=== PATIENT | male | born 1940 | race Caucasian/White ===

== ENCOUNTER 2016-11-10 16:33 | Observation (INO) | payer MEDICARE, OTHER ==
[~2016-11-10] VITALS: Ht 172.7 cm; Wt 70.0 kg
[~2016-11-10 16:33] MED LIST: AGGR20025 PO; ARIC10TA PO; AZIL1TAB2 PO; COMT200T PO; FEXO15TA PO; HYDR-3533 PO; HYDR-3580 PO; IRON18TA2 PO; MELA1CAP PO; MIDO5TAB PO; MULTTAB22 PO; NAME10TA PO; PENI500T PO; PRAV20TA2 PO; SINE25TA PO; STOO100C PO; VITA10002 PO
[2016-11-10 16:40] VITALS: BP 83/56; PULSE 78; RESP 16; TEMP 97.6; O2SAT 96
[2016-11-10] MEDS ORDERED: SODIUM CHLORIDE 0.9% FLUSH 5 ML FLUSH IVF PRN (17:00)
[2016-11-10] MEDS ORDERED: LIDOCAINE HCL 1% 50 ML VIAL INFIL ONE (17:00)
[2016-11-10] MEDS ORDERED: AGGR20025 PO (17:03)
[2016-11-10] MEDS ORDERED: VITA250T5 PO (17:03)
[2016-11-10] MEDS ORDERED: CYAN1000P IM (17:03)
[2016-11-10] MEDS ORDERED: [UNRECOGNIZED DRUG - CODE] (17:03)
--- NOTE | 2016-11-10 17:09 | PD ---
HPI Chief Complaint: Dizziness Time Seen by Provider: 16:47 Travel History International Travel<30 days: No Contact w/Intl Traveler<30days: No Traveled to known affect area: No History of Present Illness HPI 76-year-old male with history of Parkinson's disease, orthostatic hypotension, here for evaluation of frequent falls over the last 3 days as well as left hand and wrist laceration. At around 2:00 PM today the patient fell to the ground. He states he became very lightheaded. He believes it was a brief loss of consciousness. He landed onto his buttocks. During this fall he sustained a laceration to his left hand at the base of his fifth finger as well as the volar aspect of his wrist. He believes these lacerations were sustained from his walker. He is complaining of lower back and neck pain which is chronic for him, however worse after the fall. He denies head injury. He is on Aggrenox. No fevers, chills, cough, or recent illness. No chest pain or dyspnea. Fall was unwitnessed. According to the patient's the patient has been falling more frequently over the last 3 days. The patient's blood pressure was noted to be 83/56 in triage. Date of last tetanus was in 2014. The patient's neurologist is Dr. Eisenberg. [facility] Past Medical History Hx Anticoagulant Therapy: Yes Arthritis: Yes Cardiac Catheterization: Yes Cardiovascular Problems: No High Cholesterol: Yes Cerebrovascular Accident: Yes Diminished Hearing: No (BILATERAL HEARING AIDES-NOT IN AT THE MOMENT) Herniated Disk: Yes Musculoskeletal: Yes Neurologic: No Parkinson's Disease: Yes Respiratory: No Immunizations Current: Yes Past Surgical History Joint Replacement: Yes (RT KNEE) Neurologic Surgery: Yes (PARKINSONS) Social History Alcohol Use: Yes (OCCASIONAL) Tobacco Use: No Substance Use: No Allergies-Medications (Allergen,Severity, Reaction): Coded Allergies: No Known Allergies (Verified , 08/12/16) Reported Meds & Prescriptions Reported Meds & Active Scripts Active Penicillin V Potassium 500 Mg Tab 500 Mg PO Q6H Reported Northera (Droxidopa) 100 Mg Cap Aggrenox (Dipyridamole/Aspirin) 200-25 Mg Cap 1 Cap PO BID Vitamin B-12 (Cyanocobalamin) 250 Mcg Tab 250 Mcg PO BID Stool Softener (Docusate Sodium) 100 Mg Cap 1 Tab PO DAILY PRN Multi For Him (Multiple Vitamins W/ Minerals) 1 Tab Tab 1 Tab PO DAILY Iron (Ferrous Fumarate) 18 Mg Tab 18 Mg PO DAILY PRN Melatonin 1 Mg Cap Mg PO HS Midodrine 5 Mg Tab 5 Mg PO TID PRN Namenda (Memantine) 10 Mg Tab 10 Mg PO BID ween off to d/c Aricept (Donepezil) 10 Mg Tab 10 Mg PO HS Hydrocodone-Acetaminophen 7.5-325 mg Tab 1 Tab PO Q4H PRN Rosa Allergy (Fexofenadine HCl) 180 Mg Tab 180 Mg PO DAILY Pravastatin 20 Mg Tab 20 Mg PO DAILY Azilect (Rasagiline) 1 Mg Tab 1 Mg PO DAILY Sinemet (Carbidopa-Levodopa) 25-100 Mg Tab 1 Tab PO QID Comtan (Entacapone) 200 Mg Tab 200 Mg PO QID administered concomitantly with each levodopa/carbidopa dose Review of Systems Except as stated in HPI: all other systems reviewed are Neg Physical Exam Narrative GENERAL: Well-developed, well-nourished, awake, alert, no acute distress. SKIN: Warm and dry. To the dorsal aspect of left hand at base of fifth finger, moderate depth, no apparent tendon or ligamentous injury, no visible contamination, no active bleeding. There is a horizontal laceration over the anterior/distal left wrist with moderate depth, no exposed tendons or ligaments , no visible contamination, no active bleeding. HEAD: Atraumatic. Normocephalic. EYES: Pupils equal and round. No scleral icterus. No injection or drainage. ENT: No nasal bleeding or discharge. Mucous membranes pink and moist. NECK: Trachea midline. No JVD. CARDIOVASCULAR: Regular rate and rhythm. No murmur appreciated. RESPIRATORY: No accessory muscle use. Clear to auscultation. Breath sounds equal bilaterally. GASTROINTESTINAL: Abdomen soft, non-tender, nondistended. MUSCULOSKELETAL: No obvious deformities. No clubbing. No cyanosis. No edema. Normal range of motion in all joints and extremities. Specifically there is normal range of motion of flexion and extension in all fingers in the left hand as well as left wrist. Pelvis is stable. Normal range of motion in bilateral lower extremities without shortening or rotational deformities. Mild midline cervical spine and lumbar spine tenderness without obvious step-off. NEUROLOGICAL: Awake and alert. No obvious cranial nerve deficits. Motor grossly within normal limits. Normal speech. PSYCHIATRIC: Appropriate mood and affect; insight and judgment normal. Data Data Last Documented VS Vital Signs Date Time Temp Pulse Resp B/P Pulse Ox O2 Delivery O2 Flow Rate FiO2 11/10/16 19:18 72 112/54 78 99/45 11/10/16 18:06 98 Room Air 11/10/16 16:40 97.6 16 Orders Electrocardiogram (11/10/16 16:56) Basic Metabolic Panel (Bmp) (11/10/16 16:56) Ckmb (Isoenzyme) Profile (11/10/16 16:56) Complete Blood Count With Diff (11/10/16 16:56) Prothrombin Time / Inr (Pt) (11/10/16 16:56) Act Partial Throm Time (Ptt) (11/10/16 16:56) Troponin I (11/10/16 16:56) Chest, Single Ap (11/10/16 16:56) Ecg Monitoring (11/10/16 16:56) Bilateral Bp Monitoring (11/10/16 16:56) Iv Access Insert/Monitor (11/10/16 16:56) Oximetry (11/10/16 16:56) Oxygen Administration (11/10/16 16:56) Sodium Chloride 0.9% Flush (Ns Flush) (11/10/16 17:00) Lidocaine 1% Inj (50 Ml) (Xylocaine 1% I (11/10/16 17:00) Ct Brain W/O Iv Contrast(Rout) (11/10/16 ) Ct Cerv Spine W/O Contrast (11/10/16 ) Ct Thor Spine W/O Contrast (11/10/16 ) Ct Lumb Spine W/O Contrast (11/10/16 ) Urinalysis - C+S If Indicated (11/10/16 16:56) Hand, Complete (Mmo0edl) (11/10/16 ) Orthostatic Vital Signs (11/10/16 18:00) CKMB (11/10/16 17:57) CKMB% (11/10/16 17:57) Labs Laboratory Tests Test 11/10/16 17:57 White Blood Count 7.5 TH/MM3 Red Blood Count 3.56 MIL/MM3 Hemoglobin 11.2 GM/DL Hematocrit 33.9 % Mean Corpuscular Volume 95.3 FL Mean Corpuscular Hemoglobin 31.4 PG Mean Corpuscular Hemoglobin 32.9 % Concent Red Cell Distribution Width 11.9 % Platelet Count 191 TH/MM3 Mean Platelet Volume 6.9 FL Neutrophils (%) (Auto) 84.6 % Lymphocytes (%) (Auto) 9.1 % Monocytes (%) (Auto) 5.5 % Eosinophils (%) (Auto) 0.2 % Basophils (%) (Auto) 0.6 % Neutrophils # (Auto) 6.4 TH/MM3 Lymphocytes # (Auto) 0.7 TH/MM3 Monocytes # (Auto) 0.4 TH/MM3 Eosinophils # (Auto) 0.0 TH/MM3 Basophils # (Auto) 0.0 TH/MM3 CBC Comment DIFF FINAL Differential Comment Prothrombin Time 10.6 SEC Prothromb Time International 1.0 RATIO Ratio Activated Partial 24.7 SEC Thromboplast Time Sodium Level 142 MEQ/L Potassium Level 4.9 MEQ/L Chloride Level 110 MEQ/L Carbon Dioxide Level 24.4 MEQ/L Anion Gap 8 MEQ/L Blood Urea Nitrogen 23 MG/DL Creatinine 1.30 MG/DL Estimat Glomerular Filtration 53 ML/MIN Rate Random Glucose 104 MG/DL Calcium Level 8.1 MG/DL Total Creatine Kinase 120 U/L Creatine Kinase MB 1.2 NG/ML Troponin I LESS THAN 0.02 NG/ML MDM Medical Decision Making Medical Screen Exam Complete: Yes Emergency Medical Condition: Yes Medical Record Reviewed: Yes Interpretation(s) EKG: Sinus, rate 63, normal axis, normal intervals, no acute ischemic abnormality. Differential Diagnosis Orthostatic hypotension, intracranial trauma, cervical spine injury, lumbar spine injury, left hand/wrist laceration, left hand fracture, anemia, dehydration/electrolyte abnormality Narrative Course Initial vital signs show heart rate 70, blood pressure 83/56, pulse ox 96% on room air, oral temp 97.6F. CBC shows WBC 7.5, hemoglobin 11.2, hematocrit 33.9, platelets 191. Neutrophils 84.6%. BMP is remarkable for BUN 23, creatinine 1.3, GFR 53, otherwise unremarkable. Cardiac enzymes are negative. Chest x-ray shows no acute disease. CT head read as negative for an acute process. CT cervical spine shows multilevel degenerative disc disease, no acute fracture. CT thoracic spine shows moderate degenerative disc disease, no acute fracture. CT lumbar spine shows no acute fracture, mild degenerative retrolisthesis between L1 and L4, no significant central canal stenosis, severe degenerative disc disease between L1 and L4. Left hand and wrist lacerations repaired. See procedure note. Orthostatic vital signs were attempted, however the patient could not stand as he became very dizzy. Patient is clearly a major fall risk and is unsafe to be discharged home. The patient's agrees that she will be unable to take care of him at home. He will be admitted for overnight observation for frequent falls, orthostatic hypotension. Case discussed with [facility] hospitalist Dr. Portillo. The patient will be admitted to their service under Dr. Story. Procedures Procedure Narrative LACERATION #1 LOCATION: Left anterior/distal forearm LENGTH: 3.5 cm NUMBER OF STITCHES/JOSE M: Five 4-0 nylon simple interrupted sutures REPAIR: The area of the laceration was prepped with Betadine and sterilely draped. The laceration was infiltrated with 3 cc of 1% lidocaine. The wound was copiously irrigated and explored without evidence of foreign body, tendon injury or neurovascular injury. The wound was closed using Five 4-0 nylon simple interrupted sutures. This was a single layer repair. A sterile dressing was applied. The patient was advised to keep the dressing clean and dry. Patient tolerated the procedure well. LACERATION #2 LOCATION: Left fifth finger LENGTH: 6 cm NUMBER OF STITCHES/JOSE M: Ten 5-0 simple interrupted nylon sutures REPAIR: The area of the laceration was prepped with Betadine and sterilely draped. The laceration was infiltrated with 2 cc of 1% lidocaine. The wound was copiously irrigated and explored without evidence of foreign body, tendon injury or neurovascular injury. The wound was closed using Ten 5-0 simple interrupted nylon sutures. This was a single layer repair. A sterile dressing was applied. The patient was advised to keep the dressing clean and dry. Patient tolerated the procedure well. Diagnosis Primary Impression: Frequent falls Additional Impressions: Orthostatic hypotension Laceration of left hand Qualified Code: S61.412A - Laceration of left hand, initial encounter Admitting Information Admitting Physician Requests: Observation Joaquín Bobo MD Nov 10, 2016 17:09
--- NOTE | 2016-11-10 17:44 | RADHPO ---
EXAM DATE/TIME: 11/10/2016 17:08 [facility] COMPARISON: No previous studies available for comparison. INDICATIONS : Syncopal episodes with recent falls. MEDICAL HISTORY : Cardiovascular disease. Parkinson's SURGICAL HISTORY : Cardiac catheterization ENCOUNTER: Initial ACUITY: 2 days PAIN SCORE: 0/10 LOCATION: chest FINDINGS: A single view of the chest demonstrates the lungs to be symmetrically aerated without evidence of mas s, infiltrate or effusion. The cardiomediastinal contours are unremarkable. Osseous structures are intact. CONCLUSION: No acute disease. Girish Metz MD FACR on November 10, 2016 at 17:42 Board Certified Radiologist. This report was verified electronically.
--- NOTE | 2016-11-10 17:47 | RADHPO ---
EXAM DATE/TIME: 11/10/2016 17:19 [facility] COMPARISON: CT BRAIN W/O CONTRAST, January 11, 2015, 21:38. INDICATIONS : Syncopal episode with multiple falls. RADIATION DOSE: 61.20 CTDIvol (mGy) MEDICAL HISTORY : Cerebrovascular disease. Cardiovascular disease SURGICAL HISTORY : None. ENCOUNTER: Initial ACUITY: 2 days PAIN SCALE: 0/10 LOCATION: cranial TECHNIQUE: Multiple contiguous axial images were obtained of the head. Using automated exposure control and adjustment of the mA and/or kV according to patient size, radiation dose was kept as low as reasonably achievable to obtain optimal diagnostic quality images. FINDINGS: CEREBRUM: The ventricles are normal for age. No evidence of midline shift, mass lesion, hemorrha ge or acute infarction. No extra-axial fluid collections are seen. POSTERIOR FOSSA: The cerebellum and brainstem are intact. The 4th ventricle is midline. The cer ebellopontine angle is unremarkable. EXTRACRANIAL: The visualized portion of the orbits is intact. SKULL: The calvaria is intact. No evidence of skull fracture. CONCLUSION: Negative for an acute process. Girish Metz MD FACR on November 10, 2016 at 17:45 Board Certified Radiologist. This report was verified electronically.
--- NOTE | 2016-11-10 17:52 | RADHPO ---
EXAM DATE/TIME: 11/10/2016 17:12 [facility] COMPARISON: No previous studies available for comparison. INDICATIONS : Left hand pain after fall. MEDICAL HISTORY : None. SURGICAL HISTORY : None. ENCOUNTER: Initial ACUITY: 1 day PAIN SCORE: 7/10 LOCATION: Left hand FINDINGS: There are degenerative changes present in the carpus. Alignment is anatomic. Fracture is not appreciated. CONCLUSION: Degenerative changes without fracture. Girish Metz MD FACR on November 10, 2016 at 17:42 Board Certified Radiologist. This report was verified electronically.
[2016-11-10 18:06] VITALS: O2SAT 98
[2016-11-10 18:06] LABS: AUTOMATED NEUTROPHIL # 6.4 TH/MM3 (1.8-7.7); BASOPHIL % 0.6 % (0.0-2.0); EOSINOPHIL % 0.2 % (0.0-4.0); HEMATOCRIT 33.9 % (39.0-51.0); LYMPH % 9.1 % (9.0-44.0); LYMPHOCYTE # 0.7 TH/MM3 (1.0-4.8); MEAN CELL VOLUME 95.3 FL (80.0-100.0); MEAN CORPUSCULAR HEMOGLOBIN 31.4 PG (27.0-34.0); MEAN CORPUSCULAR HGB CONC 32.9 % (32.0-36.0); MONO % 5.5 % (0.0-8.0); NEUT % 84.6 % (16.0-70.0); PLATELET COUNT 191 TH/MM3 (150-450); RED BLOOD COUNT 3.56 MIL/MM3 (4.50-5.90); RED CELL DISTRIBUTION WIDTH 11.9 % (11.6-17.2); WHITE BLOOD COUNT 7.5 TH/MM3 (4.0-11.0)
--- NOTE | 2016-11-10 18:06 | RADHPO ---
EXAM DATE/TIME: 11/10/2016 17:19 [facility] COMPARISON: CT CERVICAL SPINE W/O CONTRAST, January 11, 2015, 23:13. INDICATIONS : Trauma, fall. RADIATION DOSE: 26.69 CTDIvol (mGy) MEDICAL HISTORY : Cerebrovascular disease. Cardiovascular disease SURGICAL HISTORY : None. ENCOUNTER: Initial ACUITY: 2 days PAIN SCALE: 0/10 LOCATION: Neck TECHNIQUE: Volumetric scanning of the cervical spine was performed. Multiplanar reconstructions i n the sagittal, coronal and oblique axial planes were performed. Using automated exposure control a nd adjustment of the mA and/or kV according to patient size, radiation dose was kept as low as reason ably achievable to obtain optimal diagnostic quality images. FINDINGS: Sagittal and coronal reconstructions show multilevel degenerative disc disease with los s of disc height at just about every cervical level. There is a minimal Grade I retrolisthesis of C3 on 4. Minimal uncovertebral ridging is seen at predominantly C3-4 through C5-6. Vertebral body height s are maintained without fracture. There is some facet hypertrophy at multiple cervical levels but m ost prominent at C3-4. Minimal uncovertebral ridging is seen at C3-4 and C4-5 as well. Detailed axia l images as follows: C2-C3: The bony spinal canal is normal in size. No evidence of disc bulge or herniation. The neura l foramina are bilaterally patent. C3-C4: Right-sided facet hypertrophy. There is also some uncovertebral ridging. The combination garber s result in some narrowing of both neural foramina. Spinal canal is adequate. C4-C5: Uncovertebral ridging. Mild facet hypertrophy. There is some encroachment on the right neur al foramina but I believe the spinal canal and neural foramina remain adequate. C5-C6: The bony spinal canal is normal in size. No evidence of disc bulge or herniation. The neura l foramina are bilaterally patent. C6-C7: The bony spinal canal is normal in size. No evidence of disc bulge or herniation. The neura l foramina are bilaterally patent. C7-T1: The bony spinal canal is normal in size. No evidence of disc bulge or herniation. The neura l foramina are bilaterally patent. CONCLUSION: 1. Multilevel degenerative disc disease with loss of disc height at just about cervical level. 2. Minimal Grade I retrolisthesis of C3 on 4. Otherwise, no acute fracture. Frank Reynolds MD on November 10, 2016 at 17:50 Board Certified Radiologist. This report was verified electronically.
--- NOTE | 2016-11-10 18:12 | RADHPO ---
EXAM DATE/TIME: 11/10/2016 17:27 [facility] COMPARISON: No previous studies available for comparison. INDICATIONS : Trauma, fall. RADIATION DOSE: 17.30 CTDIvol (mGy) ; Combined studies - Thoracic Spine/Lumbar Spine MEDICAL HISTORY : Cerebrovascular disease. Cardiovascular disease SURGICAL HISTORY : None. ENCOUNTER: Initial ACUITY: 1 day PAIN SCALE: 0/10 LOCATION: Paraspinal TECHNIQUE: Volumetric scanning of the thoracic spine was performed. Multiplanar reconstructions in the sagittal , coronal and oblique axial planes were performed. Using automated exposure control and adjustment o f the mA and/or kV according to patient size, radiation dose was kept as low as reasonably achievable to obtain optimal diagnostic quality images. FINDINGS: The vertebral bodies of the thoracic spine are in normal alignment without evidence of subluxation. Vertebral body height is maintained. No fractures are seen. T1-T2: Normal. T2-T3: The thecal sac has a normal diameter. No evidence of disc bulge or protrusion. T3-T4: The thecal sac has a normal diameter. No evidence of disc bulge or protrusion. T4-T5: The thecal sac has a normal diameter. No evidence of disc bulge or protrusion. T5-T6: The thecal sac has a normal diameter. No evidence of disc bulge or protrusion. T6-T7: The thecal sac has a normal diameter. No evidence of disc bulge or protrusion. T7-T8: The thecal sac has a normal diameter. No evidence of disc bulge or protrusion. T8-T9: The thecal sac has a normal diameter. No evidence of disc bulge or protrusion. T9-T10: The thecal sac has a normal diameter. No evidence of disc bulge or protrusion. T10-T11: The thecal sac has a normal diameter. No evidence of disc bulge or protrusion. T11-T12: The thecal sac has a normal diameter. No evidence of disc bulge or protrusion. T12-L1: The thecal sac has a normal diameter. No evidence of disc bulge or protrusion. CONCLUSION: 1. There is moderate degenerative disc disease. No acute fracture or spondylolisthesis. No significan t bony canal stenosis. Small Schmorl's nodes inferiorly at T10-11 and T11-12. Clifford Fields MD on November 10, 2016 at 18:05 Board Certified Radiologist. This report was verified electronically.
[2016-11-10 18:13] LABS: CHLORIDE 110 MEQ/L (98-107); POTASSIUM 4.9 MEQ/L (3.5-5.1); SODIUM (NA) 142 MEQ/L (136-145)
[2016-11-10 18:14] LABS: HEMO FLAGS DIFF FINAL
--- NOTE | 2016-11-10 18:15 | RADHPO ---
EXAM DATE/TIME: 11/10/2016 17:27 [facility] COMPARISON: No previous studies available for comparison. INDICATIONS : Trauma, fall. RADIATION DOSE: 17.30 CTDIvol (mGy) ; Combined studies - Thoracic Spine/Lumbar Spine MEDICAL HISTORY : None SURGICAL HISTORY : None. ENCOUNTER: Initial ACUITY: 2 days PAIN SCALE: 7/10 LOCATION: lower back TECHNIQUE: Volumetric scanning of the lumbar spine was performed. Multiplanar reconstructions in the sagittal, coronal and oblique axial planes were performed. Using automated exposure control and adjustment of the mA and/or kV according to patient size, radiation dose was kept as low as reasonably achievable t o obtain optimal diagnostic quality images. FINDINGS: There is a mild rotatory lumbar levoscoliosis. There is a minimal retrolisthesis of L1 on L2 on L3 on L4. No significant central canal stenosis. No acute fracture. There is bony neural foraminal stenosi s on the right side at L4-5 and L3-4 and L2-3. CONCLUSION: 1. No acute fracture. Mild degenerative retrolisthesis between L1 and L4 as above. No significant tony tral canal stenosis. Severe degenerative disc disease between L1 and L4. Clifford Fields MD on November 10, 2016 at 18:10 Board Certified Radiologist. This report was verified electronically.
[2016-11-10 18:16] LABS: ANION GAP 8 MEQ/L (5-15); BICARBONATE 24.4 MEQ/L (21.0-32.0); BLOOD UREA NITROGEN 23 MG/DL (7-18)
[2016-11-10 18:18] LABS: APTT (PATIENT) 24.7 SEC (24.3-30.1); PROTHROMBIN TIME - PATIENT 10.6 SEC (9.8-11.6)
[2016-11-10 18:19] LABS: GLOMERULAR FILTRATION RATE 53 ML/MIN (>89)
[2016-11-10 18:22] LABS: CREATINE KINASE 120 U/L (39-308)
[2016-11-10 18:35] LABS: CKMB 1.2 NG/ML (0.5-3.6)
[2016-11-10 19:18] VITALS: BP_SYST 112; BP_SYST 99; BP_DIAS 45; BP_DIAS 54
[2016-11-10] MEDS ORDERED: SODIUM CHLOR 0.9% 1000 ML INJ 1,000 ML IV SCH (19:33)
[2016-11-10 19:36] LABS: BLOOD, URINE NEG (NEG); GLUCOSE,URINE NEG (NEG); KETONE, URINE TRACE mg/dL (NEG); NITRITE,URINE NEG (NEG)
[2016-11-10 19:42] LABS: URINE COLOR DARK-YELLOW (YELLW/STRAW)
[2016-11-10 19:43] LABS: COMMENT (UR) CULT NOT INDICATED; CULTURE IF INDICATED CULT NOT INDICATED; RBC, URINE 0-2 /hpf (0-3); SQUAMOUS EPITHELIAL CELL URINE 0-5 /hpf (0-5); WBC, URINE 0-2 /hpf (0-5)
[2016-11-10 20:30] VITALS: BP 108/62; PULSE 77; RESP 16; O2SAT 95
[2016-11-10] MEDS ORDERED: DOCUSATE SODIUM 100 MG CAP PO PRN (21:00)
[2016-11-10] MEDS ORDERED: MIDODRINE 5 MG TAB PO PRN (21:00)
[2016-11-10] MEDS ORDERED: COMTAN 200 MG PO SCH (21:30)
[2016-11-10] MEDS: DONEPEZIL HCL 5 MG TAB PO SCH (21:37)
[2016-11-10] MEDS: CARBIDOPA/LEVODOPA 25 MG/100 MG TAB PO SCH (21:37)
[2016-11-10] MEDS: DIPYRIDAMOLE/ASPIRIN 200 MG/25 MG CAP PO SCH (21:37)
[2016-11-10] MEDS: MEMANTINE HCL 10 MG TAB PO SCH (21:37)
[2016-11-10] MEDS: SODIUM CHLOR 0.9% 1000 ML INJ 1,000 ML IV SCH (21:38)
[2016-11-10] MEDS: ACETAMINOPHEN/HYDROcodone 325 MG/7.5 MG TAB PO PRN (23:15)
[2016-11-10 23:19] VITALS: BP 114/70; PULSE 68; RESP 18; O2SAT 99
[2016-11-11] VITALS (8 sets, daily range): BP systolic 113–156; BP diastolic 63–85; PULSE 16–81; RESP 16–20; TEMP 96.2–98.5; O2SAT 93–100
--- NOTE | 2016-11-11 05:01 | EKG ---
Date Performed: 11/10/2016 Time Performed: 18:07:16 PTAGE: 76 years EKG: Sinus rhythm Normal ECG NO SIGNIFICANT CHANGE FROM PRIOR ELECTROCARDIOGRAM. PREVIOUS TRACING : 08/12/2016 20.02 DOCTOR: Sacha Fink Interpretating Date/Time 11/11/2016 04:59:48
[2016-11-11] MEDS ORDERED: AZILECT 1 MG PO SCH (09:00)
[2016-11-11] MEDS: MULTIVITAMIN HEMATINIC THERAPEUTIC TAB PO SCH (09:00)
[2016-11-11] MEDS ORDERED: FERROUS FUMARATE 325 MG TAB (106 MG ELEMENTAL IRON) PO PRN (09:00)
[2016-11-11] MEDS: CARBIDOPA/LEVODOPA 25 MG/100 MG TAB PO SCH ×4 (09:12→21:23)
[2016-11-11] MEDS: DIPYRIDAMOLE/ASPIRIN 200 MG/25 MG CAP PO SCH ×2 (09:12→21:22)
[2016-11-11] MEDS: CYANOCOBALAMIN 100 MCG TAB PO SCH ×2 (09:12→21:22)
[2016-11-11] MEDS: SODIUM CHLOR 0.9% 1000 ML INJ 1,000 ML IV SCH ×2 (09:12→16:48)
[2016-11-11] MEDS: MEMANTINE HCL 10 MG TAB PO SCH ×2 (09:12→21:22)
[2016-11-11] MEDS: PRAVASTATIN SOD 20 MG TAB PO SCH (09:12)
[2016-11-11] MEDS: LORATADINE 10 MG TAB PO SCH (09:13)
--- NOTE | 2016-11-11 09:39 | MH ---
cc: XAVIER MARTINEZ MD DATE OF ADMISSION: 11/10/2016 CHIEF COMPLAINT Dizziness. HISTORY OF PRESENT ILLNESS This is a 76-year male with past medical-surgical history significant for Parkinson's disease, orthostatic hypertension, history of stroke in the past, arthritis, hyperlipidemia, bilateral hearing problem using hearing aids, herniated disk, history of right knee surgery, came to the ER at [facility] for evaluation of frequent fall over the last 3 days and had left hand wrist laceration, around 02:00 p.m. yesterday, the patient fell on the ground and he became very lightheaded. He believed that there was a brief loss of consciousness. He landed on his buttock during this fall and sustained a laceration of his left hand and the base of the fifth finger as well as volar aspect of his wrist. He believed this laceration was sustained from his walker. He is complaining of lower back pain and neck pain which is chronic for him, however, worse after fall. He denies any head injury. He is on Aggrenox for stroke. Denies any fever or chills or cough. Denies any nausea, vomiting, diarrhea, constipation. Denies any shortness of breath. Denies any palpitation and chest pain before and after the fall. Denies any seizure-like activity. When I examined the patient the patient feels better but his blood pressure is noted to be 83/56 in triage. Other than that nothing significant. PAST MEDICAL AND SURGICAL HISTORY As dictated above. SOCIAL HISTORY Denies smoking, drinking, taking any drugs. Lives at home with . He is a retired residential plumber. FAMILY HISTORY Nothing significant. ALLERGIES NO KNOWN DRUG ALLERGIES. MEDICATIONS 1. Penicillin VK 500 mg p.o. q. 6-hours. 2. Droxidopa 100 mg, unknown frequency. 3. Aggrenox 200/25 p.o. b.i.d. 4. Vitamin B12; 250 mg twice a day. 5. Stool softener. 6. Colace 100 mg p.o. daily p.r.n. constipation. 7. Multivitamin p.o. daily. 8. Iron 18 mg p.o. daily. 9. Melatonin 1 mg p.o. at bedtime. 10. Midodrine 5 mg p.o. t.i.d. for orthostatic hypotension. 11. Namenda 10 mg p.o. b.i.d. 12. Aricept 10 mg p.o. at bedtime. 13. Hydrocodone acetaminophen one p.o. q.4 hours p.r.n. pain. 14. Rosa fexofenadine 180 mg p.o. daily. 15. Pravastatin 20 mg p.o. daily. 16. Rasagiline 1 mg p.o. daily. 17. Sinemet 1 mg p.o. q.i.d. 18. Comtan 10; 200 mg p.o. q.i.d. REVIEW OF SYSTEMS All review of systems are negative except for feeling weak and tired. PHYSICAL EXAMINATION GENERAL: This is a 76-year-old male laying on the bed, not in acute distress. VITAL SIGNS: Temperature 97.0, heart rate 81, respiration 20, blood pressure 156/85, O2 saturation 98% on room air. HEENT: Normocephalic, atraumatic. EOMI. PERRA. Oral mucosa moist. NECK: Supple. No visible thyromegaly. No neck mass. Trachea central. CVS: Regular rate and rhythm. Respiration is clear to auscultation bilaterally. ABDOMEN: Soft, nontender. Bowel sounds audible. EXTREMITIES: Shows there is a laceration/wound on the left hand and the base of the fifth finger as well as lower aspect of the wrist. SKIN: Warm and dry. There is a wound at the left hand and the base of the fifth finger as well as volar aspect of his wrist. NEURO: Awake, alert, oriented x4. No focal deficit. No gross deficit, motor or sensory deficit. PSYCHE: The patient is cooperative. Mood and affect is normal. LABORATORY DATA Include CBC is totally unremarkable except for hemoglobin 11.2 low, hematocrit 33.9 low, MPV 6.9 low, neutrophil is 84.6 high. BMP totally unremarkable except for chloride 110 high, GFR 53 low, BUN 23 high, calcium 8.1 low, troponin-I less than 0.02. PT 10.6, INR 1.0, APTT 24.7. Urine examination showed trace of ketones, otherwise urinalysis is normal. IMAGING STUDIES Thoracic CT spine done shows there is some moderate degenerative disk disease. No acute fracture, spondylolisthesis. No significant bony canal stenosis. Small Schmorl's node inferiorly at T10-11 and T11-12. CT lumbar spine was done and shows no acute fracture, mild degenerative retrolisthesis between L1 and L2 as above. No significant central canal stenosis, severe degenerative disk disease between L1 and L4. CT brain was done and shows negative for acute process. X-ray of the hand was done, report still pending. X-ray of the hand done shows degenerative changes without fracture. CT scan of the cervical spine was done and shows multilevel degenerative disk disease with loss of disk height at just about cervical level. Minimal grade 1 retrolisthesis of C3-C4, otherwise no acute fracture. Chest x-ray was done and shows nothing acute. ASSESSMENT/PLAN 1. This is a 76-year-old male who came to the ER diagnosed with status post fall. CT scan of the thoracic/lumbar spine, CT brain and x-ray of the cervical spine, CT and chest x-ray does not show any fracture, has degenerative disk disease. The patient is on pain medicine. Further recommendation per ___. 2. Questionable syncopal episode. The patient had orthostatic hypotension. I will consult neurology and cardiology for further evaluation. CT brain does not show anything acute. The patient is on Midodrine for orthostatic hypotension. 3. History of dementia. Continue home medication. 4. History of arthritis. Continue home medication. 5. History of stroke. The patient has a history of stroke/TIA. The patient is on Aggrenox. 6. History of anemia. The patient is on iron supplement and B12 supplement. 7. History of orthostatic hypotension. The patient is on Midodrine 5 mg p.o. t.i.d. 8. History of hyperlipidemia. Continue with pravastatin 20 mg p.o. daily. 9. History of Parkinsonism. Continue with Sinemet p.o. q.i.d. 10. DVT prophylaxis. SCDs. 11. GI prophylaxis. Protonix 40 mg p.o. daily. 12. We are going to manage the patient on a daily basis and make recommendation on a daily basis. Xavier Martinez MD EA/OSKAR /8:25 AM /8:42 AM
[2016-11-11] MEDS: PENICILLIN V POTASSIUM 500 MG TAB PO SCH ×2 (12:00→16:23)
--- NOTE | 2016-11-11 15:01 | MB ---
cc: MARIVEL LOYA MD DATE OF CONSULTATION: 11/11/2016 HISTORY OF PRESENT ILLNESS This is a 76-year-old gentleman who has a history of Parkinson's disease and orthostatic hypotension. He was admitted after having fallen. He has had a history of frequent falls, recently obtained a walker but became somewhat weak and lightheaded and fell. He believes he may have lost consciousness but if so only for seconds at a time. He lacerated his hand however, which required 15 sutures. He is currently resting comfortably. He has had a long history as noted above of Parkinson's and orthostatic hypotension. He is on Sinemet for his Parkinson's and he has also apparently been started on Midodrine for his orthostatic hypotension. No prior history of heart disease has been present. In reviewing his record he does have a history of TIA in 2011 for which he is on Aggrenox. No history of hypertension has been present. Apparently, his blood pressure was quite low at 83 systolic on admission to the hospital. PAST MEDICAL HISTORY Past medical history is otherwise unremarkable. PHYSICAL EXAMINATION GENERAL: On physical exam he is awake and alert. He is in no acute distress. VITAL SIGNS: Blood pressure is 115/70. NECK: There is no neck vein distension. Carotids are normal. CARDIOVASCULAR: Regular rate and rhythm with no murmur or gallop. EKG Electrocardiogram reveals normal sinus rhythm with no evidence for heart block or conduction delay. ASSESSMENT The patient likely has orthostatic hypotension. At this point in time little to offer except a trial of Florinef 0.1 mg daily and also he may benefit from JOSSELINE hose. Initially ordered knee-high JOSSELINE hose but may actually benefit from thigh-highs to help with his orthostatic hypotension. Certainly should watch him overnight to rule out any occult bradycardic rhythms which may also have aggravated his condition. Thank you for having us see him in consultation. MD ANGELA Moore/ALEJANDRINAL /2:08 PM /2:42 PM
[2016-11-11] MEDS: ACETAMINOPHEN/HYDROcodone 325 MG/7.5 MG TAB PO PRN (18:46)
[2016-11-11] MEDS: DONEPEZIL HCL 5 MG TAB PO SCH (21:23)
--- NOTE | 2016-11-11 22:27 | MB ---
cc: BRANDI HERNANDEZ M.D. DATE OF CONSULTATION 11/11/16 REASON FOR CONSULTATION Syncope HISTORY OF PRESENT ILLNESS Mr. Pacheco is a very nice 76-year-old man who two days ago had an episode of loss of consciousness. He states he got up, felt lightheaded then passed out for a brief period of time. He landed on his buttock area. He had no postictal state. No tonic-clonic activity. He has had some episodes of lightheadedness if he gets up too quickly. PAST MEDICAL HISTORY 1. History of Parkinson's disease 2. Orthostatic hypotension 3. Stroke in the past, 4. Hyperlipidemia, 5. Hearing loss. MEDICATIONS 1. Penicillin 2. Droxidopa 3. Aggrenox 4. Vitamin B12 5. Colace, 6. Iron 7. Melatonin 8. Midodrine 5 mg t.i.d. for orthostasis 9. Namenda 10 mg b.i.d. 10. Aricept 10 mg at bedtime, 11. Hydrocodone, 12. Rosa 13. Pravastatin 14. Rasagiline 1 mg daily, 15. Sinemet q.i.d., 16. Comtan 200 mg q.i.d. ALLERGIES None known. NEUROLOGICAL EXAMINATION Vital signs - blood pressure 141/70, pulse 72, respirations 20, temperature 98 degrees. Higher cortical function is normal. Cranial nerves: He has diminished facial expressiveness. The extraocular movements are intact. Motor exam - he is moderately bradykinetic with mild cogwheeling. No focal deficits seen. Reflexes are symmetric. IMAGING STUDIES CT scan of the brain is normal. CT lumbar spine shows degenerative arthritis with no fracture. no significant stenosis identified. CT thoracic spine moderate degenerative disk disease, no fractures identified. CT cervical spine - mild degenerative disk disease, mild grade 1 retrolisthesis C3-C4, no fracture. No stenosis. LABORATORY DATA White count 7500, hemoglobin 9.2, hematocrit 33%, platelets 191,000. Sodium is 142, potassium 4.9, chloride 110, BUN is 23, creatinine 1.3, glucose 104, PT 10.6, INR one, APTT 24.7. ASSESSMENT Syncope was related to orthostatic hypotension which may be due to his Parkinson's disease or possibly Parkinson's medications. RECOMMENDATIONS I agree with the addition of Florinef 0.1 mg in the morning, also continue his Midodrine. MD ASHLEY Bach/ /9:19 PM /10:08 PM
[2016-11-12] VITALS: BP 121/76; PULSE 65; RESP 16; TEMP 97; O2SAT 95
[2016-11-12] MEDS: SODIUM CHLOR 0.9% 1000 ML INJ 1,000 ML IV SCH ×2 (03:15→08:34)
[2016-11-12 04:00] VITALS: BP 139/82; PULSE 59; RESP 16; TEMP 95.7; O2SAT 96
[2016-11-12 05:52] LABS: AUTOMATED NEUTROPHIL # 2.4 TH/MM3 (1.8-7.7); BASOPHIL % 0.8 % (0.0-2.0); EOSINOPHIL % 1.2 % (0.0-4.0); HEMATOCRIT 30.8 % (39.0-51.0); HEMO FLAGS DIFF FINAL; LYMPH % 27.6 % (9.0-44.0); LYMPHOCYTE # 1.1 TH/MM3 (1.0-4.8); MEAN CORPUSCULAR HEMOGLOBIN 31.2 PG (27.0-34.0); MEAN CORPUSCULAR HGB CONC 32.9 % (32.0-36.0); MONO % 7.9 % (0.0-8.0); NEUT % 62.5 % (16.0-70.0); PLATELET COUNT 164 TH/MM3 (150-450); RED BLOOD COUNT 3.24 MIL/MM3 (4.50-5.90); RED CELL DISTRIBUTION WIDTH 11.8 % (11.6-17.2); WHITE BLOOD COUNT 3.8 TH/MM3 (4.0-11.0)
--- NOTE | 2016-11-12 06:52 | HHI.PR ---
Subjective History of Present Illness Patient feel better cardiology/ neurology input noted ok to DC per consultants D/W RIGOBERTO Aranda Review of Systems Constitutional Constitutional Remarks All ROS Negative. Vitals/Results Intake & Output 11/11/16 11/11/16 11/12/16 15:00 23:00 07:00 Intake Total 570 ml 630 ml 1000 ml Output Total 1350 ml 5700 ml Balance -780 ml 630 ml -4700 ml Intake Oral 570 ml 630 ml IV Total 1000 ml Output Urine Total 1350 ml 5700 ml # Voids 3 Vital Signs Vital Signs Date Time Temp Pulse Resp B/P Pulse Ox O2 Delivery O2 Flow Rate FiO2 11/12/16 04:00 95.7 59 16 139/82 96 11/12/16 00:00 97.0 65 16 121/76 95 11/11/16 21:00 56 11/11/16 21:00 57 11/11/16 20:00 97.4 16 16 113/70 96 11/11/16 16:00 98.5 72 20 141/72 99 11/11/16 12:00 97.5 70 20 118/69 98 11/11/16 07:56 97.0 81 20 156/85 93 CBC/BMP: 11/12/16 0502 11/10/16 1757 Lab Results Laboratory Tests Test 11/12/16 05:02 White Blood Count 3.8 TH/MM3 Red Blood Count 3.24 MIL/MM3 Hemoglobin 10.1 GM/DL Hematocrit 30.8 % Mean Corpuscular Volume 95.0 FL Mean Corpuscular Hemoglobin 31.2 PG Mean Corpuscular Hemoglobin 32.9 % Concent Red Cell Distribution Width 11.8 % Platelet Count 164 TH/MM3 Mean Platelet Volume 6.8 FL Neutrophils (%) (Auto) 62.5 % Lymphocytes (%) (Auto) 27.6 % Monocytes (%) (Auto) 7.9 % Eosinophils (%) (Auto) 1.2 % Basophils (%) (Auto) 0.8 % Neutrophils # (Auto) 2.4 TH/MM3 Lymphocytes # (Auto) 1.1 TH/MM3 Monocytes # (Auto) 0.3 TH/MM3 Eosinophils # (Auto) 0.0 TH/MM3 Basophils # (Auto) 0.0 TH/MM3 CBC Comment DIFF FINAL Differential Comment Physical Exam General General Appearance: Well Developed, Well Nourished, No Acute Distress, Comfortable Eyes Eye Exam: Pupils Equal, Pupils Reactive, Sclera White, Extraocular Movement Intact Throat Throat Exam: Oral Mucosa [place] & Moist, Oral Pharynx Normal Neck Neck Exam: Neck Supple, Trachea Midline Pulmonary Resp Exam: Clear Bilaterally, Breath Sounds Equal, No Distress Cardiology CV Exam: Regular, Normal Sinus Rhythm, Good Perfusion Gastrointestinal/Abdomen GI Exam: Soft, Non-Tender, Bowel Sounds Present Musculoskeletal MS Exam: Joints Intact, Normal Tone Integumentary Skin Exam: Clear, Warm, Dry, Intact Extremeties Extremities Exam: No Edema Neurologic Neuro Exam: Alert, Awake, Oriented, Speech Clear, Moving All Extremities, No Focal Deficits Psychiatric Psych Exam: Appropriate Responses PUD Prophylasis PUD Prophylaxis: Protonix Assessment/Plan Assessment/Plan ASSESSMENT/PLAN 1. This is a 76-year-old male who came to the ER diagnosed with status post fall. CT scan of the thoracic/lumbar spine, CT brain and x-ray of the cervical spine, CT and chest x-ray does not show any fracture, has degenerative disk disease. The patient is on pain medicine. Further recommendation per patient progress. 2. Questionable syncopal episode. The patient had orthostatic hypotension. neurology and cardiology input noted ok to Discharge. CT brain does not show anything acute. The patient is on Midodrine + flourinicef for orthostatic hypotension. 3. History of dementia. Continue home medication. 4. History of arthritis. Continue home medication. 5. History of stroke. The patient has a history of stroke/TIA. The patient is on Aggrenox. 6. History of anemia. The patient is on iron supplement and B12 supplement. 7. History of orthostatic hypotension. The patient is on Midodrine 5 mg p.o. t.i.d. 8. History of hyperlipidemia. Continue with pravastatin 20 mg p.o. daily. 9. History of Parkinsonism. Continue with Sinemet p.o. q.i.d. 10. DVT prophylaxis. SCDs. 11. GI prophylaxis. Protonix 40 mg p.o. daily. ok to DC Home today. f/u wioth PCP/Cardiology/ Neurology 1 week. condition at discharge good Activity as tolerated. Diet cardiac medicine see discharge medicine list. Discussed Condition with: Patient Xavier Stoyr MD Nov 12, 2016 06:52
[2016-11-12 07:06] LABS: ALKALINE PHOSPHATASE 56 U/L (45-117); ALT (GPT) LESS THAN 6 U/L (12-78); ANION GAP 8 MEQ/L (5-15); AST (GOT) 9 U/L (15-37); BICARBONATE 25.5 MEQ/L (21.0-32.0); BLOOD UREA NITROGEN 15 MG/DL (7-18); CHLORIDE 113 MEQ/L (98-107); GLOMERULAR FILTRATION RATE 85 ML/MIN (>89); POTASSIUM 4.1 MEQ/L (3.5-5.1); SODIUM (NA) 146 MEQ/L (136-145); TOTAL BILIRUBIN ADULT 0.5 MG/DL (0.2-1.0)
--- NOTE | 2016-11-12 07:48 | PD.CARD.PN ---
Subjective Subjective Remarks denies lightheadedness Objective Vital Signs / I&O Vital Signs Date Time Temp Pulse Resp B/P Pulse Ox O2 Delivery O2 Flow Rate FiO2 11/12/16 04:00 95.7 59 16 139/82 96 11/12/16 00:00 97.0 65 16 121/76 95 11/11/16 21:00 56 11/11/16 21:00 57 11/11/16 20:00 97.4 16 16 113/70 96 11/11/16 16:00 98.5 72 20 141/72 99 11/11/16 12:00 97.5 70 20 118/69 98 11/11/16 07:56 97.0 81 20 156/85 93 I/O 11/11/16 11/11/16 11/11/16 11/12/16 11/12/16 11/12/16 07:00 15:00 23:00 07:00 15:00 23:00 Intake Total 684 ml 570 ml 630 ml 1000 ml Output Total 900 ml 1350 ml 5700 ml Balance -216 ml -780 ml 630 ml -4700 ml Intake Oral 120 ml 570 ml 630 ml IV Total 564 ml 1000 ml Output Urine Total 900 ml 1350 ml 5700 ml # Voids 2 3 # Bowel Movements 0 Physical Exam GENERAL: Well-nourished, well-developed patient in no apparent distress. NECK: No JVD. No carotid bruit. CARDIOVASCULAR: Regular rate and rhythm. S1/S2 no murmur, rub, or gallop. RESPIRATORY: No accessory muscle use. Clear to auscultation. Breath sounds equal bilaterally. GASTROINTESTINAL: Abdomen soft, non-tender, nondistended. MUSCULOSKELETAL: Extremities without clubbing, cyanosis, or edema. Laboratory Laboratory Tests Test 11/12/16 05:02 White Blood Count 3.8 TH/MM3 Red Blood Count 3.24 MIL/MM3 Hemoglobin 10.1 GM/DL Hematocrit 30.8 % Mean Corpuscular Volume 95.0 FL Mean Corpuscular Hemoglobin 31.2 PG Mean Corpuscular Hemoglobin 32.9 % Concent Red Cell Distribution Width 11.8 % Platelet Count 164 TH/MM3 Mean Platelet Volume 6.8 FL Neutrophils (%) (Auto) 62.5 % Lymphocytes (%) (Auto) 27.6 % Monocytes (%) (Auto) 7.9 % Eosinophils (%) (Auto) 1.2 % Basophils (%) (Auto) 0.8 % Neutrophils # (Auto) 2.4 TH/MM3 Lymphocytes # (Auto) 1.1 TH/MM3 Monocytes # (Auto) 0.3 TH/MM3 Eosinophils # (Auto) 0.0 TH/MM3 Basophils # (Auto) 0.0 TH/MM3 CBC Comment DIFF FINAL Differential Comment Sodium Level 146 MEQ/L Potassium Level 4.1 MEQ/L Chloride Level 113 MEQ/L Carbon Dioxide Level 25.5 MEQ/L Anion Gap 8 MEQ/L Blood Urea Nitrogen 15 MG/DL Creatinine 0.87 MG/DL Estimat Glomerular Filtration 85 ML/MIN Rate Random Glucose 85 MG/DL Calcium Level 7.9 MG/DL Total Bilirubin 0.5 MG/DL Aspartate Amino Transf 9 U/L (AST/SGOT) Alanine Aminotransferase LESS THAN 6 U/L (ALT/SGPT) Alkaline Phosphatase 56 U/L Total Protein 5.7 GM/DL Albumin 3.1 GM/DL Assessment and Plan Problem List: (1) Orthostatic hypotension Assessment and Plan: no significant bradycardia on telemetry overnight. Proceed with thigh high compression stockings, good hydration, +/- continuation of fludrocortisone. Okay to d/c from CV standpoint, sign off Matthew Becerra Nov 12, 2016 07:48
[2016-11-12 08:00] VITALS: BP_SYST 125; BP_SYST 140; BP_DIAS 79; BP_DIAS 82; PULSE 60; RESP 16; TEMP 98; O2SAT 96
[2016-11-12] MEDS: MULTIVITAMIN HEMATINIC THERAPEUTIC TAB PO SCH (08:33)
[2016-11-12] MEDS: MEMANTINE HCL 10 MG TAB PO SCH (08:33)
[2016-11-12] MEDS: LORATADINE 10 MG TAB PO SCH (08:33)
[2016-11-12] MEDS: PRAVASTATIN SOD 20 MG TAB PO SCH (08:33)
[2016-11-12] MEDS: CARBIDOPA/LEVODOPA 25 MG/100 MG TAB PO SCH (08:33)
[2016-11-12] MEDS: DIPYRIDAMOLE/ASPIRIN 200 MG/25 MG CAP PO SCH (08:33)
[2016-11-12] MEDS: CYANOCOBALAMIN 100 MCG TAB PO SCH (08:33)
[2016-11-12] MEDS ORDERED: FLUDROCORTISONE ACETATE 0.1 MG TAB PO SCH (09:00)
[2016-11-12] MEDS ORDERED: FLUD.1 PO (10:03)
== END 2016-11-12 11:19 | disposition home or self-care (01) ==
LOC: PHED 16:33 → PHEDA 19:35 → PH3A 23:55
PROVIDERS: ADMIT Family Medicine; ATTEND Family Medicine
DX: R42 Dizziness and giddiness (principal); I95.1 Orthostatic hypotension; G20 Parkinson's disease; S61.412A Laceration without foreign body of left hand, initial encounter; S61.512A Laceration without foreign body of left wrist, initial encounter; R29.6 Repeated falls; Z79.01 Long term (current) use of anticoagulants; Z86.73 Personal history of transient ischemic attack (TIA), and cerebral infarction without residual deficits; M51.34 Other intervertebral disc degeneration, thoracic region; M51.36 Other intervertebral disc degeneration, lumbar region; M54.5 Low back pain; M50.31 Other cervical disc degeneration, high cervical region; F03.90 Unspecified dementia, unspecified severity, without behavioral disturbance, psychotic disturbance, mood disturbance, and anxiety; D50.9 Iron deficiency anemia, unspecified; E78.5 Hyperlipidemia, unspecified
CPT/HCPCS: 12004; 70450; 71010; 72125; 72128; 72131; 73130; 80048; 80053; 81001; 82550; 82552; 84484; 85025; 85610; 85730; 93005; 97162; 99285; G0378; G8987; G8988; J7030

== ENCOUNTER 2017-03-28 14:40 | Emergency (ER) | payer MEDICARE, OTHER ==
[~2017-03-28] VITALS: Ht 172.7 cm; Wt 69.0 kg
[~2017-03-28 14:40] MED LIST changes: +FLUD.1 PO; -HYDR-3533 PO; -VITA10002 PO; +VITA250T5 PO; +[UNRECOGNIZED DRUG - CODE]
[2017-03-28 14:43] VITALS: BP 108/73; PULSE 72; RESP 18; TEMP 97.9; O2SAT 100
[2017-03-28] MEDS ORDERED: ACETAMINOPHEN/HYDROcodone 325 MG/5 MG TAB PO ONE (15:30)
--- NOTE | 2017-03-28 15:31 | PD ---
HPI Chief Complaint: Fall Time Seen by Provider: 14:53 Travel History International Travel<30 days: No Contact w/Intl Traveler<30days: No Traveled to known affect area: No History of Present Illness HPI Patient is a 76 year old male presents with left hip pain and swelling after a fall today. Patient states has a history of orthostatic hypotension followed by Dr. Eisenberg. States he was walking today when he had one of his usual episodes wherein he felt very dizzy and by the time he thought to lower himself down he fell backwards onto his bottom. He is accompanied by his who states he usually loses conciousness and thinks today was the same but the patient adamantly denies LOC. He denies any head/neck/back/abd/or upper extremity pain. He is on aggrenox. No cp sob prior to the episode. He states this happens to him all the time. PFSH Past Medical History Hx Anticoagulant Therapy: Yes Arthritis: Yes Cancer: No Cardiac Catheterization: Yes Cardiovascular Problems: Yes High Cholesterol: Yes Congestive Heart Failure: No Cerebrovascular Accident: Yes Diabetes: No Diminished Hearing: No (BILATERAL HEARING AIDES-NOT IN AT THE MOMENT) Endocrine: No Gastrointestinal Disorders: No Genitourinary: No Herniated Disk: Yes Hypertension: No (RUNS LOW) Implanted Vascular Access Dvce: Yes Musculoskeletal: Yes Neurologic: Yes (PARKINSON'S) Parkinson's Disease: Yes Psychiatric: No Respiratory: No Immunizations Current: Yes Influenza Vaccination: Yes Past Surgical History Eye Surgery: Yes (REMOVED DROOPY SKIN) Joint Replacement: Yes (RT KNEE) Neurologic Surgery: No (PARKINSONS) Other Surgery: Yes (STITCHES IN BEFORE) Social History Alcohol Use: Yes (OCCASIONAL) Tobacco Use: No Substance Use: No Allergies-Medications (Allergen,Severity, Reaction): Coded Allergies: No Known Allergies (Verified , 03/28/17) Reported Meds & Prescriptions Reported Meds & Active Scripts Active Hydrocodone-Acetaminophen 5-325 mg Tab 1 Tab PO Q6H PRN Reported Northera (Droxidopa) 100 Mg Cap 600 Aggrenox (Dipyridamole/Aspirin) 200-25 Mg Cap 1 Cap PO BID Stool Softener (Docusate Sodium) 100 Mg Cap 1 Tab PO DAILY PRN Midodrine 5 Mg Tab 5 Mg PO TID PRN Aricept (Donepezil) 10 Mg Tab 10 Mg PO HS Hydrocodone-Acetaminophen 7.5-325 mg Tab 1 Tab PO Q4H PRN Rosa Allergy (Fexofenadine HCl) 180 Mg Tab 180 Mg PO DAILY Pravastatin 20 Mg Tab 20 Mg PO DAILY Azilect (Rasagiline) 1 Mg Tab 1 Mg PO DAILY Sinemet (Carbidopa-Levodopa) 25-100 Mg Tab 1 Tab PO TID Comtan (Entacapone) 200 Mg Tab 200 Mg PO TID administered concomitantly with each levodopa/carbidopa dose Review of Systems Except as stated in HPI: all other systems reviewed are Neg Physical Exam Narrative GENERAL: WD/WN in nad. SKIN: Warm and dry. HEAD: Atraumatic. Normocephalic. EYES: Pupils equal and round. No scleral icterus. No injection or drainage. ENT: No nasal bleeding or discharge. Mucous membranes pink and moist. NECK: Trachea midline. No JVD. CARDIOVASCULAR: Regular rate and rhythm. RESPIRATORY: No accessory muscle use. Clear to auscultation. Breath sounds equal bilaterally. GASTROINTESTINAL: Abdomen soft, non-tender, nondistended. Hepatic and splenic margins not palpable. MUSCULOSKELETAL: Extremities without clubbing, cyanosis, or edema. No obvious deformities. No midline c/t/l/s spine tenderness. There is a subcutaneous hematoma over the left hip extending posteriorly into the gluteus. Approximately softball sized. No overlying skin change.s NEUROLOGICAL: Awake and alert. No obvious cranial nerve deficits. Motor grossly within normal limits. Five out of 5 muscle strength in the arms and legs. Normal speech. PSYCHIATRIC: Appropriate mood and affect; insight and judgment normal. Data Data Last Documented VS Vital Signs Date Time Temp Pulse Resp B/P Pulse Ox O2 Delivery O2 Flow Rate FiO2 03/28/17 16:57 18 03/28/17 16:10 54 183/85 98 Room Air 03/28/17 14:[address] Brain W/O Iv Contrast(Rout) (03/28/17 ) Ct Cerv Spine W/O Contrast (03/28/17 ) Hip, Uni(Ap&Lat) W Ap Pelvis (03/28/17 ) Electrocardiogram (03/28/17 ) Acetamin-Hydrocod 325-5 Mg ([facility] 5-325 (03/28/17 15:30) MDM Medical Decision Making Medical Screen Exam Complete: Yes Emergency Medical Condition: Yes Interpretation(s) EKG shows normal sinus rhythm normal axis normal R-wave progression. No concerning ST segment changes.. Both the upper limits of normal otherwise intervals within normal limits. This borderline EKG. Differential Diagnosis Syncope, fall, head injury, hematoma, fracture. Narrative Course Last 24 hours Impressions Hip and Pelvis X-Ray 03/28/17 0000 Signed Impressions: Service Date/Time: Tuesday, March 28, 2017 15:31 - CONCLUSION: Negative for fracture or dislocation. Follow up in 7-10 days is suggested if symptoms persist. Girish Metz MD FACR Head CT 03/28/17 0000 Signed Impressions: Service Date/Time: Tuesday, March 28, 2017 15:25 - CONCLUSION: Negative for acute traumatic injury. Girish Metz MD FACR Cervical Spine CT 03/28/17 0000 Signed Impressions: Service Date/Time: Tuesday, March 28, 2017 15:25 - CONCLUSION: 1. Stable examination of the cervical spine. No acute finding is identified. 2. Multilevel degenerative disc disease and facet arthrosis of the cervical spine, as above. Foreign Miller MD Patient has a fair sized hematoma on the left hip/gluteus. However no indication for futher management of the hematoma now. DIscussed with the patient his repeated syncope/near syncope is cause for concern, he would like to follow up with his neurologist for further workup and i think this is fair given the chronic repetitive nature of these events. Diagnosis Primary Impression: Traumatic hematoma of buttock Qualified Code: S30.0XXA - Traumatic hematoma of buttock, initial encounter Med/Other Pt SpecificInfo: Prescription(s) given Scripts Hydrocodone-Acetaminophen 5-325 mg Tab1 Tab PO Q6H PRN (PAIN) #15 TAB Ref 0 Prov:Abelino Marks MD 03/28/17 Disposition: 01 DISCHARGE HOME Condition: Stable Abelino Marks MD Mar 28, 2017 15:31
--- NOTE | 2017-03-28 15:47 | RADRPT ---
EXAM DATE/TIME: 03/28/2017 15:25 [facility] COMPARISON: CT BRAIN W/O CONTRAST, November 10, 2016, 17:19. INDICATIONS : Fall. RADIATION DOSE: 62.63 CTDIvol (mGy) MEDICAL HISTORY : Parkinson's. Cardiovascular disease Cerebrovascular disease.Anticoagulant therapy. SURGICAL HISTORY : None. ENCOUNTER: Initial ACUITY: 1 day PAIN SCALE: 7/10 LOCATION: cranial TECHNIQUE: Multiple contiguous axial images were obtained of the head. Using automated exposure control and adj ustment of the mA and/or kV according to patient size, radiation dose was kept as low as reasonably a chievable to obtain optimal diagnostic quality images. DICOM format image data is available electro nically for review and comparison. FINDINGS: CEREBRUM: The ventricles are normal for age. No evidence of midline shift, mass lesion, hemorrhage or acute in farction. No extra-axial fluid collections are seen. POSTERIOR FOSSA: The cerebellum and brainstem are intact. The 4th ventricle is midline. The cerebellopontine angle i s unremarkable. EXTRACRANIAL: The visualized portion of the orbits is intact. SKULL: The calvaria is intact. No evidence of skull fracture. CONCLUSION: Negative for acute traumatic injury. Girish Metz MD FACR on March 28, 2017 at 15:44 Board Certified Radiologist. This report was verified electronically.
[2017-03-28 16:10] VITALS: BP 183/85; PULSE 54; RESP 16; O2SAT 98
--- NOTE | 2017-03-28 16:10 | RADRPT ---
EXAM DATE/TIME: 03/28/2017 15:25 [facility] COMPARISON: CT CERVICAL SPINE W/O CONTRAST, November 10, 2016, 17:19. INDICATIONS : Fall. RADIATION DOSE: 26.70 CTDIvol (mGy) MEDICAL HISTORY : Parkinson's. Cardiovascular disease Cerebrovascular disease. SURGICAL HISTORY : None. ENCOUNTER: Initial ACUITY: 1 day PAIN SCALE: 7/10 LOCATION: neck TECHNIQUE: Volumetric scanning of the cervical spine was performed. Multiplanar reconstructions in the sagittal, coronal and oblique axial planes were performed. Using automated exposure control and adjustment o f the mA and/or kV according to patient size, radiation dose was kept as low as reasonably achievable to obtain optimal diagnostic quality images. DICOM format image data is available electronically f or review and comparison. FINDINGS: There is normal sagittal spine alignment of the cervical spine. Stable minimal anterolisthesis of C7 on T1 is present. The atlantoaxial relationship is within normal limits. There is no prevertebral sof t tissue swelling present. No fracture or dislocation is identified. There is degenerative disc disea se at C3-C4 through C6-C7. There is left facet arthrosis at C7-T1 and there is fusion of the left fac et joints at C2-C3. The visualized portions of the posterior fossa, paraspinous soft tissues, and upper lung zones demons trate no acute abnormality. CONCLUSION: 1. Stable examination of the cervical spine. No acute finding is identified. 2. Multilevel degenerative disc disease and facet arthrosis of the cervical spine, as above. Foregin Miller MD on March 28, 2017 at 16:04 Board Certified Radiologist. This report was verified electronically.
--- NOTE | 2017-03-28 16:11 | RADRPT ---
EXAM DATE/TIME: 03/28/2017 15:31 [facility] COMPARISON: No previous studies available for comparison. INDICATIONS : Trauma, fall. MEDICAL HISTORY : None. SURGICAL HISTORY : None. ENCOUNTER: Initial ACUITY: 1 day PAIN SCORE: 4/10 LOCATION: Left pelvis hip. FINDINGS: Examination of the left hip was performed with AP Pelvis. The primary and secondary trabecular patte rn of the femoral neck is intact. Mild degenerative changes are evident.. The acetabulum is grossly intact. CONCLUSION: Negative for fracture or dislocation. Follow up in 7-10 days is suggested if symptoms persist. Girish Metz MD FACR on March 28, 2017 at 16:08 Board Certified Radiologist. This report was verified electronically.
[2017-03-28] MEDS ORDERED: HYDR-3516 PO (16:30)
[2017-03-28 16:57] VITALS: RESP 18
--- NOTE | 2017-03-29 17:16 | EKG ---
Date Performed: 03/28/2017 Time Performed: 15:28:15 PTAGE: 76 years EKG: Sinus rhythm NORMAL ECG PREVIOUS TRACING : 11/10/2016 18.07 Compared to prior tracing no significant change DOCTOR: Les Trimble Interpretating Date/Time 03/29/2017 17:13:33
== END 2017-03-28 16:58 | disposition home or self-care (01) ==
LOC: PHED 14:40
DX: S30.0XXA Contusion of lower back and pelvis, initial encounter (principal); W19.XXXA Unspecified fall, initial encounter; E78.00 Pure hypercholesterolemia, unspecified; G20 Parkinson's disease; Z86.73 Personal history of transient ischemic attack (TIA), and cerebral infarction without residual deficits; Z79.01 Long term (current) use of anticoagulants; R55 Syncope and collapse
CPT/HCPCS: 70450; 72125; 73502; 93005; 99285

== ENCOUNTER 2017-04-14 19:49 | Inpatient (IN) | payer MEDICARE, OTHER ==
[~2017-04-14] VITALS: Ht 172.7 cm; Wt 66.7 kg
[~2017-04-14 19:49] MED LIST changes: -FLUD.1 PO; +HYDR-3516 PO; -IRON18TA2 PO; -MELA1CAP PO; -MULTTAB22 PO; -NAME10TA PO; -PENI500T PO; -VITA250T5 PO
[2017-04-14 20:05] VITALS: BP 100/59; PULSE 78; RESP 18; TEMP 98.3; O2SAT 97
[2017-04-14 20:15] VITALS: BP 108/61; PULSE 70; RESP 16; O2SAT 98
[2017-04-14] MEDS ORDERED: SODIUM CHLOR 0.9% 1000 ML INJ 1,000 ML IV SCH (20:32)
--- NOTE | 2017-04-14 20:36 | PD ---
HPI Chief Complaint: GI Complaint Time Seen by Provider: 20:19 Travel History International Travel<30 days: No Contact w/Intl Traveler<30days: No Traveled to known affect area: No History of Present Illness HPI This 76-year-old male is complaining of black stool. He says he has had black stools for about a week. He has not had this before. He has not had any vomiting. He has no history of ulcer. He takes Aggrenox and she had a stroke 2 or 3 years ago. He does not take anti-inflammatory medications. He does not drink. He has a history of orthostatic hypotension and he has frequent falls. He was evaluated here recently for a contusion on his buttock related to a fall. He has been feeling lightheaded. He has a history of Parkinson's disease PFSH Past Medical History Hx Anticoagulant Therapy: Yes Arthritis: Yes Cancer: No Cardiac Catheterization: Yes Cardiovascular Problems: Yes (ORTHOSTATIC HYPOTENSION) High Cholesterol: Yes Congestive Heart Failure: No Cerebrovascular Accident: Yes Diabetes: No Diminished Hearing: No (BILATERAL HEARING AIDES-NOT IN AT THE MOMENT) Endocrine: No Gastrointestinal Disorders: No Genitourinary: No Herniated Disk: Yes Hypertension: No (RUNS LOW) Implanted Vascular Access Dvce: Yes Musculoskeletal: Yes Neurologic: Yes (PARKINSON'S) Parkinson's Disease: Yes Psychiatric: No Respiratory: No Immunizations Current: Yes Past Surgical History Eye Surgery: Yes (REMOVED DROOPY SKIN) Joint Replacement: Yes (RT KNEE) Neurologic Surgery: No (PARKINSONS) Other Surgery: Yes (STITCHES IN BEFORE) Social History Alcohol Use: Yes (OCCASIONAL) Tobacco Use: No Substance Use: No Allergies-Medications (Allergen,Severity, Reaction): Coded Allergies: No Known Allergies (Verified , 03/28/17) Reported Meds & Prescriptions Reported Meds & Active Scripts Active Reported Escitalopram (Escitalopram Oxalate) 10 Mg Tab 10 Mg PO DAILY Bob-Iron (Ferrous Sulfate) 15 Mg/Ml Mihai 18 Mg PO TID Northera (Droxidopa) 100 Mg Cap 500 Mg PO TID Donepezil 10 Mg Tab 10 Mg PO HS Aggrenox (Dipyridamole/Aspirin) 200-25 Mg Cap 1 Cap PO BID Stool Softener (Docusate Sodium) 100 Mg Cap 1 Tab PO DAILY PRN Midodrine 5 Mg Tab 5 Mg PO TID PRN Hydrocodone-Acetaminophen 7.5-325 mg Tab 1 Tab PO Q4H PRN Rosa Allergy (Fexofenadine HCl) 180 Mg Tab 180 Mg PO DAILY Pravastatin 20 Mg Tab 20 Mg PO DAILY Azilect (Rasagiline) 1 Mg Tab 1 Mg PO DAILY Sinemet (Carbidopa-Levodopa) 25-100 Mg Tab 1 Tab PO TID Comtan (Entacapone) 200 Mg Tab 200 Mg PO TID administered concomitantly with each levodopa/carbidopa dose Review of Systems General / Constitutional: No: Fever, Chills Eyes: No: Diploplia, Blurred Vision HENT: No: Headaches Cardiovascular: No: Chest Pain or Discomfort, Palpitations Respiratory: No: Cough, Shortness of Breath Gastrointestinal: Positive: Hematochezia, No: Diarrhea, Hematemesis, Constipation, Dysphagia, Loss of Appetite Genitourinary: No: Urgency, Frequency Musculoskeletal: No: Myalgias, Arthralgias Skin: No Rash Neurologic: Positive: Weakness, Dizziness Endocrine: No: Heat Intolerance, Cold Intolerance Hematologic/Lymphatic: No: Easy Bruising Physical Exam Narrative GENERAL: Elderly male blood pressure is 100/59. Pulse rate is 78 SKIN: Focused skin assessment warm/dry. There are scattered bruises from his numerous falls HEAD: Atraumatic. Normocephalic. EYES: Pupils equal and round. No scleral icterus. No injection or drainage. ENT: No nasal bleeding or discharge. Mucous membranes pink and moist. NECK: Trachea midline. No JVD. CARDIOVASCULAR: Regular rate and rhythm. No murmur appreciated. RESPIRATORY: No accessory muscle use. Clear to auscultation. Breath sounds equal bilaterally. GASTROINTESTINAL: Abdomen soft, non-tender, nondistended. Hepatic and splenic margins not palpable. Rectal exam stool is black. There are no masses. Stool is guaiac positive MUSCULOSKELETAL: No obvious deformities. No clubbing. No cyanosis. No edema. NEUROLOGICAL: Awake and alert. No obvious cranial nerve deficits. Motor grossly within normal limits. Normal speech. PSYCHIATRIC: Appropriate mood and affect; insight and judgment normal. Data Data Last Documented VS Vital Signs Date Time Temp Pulse Resp B/P Pulse Ox O2 Delivery O2 Flow Rate FiO2 04/14/17 20:30 98 04/14/17 20:05 98.3 78 100/59 97 Orders Complete Blood Count With Diff (04/14/17 20:32) Comprehensive Metabolic Panel (04/14/17 20:32) Prothrombin Time / Inr (Pt) (04/14/17 20:32) Act Partial Throm Time (Ptt) (04/14/17 20:32) Urinalysis - C+S If Indicated (04/14/17 20:32) Type And Screen (04/14/17 20:32) Ecg Monitoring (04/14/17 20:32) Iv Access Insert/Monitor (04/14/17 20:32) Oximetry (04/14/17 20:32) Sodium Chlor 0.9% 1000 Ml Inj (Ns 1000 M (04/14/17 20:32) Sodium Chloride 0.9% Flush (Ns Flush) (04/14/17 20:45) Pantoprazole Inj (Protonix Inj) (04/14/17 20:45) Pantoprazole Inj (Protonix Inj) (04/14/17 20:45) Red Blood Cells (Rbc) (04/14/17 21:14) Tizanidine Hcl (Zanaflex) (04/14/17 21:30) Labs Laboratory Tests Test 04/14/17 20:50 White Blood Count 7.2 TH/MM3 Red Blood Count 2.28 MIL/MM3 Hemoglobin 7.3 GM/DL Hematocrit 21.4 % Mean Corpuscular Volume 93.8 FL Mean Corpuscular Hemoglobin 31.8 PG Mean Corpuscular Hemoglobin 33.9 % Concent Red Cell Distribution Width 13.2 % Platelet Count 233 TH/MM3 Mean Platelet Volume 6.6 FL Neutrophils (%) (Auto) 82.0 % Lymphocytes (%) (Auto) 11.8 % Monocytes (%) (Auto) 5.6 % Eosinophils (%) (Auto) 0.3 % Basophils (%) (Auto) 0.3 % Neutrophils # (Auto) 5.9 TH/MM3 Lymphocytes # (Auto) 0.8 TH/MM3 Monocytes # (Auto) 0.4 TH/MM3 Eosinophils # (Auto) 0.0 TH/MM3 Basophils # (Auto) 0.0 TH/MM3 CBC Comment DIFF FINAL Differential Comment Prothrombin Time 10.7 SEC Prothromb Time International 1.0 RATIO Ratio Activated Partial 25.2 SEC Thromboplast Time Sodium Level 138 MEQ/L Potassium Level 4.7 MEQ/L Chloride Level 106 MEQ/L Carbon Dioxide Level 25.2 MEQ/L Anion Gap 7 MEQ/L Blood Urea Nitrogen 61 MG/DL Creatinine 1.40 MG/DL Estimat Glomerular Filtration 49 ML/MIN Rate Random Glucose 102 MG/DL Calcium Level 8.2 MG/DL Aspartate Amino Transf 13 U/L (AST/SGOT) Alanine Aminotransferase 8 U/L (ALT/SGPT) Albumin 3.4 GM/DL MDM Medical Decision Making Medical Screen Exam Complete: Yes Emergency Medical Condition: Yes Medical Record Reviewed: Yes Differential Diagnosis Differential includes GI bleed, anemia, dehydration Narrative Course Stool is guaiac positive. His hemoglobin today is 7.3. He had blood work in November at which time his hemoglobin was 10 patient does have orthostatic hypotension and is on multiple meds for this. He'll be started on blood. This appears to be an upper GI bleed Diagnosis Primary Impression: GI bleed Qualified Code: K92.2 - Gastrointestinal hemorrhage, unspecified gastrointestinal hemorrhage type Admitting Information Admitting Physician Requests: Admit Rudy Dunn MD Apr 14, 2017 20:36
[2017-04-14] MEDS ORDERED: PANTOPRAZOLE INJ 80 MG in SODIUM CHLORIDE 0.9% INJ 35 ML IV ONE (20:45)
[2017-04-14] MEDS ORDERED: SODIUM CHLORIDE 0.9% FLUSH 10 ML FLUSH IVF PRN (20:45)
[2017-04-14 21:00] VITALS: RESP 18; O2SAT 97
[2017-04-14 21:07] LABS: AUTOMATED NEUTROPHIL # 5.9 TH/MM3 (1.8-7.7); BASOPHIL % 0.3 % (0.0-2.0); EOSINOPHIL % 0.3 % (0.0-4.0); HEMATOCRIT 21.4 % (39.0-51.0); HEMO FLAGS DIFF FINAL; LYMPH % 11.8 % (9.0-44.0); LYMPHOCYTE # 0.8 TH/MM3 (1.0-4.8); MEAN CELL VOLUME 93.8 FL (80.0-100.0); MEAN CORPUSCULAR HEMOGLOBIN 31.8 PG (27.0-34.0); MEAN CORPUSCULAR HGB CONC 33.9 % (32.0-36.0); MONO % 5.6 % (0.0-8.0); PLATELET COUNT 233 TH/MM3 (150-450); RED BLOOD COUNT 2.28 MIL/MM3 (4.50-5.90); RED CELL DISTRIBUTION WIDTH 13.2 % (11.6-17.2); WHITE BLOOD COUNT 7.2 TH/MM3 (4.0-11.0)
[2017-04-14 21:19] LABS: CHLORIDE 106 MEQ/L (98-107); POTASSIUM 4.7 MEQ/L (3.5-5.1); SODIUM (NA) 138 MEQ/L (136-145)
[2017-04-14] MEDS ORDERED: DONE10TA7 PO (21:21)
[2017-04-14] MEDS ORDERED: [UNRECOGNIZED DRUG - CODE] PO (21:21)
[2017-04-14] MEDS ORDERED: ESCI10TA PO (21:21)
[2017-04-14] MEDS ORDERED: FER-15DR3 PO (21:21)
[2017-04-14 21:22] LABS: ANION GAP 7 MEQ/L (5-15); BICARBONATE 25.2 MEQ/L (21.0-32.0)
[2017-04-14 21:23] LABS: BLOOD UREA NITROGEN 61 MG/DL (7-18)
[2017-04-14 21:24] LABS: APTT (PATIENT) 25.2 SEC (24.3-30.1); PROTHROMBIN TIME - PATIENT 10.7 SEC (9.8-11.6)
[2017-04-14 21:25] LABS: ALT (GPT) 8 U/L (12-78)
[2017-04-14 21:26] LABS: AST (GOT) 13 U/L (15-37); GLOMERULAR FILTRATION RATE 49 ML/MIN (>89)
[2017-04-14 21:27] LABS: TOTAL BILIRUBIN ADULT 0.6 MG/DL (0.2-1.0)
[2017-04-14 21:28] LABS: BLOOD, URINE NEG (NEG); GLUCOSE,URINE NEG (NEG); KETONE, URINE NEG (NEG); NITRITE,URINE NEG (NEG); PH, URINE 5.5 (5.0-8.5)
[2017-04-14 21:28] LABS: ALKALINE PHOSPHATASE 55 U/L (45-117)
[2017-04-14 21:30] VITALS: BP 117/64; PULSE 62; RESP 16; O2SAT 97
[2017-04-14] MEDS ORDERED: ZANA2CAP PO (21:55)
[2017-04-14 21:56] LABS: URINE COLOR YELLOW (YELLW/STRAW)
[2017-04-14 21:57] LABS: COMMENT (UR) CULT NOT INDICATED; CULTURE IF INDICATED CULT NOT INDICATED; MUCUS URINE FEW /lpf (OCC); SQUAMOUS EPITHELIAL CELL URINE 0-5 /hpf (0-5); WBC, URINE 0-2 /hpf (0-5)
[2017-04-14] MEDS ORDERED: ONDANSETRON HCL 4 MG/2 ML VIAL IVP PRN (22:15)
[2017-04-14] MEDS ORDERED: BISACODYL 10 MG SUPP RECTAL PRN (22:15)
[2017-04-14] MEDS ORDERED: SODIUM CHLORIDE 0.9% FLUSH 10 ML FLUSH IV FLUSH PRN (22:15)
[2017-04-14] MEDS ORDERED: MAGNESIUM HYDROXIDE SUSP 30 ML CUP PO PRN (22:15)
[2017-04-14] MEDS ORDERED: SODIUM CHLOR 0.9% 250 ML INJ 250 ML IV ONE (22:15)
[2017-04-14] MEDS ORDERED: SENNOSIDES 8.6 MG TAB PO PRN (22:15)
[2017-04-14] MEDS ORDERED: NALOXONE HCL 0.4 MG/ML AMP IV PRN (22:15)
[2017-04-14] MEDS ORDERED: LACTULOSE SYRUP 20 GM/30 ML CUP PO PRN (22:15)
[2017-04-14] MEDS: PANTOPRAZOLE INJ 80 MG in SODIUM CHLORIDE 0.9% INJ 100 ML IV SCH (22:17)
[2017-04-14 22:30] VITALS: BP 112/52; PULSE 66; RESP 16; O2SAT 96
[2017-04-14] MEDS: SODIUM CHLOR 0.9% 1000 ML INJ 1,000 ML IV SCH (22:36)
[2017-04-14 23:30] VITALS: BP 100/53; PULSE 68; RESP 16; O2SAT 97
[2017-04-15] MEDS: PANTOPRAZOLE INJ 80 MG in SODIUM CHLORIDE 0.9% INJ 100 ML IV SCH (06:45)
[2017-04-15 08:00] VITALS: BP 121/74; PULSE 74; RESP 18; TEMP 96.6; O2SAT 99
[2017-04-15] MEDS: SODIUM CHLOR 0.9% 1000 ML INJ 1,000 ML IV SCH ×3 (08:12→21:17)
[2017-04-15] MEDS: SODIUM CHLORIDE 0.9% FLUSH 10 ML FLUSH IV FLUSH SCH ×2 (09:00→21:00)
[2017-04-15] MEDS: DOCUSATE SODIUM 50 MG/SENNA 8.6 MG TAB PO SCH ×2 (09:00→21:16)
[2017-04-15 10:21] LABS: AUTOMATED NEUTROPHIL # 3.7 TH/MM3 (1.8-7.7); BASOPHIL % 0.4 % (0.0-2.0); EOSINOPHIL % 0.6 % (0.0-4.0); HEMATOCRIT 32.2 % (39.0-51.0); HEMO FLAGS DIFF FINAL; LYMPH % 15.7 % (9.0-44.0); LYMPHOCYTE # 0.8 TH/MM3 (1.0-4.8); MEAN CELL VOLUME 91.2 FL (80.0-100.0); MONO % 7.3 % (0.0-8.0); PLATELET COUNT 177 TH/MM3 (150-450); RED BLOOD COUNT 3.54 MIL/MM3 (4.50-5.90); RED CELL DISTRIBUTION WIDTH 15.8 % (11.6-17.2); WHITE BLOOD COUNT 4.9 TH/MM3 (4.0-11.0)
[2017-04-15 10:30] LABS: POTASSIUM 4.3 MEQ/L (3.5-5.1)
[2017-04-15 10:34] LABS: BICARBONATE 27.9 MEQ/L (21.0-32.0)
[2017-04-15] MEDS ORDERED: PROPOFOL 200 MG/20 ML AMP IV ONE (11:41)
--- NOTE | 2017-04-15 12:42 | MB ---
cc: ADRIANO SEQUEIRA M.D. DATE OF CONSULTATION 04/15/2017 DATE OF [address] Morse REASON FOR REFERRAL Possible GI bleed. Thank you for the consultation for this 76-year-old gentleman who stated that he has been doing well until about a week ago when he started having black tarry stool. The patient denied any abdominal pain. He stated that it slowed bowel movements and not food related. He denied any nausea or vomiting. No abdominal pain. He is on blood thinner for stroke in the past. He never had endoscopy before. He had some nausea this morning. The patient had a fall recently and he has a contusion on his buttock because of that. He stated that he felt lightheaded with general weakness. No shortness of breath. PAST MEDICAL HISTORY Significant for: 1. Parkinson disease 2. Arthritis 3. CVA 4. Coronary artery disease 5. History of a herniated disk 6. Parkinsonism SOCIAL HISTORY Occasional alcohol. No tobacco or drugs. PAST SURGICAL HISTORY Significant for: 1. Eye surgery 2. Right knee replacement REVIEW OF SYSTEMS All 12-points negative except for HPI. ALLERGIES NO KNOWN DRUG ALLERGIES. FAMILY HISTORY Noncontributory PHYSICAL EXAMINATION Alert, oriented in no acute distress. VITAL SIGNS: Stable. HEENT: Pupils are round and reactive to light. NECK: Supple. CHEST: Clear to auscultation and precaution. CARDIAC: Regular rate and rhythm. ABDOMEN: Soft, nondistended, nontender, positive bowel sounds. EXTREMITIES: No edema, clubbing or cyanosis. NEUROLOGIC: Alert, oriented, normal speech at this time. PSYCHOLOGICAL: Appropriate response. LABORATORY DATA White count on admission was 7.3, hemoglobin 7.3, today 11.0, platelets 177, INR 1.0. Liver function tests were normal AST 13, ALT 88, alk phos 55, total bilirubin 0.6. ASSESSMENT/PLAN This is a pleasant 76-year-old gentleman who has GI bleed, positive hemoccult with significant anemia, black tarry stool, most likely upper GI bleed. We will plan on doing upper endoscopy. I discussed with the patient the procedure and complications. He is agreeable to have it done. This will be done as an inpatient. The patient may need colonoscopy as an outpatient or inpatient if we do not find the source for the bleed. The patient only received blood. MD CHON Rosado /12:02 PM /12:39 PM
[2017-04-15 13:00] VITALS: BP 143/78; PULSE 71; RESP 18; TEMP 97.2; O2SAT 100
[2017-04-15] MEDS: PANTOPRAZOLE SOD 40 MG DELAYED RELEASE TAB PO SCH (13:46)
[2017-04-15 16:00] VITALS: BP 128/73; PULSE 81; RESP 18; TEMP 97; O2SAT 98
[2017-04-15] MEDS ORDERED: RASAGILINE 1 MG PO SCH (17:45)
[2017-04-15] MEDS ORDERED: [UNRECOGNIZED DRUG - REMARK] PO SCH (17:45)
[2017-04-15] MEDS: CARBIDOPA/LEVODOPA 25 MG/100 MG TAB PO SCH (18:00)
[2017-04-15] MEDS ORDERED: DROXIDOPA 600 MG PO SCH (18:00)
[2017-04-15] MEDS ORDERED: DOCUSATE SODIUM 100 MG CAP PO PRN (18:00)
[2017-04-15] MEDS ORDERED: ENTACAPONE 200 MG PO SCH (18:00)
[2017-04-15] MEDS ORDERED: ACETAMINOPHEN/HYDROcodone 325 MG/7.5 MG TAB PO PRN (18:00)
[2017-04-15] MEDS ORDERED: MIDODRINE 5 MG TAB PO PRN (18:00)
[2017-04-15] MEDS: ESCITALOPRAM OXALATE 10 MG TAB PO SCH (18:09)
[2017-04-15] MEDS: PRAVASTATIN SOD 20 MG TAB PO SCH (18:10)
--- NOTE | 2017-04-15 18:10 | MH ---
cc: XAVIER MARTINEZ MD DATE OF ADMISSION 04/14/2017 CHIEF COMPLAINT Black stool. HISTORY OF PRESENT ILLNESS This is a 76-year-old male with past medical and surgical history significant for orthostatic hypotension, history of cardiac catheterization in the past, history of arthritis, history of CVA in the past, bilateral hearing aids, history of parkinsonism, history of right knee surgery who came to the ER at [facility] complaining of a black stool. He admitted that he is taking generic Aleve [id number], two tablets on a daily basis and he has had a black stool for about a week and feels weak and tired. He has no vomiting. He has some mild diffuse abdominal pain. He also takes Aggrenox for stroke. [id number] years ago he had a stroke. He denies drinking alcohol. He has a history of orthostatic hypotension and frequent falls. He was recently evaluated for contusion on his buttock due to a fall, left buttock area. He has a problem walking because of Parkinsonism. Other than that, nothing significant. PAST MEDICAL HISTORY/PAST SURGICAL HISTORY As dictated above. SOCIAL HISTORY Drinks socially. Denies any alcohol or drug abuse. Lives at home with . He is retired. FAMILY HISTORY Nothing significant. ALLERGIES NO KNOWN DRUG ALLERGIES. MEDICATIONS 1. Lexapro 10 mg p.o. daily 2. ZAIN Iron 80 mg p.o. t.i.d. 3. Northera 500 mg t.i.d. 4. Benazepril 10 mg p.o. at bedtime. 5. Aggrenox 200/25 p.o. b.i.d. 6. Stool softener 100 mg p.o. daily 7. Midodrine 5 mg p.o. t.i.d. 8. Hydrocodone/Acetaminophen 7.5/325 p.o. q. 4-hour p.r.n. pain. 9. Rosa 180 mg p.o. daily. 10. Pravastatin 20 mg p.o. daily 11. Rasagiline 1 mg p.o. daily 12. 25/100 p.o. t.i.d., 13. Comtan 200 mg p.o. t.i.d. REVIEW OF SYSTEMS Negative except black stool, feeling weak and tired. PHYSICAL EXAMINATION GENERAL: This is a 76-year old male laying on the bed not in acute distress. VITAL SIGNS: Temperature 97.2, heart rate 71, respirations 18, blood pressure 143/78, O2 saturation 100% room air. HEENT: Normocephalic, atraumatic. EOMI. PERRL. Oral mucosa moist. NECK: Supple. No visible thyromegaly or neck mass. Trachea central. CVS: Regular rate and rhythm. LUNGS: Respirations clear to auscultation bilaterally. ABDOMEN: Soft, nontender. Bowel sounds audible. EXTREMITIES: No cyanosis or clubbing. Full range of motion of all extremities. NEUROLOGIC: Awake, alert, oriented x4. No focal deficits. SKIN: Warm and dry. There is a bruise on the left buttock area. PSYCHIATRIC: The patient is cooperative. Mood and affect are normal. LABORATORY DATA CBC showed WBC count 4.9 high, hemoglobin was 7.3 now it is 11.0 after blood transfusion, hematocrit was 21.4 now it is 32.2 and neutrophils 76.0 high. BMP totally unremarkable except for sodium 146 high, chloride 112 high, BUN 40 high, creatinine 59 low, calcium 8.2 low, AST, ALT normal. Total protein 5.9 low. PT 10.7, INR 1.0, APTT 25.2. Urine examination shows few mucus. ASSESSMENT/PLAN This is a 76-year old male who came to the ER diagnosed with a black stool and with positive hemoccult and he has GI bleed. GI has seen the patient, plan for upper endoscopy. The patient may need colonoscopy as an outpatient or inpatient if GI does not find any source of bleeding. 2. Blood loss anemia secondary to GI bleed 3. NSAID use. The patient advised not to use NSAID in the future. 4. History of depression. Continue home medications. 5. History of dementia. Continue home medications. 6. History of arthritis. Continue home medications. 7. History of hyperlipidemia. Continue pravastatin 20 mg. 8. History of Parkinsonism. Continue the home medication. 9. DVT prophylaxis SCDs. 10. GI prophylaxis. Protonix 40 mg p.o. daily. We are going to manage the patient on a daily basis and make recommendation on a daily basis. Xavier Martinez MD EA/ /5:31 PM /6:00 PM
[2017-04-15 20:02] VITALS: BP 107/60; PULSE 100; RESP 20; TEMP 97.7; O2SAT 100
[2017-04-15 20:17] VITALS: BP 107/60; PULSE 96; RESP 20; TEMP 97.7; O2SAT 100
[2017-04-15] MEDS: DONEPEZIL HCL 5 MG TAB PO SCH (21:16)
--- NOTE | 2017-04-15 21:22 | MR ---
cc: ADRIANO SEQUEIRA M.D. DATE: 04/15/2017. DATE OF : 1940. REFERRING PHYSICIAN: Dr. Morse. PROCEDURE PERFORMED: Upper gastrointestinal endoscopy with biopsy and ablation of gastric ulcer. INDICATIONS FOR THE PROCEDURE: 76-year-old gentleman who came with black stool and anemia. DESCRIPTION OF THE PROCEDURE IN DETAIL: After informing the patient about the procedure and complications, the consent was signed. The patient was placed on his left lateral decubitus and adequate sedation was achieved by propofol. The scope was placed in the mouth and advanced under video guidance to the second portion of the duodenum. The scope was drawn back to the stomach. Retroflexion was performed. There were two large ulcers in the antrum. One of them with a red vessel in the center of it and no active bleeding. This was cauterized to prevent recurrent bleeding and biopsy was done from the ulcers. Retroflexion was performed and the was scope drawn back without immediate complication. FINDINGS: 1. Esophagus - normal. 2. Stomach - two large ulcers with gastritis. Biopsy was done and cautery of one of the ulcers obvious vessel was done to prevent bleeding. 3. Duodenum - normal. RECOMMENDATIONS: 1. No NSAIDs. 2. Avoid anticoagulation as much as possible. If it is absolutely necessary, use the lowest therapeutic dose. 3. EGD in two months. 4. Follow-up biopsy. 5. Protonix 40 milligrams daily. MD NORA Rosado/CRISTIANA /11:57 AM /9:15 PM
[2017-04-16 00:14] VITALS: BP 120/77; PULSE 67; RESP 16; TEMP 97.1; O2SAT 94
[2017-04-16 05:17] VITALS: BP 123/74; PULSE 70; RESP 12; TEMP 98.7; O2SAT 91
[2017-04-16 07:26] LABS: AUTOMATED NEUTROPHIL # 2.3 TH/MM3 (1.8-7.7); BASOPHIL % 0.7 % (0.0-2.0); EOSINOPHIL # 0.1 TH/MM3 (0-0.4); EOSINOPHIL % 2.1 % (0.0-4.0); HEMATOCRIT 29.8 % (39.0-51.0); HEMO FLAGS DIFF FINAL; LYMPH % 25.1 % (9.0-44.0); LYMPHOCYTE # 0.9 TH/MM3 (1.0-4.8); MEAN CELL VOLUME 91.4 FL (80.0-100.0); MEAN CORPUSCULAR HEMOGLOBIN 30.7 PG (27.0-34.0); MEAN CORPUSCULAR HGB CONC 33.6 % (32.0-36.0); MONO % 8.8 % (0.0-8.0); NEUT % 63.3 % (16.0-70.0); PLATELET COUNT 170 TH/MM3 (150-450); RED BLOOD COUNT 3.25 MIL/MM3 (4.50-5.90); RED CELL DISTRIBUTION WIDTH 15.3 % (11.6-17.2); WHITE BLOOD COUNT 3.6 TH/MM3 (4.0-11.0)
[2017-04-16 07:30] LABS: CHLORIDE 113 MEQ/L (98-107); SODIUM (NA) 146 MEQ/L (136-145)
[2017-04-16 07:34] LABS: ANION GAP 6 MEQ/L (5-15); BICARBONATE 26.7 MEQ/L (21.0-32.0)
[2017-04-16 07:47] LABS: ALKALINE PHOSPHATASE 60 U/L (45-117); ALT (GPT) 16 U/L (12-78); AST (GOT) 17 U/L (15-37); BLOOD UREA NITROGEN 23 MG/DL (7-18); GLOMERULAR FILTRATION RATE 76 ML/MIN (>89); TOTAL BILIRUBIN ADULT 0.9 MG/DL (0.2-1.0)
[2017-04-16 08:00] VITALS: BP_SYST 112; BP_SYST 117; BP_DIAS 68; BP_DIAS 77; PULSE 68; PULSE 69; RESP 20; TEMP 96.5; TEMP 96.8; O2SAT 94; O2SAT 98
--- NOTE | 2017-04-16 08:50 | HHI.PR ---
Subjective History of Present Illness Patient s/p upper endoscopy have two large ulcer need to avoid NSAID continue with PROTONIX. Review of Systems Constitutional Constitutional: Fatigue, Weakness Vitals/Results Intake & Output 04/15/17 04/15/17 04/16/17 15:00 23:00 07:00 Intake Total 550 ml 1355 ml Output Total 300 ml Balance 550 ml 1355 ml -300 ml Intake Oral 550 ml 650 ml IV Total 705 ml Output Urine Total 300 ml # Voids 3 2 2 # Bowel Movements 1 4 Vital Signs Vital Signs Date Time Temp Pulse Resp B/P Pulse Ox O2 Delivery O2 Flow Rate FiO2 04/16/17 05:17 98.7 70 12 123/74 91 04/16/17 00:14 97.1 67 16 120/77 94 04/15/17 20:17 97.7 96 20 107/60 100 04/15/17 20:02 97.7 100 20 107/60 100 04/15/17 16:00 97.0 81 18 128/73 98 04/15/17 13:00 97.2 71 18 143/78 100 04/15/17 11:59 97.6 69 14 105/57 100 CBC/BMP: 04/16/17 0625 04/16/17 0625 Lab Results Laboratory Tests Test 04/15/17 04/16/17 10:05 06:25 White Blood Count 4.9 TH/MM3 3.6 TH/MM3 Red Blood Count 3.54 MIL/MM3 3.25 MIL/MM3 Hemoglobin 11.0 GM/DL 10.0 GM/DL Hematocrit 32.2 % 29.8 % Mean Corpuscular Volume 91.2 FL 91.4 FL Mean Corpuscular Hemoglobin 31.0 PG 30.7 PG Mean Corpuscular Hemoglobin 34.0 % 33.6 % Concent Red Cell Distribution Width 15.8 % 15.3 % Platelet Count 177 TH/MM3 170 TH/MM3 Mean Platelet Volume 7.0 FL 7.2 FL Neutrophils (%) (Auto) 76.0 % 63.3 % Lymphocytes (%) (Auto) 15.7 % 25.1 % Monocytes (%) (Auto) 7.3 % 8.8 % Eosinophils (%) (Auto) 0.6 % 2.1 % Basophils (%) (Auto) 0.4 % 0.7 % Neutrophils # (Auto) 3.7 TH/MM3 2.3 TH/MM3 Lymphocytes # (Auto) 0.8 TH/MM3 0.9 TH/MM3 Monocytes # (Auto) 0.4 TH/MM3 0.3 TH/MM3 Eosinophils # (Auto) 0.0 TH/MM3 0.1 TH/MM3 Basophils # (Auto) 0.0 TH/MM3 0.0 TH/MM3 CBC Comment DIFF FINAL DIFF FINAL Differential Comment Sodium Level 146 MEQ/L 146 MEQ/L Potassium Level 4.3 MEQ/L 4.0 MEQ/L Chloride Level 112 MEQ/L 113 MEQ/L Carbon Dioxide Level 27.9 MEQ/L 26.7 MEQ/L Anion Gap 6 MEQ/L 6 MEQ/L Blood Urea Nitrogen 40 MG/DL 23 MG/DL Creatinine 1.20 MG/DL 0.96 MG/DL Estimat Glomerular Filtration 59 ML/MIN 76 ML/MIN Rate Random Glucose 101 MG/DL 86 MG/DL Calcium Level 8.6 MG/DL 8.4 MG/DL Total Bilirubin 0.9 MG/DL Aspartate Amino Transf 17 U/L (AST/SGOT) Alanine Aminotransferase 16 U/L (ALT/SGPT) Alkaline Phosphatase 60 U/L Total Protein 5.8 GM/DL Albumin 3.1 GM/DL Physical Exam General General Appearance: Well Developed, Well Nourished, No Acute Distress, Comfortable Eyes Eye Exam: Pupils Equal, Pupils Reactive, Sclera White, Extraocular Movement Intact Throat Throat Exam: Oral Mucosa Manti & Moist, Oral Pharynx Normal Neck Neck Exam: Neck Supple, Trachea Midline Pulmonary Resp Exam: Clear Bilaterally, Breath Sounds Equal, No Distress Cardiology CV Exam: Regular, Normal Sinus Rhythm Gastrointestinal/Abdomen GI Exam: Soft, Non-Tender, Bowel Sounds Present Musculoskeletal MS Exam: Normal Tone Integumentary Skin Exam: Clear, Warm, Dry, Intact Extremeties Extremities Exam: No Edema Neurologic Neuro Exam: Alert, Awake, Oriented, Speech Clear, Moving All Extremities, No Focal Deficits VTE Prophylaxis VTE Prophylaxis Device: SCDs PUD Prophylasis PUD Prophylaxis: Protonix Assessment/Plan Assessment/Plan ASSESSMENT/PLAN This is a 76-year old male who came to the ER diagnosed with a black stool and with positive hemoccult and he has GI bleed. GI has seen the patient, s/p upper endoscopy shows two large ulcer. The patient may need colonoscopy as an outpatient or inpatient if GI does not find any source of bleeding. 2. Blood loss anemia secondary to GI bleed 3. NSAID use. The patient advised not to use NSAID in the future. 4. History of depression. Continue home medications. 5. History of dementia. Continue home medications. 6. History of arthritis. Continue home medications. 7. History of hyperlipidemia. Continue pravastatin 20 mg. 8. History of Parkinsonism. Continue the home medication. 9. DVT prophylaxis SCDs. 10. GI prophylaxis. Protonix 40 mg p.o. daily. We are going to manage the patient on a daily basis and make recommendation on a daily basis. Xavier Story MD Apr 16, 2017 08:50
[2017-04-16] MEDS: PANTOPRAZOLE SOD 40 MG DELAYED RELEASE TAB PO SCH (08:54)
[2017-04-16] MEDS: ESCITALOPRAM OXALATE 10 MG TAB PO SCH (08:55)
[2017-04-16] MEDS: PRAVASTATIN SOD 20 MG TAB PO SCH (08:55)
[2017-04-16] MEDS: SODIUM CHLORIDE 0.9% FLUSH 10 ML FLUSH IV FLUSH SCH ×2 (08:56→21:29)
[2017-04-16] MEDS: DOCUSATE SODIUM 50 MG/SENNA 8.6 MG TAB PO SCH ×2 (08:56→21:29)
[2017-04-16] MEDS: CARBIDOPA/LEVODOPA 25 MG/100 MG TAB PO SCH ×3 (09:01→17:04)
[2017-04-16] MEDS ORDERED: TIZA2TAB PO (10:19)
[2017-04-16 12:00] VITALS: BP 112/68; PULSE 68; RESP 20; TEMP 96; O2SAT 98
[2017-04-16] MEDS: SODIUM CHLOR 0.9% 1000 ML INJ 1,000 ML IV SCH (13:20)
[2017-04-16 16:00] VITALS: BP 113/72; PULSE 70; RESP 20; TEMP 96.2; O2SAT 97
[2017-04-16] MEDS: SUCRALFATE 1 GM TAB PO SCH ×2 (17:04→21:30)
[2017-04-16 21:11] VITALS: BP 100/58; PULSE 71; RESP 18; TEMP 96.6; O2SAT 96
[2017-04-16] MEDS: DONEPEZIL HCL 5 MG TAB PO SCH (21:29)
[2017-04-17] VITALS: BP 113/68; PULSE 63; RESP 18; TEMP 96.7; O2SAT 96
[2017-04-17] MEDS: SUCRALFATE 1 GM TAB PO SCH ×4 (06:03→20:41)
[2017-04-17 07:15] LABS: AUTOMATED NEUTROPHIL # 2.6 TH/MM3 (1.8-7.7); BASOPHIL % 0.5 % (0.0-2.0); EOSINOPHIL # 0.1 TH/MM3 (0-0.4); EOSINOPHIL % 2.6 % (0.0-4.0); HEMATOCRIT 31.4 % (39.0-51.0); HEMO FLAGS DIFF FINAL; LYMPH % 24.1 % (9.0-44.0); LYMPHOCYTE # 0.9 TH/MM3 (1.0-4.8); MEAN CELL VOLUME 90.8 FL (80.0-100.0); MEAN CORPUSCULAR HEMOGLOBIN 30.2 PG (27.0-34.0); MEAN CORPUSCULAR HGB CONC 33.3 % (32.0-36.0); MONO % 8.4 % (0.0-8.0); NEUT % 64.4 % (16.0-70.0); PLATELET COUNT 172 TH/MM3 (150-450); RED BLOOD COUNT 3.46 MIL/MM3 (4.50-5.90); RED CELL DISTRIBUTION WIDTH 14.6 % (11.6-17.2); WHITE BLOOD COUNT 3.9 TH/MM3 (4.0-11.0)
[2017-04-17 07:27] LABS: CHLORIDE 111 MEQ/L (98-107); POTASSIUM 3.9 MEQ/L (3.5-5.1); SODIUM (NA) 145 MEQ/L (136-145)
[2017-04-17 07:34] LABS: ANION GAP 5 MEQ/L (5-15); BLOOD UREA NITROGEN 14 MG/DL (7-18)
[2017-04-17 07:37] LABS: ALT (GPT) 14 U/L (12-78); AST (GOT) 16 U/L (15-37); GLOMERULAR FILTRATION RATE 80 ML/MIN (>89)
[2017-04-17 07:39] LABS: TOTAL BILIRUBIN ADULT 0.7 MG/DL (0.2-1.0)
[2017-04-17 07:40] LABS: ALKALINE PHOSPHATASE 61 U/L (45-117)
[2017-04-17 08:00] VITALS: BP 138/80; PULSE 70; RESP 20; TEMP 96.8; O2SAT 97
[2017-04-17] MEDS: CARBIDOPA/LEVODOPA 25 MG/100 MG TAB PO SCH ×3 (08:59→17:44)
[2017-04-17] MEDS: PRAVASTATIN SOD 20 MG TAB PO SCH (08:59)
[2017-04-17] MEDS: PANTOPRAZOLE SOD 40 MG DELAYED RELEASE TAB PO SCH (08:59)
[2017-04-17] MEDS: ESCITALOPRAM OXALATE 10 MG TAB PO SCH (09:00)
[2017-04-17] MEDS: DOCUSATE SODIUM 50 MG/SENNA 8.6 MG TAB PO SCH ×2 (09:00→20:41)
[2017-04-17] MEDS: SODIUM CHLORIDE 0.9% FLUSH 10 ML FLUSH IV FLUSH SCH ×2 (09:01→20:41)
--- NOTE | 2017-04-17 09:39 | HHI.PR ---
Subjective History of Present Illness Patient s/p upper endoscopy have two large ulcer need to avoid NSAID continue with PROTONIX. d/w explain the patient condition. Review of Systems Constitutional Constitutional: Fatigue, Weakness Vitals/Results Intake & Output 04/16/17 04/16/17 04/17/17 15:00 23:00 07:00 Intake Total 870 ml Output Total 550 ml 900 ml 500 ml Balance 320 ml -900 ml -500 ml Intake Oral 870 ml Output Urine Total 550 ml 900 ml 500 ml # Bowel Movements 0 Vital Signs Vital Signs Date Time Temp Pulse Resp B/P Pulse Ox O2 Delivery O2 Flow Rate FiO2 04/17/17 08:00 96.8 70 20 138/80 97 04/17/17 04:00 04/17/17 00:00 96.7 63 18 113/68 96 04/16/17 21:11 96.6 71 18 100/58 96 04/16/17 16:00 96.2 70 20 113/72 97 04/16/17 12:00 96.0 68 20 112/68 98 CBC/BMP: 04/17/17 0629 04/17/17 0629 Lab Results Laboratory Tests Test 04/17/17 06:29 White Blood Count 3.9 TH/MM3 Red Blood Count 3.46 MIL/MM3 Hemoglobin 10.4 GM/DL Hematocrit 31.4 % Mean Corpuscular Volume 90.8 FL Mean Corpuscular Hemoglobin 30.2 PG Mean Corpuscular Hemoglobin 33.3 % Concent Red Cell Distribution Width 14.6 % Platelet Count 172 TH/MM3 Mean Platelet Volume 7.1 FL Neutrophils (%) (Auto) 64.4 % Lymphocytes (%) (Auto) 24.1 % Monocytes (%) (Auto) 8.4 % Eosinophils (%) (Auto) 2.6 % Basophils (%) (Auto) 0.5 % Neutrophils # (Auto) 2.6 TH/MM3 Lymphocytes # (Auto) 0.9 TH/MM3 Monocytes # (Auto) 0.3 TH/MM3 Eosinophils # (Auto) 0.1 TH/MM3 Basophils # (Auto) 0.0 TH/MM3 CBC Comment DIFF FINAL Differential Comment Sodium Level 145 MEQ/L Potassium Level 3.9 MEQ/L Chloride Level 111 MEQ/L Carbon Dioxide Level 29.0 MEQ/L Anion Gap 5 MEQ/L Blood Urea Nitrogen 14 MG/DL Creatinine 0.92 MG/DL Estimat Glomerular Filtration 80 ML/MIN Rate Random Glucose 94 MG/DL Calcium Level 8.4 MG/DL Total Bilirubin 0.7 MG/DL Aspartate Amino Transf 16 U/L (AST/SGOT) Alanine Aminotransferase 14 U/L (ALT/SGPT) Alkaline Phosphatase 61 U/L Total Protein 5.9 GM/DL Albumin 3.1 GM/DL Physical Exam General General Appearance: Well Developed, Well Nourished, No Acute Distress, Comfortable Eyes Eye Exam: Pupils Equal, Pupils Reactive, Sclera White, Extraocular Movement Intact Throat Throat Exam: Oral Mucosa [place] & Moist, Oral Pharynx Normal Neck Neck Exam: Neck Supple, Trachea Midline Pulmonary Resp Exam: Clear Bilaterally, Breath Sounds Equal, No Distress Cardiology CV Exam: Regular, Normal Sinus Rhythm Gastrointestinal/Abdomen GI Exam: Soft, Non-Tender, Bowel Sounds Present Musculoskeletal MS Exam: Normal Tone Integumentary Skin Exam: Clear, Warm, Dry, Intact Extremeties Extremities Exam: No Edema Neurologic Neuro Exam: Alert, Awake, Oriented, Speech Clear, Moving All Extremities, No Focal Deficits VTE Prophylaxis VTE Prophylaxis Device: SCDs PUD Prophylasis PUD Prophylaxis: Protonix Assessment/Plan Assessment/Plan ASSESSMENT/PLAN This is a 76-year old male who came to the ER diagnosed with a black stool and with positive hemoccult and he has GI bleed. GI has seen the patient, s/p upper endoscopy shows two large ulcer. The patient may need colonoscopy as an outpatient or inpatient if GI does not find any source of bleeding. 2. Blood loss anemia secondary to GI bleed 3. NSAID use. The patient advised not to use NSAID in the future. 4. History of depression. Continue home medications. 5. History of dementia. Continue home medications. 6. History of arthritis. Continue home medications. 7. History of hyperlipidemia. Continue pravastatin 20 mg. 8. History of Parkinsonism. Continue the home medication. 9. DVT prophylaxis SCDs. 10. GI prophylaxis. Protonix 40 mg p.o. daily. We are going to manage the patient on a daily basis and make recommendation on a daily basis. Discussed Condition with: Patient Xavier Story MD Apr 17, 2017 09:39
--- NOTE | 2017-04-17 10:52 | HHI.GIFU ---
Subjective Remarks feels ok no new problem, sitting in chair and tolerated diet Objective Vitals I&O Vital Signs Date Time Temp Pulse Resp B/P Pulse Ox O2 Delivery O2 Flow Rate FiO2 04/17/17 08:00 96.8 70 20 138/80 97 04/17/17 04:00 04/17/17 00:00 96.7 63 18 113/68 96 04/16/17 21:11 96.6 71 18 100/58 96 04/16/17 16:00 96.2 70 20 113/72 97 04/16/17 12:00 96.0 68 20 112/68 98 I/O 04/16/17 04/16/17 04/16/17 04/17/17 04/17/17 04/17/17 07:00 15:00 23:00 07:00 15:00 23:00 Intake Total 870 ml Output Total 300 ml 550 ml 900 ml 500 ml Balance -300 ml 320 ml -900 ml -500 ml Intake Oral 870 ml Output Urine Total 300 ml 550 ml 900 ml 500 ml # Voids 2 # Bowel Movements 4 0 Laboratory Laboratory Tests Test 04/17/17 06:29 White Blood Count 3.9 Red Blood Count 3.46 Hemoglobin 10.4 Hematocrit 31.4 Mean Corpuscular Volume 90.8 Mean Corpuscular Hemoglobin 30.2 Mean Corpuscular Hemoglobin 33.3 Concent Red Cell Distribution Width 14.6 Platelet Count 172 Mean Platelet Volume 7.1 Neutrophils (%) (Auto) 64.4 Lymphocytes (%) (Auto) 24.1 Monocytes (%) (Auto) 8.4 Eosinophils (%) (Auto) 2.6 Basophils (%) (Auto) 0.5 Neutrophils # (Auto) 2.6 Lymphocytes # (Auto) 0.9 Monocytes # (Auto) 0.3 Eosinophils # (Auto) 0.1 Basophils # (Auto) 0.0 CBC Comment DIFF FINAL Differential Comment Sodium Level 145 Potassium Level 3.9 Chloride Level 111 Carbon Dioxide Level 29.0 Anion Gap 5 Blood Urea Nitrogen 14 Creatinine 0.92 Estimat Glomerular Filtration 80 Rate Random Glucose 94 Calcium Level 8.4 Total Bilirubin 0.7 Aspartate Amino Transf 16 (AST/SGOT) Alanine Aminotransferase 14 (ALT/SGPT) Alkaline Phosphatase 61 Total Protein 5.9 Albumin 3.1 Physical Exam HEENT: Pupils round and reactive to light; normocephalic; atraumatic; no jaundice. Throat is clear. NECK: Neck is supple, no JVD, no lymphadenopathy. CHEST: Chest is clear to auscultation and percussion. CARDIAC: Regular rate and rhythm with no murmur gallop or rubs. ABDOMEN: Soft, nondistended, nontender; no hepatosplenomegaly; bowel sounds are present in all four quadrants. EXTREMITIES: No clubbing, cyanosis, or edema. SKIN: Normal; no rash; no jaundice. TEACHING MUSIC LESSONS: No focal deficits; alert and oriented times three. Assessment and Plan Plan anemia, most likely from with anticoagulation, I had a discussion with , she stated patient is past due for colonoscopy with H/O polyps and he was not able to get colonoscopy in past because issues with BP, she said he can not be preped as outpatient and she want him to have the colonoscopy as inpatient, with this history and with the anemia i will schedule him for colonoscopy in am Donta Squires MD Apr 17, 2017 10:51
[2017-04-17 12:00] VITALS: BP 92/55; PULSE 66; RESP 20; TEMP 96.7; O2SAT 95
[2017-04-17] MEDS ORDERED: PEG (High)/E-LYTE SOLN 4000 ML BTL PO ONE (15:00)
[2017-04-17 16:00] VITALS: BP 135/79; PULSE 71; RESP 20; TEMP 96.8; O2SAT 98
[2017-04-17] MEDS: DONEPEZIL HCL 5 MG TAB PO SCH (20:42)
[2017-04-17 21:51] VITALS: BP 137/80; PULSE 66; RESP 18; TEMP 96.4; O2SAT 97
[2017-04-18 01:10] VITALS: BP 142/78; PULSE 60; RESP 16; TEMP 97.2; O2SAT 97
[2017-04-18] MEDS: SUCRALFATE 1 GM TAB PO SCH ×4 (06:04→20:26)
[2017-04-18 06:42] LABS: AUTOMATED NEUTROPHIL # 2.3 TH/MM3 (1.8-7.7); BASOPHIL % 0.5 % (0.0-2.0); EOSINOPHIL # 0.1 TH/MM3 (0-0.4); EOSINOPHIL % 3.9 % (0.0-4.0); HEMATOCRIT 31.4 % (39.0-51.0); HEMO FLAGS DIFF FINAL; LYMPH % 25.2 % (9.0-44.0); LYMPHOCYTE # 0.9 TH/MM3 (1.0-4.8); MEAN CELL VOLUME 91.4 FL (80.0-100.0); MEAN CORPUSCULAR HGB CONC 32.8 % (32.0-36.0); MONO % 9.6 % (0.0-8.0); NEUT % 60.8 % (16.0-70.0); PLATELET COUNT 195 TH/MM3 (150-450); RED BLOOD COUNT 3.43 MIL/MM3 (4.50-5.90); RED CELL DISTRIBUTION WIDTH 14.4 % (11.6-17.2); WHITE BLOOD COUNT 3.7 TH/MM3 (4.0-11.0)
[2017-04-18 06:55] LABS: CHLORIDE 109 MEQ/L (98-107); POTASSIUM 3.6 MEQ/L (3.5-5.1); SODIUM (NA) 144 MEQ/L (136-145)
[2017-04-18 07:00] LABS: ANION GAP 7 MEQ/L (5-15)
[2017-04-18 07:01] LABS: BLOOD UREA NITROGEN 11 MG/DL (7-18)
[2017-04-18 07:03] LABS: ALT (GPT) 14 U/L (12-78); AST (GOT) 14 U/L (15-37)
[2017-04-18 07:04] LABS: GLOMERULAR FILTRATION RATE 81 ML/MIN (>89)
[2017-04-18 07:05] LABS: TOTAL BILIRUBIN ADULT 0.7 MG/DL (0.2-1.0)
[2017-04-18 07:07] LABS: ALKALINE PHOSPHATASE 66 U/L (45-117)
[2017-04-18 08:00] VITALS: BP 121/78; PULSE 69; RESP 18; TEMP 97.2; O2SAT 98
--- NOTE | 2017-04-18 08:04 | HHI.PR ---
Subjective History of Present Illness Patient s/p upper endoscopy have two large ulcer need to avoid NSAID continue with PROTONIX.going for colonoscopy today d/w RIGOBERTO Queen Review of Systems Constitutional Constitutional: Fatigue, Weakness Vitals/Results Intake & Output 04/17/17 04/17/17 04/18/17 15:00 23:00 07:00 Intake Total 1510 ml Output Total 500 ml Balance 1010 ml Intake Oral 1510 ml Output Urine Total 500 ml # Voids 2 # Bowel Movements 1 4 3 Vital Signs Vital Signs Date Time Temp Pulse Resp B/P Pulse Ox O2 Delivery O2 Flow Rate FiO2 04/18/17 04:00 04/18/17 01:10 97.2 60 16 142/78 97 04/17/17 21:51 96.4 66 18 137/80 97 04/17/17 16:00 96.8 71 20 135/79 98 04/17/17 12:00 96.7 66 20 92/55 95 CBC/BMP: 04/18/17 0530 04/18/17 0530 Lab Results Laboratory Tests Test 04/18/17 05:30 White Blood Count 3.7 TH/MM3 Red Blood Count 3.43 MIL/MM3 Hemoglobin 10.3 GM/DL Hematocrit 31.4 % Mean Corpuscular Volume 91.4 FL Mean Corpuscular Hemoglobin 30.0 PG Mean Corpuscular Hemoglobin 32.8 % Concent Red Cell Distribution Width 14.4 % Platelet Count 195 TH/MM3 Mean Platelet Volume 6.9 FL Neutrophils (%) (Auto) 60.8 % Lymphocytes (%) (Auto) 25.2 % Monocytes (%) (Auto) 9.6 % Eosinophils (%) (Auto) 3.9 % Basophils (%) (Auto) 0.5 % Neutrophils # (Auto) 2.3 TH/MM3 Lymphocytes # (Auto) 0.9 TH/MM3 Monocytes # (Auto) 0.4 TH/MM3 Eosinophils # (Auto) 0.1 TH/MM3 Basophils # (Auto) 0.0 TH/MM3 CBC Comment DIFF FINAL Differential Comment Sodium Level 144 MEQ/L Potassium Level 3.6 MEQ/L Chloride Level 109 MEQ/L Carbon Dioxide Level 28.0 MEQ/L Anion Gap 7 MEQ/L Blood Urea Nitrogen 11 MG/DL Creatinine 0.91 MG/DL Estimat Glomerular Filtration 81 ML/MIN Rate Random Glucose 91 MG/DL Calcium Level 8.6 MG/DL Total Bilirubin 0.7 MG/DL Aspartate Amino Transf 14 U/L (AST/SGOT) Alanine Aminotransferase 14 U/L (ALT/SGPT) Alkaline Phosphatase 66 U/L Total Protein 5.9 GM/DL Albumin 3.2 GM/DL Physical Exam General General Appearance: Well Developed, Well Nourished, No Acute Distress, Comfortable Eyes Eye Exam: Pupils Equal, Pupils Reactive, Sclera White, Extraocular Movement Intact Throat Throat Exam: Oral Mucosa [place] & Moist, Oral Pharynx Normal Neck Neck Exam: Neck Supple, Trachea Midline Pulmonary Resp Exam: Clear Bilaterally, Breath Sounds Equal, No Distress Cardiology CV Exam: Regular, Normal Sinus Rhythm Gastrointestinal/Abdomen GI Exam: Soft, Non-Tender, Bowel Sounds Present Musculoskeletal MS Exam: Normal Tone Integumentary Skin Exam: Clear, Warm, Dry, Intact Extremeties Extremities Exam: No Edema Neurologic Neuro Exam: Alert, Awake, Oriented, Speech Clear, Moving All Extremities, No Focal Deficits VTE Prophylaxis VTE Prophylaxis Device: SCDs PUD Prophylasis PUD Prophylaxis: Protonix Assessment/Plan Assessment/Plan ASSESSMENT/PLAN This is a 76-year old male who came to the ER diagnosed with a black stool and with positive hemoccult and he has GI bleed. GI has seen the patient, s/p upper endoscopy shows two large ulcer. The patient going for colonoscopy as inpatient. 2. Blood loss anemia secondary to GI bleed 3. NSAID use. The patient advised not to use NSAID in the future. 4. History of depression. Continue home medications. 5. History of dementia. Continue home medications. 6. History of arthritis. Continue home medications. 7. History of hyperlipidemia. Continue pravastatin 20 mg. 8. History of Parkinsonism. Continue the home medication. 9. DVT prophylaxis SCDs. 10. GI prophylaxis. Protonix 40 mg p.o. daily. We are going to manage the patient on a daily basis and make recommendation on a daily basis. Discussed Condition with: Patient Xavier Story MD Apr 18, 2017 08:04
[2017-04-18] MEDS: PRAVASTATIN SOD 20 MG TAB PO SCH (08:35)
[2017-04-18] MEDS: PANTOPRAZOLE SOD 40 MG DELAYED RELEASE TAB PO SCH (08:35)
[2017-04-18] MEDS: CARBIDOPA/LEVODOPA 25 MG/100 MG TAB PO SCH ×3 (08:35→18:20)
[2017-04-18] MEDS: DOCUSATE SODIUM 50 MG/SENNA 8.6 MG TAB PO SCH ×2 (08:36→20:30)
[2017-04-18] MEDS: ESCITALOPRAM OXALATE 10 MG TAB PO SCH (08:36)
[2017-04-18] MEDS: SODIUM CHLORIDE 0.9% FLUSH 10 ML FLUSH IV FLUSH SCH ×2 (09:00→20:25)
[2017-04-18 12:00] VITALS: BP 142/83; PULSE 59; RESP 17; TEMP 97.4; O2SAT 95
[2017-04-18 14:45] VITALS: BP 121/75; PULSE 69; RESP 16; TEMP 97.2; O2SAT 99
[2017-04-18] MEDS ORDERED: PROPOFOL 200 MG/20 ML AMP IV ONE (15:14)
--- NOTE | 2017-04-18 15:31 | GIPROC ---
[facility] [address] [place] [address], [id number] COLONOSCOPY PROCEDURE REPORT EXAM DATE: 04/18/2017 PATIENT NAME: Levi Pacheco MR #: [id number] BIRTHDATE: 1940 ENDOSCOPIST: Cheikh Barnes MD ORDER #: [id number] LEADERSHIP DEVELOPMENT CONSULTANT: Bridger Rodas and Walter Castle STATUS: inpatient INDICATIONS: The patient is a 76 yr old male here for a colonoscopy due to iron deficiency anemia PROCEDURE PERFORMED: Colonoscopy with biopsy MEDICATIONS: None and Per Anesthesia. PREP QUALITY: The [place] Bowel Prep Score was Right colon 3, Mid colon 2, and Left colon 1. Total = 6. PREP TYPE:GoLytely ESTIMATED BLOOD LOSS: None CONSENT: The patient understands the risks and benefits of the procedure and understands that these risks include, but are not limited to: sedation, allergic reaction, infection, perforation and/or bleeding. Alternative means of evaluation and treatment include, among others: physical exam, x-rays, and/or surgical intervention. The patient elects to proceed with this endoscopic procedure. medical equipment was checked for proper function. Hand hygiene and appropriate measures for infection prevention was taken. After the risks, benefits and alternatives of the procedure were thoroughly explained, Informed consent was verified, confirmed and timeout was successfully executed by the treatment team. A digital exam revealed external hemorrhoids The Pentax [id number] endoscope was introduced through the anus and advanced to the cecum, which was identified by both the appendix and ileocecal valve. The instrument was then slowly withdrawn as the colon was fully examined. COLON FINDINGS: There was severe diverticulosis noted in the sigmoid colon with associated inflammatory changes. No bleeding was noted from the diverticulosis. Biopsied. Retroflexed views revealed internal hemorrhoids and Retroflexed views revealed medium internal hemorrhoids The scope was then completely withdrawn from the patient and the procedure terminated. PROCEDURE WITHDRAWAL TIME:7minutes ADVERSE EVENTS: There were no complications. IMPRESSIONS: 1. There was severe diverticulosis noted in the sigmoid colon 2. Biopsied 3. Retroflexed views revealed internal hemorrhoids 4. Retroflexed views revealed medium internal hemorrhoids 5. Revealed external hemorrhoids RECOMMENDATIONS: 1. Await biopsy results. Biopsy results will not be ready for 7-10 days. If you don't hear from us in two weeks, call our office for results. 2. Benefiber 2 tsp daily 3. Yearly hemoccult 4. No seeds, nuts and popcorn in diet RECALL: Return 1 year Colonoscopy Cheikh Barnes MD eSigned: Cheikh Barnes MD 04/18/2017 3:30 PM cc:
[2017-04-18 16:00] VITALS: BP 130/79; PULSE 91; RESP 17; TEMP 97.6; O2SAT 99
[2017-04-18 20:00] VITALS: BP 116/72; PULSE 68; RESP 20; TEMP 96; O2SAT 97
[2017-04-18] MEDS: DONEPEZIL HCL 5 MG TAB PO SCH (20:30)
[2017-04-19] VITALS: BP 125/82; PULSE 75; RESP 20; TEMP 96; O2SAT 93
[2017-04-19 04:00] VITALS: BP 144/83; PULSE 69; RESP 20; TEMP 96; O2SAT 96
[2017-04-19] MEDS: SUCRALFATE 1 GM TAB PO SCH (06:32)
--- NOTE | 2017-04-19 07:51 | HHI.PR ---
Subjective History of Present Illness Patient s/p upper endoscopy have two large ulcer need to avoid NSAID continue with PROTONIX. s/p colonoscopy ok to dc home today d/w patient about colonoscopy report. d/w RN Rosi at bed side. Review of Systems Constitutional Constitutional: Fatigue, Weakness Vitals/Results Intake & Output 04/18/17 04/18/17 04/19/17 14:59 22:59 06:59 Intake Total 400 ml 120 ml 60 ml Output Total 175 ml 200 ml Balance 400 ml -55 ml -140 ml Intake Oral 120 ml 60 ml IV Total 400 ml Output Urine Total 175 ml 200 ml # Voids 5 1 1 # Bowel Movements 4 0 0 Vital Signs Vital Signs Date Time Temp Pulse Resp B/P Pulse Ox O2 Delivery O2 Flow Rate FiO2 04/19/17 04:00 96.0 69 20 144/83 96 04/19/17 00:00 96.0 75 20 125/82 93 04/18/17 20:00 96.0 68 20 116/72 97 04/18/17 16:00 97.6 91 17 130/79 99 04/18/17 15:45 67 14 122/74 98 04/18/17 15:31 97.7 64 14 119/73 99 04/18/17 14:45 97.2 69 16 121/75 99 04/18/17 12:00 97.4 59 17 142/83 95 04/18/17 08:00 97.2 69 18 121/78 98 CBC/BMP: 04/18/17 0530 04/18/17 0530 Physical Exam General General Appearance: Well Developed, Well Nourished, No Acute Distress, Comfortable Eyes Eye Exam: Pupils Equal, Pupils Reactive, Sclera White, Extraocular Movement Intact Throat Throat Exam: Oral Mucosa [place] & Moist, Oral Pharynx Normal Neck Neck Exam: Neck Supple, Trachea Midline Pulmonary Resp Exam: Clear Bilaterally, Breath Sounds Equal, No Distress Cardiology CV Exam: Regular, Normal Sinus Rhythm Gastrointestinal/Abdomen GI Exam: Soft, Non-Tender, Bowel Sounds Present Musculoskeletal MS Exam: Normal Tone Integumentary Skin Exam: Clear, Warm, Dry, Intact Extremeties Extremities Exam: No Edema Neurologic Neuro Exam: Alert, Awake, Oriented, Speech Clear, Moving All Extremities, No Focal Deficits VTE Prophylaxis VTE Prophylaxis Device: SCDs PUD Prophylasis PUD Prophylaxis: Protonix Assessment/Plan Assessment/Plan ASSESSMENT/PLAN This is a 76-year old male who came to the ER diagnosed with a black stool and with positive hemoccult and he has GI bleed. GI has seen the patient, s/p upper endoscopy shows two large ulcer. The patient s/p colonoscopy shows diverticulosis of sigmoid colon s/p biopsy and internal and external hemorrhoids need to use Benefiber 2 tsp daily and Yearly hemoccult and No seeds, nuts and popcorn in diet Return 1 year Colonoscopy 2. Blood loss anemia secondary to GI bleed 3. NSAID use. The patient advised not to use NSAID in the future. 4. History of depression. Continue home medications. 5. History of dementia. Continue home medications. 6. History of arthritis. Continue home medications. 7. History of hyperlipidemia. Continue pravastatin 20 mg. 8. History of Parkinsonism. Continue the home medication. 9. DVT prophylaxis SCDs. 10. GI prophylaxis. Protonix 40 mg p.o. daily. ok to dc home today. f/u with pcp/GI 1 week. Discussed Condition with: Patient Xavier Story MD Apr 19, 2017 07:51
[2017-04-19 08:00] VITALS: BP 130/82; PULSE 72; RESP 18; TEMP 96.6; O2SAT 96
--- NOTE | 2017-04-19 08:04 | HHI.FF ---
Face to Face Verification Diagnosis: (1) Orthostatic hypotension (2) Traumatic hematoma of buttock (3) GI bleed Physical Therapy Order: Evaluate and Treat, Improve ambulation, Strength and gait training Occupational Therapy Order: Evaluate and Treat, Gross motor coordination Home Health Nursing Order: Medical education Medication education-adverse effect Home Health Aide Order: To Assist In: Bathing and personal care Laundry Pricing Clerk Order: To Evaluate: Living conditions/environment I have seen patient Levi Pacheco on 04/19/17. My clinical findings support the need for the requested home health care services because: Ltd mobility - disease progression Limited ability to care for self High risk of falls I certify that my clinical findings support that this patient is homebound because: Unsteady gait/balance Xavier Story MD Apr 19, 2017 08:04
[2017-04-19] MEDS ORDERED: WALKER WHEELS/F1 MIS (08:05)
== END 2017-04-19 09:34 | disposition home or self-care (01) | DRG 379 ==
LOC: PHED 19:49 → PHEDA 22:09 → PH3B 04-15 → PH3A 04-15
PROVIDERS: ADMIT Family Medicine; ATTEND Family Medicine
PROC: 0DB68ZX Excision of Stomach, Via Natural or Artificial Opening Endoscopic, Diagnostic (ICD-10-PCS; 2017-04-15)
PROC: 30233N1 Transfusion of Nonautologous Red Blood Cells into Peripheral Vein, Percutaneous Approach (ICD-10-PCS; 2017-04-15)
PROC: 0W3P8ZZ Control Bleeding in Gastrointestinal Tract, Via Natural or Artificial Opening Endoscopic (ICD-10-PCS; principal; 2017-04-15 11:33)
PROC: 0DBN8ZX Excision of Sigmoid Colon, Via Natural or Artificial Opening Endoscopic, Diagnostic (ICD-10-PCS; 2017-04-18)
DX: K25.4 Chronic or unspecified gastric ulcer with hemorrhage (principal); G20 Parkinson's disease; F03.90 Unspecified dementia, unspecified severity, without behavioral disturbance, psychotic disturbance, mood disturbance, and anxiety; D50.0 Iron deficiency anemia secondary to blood loss (chronic); I95.1 Orthostatic hypotension; I25.10 Atherosclerotic heart disease of native coronary artery without angina pectoris; F32.9 Major depressive disorder, single episode, unspecified; E78.5 Hyperlipidemia, unspecified; K57.30 Diverticulosis of large intestine without perforation or abscess without bleeding; K64.8 Other hemorrhoids; K29.70 Gastritis, unspecified, without bleeding; Z86.73 Personal history of transient ischemic attack (TIA), and cerebral infarction without residual deficits
CPT/HCPCS: 36430; 80048; 80053; 81001; 85025; 85610; 85730; 86850; 86900; 86901; 86920; 88305; 88312; 96374; C9113; J7030; J7050; P9016

== ENCOUNTER 2017-09-19 16:32 | Emergency (ER) | payer MEDICARE, OTHER ==
[2017-09-19 16:32] VITALS: BP 137/77; PULSE 79; RESP 16; TEMP 98.7; O2SAT 97
[~2017-09-19 16:32] MED LIST changes: -ARIC10TA PO; +DOCU1CAP66 PO; +DONE10TA7 PO; +ESCI10TA PO; +FER-15DR3 PO; -HYDR-3516 PO; -STOO100C PO; +TIZA2TAB PO; +WALKER WHEELS/F1 MIS; -[UNRECOGNIZED DRUG - CODE]; +[UNRECOGNIZED DRUG - CODE] PO
[2017-09-19] MEDS ORDERED: LIDOCAINE HCL 1% 50 ML VIAL INFIL ONE (17:00)
--- NOTE | 2017-09-19 17:20 | PD ---
HPI Chief Complaint: fall Time Seen by Provider: 16:42 Travel History International Travel<30 days: No Contact w/Intl Traveler<30days: No History of Present Illness HPI This is a 77-year-old male who has a history of orthostatic hypotension and Parkinson's disease who presents to the emergency department having had a fall. He said someone rang the doorbell when he was sleeping and he got up quickly and subsequently felt lightheaded and fell to the ground. He did not hit his head or lose consciousness. He injured his right arm on a table. He doesn't remember his last tetanus shot. He has mild discomfort in the right arm, constant with no associated numbness or weakness. He says this is happened to him in the past and he doesn't usually get up that quickly from sitting to standing. PFSH Past Medical History Hx Anticoagulant Therapy: Yes Arthritis: Yes Cancer: No Cardiac Catheterization: Yes Cardiovascular Problems: Yes (ORTHOSTATIC HYPOTENSION) High Cholesterol: Yes Congestive Heart Failure: No Cerebrovascular Accident: Yes Diabetes: No Diminished Hearing: No (BILATERAL HEARING AIDES-NOT IN AT THE MOMENT) Endocrine: No Gastrointestinal Disorders: No Genitourinary: No Herniated Disk: Yes Hypertension: No (RUNS LOW) Implanted Vascular Access Dvce: Yes Musculoskeletal: Yes Neurologic: Yes Parkinson's Disease: Yes Psychiatric: No Respiratory: No Immunizations Current: Yes Past Surgical History Cardiac Surgery: Yes (cardiac cath) Eye Surgery: Yes (REMOVED DROOPY SKIN) Joint Replacement: Yes (RT KNEE) Neurologic Surgery: No (PARKINSONS) Pacemaker: No Other Surgery: Yes (STITCHES IN BEFORE) Social History Alcohol Use: Yes (OCCASIONAL) Tobacco Use: No Substance Use: No Allergies-Medications (Allergen,Severity, Reaction): Coded Allergies: No Known Allergies (Verified Adverse Reaction, Unknown, 09/19/17) Reported Meds & Prescriptions Reported Meds & Active Scripts Active Walker with Front Wheels (Device) 1 Mis Mis 1 Ea .ROUTE DIRECTED Reported Escitalopram (Escitalopram Oxalate) 10 Mg Tab 10 Mg PO DAILY Bob-Iron (Ferrous Sulfate) 15 Mg/Ml Mihai 18 Mg PO TID Northera (Droxidopa) 100 Mg Cap 600 Mg PO TID Donepezil 10 Mg Tab 10 Mg PO HS Aggrenox (Dipyridamole/Aspirin) 200-25 Mg Cap 1 Cap PO BID Stool Softener (Docusate Sodium) 100 Mg Cap 1 Tab PO DAILY PRN Midodrine 5 Mg Tab 5 Mg PO TID PRN Hydrocodone-Acetaminophen 7.5-325 mg Tab 1 Tab PO Q4H PRN Rosa Allergy (Fexofenadine HCl) 180 Mg Tab 180 Mg PO DAILY Pravastatin 20 Mg Tab 20 Mg PO DAILY Azilect (Rasagiline) 1 Mg Tab 1 Mg PO DAILY Sinemet (Carbidopa-Levodopa) 25-100 Mg Tab 1 Tab PO TID Comtan (Entacapone) 200 Mg Tab 200 Mg PO TID administered concomitantly with each levodopa/carbidopa dose Review of Systems Except as stated in HPI: all other systems reviewed are Neg Physical Exam Narrative GENERAL:Well appearing, no acute distress SKIN: 4 cm laceration immediately distal to the right elbow on the dorsal aspect of the arm HEAD: Atraumatic. Normocephalic. EYES: Pupils equal and round. No injection or drainage. ENT: Moist mucous membranes NECK: Trachea midline. No cervical spine tenderness. CARDIOVASCULAR: Regular rate and rhythm. No murmur appreciated. RESPIRATORY: Clear to auscultation. Breath sounds equal bilaterally. GASTROINTESTINAL: Abdomen soft, non-tender, nondistended. MUSCULOSKELETAL: No obvious deformities. NEUROLOGICAL: Awake and alert. No obvious cranial nerve deficits. Moving all extremities. PSYCHIATRIC: Appropriate mood and affect; insight and judgment normal. Data Data Last Documented VS Vital Signs Date Time Temp Pulse Resp B/P (MAP) Pulse Ox O2 Delivery O2 Flow Rate FiO2 09/19/17 16:32 98.7 79 16 137/77 (97) 97 Orders Orders Complete Blood Count With Diff (09/19/17 16:48) Comprehensive Metabolic Panel (09/19/17 16:48) Lidocaine 1% Inj (50 Ml) (Xylocaine 1% I (09/19/17 17:00) Labs Laboratory Tests Test 09/19/17 17:20 White Blood Count 4.0 TH/MM3 Red Blood Count 3.55 MIL/MM3 Hemoglobin 10.7 GM/DL Hematocrit 33.1 % Mean Corpuscular Volume 93.3 FL Mean Corpuscular Hemoglobin 30.2 PG Mean Corpuscular Hemoglobin Concent 32.4 % Red Cell Distribution Width 12.8 % Platelet Count 237 TH/MM3 Mean Platelet Volume 6.7 FL Neutrophils (%) (Auto) 66.2 % Lymphocytes (%) (Auto) 26.4 % Monocytes (%) (Auto) 5.8 % Eosinophils (%) (Auto) 1.0 % Basophils (%) (Auto) 0.6 % Neutrophils # (Auto) 2.7 TH/MM3 Lymphocytes # (Auto) 1.1 TH/MM3 Monocytes # (Auto) 0.2 TH/MM3 Eosinophils # (Auto) 0.0 TH/MM3 Basophils # (Auto) 0.0 TH/MM3 CBC Comment DIFF FINAL Differential Comment Blood Urea Nitrogen 20 MG/DL Creatinine 0.97 MG/DL Random Glucose 128 MG/DL Total Protein 6.4 GM/DL Albumin 3.3 GM/DL Calcium Level 8.0 MG/DL Alkaline Phosphatase 79 U/L Aspartate Amino Transf (AST/SGOT) 14 U/L Alanine Aminotransferase (ALT/SGPT) 14 U/L Total Bilirubin 0.3 MG/DL Sodium Level 140 MEQ/L Potassium Level 3.7 MEQ/L Chloride Level 107 MEQ/L Carbon Dioxide Level 27.0 MEQ/L Anion Gap 6 MEQ/L Estimat Glomerular Filtration Rate 75 ML/MIN [facility] Medical Decision Making Medical Screen Exam Complete: Yes Emergency Medical Condition: Yes Interpretation(s) Afebrile, normotensive Hemoglobin is 10.7 similar to prior Electrolytes are reassuring EKG: Normal sinus rhythm, first-degree heart block, no ST changes Differential Diagnosis Orthostatic hypotension, arrhythmia, electrolyte abnormality, anemia Narrative Course This is a 77-year-old male who presents to the emergency department with an episode of near syncope and fall. He injured his right arm. He has a laceration on his right elbow which was repaired by me. He did not injure his head. He has a history of orthostatic hypotension and it sounds like this is the cause of his fall. Labs and EKG are reassuring. I think the patient can safely be discharged home. Procedures Procedure Narrative LACERATION LOCATION: Right elbow LENGTH: 4 cm NUMBER OF STITCHES/JOSE M: 3 REPAIR: The area of the laceration was cleansed with normal saline sterilely draped. The laceration was infiltrated with 5 cc of 1% lidocaine. The wound was copiously irrigated and explored without evidence of foreign body, tendon injury or neurovascular injury. The wound was closed using 5-0 Ethilon mattress sutures. This was a single layer repair. A sterile dressing was applied. The patient was advised to keep the dressing clean and dry. Patient tolerated the procedure well. Diagnosis Primary Impression: Orthostatic hypotension Additional Impression: Laceration of right elbow Qualified Codes: S51.011A - Laceration without foreign body of right elbow, initial encounter Patient Instructions: General Instructions Additional Instructions: If you develop fevers, redness, swelling, or discharge from your wound return to the emergency room. Keep your wound dry for 24 hours. After that time, wash gently with warm soap and water. Do not use peroxide. Do not soak in baths or go swimming. Have your sutures removed in 7-10 days. Med/Other Pt SpecificInfo: No Change to Meds Disposition: 01 DISCHARGE HOME Condition: Stable Crystal Rodriguez MD Sep 19, 2017 17:20
[2017-09-19 17:21] VITALS: BP 137/77; PULSE 79; RESP 16; TEMP 98.7; O2SAT 97
[2017-09-19 17:44] LABS: AUTOMATED NEUTROPHIL # 2.7 TH/MM3 (1.8-7.7); BASOPHIL % 0.6 % (0.0-2.0); HEMATOCRIT 33.1 % (39.0-51.0); HEMOGLOBIN 10.7 GM/DL (13.0-17.0); LYMPH % 26.4 % (9.0-44.0); LYMPHOCYTE # 1.1 TH/MM3 (1.0-4.8); MEAN CELL VOLUME 93.3 FL (80.0-100.0); MEAN CORPUSCULAR HEMOGLOBIN 30.2 PG (27.0-34.0); MEAN CORPUSCULAR HGB CONC 32.4 % (32.0-36.0); MEAN PLATELET VOLUME 6.7 FL (7.0-11.0); MONO % 5.8 % (0.0-8.0); MONOCYTE # 0.2 TH/MM3 (0-0.9); NEUT % 66.2 % (16.0-70.0); PLATELET COUNT 237 TH/MM3 (150-450); RED BLOOD COUNT 3.55 MIL/MM3 (4.50-5.90); RED CELL DISTRIBUTION WIDTH 12.8 % (11.6-17.2)
[2017-09-19 17:52] LABS: CHLORIDE 107 MEQ/L (98-107); SODIUM (NA) 140 MEQ/L (136-145)
[2017-09-19 17:55] LABS: ALBUMIN 3.3 GM/DL (3.4-5.0); GLUCOSE,RANDOM 128 MG/DL (74-106)
[2017-09-19 17:56] LABS: BLOOD UREA NITROGEN 20 MG/DL (7-18)
[2017-09-19 17:58] LABS: ALT (GPT) 14 U/L (12-78); AST (GOT) 14 U/L (15-37)
[2017-09-19 17:59] LABS: CREATININE 0.97 MG/DL (0.60-1.30); GLOMERULAR FILTRATION RATE 75 ML/MIN (>89)
[2017-09-19 18:00] LABS: TOTAL BILIRUBIN ADULT 0.3 MG/DL (0.2-1.0); TOTAL PROTEIN 6.4 GM/DL (6.4-8.2)
[2017-09-19 18:01] LABS: ALKALINE PHOSPHATASE 79 U/L (45-117)
[2017-09-19] MEDS ORDERED: TETANUS/DIPHTHERIA TOXOID ADULT 0.5 ML VIAL IM ONE (18:30)
[2017-09-19 18:40] VITALS: BP 133/73
--- NOTE | 2017-09-20 12:49 | EKG ---
Date Performed: 09/19/2017 Time Performed: 16:39:37 PTAGE: 77 years EKG: Sinus rhythm WITH FIRST DEGREE AV BLOCK ABNORMAL ECG Since PREVIOUS TRACING , no significant change noted DOCTOR: Isaac Dooley Interpretating Date/Time 09/20/2017 12:48:03
== END 2017-09-19 18:58 | disposition home or self-care (01) ==
LOC: PHED 16:32
DX: I95.1 Orthostatic hypotension (principal); S51.011A Laceration without foreign body of right elbow, initial encounter; R94.31 Abnormal electrocardiogram [ECG] [EKG]; G20 Parkinson's disease; W18.39XA Other fall on same level, initial encounter; Y93.01 Activity, walking, marching and hiking; Y92.003 Bedroom of unspecified non-institutional (private) residence as the place of occurrence of the external cause; Z23 Encounter for immunization; Z79.01 Long term (current) use of anticoagulants
CPT/HCPCS: 12002; 80053; 85025; 90471; 90714; 93005

== ENCOUNTER 2017-09-27 10:08 | Emergency (ER) | payer MEDICARE, OTHER ==
[~2017-09-27] VITALS: Ht 172.7 cm; Wt 70.0 kg
[2017-09-27 10:18] VITALS: BP 117/58; PULSE 62; RESP 16; TEMP 97.7; O2SAT 99
--- NOTE | 2017-09-27 10:21 | PD ---
HPI Chief Complaint: Wound/Suture/Staple Re-Check Time Seen by Provider: 10:21 Travel History International Travel<30 days: No Contact w/Intl Traveler<30days: No Traveled to known affect area: No History of Present Illness HPI 77-year-old male presents to emergency department with sutures to his right elbow placed several days ago. Patient states that she is here for right elbow suture removal. States he has only mild tenderness to the area and is ready for them to be removed. Denies fever or chills. Denies any issues, increased swelling, pus or other drainage from the elbow. PFSH Past Medical History Hx Anticoagulant Therapy: Yes Arthritis: Yes Cancer: No Cardiac Catheterization: Yes Cardiovascular Problems: Yes (ORTHOSTATIC HYPOTENSION) High Cholesterol: Yes Congestive Heart Failure: No Cerebrovascular Accident: Yes Diabetes: No Diminished Hearing: Yes (BILATERAL HEARING AIDES) Endocrine: No Gastrointestinal Disorders: No Genitourinary: No Herniated Disk: Yes Hypertension: No (RUNS LOW) Implanted Vascular Access Dvce: Yes Musculoskeletal: Yes Neurologic: Yes Parkinson's Disease: Yes Psychiatric: No Respiratory: No Immunizations Current: Yes Past Surgical History Cardiac Surgery: Yes (cardiac cath) Eye Surgery: Yes (REMOVED DROOPY SKIN) Joint Replacement: Yes (RT KNEE) Neurologic Surgery: Yes (PARKINSONS) Pacemaker: No Other Surgery: Yes (STITCHES IN BEFORE) Social History Alcohol Use: Yes (OCCASIONAL) Tobacco Use: No Substance Use: No Allergies-Medications (Allergen,Severity, Reaction): Coded Allergies: No Known Allergies (Verified Adverse Reaction, Unknown, 09/27/17) Reported Meds & Prescriptions Reported Meds & Active Scripts Active Walker with Front Wheels (Device) 1 Mis Mis 1 Ea .ROUTE DIRECTED Reported Escitalopram (Escitalopram Oxalate) 10 Mg Tab 10 Mg PO DAILY Bob-Iron (Ferrous Sulfate) 15 Mg/Ml Mihai 18 Mg PO TID Northera (Droxidopa) 100 Mg Cap 600 Mg PO TID Donepezil 10 Mg Tab 10 Mg PO HS Aggrenox (Dipyridamole/Aspirin) 200-25 Mg Cap 1 Cap PO BID Stool Softener (Docusate Sodium) 100 Mg Cap 1 Tab PO DAILY PRN Midodrine 5 Mg Tab 5 Mg PO TID PRN Hydrocodone-Acetaminophen 7.5-325 mg Tab 1 Tab PO Q4H PRN Rosa Allergy (Fexofenadine HCl) 180 Mg Tab 180 Mg PO DAILY Pravastatin 20 Mg Tab 20 Mg PO DAILY Azilect (Rasagiline) 1 Mg Tab 1 Mg PO DAILY Sinemet (Carbidopa-Levodopa) 25-100 Mg Tab 1 Tab PO TID Comtan (Entacapone) 200 Mg Tab 200 Mg PO TID administered concomitantly with each levodopa/carbidopa dose Review of Systems Except as stated in HPI: all other systems reviewed are Neg Physical Exam Narrative GENERAL: Well-nourished, well-developed patient. SKIN: Focused skin assessment warm/dry. HEAD: Normocephalic. EYES: No scleral icterus. No injection or drainage. NECK: Supple, trachea midline. No JVD or lymphadenopathy. CARDIOVASCULAR: Regular rate and rhythm without murmurs, gallops, or rubs. RESPIRATORY: Breath sounds equal bilaterally. No accessory muscle use. MUSCULOSKELETAL: No cyanosis, or edema. Right elbow- mattress sutures in place without exudate or obvious dehiscence. No significant swelling or erythema. Full range of motion of elbow. BACK: Nontender without obvious deformity. No CVA tenderness. Data Data Last Documented VS Vital Signs Date Time Temp Pulse Resp B/P (MAP) Pulse Ox O2 Delivery O2 Flow Rate FiO2 09/27/17 10:18 97.7 62 16 117/58 (77) 99 Orders Orders Ed Discharge Order (09/27/17 10:33) [facility] Medical Decision Making Medical Screen Exam Complete: Yes Emergency Medical Condition: Yes Differential Diagnosis Right elbow Suture removal, cellulitis, erysipelas Narrative Course 77-year-old male presents to emergency department with sutures to his right elbow placed several days ago. Patient states that she is here for right elbow suture removal. States he has only mild tenderness to the area and is ready for them to be removed. Denies fever or chills. Denies any issues, increased swelling, pus or other drainage from the elbow. Vital signs stable Physical exam findings consistent with a well-healing wound of the right elbow. Sutures are ready for removal. Sutures were removed without issues. Advised patient of wound care. Advised to follow-up in the emergency department for signs or symptoms of infectious process. Diagnosis Primary Impression: Encounter for removal of sutures Referrals: Primary Care Physician Additional Instructions: Follow up with your primary care physician within 2-3 days. If your symptoms persist or worsen, return to the emergency department. Keep area clean and dry. You may bathe as normal. You may use [id number] triple antibiotic ointments for your injury daily. Change dressings daily. If bleeding starts again, applied pressure and elevate the area. If he developed increased redness, swelling, or pain return to the emergency department. Disposition: 01 DISCHARGE HOME Condition: Stable Marta Jeff Sep 27, 2017 10:21
== END 2017-09-27 10:37 | disposition home or self-care (01) ==
LOC: PHEFT 10:08
DX: Z48.02 Encounter for removal of sutures (principal); M19.90 Unspecified osteoarthritis, unspecified site; E78.00 Pure hypercholesterolemia, unspecified; G20 Parkinson's disease; Z86.73 Personal history of transient ischemic attack (TIA), and cerebral infarction without residual deficits
CPT/HCPCS: 99281

== ENCOUNTER 2017-11-24 09:07 | Inpatient (IN) | payer MEDICARE, OTHER ==
[2017-11-24] VITALS (9 sets, daily range): BP systolic 86–159; BP diastolic 46–76; PULSE 59–71; RESP 14–20; TEMP 95.5–98.1; O2SAT 95–98
[~2017-11-24] VITALS: Ht 172.7 cm; Wt 66.9 kg
[2017-11-24] MEDS ORDERED: IOHEXOL 350 MG/ML 10 ML VIAL (for RAD DIAG) IVCONTRAST ONE (09:08)
[2017-11-24] MEDS ORDERED: SODIUM CHLOR 0.9% 1000 ML INJ 1,000 ML IV ONE (09:30)
[2017-11-24] MEDS ORDERED: OMEP20TA93 PO (09:37)
[2017-11-24] MEDS ORDERED: MIDO10TA PO (09:37)
[2017-11-24] MEDS ORDERED: [UNRECOGNIZED DRUG - CODE] PO (09:37)
[2017-11-24] MEDS ORDERED: MELA5 PO (09:37)
--- NOTE | 2017-11-24 09:49 | RADRPT ---
EXAM DATE/TIME: 11/24/2017 09:34 [facility] COMPARISON: CHEST SINGLE AP, November 10, 2016, 17:08. HIP LEFT (AP&LAT 2/3VWS) W AP PELVIS, March 28, 2017, 15:3 1. INDICATIONS : Cough for a couple of weeks & left sided rib pain post fall a few days ago. MEDICAL HISTORY : Hypercholesterolemia. CVA. Parkinson's. hypotension. arthritis. herniated disc. SURGICAL HISTORY : Total knee replacement, right. Cardiac cath. ENCOUNTER: Initial ACUITY: 2 weeks PAIN SCORE: 5/10 LOCATION: Left chest FINDINGS: Single view chest demonstrates parenchymal opacification and consolidation of the left with elevation of the left hemidiaphragm. All these findings are new compared to a previous study 11/10/16. This is concerning for a pneumonia. CT imaging of the thorax are excluded underlying mass would be warranted. The right lung is clear. The heart is normal in size. The visualized bony structures are grossly intact. CONCLUSION: 1. There is left basilar effusion and consolidation new when compared to previous study of 11/20/16. Josué Metz MD on November 24, 2017 at 9:46 Board Certified Radiologist. This report was verified electronically.
[2017-11-24 09:50] LABS: AUTOMATED NEUTROPHIL # 6.1 TH/MM3 (1.8-7.7); BASOPHIL % 0.3 % (0.0-2.0); EOSINOPHIL % 0.4 % (0.0-4.0); HEMATOCRIT 25.9 % (39.0-51.0); HEMOGLOBIN 8.5 GM/DL (13.0-17.0); LYMPHOCYTE # 0.7 TH/MM3 (1.0-4.8); MEAN CELL VOLUME 88.7 FL (80.0-100.0); MEAN CORPUSCULAR HEMOGLOBIN 29.2 PG (27.0-34.0); MONO % 6.2 % (0.0-8.0); MONOCYTE # 0.5 TH/MM3 (0-0.9); NEUT % 83.1 % (16.0-70.0); PLATELET COUNT 439 TH/MM3 (150-450); RED BLOOD COUNT 2.92 MIL/MM3 (4.50-5.90); RED CELL DISTRIBUTION WIDTH 12.3 % (11.6-17.2); WHITE BLOOD COUNT 7.3 TH/MM3 (4.0-11.0)
[2017-11-24 10:02] LABS: CALCIUM 8.4 MG/DL (8.5-10.1); CHLORIDE 100 MEQ/L (98-107); SODIUM (NA) 135 MEQ/L (136-145)
[2017-11-24 10:03] LABS: ALBUMIN 2.3 GM/DL (3.4-5.0); BICARBONATE 27.1 MEQ/L (21.0-32.0); GLUCOSE,RANDOM 105 MG/DL (74-106); MAGNESIUM 2.4 MG/DL (1.5-2.5)
[2017-11-24 10:04] LABS: BLOOD UREA NITROGEN 16 MG/DL (7-18)
[2017-11-24 10:06] LABS: ALT (GPT) 11 U/L (12-78); AST (GOT) 15 U/L (15-37); CREATININE 0.92 MG/DL (0.60-1.30); GLOMERULAR FILTRATION RATE 79 ML/MIN (>89)
[2017-11-24 10:07] LABS: TOTAL BILIRUBIN ADULT 0.3 MG/DL (0.2-1.0); TOTAL PROTEIN 7.5 GM/DL (6.4-8.2)
[2017-11-24 10:09] LABS: ALKALINE PHOSPHATASE 81 U/L (45-117)
[2017-11-24 10:11] LABS: TROPONIN I LESS THAN 0.02 NG/ML (0.02-0.05)
--- NOTE | 2017-11-24 10:13 | PD ---
HPI Chief Complaint: Syncope/Near-Syncope Time Seen by Provider: 09:24 Travel History International Travel<30 days: No Contact w/Intl Traveler<30days: No Traveled to known affect area: No History of Present Illness HPI This 77-year-old male is brought in as of syncope. His says that he has passed out 3 times in the last couple of days. He apparently has a loss of consciousness. He has a long history of Parkinson's disease and he has orthostatic hypotension. He is on no therapy. He was admitted to the hospital in April of last year with a GI bleed. At that time he was having black stools. He was found to have a bleeding ulcer. He says that his syncopal episodes occur quite abruptly. He is not aware of any dark stools now. He did hit his head last night. He cut his right arm. He has been coughing and has had some congestion. He was put on an antibiotic a month ago and has been on cefuroxime for the last few days. PFSH Past Medical History Hx Anticoagulant Therapy: Yes Arthritis: Yes Cancer: No Cardiac Catheterization: Yes Cardiovascular Problems: Yes (ORTHOSTATIC HYPOTENSION) High Cholesterol: Yes Congestive Heart Failure: No Cerebrovascular Accident: Yes Diabetes: No Diminished Hearing: Yes (BILATERAL HEARING AIDES) Endocrine: No Gastrointestinal Disorders: No Genitourinary: No Herniated Disk: Yes Implanted Vascular Access Dvce: Yes Musculoskeletal: Yes Neurologic: Yes Parkinson's Disease: Yes Psychiatric: No Respiratory: No Immunizations Current: Yes Past Surgical History Cardiac Surgery: Yes (cardiac cath) Eye Surgery: Yes (REMOVED DROOPY SKIN) Joint Replacement: Yes (RT KNEE) Neurologic Surgery: Yes (PARKINSONS) Pacemaker: No Other Surgery: Yes (STITCHES IN BEFORE) Social History Alcohol Use: Yes (OCCASIONAL) Tobacco Use: No Substance Use: No Allergies-Medications (Allergen,Severity, Reaction): Coded Allergies: No Known Allergies (Verified Adverse Reaction, Unknown, 11/24/17) Reported Meds & Prescriptions Reported Meds & Active Scripts Active Reported Cefuroxime (Cefuroxime Axetil) 500 Mg Tab 500 Mg PO BID Midodrine 10 Mg Tab 10 Mg PO TID PRN Melatonin 5 Mg Tab 5 Mg PO HS Northera (Droxidopa) 300 Mg Cap 600 Mg PO TID Omeprazole 20 Mg Tab 20 Mg PO DAILY Escitalopram (Escitalopram Oxalate) 10 Mg Tab 10 Mg PO DAILY Donepezil 10 Mg Tab 10 Mg PO HS Aggrenox (Dipyridamole/Aspirin) 200-25 Mg Cap 1 Cap PO BID Stool Softener (Docusate Sodium) 100 Mg Cap 1 Tab PO DAILY PRN Hydrocodone-Acetaminophen 7.5-325 mg Tab 1 Tab PO Q4H PRN Rosa Allergy (Fexofenadine HCl) 180 Mg Tab 180 Mg PO DAILY Pravastatin 20 Mg Tab 20 Mg PO DAILY Azilect (Rasagiline) 1 Mg Tab 1 Mg PO DAILY Sinemet (Carbidopa-Levodopa) 25-100 Mg Tab 1 Tab PO TID Comtan (Entacapone) 200 Mg Tab 200 Mg PO TID administered concomitantly with each levodopa/carbidopa dose Review of Systems Except as stated in HPI: all other systems reviewed are Neg General / Constitutional: No: Fever, Chills Eyes: No: Diploplia, Blurred Vision HENT: No: Headaches, Vertigo Cardiovascular: Positive: Syncope, No: Chest Pain or Discomfort, Palpitations Respiratory: No: Cough, Shortness of Breath Gastrointestinal: No: Vomiting, Diarrhea Genitourinary: No: Urgency, Frequency Musculoskeletal: No: Myalgias, Arthralgias Skin: No Rash Neurologic: Positive: Weakness, Syncope Endocrine: No: Heat Intolerance Hematologic/Lymphatic: Positive: Easy Bruising Physical Exam Narrative GENERAL: Chronically ill-appearing male. He is somewhat pale SKIN: Focused skin assessment warm/dry. There is a healing cut on his right forearm. There is some cuts on the dorsum of his right hand. He has full clinical social work aide strength. HEAD: Atraumatic. Normocephalic. EYES: Pupils equal and round. No scleral icterus. No injection or drainage. ENT: No nasal bleeding or discharge. Mucous membranes pink and moist. NECK: Trachea midline. No JVD. CARDIOVASCULAR: Regular rate and rhythm. No murmur appreciated. RESPIRATORY: No accessory muscle use. Occasional rhonchi. GASTROINTESTINAL: Abdomen soft, non-tender, nondistended. Hepatic and splenic margins not palpable. Rectal exam was done. There are no masses. Stool is brown and guaiac positive MUSCULOSKELETAL: No obvious deformities. No clubbing. No cyanosis. No edema. NEUROLOGICAL: Awake and alert. No obvious cranial nerve deficits. Motor strength within normal limits. He has bradykinesia Slow speech. PSYCHIATRIC: Appropriate mood and affect; insight and judgment normal. Data Data Last Documented VS Vital Signs Date Time Temp Pulse Resp B/P (MAP) Pulse Ox O2 Delivery O2 Flow Rate FiO2 11/24/17 10:23 70 16 124/60 (81) 69 16 111/59 (76) 73 16 88/46 (60) 11/24/17 09:12 98.1 97 Orders Orders Electrocardiogram (11/24/17 09:24) Complete Blood Count With Diff (11/24/17 09:24) Comprehensive Metabolic Panel (11/24/17 09:24) Troponin I (11/24/17 09:24) Magnesium (Mg) (11/24/17 09:24) Chest, Single Ap (11/24/17 09:24) Ct Brain W/O Iv Contrast(Rout) (11/24/17 09:24) Sodium Chlor 0.9% 1000 Ml Inj (Ns 1000 M (11/24/17 09:30) Ct Thorax/ Chest W Iv Contrast (11/24/17 10:24) Blood Culture (11/24/17 10:25) Piperacil-Tazo 4.5 Gm Premix (Zosyn 4.5 (11/24/17 10:25) Lactic Acid Sepsis Protocol (11/24/17 10:25) Labs Laboratory Tests Test 11/24/17 09:44 White Blood Count 7.3 TH/MM3 Red Blood Count 2.92 MIL/MM3 Hemoglobin 8.5 GM/DL Hematocrit 25.9 % Mean Corpuscular Volume 88.7 FL Mean Corpuscular Hemoglobin 29.2 PG Mean Corpuscular Hemoglobin Concent 33.0 % Red Cell Distribution Width 12.3 % Platelet Count 439 TH/MM3 Mean Platelet Volume 6.0 FL Neutrophils (%) (Auto) 83.1 % Lymphocytes (%) (Auto) 10.0 % Monocytes (%) (Auto) 6.2 % Eosinophils (%) (Auto) 0.4 % Basophils (%) (Auto) 0.3 % Neutrophils # (Auto) 6.1 TH/MM3 Lymphocytes # (Auto) 0.7 TH/MM3 Monocytes # (Auto) 0.5 TH/MM3 Eosinophils # (Auto) 0.0 TH/MM3 Basophils # (Auto) 0.0 TH/MM3 CBC Comment DIFF FINAL Differential Comment Blood Urea Nitrogen 16 MG/DL Creatinine 0.92 MG/DL Random Glucose 105 MG/DL Total Protein 7.5 GM/DL Albumin 2.3 GM/DL Calcium Level 8.4 MG/DL Magnesium Level 2.4 MG/DL Alkaline Phosphatase 81 U/L Aspartate Amino Transf (AST/SGOT) 15 U/L Alanine Aminotransferase (ALT/SGPT) 11 U/L Total Bilirubin 0.3 MG/DL Sodium Level 135 MEQ/L Potassium Level 3.8 MEQ/L Chloride Level 100 MEQ/L Carbon Dioxide Level 27.1 MEQ/L Anion Gap 8 MEQ/L Estimat Glomerular Filtration Rate 79 ML/MIN Troponin I LESS THAN 0.02 NG/ML MDM Medical Decision Making Medical Screen Exam Complete: Yes Emergency Medical Condition: Yes Medical Record Reviewed: Yes Differential Diagnosis Differential includes dehydration, exacerbation of orthostatic hypotension hemorrhage Narrative Course Blood work was done and his hemoglobin is 8.5. He was here 2 months ago and at that time his hemoglobin was 10.7. Because of this drop in hemoglobin a rectal exam was done and there was a trace of blood in the stool. Orthostatic blood pressure was tested and his pressure dropped with standing. Chest x-ray shows left basilar effusion and consolidation new compared to November. CT is recommended to exclude mass. Patient has never smoked. A CT has been ordered. Diagnosis Primary Impression: Pneumonia Rudy Dunn MD Nov 24, 2017 10:13
[2017-11-24] MEDS ORDERED: CEFU1TAB20 PO (10:23)
[2017-11-24] MEDS ORDERED: PIPERACIL-TAZO 4.5 GM PREMIX 100 ML IV STA (10:25)
--- NOTE | 2017-11-24 10:59 | RADRPT ---
EXAM DATE/TIME: 11/24/2017 10:12 [facility] COMPARISON: CT BRAIN W/O CONTRAST, March 28, 2017, 15:25. INDICATIONS : Syncopal episode with fall three days ago, dizziness. RADIATION DOSE: 60.92 CTDIvol (mGy) MEDICAL HISTORY : Parkinson's. Stroke Cardiovascular disease SURGICAL HISTORY : None. ENCOUNTER: Initial ACUITY: 3 days PAIN SCALE: 3/10 LOCATION: Right parietal TECHNIQUE: Multiple contiguous axial images were obtained of the head. Using automated exposure control and adj ustment of the mA and/or kV according to patient size, radiation dose was kept as low as reasonably a chievable to obtain optimal diagnostic quality images. DICOM format image data is available electro nically for review and comparison. FINDINGS: CEREBRUM: The ventricles are normal for age. No evidence of midline shift, mass lesion, hemorrhage or acute in farction. No extra-axial fluid collections are seen. POSTERIOR FOSSA: The cerebellum and brainstem are intact. The 4th ventricle is midline. The cerebellopontine angle i s unremarkable. EXTRACRANIAL: The visualized portion of the orbits is intact. SKULL: The calvaria is intact. No evidence of skull fracture. CONCLUSION: Normal examination. Foreign Mclaughlin MD on November 24, 2017 at 10:57 Board Certified Radiologist. This report was verified electronically.
--- NOTE | 2017-11-24 11:54 | RADRPT ---
EXAM DATE/TIME: 11/24/2017 10:33 [facility] COMPARISON: CHEST SINGLE AP, November 10, 2016, 17:08. CHEST SINGLE AP, November 24, 2017, 9:34. INDICATIONS : Abnormal chest x-ray; evaluate for pneumonia or mass. IV CONTRAST: 65 cc Omnipaque 350 (iohexol) IV RADIATION DOSE: 7.56 CTDIvol (mGy) MEDICAL HISTORY : Cardiovascular disease. Stroke Parkinsons. SURGICAL HISTORY : None. ENCOUNTER: Initial ACUITY: 1 day PAIN SCALE: 0/10 LOCATION: Bilateral chest TECHNIQUE: Volumetric scanning of the chest was performed. Using automated exposure control and adjustment of t he mA and/or kV according to patient size, radiation dose was kept as low as reasonably achievable to obtain optimal diagnostic quality images. DICOM format image data is available electronically for review and comparison. Follow-up recommendations for detected pulmonary nodules are based at a minimum on nodule size and pa tient risk factors according to Fleischner Society Guidelines. FINDINGS: The examination was performed to evaluate a new opacity in the lower lateral left lung. The CT demon strates a large left pleural effusion in the posterior and lateral left chest extending up to the upp er one third of the chest. Superior/inferior dimension is 13 cm. There is associated compressive at electasis of the lower lateral left lung. There is an air-fluid level within the pleural fluid and s ome scattered flecks of gas in the inferior aspect of the pleural fluid. Scattered bilateral pleural calcification without focal pleural thickening. The right lung is clear. No evidence of mediastinal adenopathy. The osseous structures are grossly intact. No evidence of left rib fracture. CONCLUSION: 1. There is a large left pleural effusion with configuration suggesting loculation. There is also in air-fluid level in the fluid collection. 2. Bilateral diffuse pleural calcifications without focal thickening. Tanner Brown MD on November 24, 2017 at 11:43 Board Certified Radiologist. This report was verified electronically.
[2017-11-24] MEDS ORDERED: NALOXONE HCL 0.4 MG/ML AMP IV PUSH PRN (12:45)
[2017-11-24] MEDS ORDERED: SODIUM CHLORIDE 0.9% FLUSH 10 ML FLUSH IV FLUSH PRN (12:45)
[2017-11-24] MEDS ORDERED: SENNOSIDES 8.6 MG TAB PO PRN (12:45)
[2017-11-24] MEDS ORDERED: ACETAMINOPHEN 325 MG TAB PO PRN (12:45)
[2017-11-24] MEDS ORDERED: MAGNESIUM HYDROXIDE SUSP 30 ML CUP PO PRN (12:45)
[2017-11-24] MEDS ORDERED: ONDANSETRON HCL 4 MG/2 ML VIAL IVP PRN (12:45)
[2017-11-24] MEDS ORDERED: BISACODYL 10 MG SUPP RECTAL PRN (12:45)
--- NOTE | 2017-11-24 15:15 | HHI.HP ---
[facility] Service [facility] Primary Care Physician Jasvir Day MD Admission Diagnosis ORTHOSTATIC HYPOTENSION, ANEMIA, EMPYEMA Diagnoses: (1) Orthostatic hypotension (2) Frequent falls (3) Syncope Chief Complaint: Syncope Travel History International Travel<30 Days: No Contact w/Intl Traveler <30 Da: No Traveled to Known Affected Are: No History of Present Illness This is a pleasant 77-year-old male patient with a known medical history of hyperlipidemia, orthostatic hypotension, CAD who presented to the ED after multiple syncopal episodes. Patient is seen at bedside with history of dementia and Parkinson's disease, is at bedside who assist with obtaining medical history. Per , patient states that he passed out 3 times in the last couple days. He did hit his head, and lost consciousness today. Patient states that usually before he has the syncopal episodes he feels lightheaded. Patient admits to poor appetite, states he has not been eating as much lately. He has also been feeling overall fatigued. Denies any bloody or black stools or diarrhea. Patient denies any recent nausea or vomiting or diarrhea. After review of medical records, patient was last seen in April for admission for GI bleed. At that time was found to have a bleeding ulcer. Patient follows with his PCP Dr. Day. He does complain of recent productive cough with yellow phlegm, patient states he was given an antibiotic a month ago which did not seem to help and was just recently prescribed cefuroxime in the last few days. Patient does follow with Dr. Multani, cardiology. Review of Systems Constitutional: COMPLAINS OF: Fatigue, Fever, Chills, Change in appetite, DENIES: Diaphoretic episodes Eyes: DENIES: Blurred vision, Diplopia Respiratory: COMPLAINS OF: Cough, Sputum production, Shortness of breath Cardiovascular: DENIES: Chest pain, Palpitations Gastrointestinal: DENIES: Abdominal pain, Black stools, Bloody stools, Constipation, Diarrhea, Nausea, Vomiting Musculoskeletal: DENIES: Joint pain Neurologic: COMPLAINS OF: Abnormal gait (History of Parkinson's) Psychiatric: DENIES: Anxiety Except as stated in HPI: all other systems reviewed are Neg Past Family Social History Past Medical History History of Parkinson's disease Orthostatic hypotension Hyperlipidemia History of CVA Arthritis Past Surgical History History of cardiac catheterization Right knee replacement Reported Medications Active Reported Cefuroxime (Cefuroxime Axetil) 500 Mg Tab 500 Mg PO BID Midodrine 10 Mg Tab 10 Mg PO TID PRN Melatonin 5 Mg Tab 5 Mg PO HS Northera (Droxidopa) 300 Mg Cap 600 Mg PO TID Omeprazole 20 Mg Tab 20 Mg PO DAILY Escitalopram (Escitalopram Oxalate) 10 Mg Tab 10 Mg PO DAILY Donepezil 10 Mg Tab 10 Mg PO HS Aggrenox (Dipyridamole/Aspirin) 200-25 Mg Cap 1 Cap PO BID Stool Softener (Docusate Sodium) 100 Mg Cap 1 Tab PO DAILY PRN Hydrocodone-Acetaminophen 7.5-325 mg Tab 1 Tab PO Q4H PRN Rosa Allergy (Fexofenadine HCl) 180 Mg Tab 180 Mg PO DAILY Pravastatin 20 Mg Tab 20 Mg PO DAILY Azilect (Rasagiline) 1 Mg Tab 1 Mg PO DAILY Sinemet (Carbidopa-Levodopa) 25-100 Mg Tab 1 Tab PO TID Comtan (Entacapone) 200 Mg Tab 200 Mg PO TID administered concomitantly with each levodopa/carbidopa dose Allergies: Coded Allergies: No Known Allergies (Verified Adverse Reaction, Unknown, 11/24/17) Active Ordered Medications Current Medications Medications (Trade) Dose Ordered Sig/Renea Route Start Time Stop Time Status Last Admin (NS Flush) 2 ml UNSCH PRN IV FLUSH 11/24/17 12:45 (NS Flush) 2 ml BID IV FLUSH 11/24/17 21:00 (Tylenol) 650 mg Q4H PRN PO 11/24/17 12:45 (Zofran Inj) 4 mg Q6H PRN IVP 11/24/17 12:45 (Narcan Inj) 0.4 mg UNSCH PRN IV PUSH 11/24/17 12:45 (Madhuri-Colace) 1 tab BID PO 11/24/17 21:00 (Milk Of Magnesia Liq) 30 ml Q12H PRN PO 11/24/17 12:45 (Senokot) 17.2 mg Q12H PRN PO 11/24/17 12:45 (Dulcolax Supp) 10 mg DAILY PRN RECTAL 11/24/17 12:45 Family History Both maternal and paternal family medical history significant for cardiovascular disease. Father had a stroke. Social History Patient denies any previous or current tobacco use. Denies any alcohol or illicit drug use. Physical Exam Vital Signs Vital Signs Date Time Temp Pulse Resp B/P (MAP) Pulse Ox O2 Delivery O2 Flow Rate FiO2 11/24/17 14:25 11/24/17 13:33 61 136/76 (96) 95 11/24/17 12:28 66 127/67 (87) 96 11/24/17 11:07 63 14 123/61 (81) 96 11/24/17 10:23 70 16 124/60 (81) 69 16 111/59 (76) 73 16 88/46 (60) 11/24/17 09:12 98.1 71 16 137/66 (89) 97 Physical Exam GENERAL: Well-developed, thin appearing elderly male patient in [facility]. Lying comfortably in bed on room air SKIN: Warm and dry. No rash. HEAD: Normocephalic. Atraumatic. EYES: Pupils equal and round. No scleral icterus. No injection or drainage. ENT: No nasal bleeding or discharge. Mucous membranes pink and moist. NECK: Supple. Trachea midline. CARDIOVASCULAR: Regular rate and rhythm. S1, S2 noted. RESPIRATORY: No accessory muscle use. Clear to auscultation. Breath sounds equal bilaterally. GASTROINTESTINAL: Abdomen soft, non-tender, nondistended. Normoactive bowel sounds x4. MUSCULOSKELETAL: No obvious deformities. Extremities without clubbing, cyanosis , or edema. NEUROLOGICAL: Awake and alert. No obvious cranial nerve deficits. Motor grossly within normal limits. 5/5 muscle strength in bilateral upper and lower extremities. Normal speech. PSYCHIATRIC: Appropriate mood and affect; insight and judgment normal. Laboratory Laboratory Tests Test 11/24/17 09:44 11/24/17 11:00 White Blood Count 7.3 Red Blood Count 2.92 Hemoglobin 8.5 Hematocrit 25.9 Mean Corpuscular Volume 88.7 Mean Corpuscular Hemoglobin 29.2 Mean Corpuscular Hemoglobin Concent 33.0 Red Cell Distribution Width 12.3 Platelet Count 439 Mean Platelet Volume 6.0 Neutrophils (%) (Auto) 83.1 Lymphocytes (%) (Auto) 10.0 Monocytes (%) (Auto) 6.2 Eosinophils (%) (Auto) 0.4 Basophils (%) (Auto) 0.3 Neutrophils # (Auto) 6.1 Lymphocytes # (Auto) 0.7 Monocytes # (Auto) 0.5 Eosinophils # (Auto) 0.0 Basophils # (Auto) 0.0 CBC Comment DIFF FINAL Differential Comment Blood Urea Nitrogen 16 Creatinine 0.92 Random Glucose 105 Total Protein 7.5 Albumin 2.3 Calcium Level 8.4 Magnesium Level 2.4 Alkaline Phosphatase 81 Aspartate Amino Transf (AST/SGOT) 15 Alanine Aminotransferase (ALT/SGPT) 11 Total Bilirubin 0.3 Sodium Level 135 Potassium Level 3.8 Chloride Level 100 Carbon Dioxide Level 27.1 Anion Gap 8 Estimat Glomerular Filtration Rate 79 Troponin I LESS THAN 0.02 Lactic Acid Level 1.0 Date/Time Source Procedure Growth Status 11/24/17 11:00 Blood Peripheral Aerobic Blood Culture Pending Received 11/24/17 11:00 Blood Peripheral Anaerobic Blood Culture Pending Received Result Diagram: 11/24/1794311/24/17943 Imaging Last Impressions Chest CT 11/24/17 1024 Signed Impressions: Service Date/Time: November 10:33 - CONCLUSION: 1. There is a large left pleural effusion with configuration suggesting loculation. There is also in air-fluid level in the fluid collection. 2. Bilateral diffuse pleural calcifications without focal thickening. Tanner Brown MD Head CT 11/24/17923 Signed Impressions: Service Date/Time: November 10:12 - CONCLUSION: Normal examination. Foreign Mclaughlin MD Chest X-Ray 11/24/17923 Signed Impressions: Service Date/Time: November 09:34 - CONCLUSION: 1. There is left basilar effusion and consolidation new when compared to previous study of 11/20/16. Josué Metz MD Septic Shock Reassessment Septic shock perfusion: reassessment completed Caprini VTE Risk Assessment Caprini VTE Risk Assessment: Mod/High Risk (score >= 2) Caprini Risk Assessment Model Point Value = 1 Point Value = 2 Point Value = 3 Point Value = 5 Age 41-60 Minor surgery BMI > 25 kg/m2 Swollen legs Varicose veins or History of unexplained or recurrent spontaneous Oral contraceptives or hormone replacement Sepsis (< 1 month) Serious lung disease, including pneumonia (< 1 month) Abnormal pulmonary function Acute myocardial infarction Congestive heart failure (< 1 month) History of inflammatory bowel disease Medical patient at bed rest Age 61-74 Arthroscopic surgery Major open surgery (> 45 min) Laparoscopic surgery (> 45 min) Malignancy Confined to bed (> 72 hours) Immobilizing plaster cast Central venous access Age >= 75 History of VTE Family history of VTE Factor V Leiden Prothrombin [id number] Lupus anticoagulant Anticardiolipin antibodies Elevated serum homocysteine Heparin-induced thrombocytopenia Other congenital or acquired thrombophilia Stroke (< 1 month) Elective arthroplasty Hip, pelvis, or leg fracture Acute spinal cord injury (< 1 month) Prophylaxis Regimen Total Risk Factor Score Risk Level Prophylaxis Regimen 0-1 Low Early ambulation 2 Moderate Order ONE of the following: *Sequential Compression Device (SCD) *Heparin 5000 units SQ BID 3-4 Higher Order ONE of the following medications: *Heparin 5000 units SQ TID *Enoxaparin/Lovenox 40 mg SQ daily (WT < 150 kg, CrCl > 30 mL/min) *Enoxaparin/Lovenox 30 mg SQ daily (WT < 150 kg, CrCl > 10-29 mL/min) *Enoxaparin/Lovenox 30 mg SQ BID (WT < 150 kg, CrCl > 30 mL/min) AND/OR *Sequential Compression Device (SCD) 5 or more Highest Order ONE of the following medications: *Heparin 5000 units SQ TID (Preferred with Epidurals) *Enoxaparin/Lovenox 40 mg SQ daily (WT < 150 kg, CrCl > 30 mL/min) *Enoxaparin/Lovenox 30 mg SQ daily (WT < 150 kg, CrCl > 10-29 mL/min) *Enoxaparin/Lovenox 30 mg SQ BID (WT < 150 kg, CrCl > 30 mL/min) AND *Sequential Compression Device (SCD) Assessment and Plan Problem List: (1) Syncope ICD Code: R55 - Syncope and collapse (2) Frequent falls ICD Code: R29.6 - Repeated falls Status: Acute (3) Orthostatic hypotension ICD Code: I95.1 - Orthostatic hypotension Status: Acute Assessment and Plan This is a pleasant 77-year-old male patient with a known medical history of hyperlipidemia, orthostatic hypotension, CAD who presented to the ED after multiple syncopal episodes. Multiple syncopal episodes suspect secondary to orthostatic hypotension versus dehydration Patient presented with multiple syncopal episodes. Orthostatic hypotensive readings positive, dropped from 124-88. Continue to monitor closely. Continue home Midodrine and Droxidopa. Head CT reviewed, negative examination. Fall precautions. PT eval ordered, appreciate further recommendations. Echocardiogram ordered, pending. Follow. Carotid ultrasound ordered, continue to follow. Lipid panel ordered. Status post 1 L NS bolus in ED. Continue gentle hydration. Continue cardiac telemetry, monitor for any arrhythmias. Pneumonia, community-acquired - failed outpatient antibiotics, with associated productive cough and subjective fevers Large left pleural effusion suspect secondary to above Chest x-ray reviewed showing left basilar effusion and consolidation. CT chest reviewed showing large left pleural effusion with configuration suggesting loculation. Consult placed to pulmonology and radiology, appreciate further recommendations and input. Blood cultures ordered and pending. Continue to follow growth. Started on antibiotics. CBC reviewed, white blood cell within normal limits continue to follow. No fevers. Lactic acid 1.0. Supplemental O2 as needed, patient comfortable on room air. Normocytic normochromic anemia History of GI bleed Denies any recent hematozemia. Hemoglobin 8.5/hematocrit 25.9. Hemoccult stool performed in ED, positive. Will consult gastroenterology, appreciate input and recommendations. Continue to monitor H&H. History of Parkinson's disease History of Alzheimer's dementia continue home medications. Stable at this time. Supportive care. Hyperlipidemia, chronic: Continue home pravastatin. DVT prophylaxis: SCDs. Heparin. Physician Certification 2 Midnight Certification Type: Admission for Inpatient Services Order for Inpatient Services The services are ordered in accordance with Medicare regulations or non- Medicare payer requirements, as applicable. In the case of services not specified as inpatient-only, they are appropriately provided as inpatient services in accordance with the 2-midnight benchmark. Estimated LOS (days): 3 3 days is the estimated time the patient will need to remain in the hospital, assuming treatment plan goals are met and no additional complications. Post-Hospital Plan: Not yet determined Jessica Price Nov 24, 2017 15:15
[2017-11-24 17:55] LABS: CHOLESTEROL/ HDL RATIO 2.97 RATIO; HDL CHOLESTEROL 30.9 MG/DL (40.0-60.0)
[2017-11-24] MEDS ORDERED: DROXIDOPA 600 MG PO SCH (18:00)
[2017-11-24] MEDS ORDERED: MIDODRINE 5 MG TAB PO PRN (18:00)
[2017-11-24] MEDS ORDERED: ENTACAPONE 200 MG PO SCH (18:00)
[2017-11-24] MEDS: MIDODRINE 5 MG TAB PO SCH (18:35)
[2017-11-24] MEDS: SODIUM CHLOR 0.9% 1000 ML INJ 1,000 ML IV SCH (18:35)
[2017-11-24] MEDS: CARBIDOPA/LEVODOPA 25 MG/100 MG TAB PO SCH (18:35)
--- NOTE | 2017-11-24 18:42 | RADRPT ---
EXAM DATE/TIME: 11/24/2017 15:50 [facility] COMPARISON: No previous studies available for comparison. INDICATIONS : Syncope. MEDICAL HISTORY : Hypercholesterolemia. Dementia. CVA. Parkinson. Orthostatis hypotension. Anticoagulant therapy. H ypertension. Arthritis. Herniated disk. SURGICAL HISTORY : Cardiac cath. Right knee replaced. ENCOUNTER: Initial ACUITY: 1 day PAIN SCORE: 0/10 LOCATION: Bilateral neck PEAK SYSTOLIC VELOCITIES (cm/sec): ICA/CCA RATIO: Right: 1.0 Left: 0.9 ICA: Right: 77 Left: 80 CCA: Right: 76 Left: 91 ECA: Right: 55 Left: 76 VERTEBRAL: Right: 66 antegrade Left: 71 antegrade Elevated flow velocities and ICA/CCA ratios have been found to correlate with increased degrees of vessel stenosis, calculated as percentage of diameter relative to a normal segment of distal ICA/CCA FINDINGS: RIGHT CAROTID: No significant stenosis is visualized. The waveforms are within normal limits. LEFT CAROTID: No significant stenosis is visualized. The waveforms are within normal limits. VERTEBRAL ARTERIES: Antegrade flow is seen in both vertebral arteries. MISCELLANEOUS: None. CONCLUSION: 1. No hemodynamically significant flow limiting stenosis. 2. Antegrade flow in the vertebral arteries bilaterally. Truman Roque MD on November 24, 2017 at 18:40 Board Certified Radiologist. This report was verified electronically.
--- NOTE | 2017-11-24 19:53 | EKG ---
Date Performed: 11/24/2017 Time Performed: 09:30:52 PTAGE: 77 years EKG: Sinus rhythm BORDERLINE LEFT AXIS DEVIATION BORDERLINE ECG PREVIOUS TRACING : 09/19/2017 16.39 Since the prior tracing, there has been no significant sloan DOCTOR: Maryellen Danielle Interpretating Date/Time 11/24/2017 19:50:33
[2017-11-24] MEDS: SODIUM CHLORIDE 0.9% FLUSH 10 ML FLUSH IV FLUSH SCH (21:00)
[2017-11-24] MEDS: HEPARIN SODIUM - SQ 10,000 UNITS/ML VIAL SQ SCH (21:00)
[2017-11-24] MEDS ORDERED: RESP: ALBUTEROL 2.5 MG/IPRATROPIUM 0.5 MG NEB (PRN) NEB (21:00)
[2017-11-24 21:27] LABS: INTERNATIONAL NORMALIZED RATIO 1.1 RATIO; PROTHROMBIN TIME - PATIENT 11.5 SEC (9.8-11.6)
[2017-11-24] MEDS: DONEPEZIL HCL 5 MG TAB PO SCH (21:49)
[2017-11-24] MEDS: DOCUSATE SODIUM 50 MG/SENNA 8.6 MG TAB PO SCH (21:49)
[2017-11-24] MEDS: DIPYRIDAMOLE/ASPIRIN 200 MG/25 MG CAP PO SCH (22:18)
[2017-11-24 22:20] LABS: BILIRUBIN, URINE NEG (NEG); BLOOD, URINE NEG (NEG); GLUCOSE,URINE NEG (NEG); KETONE, URINE NEG (NEG); NITRITE,URINE NEG (NEG); PH, URINE 6.5 (5.0-8.5); URINE LEUKOCYTE ESTERASE NEG (NEG)
[2017-11-24 22:22] LABS: URINE COLOR YELLOW (YELLW/STRAW)
[2017-11-24 22:23] LABS: SQUAMOUS EPITHELIAL CELL URINE 0-5 /hpf (0-5); WBC, URINE 0-2 /hpf (0-5)
[2017-11-25] VITALS: BP 132/70; PULSE 58; RESP 20; TEMP 96.6; O2SAT 94
[2017-11-25 04:00] VITALS: BP 126/62; PULSE 66; RESP 20; TEMP 96.9; O2SAT 94
[2017-11-25 07:19] LABS: AUTOMATED NEUTROPHIL # 5.1 TH/MM3 (1.8-7.7); BASOPHIL % 0.2 % (0.0-2.0); EOSINOPHIL % 0.5 % (0.0-4.0); HEMATOCRIT 23.9 % (39.0-51.0); HEMOGLOBIN 8.4 GM/DL (13.0-17.0); LYMPH % 14.5 % (9.0-44.0); LYMPHOCYTE # 0.9 TH/MM3 (1.0-4.8); MEAN CELL VOLUME 87.8 FL (80.0-100.0); MEAN CORPUSCULAR HEMOGLOBIN 30.9 PG (27.0-34.0); MEAN CORPUSCULAR HGB CONC 35.2 % (32.0-36.0); MEAN PLATELET VOLUME 6.1 FL (7.0-11.0); MONO % 5.5 % (0.0-8.0); MONOCYTE # 0.4 TH/MM3 (0-0.9); NEUT % 79.3 % (16.0-70.0); PLATELET COUNT 388 TH/MM3 (150-450); RED BLOOD COUNT 2.72 MIL/MM3 (4.50-5.90); RED CELL DISTRIBUTION WIDTH 12.5 % (11.6-17.2); WHITE BLOOD COUNT 6.4 TH/MM3 (4.0-11.0)
[2017-11-25 07:29] LABS: BICARBONATE 27.5 MEQ/L (21.0-32.0); CALCIUM 8.3 MG/DL (8.5-10.1)
[2017-11-25 07:33] LABS: CREATININE 0.76 MG/DL (0.60-1.30)
[2017-11-25 08:00] VITALS: BP_SYST 107; BP_SYST 75; BP_SYST 88; BP_DIAS 41; BP_DIAS 56; BP_DIAS 58; PULSE 72; PULSE 80; RESP 20; TEMP 96.8; O2SAT 95
[2017-11-25] MEDS: PANTOPRAZOLE SOD 20 MG DELAYED RELEASE TAB PO SCH (08:24)
[2017-11-25] MEDS: PRAVASTATIN SOD 20 MG TAB PO SCH (08:25)
[2017-11-25] MEDS: ESCITALOPRAM OXALATE 10 MG TAB PO SCH (08:25)
[2017-11-25] MEDS: CARBIDOPA/LEVODOPA 25 MG/100 MG TAB PO SCH ×3 (08:25→17:11)
[2017-11-25] MEDS: DOCUSATE SODIUM 50 MG/SENNA 8.6 MG TAB PO SCH ×2 (08:25→21:12)
[2017-11-25] MEDS: MIDODRINE 5 MG TAB PO SCH ×3 (08:26→17:11)
[2017-11-25] MEDS: LEVOFLOXACIN 750 MG TAB PO SCH (08:26)
[2017-11-25] MEDS: SODIUM CHLORIDE 0.9% FLUSH 10 ML FLUSH IV FLUSH SCH ×2 (08:27→21:13)
[2017-11-25] MEDS: HEPARIN SODIUM - SQ 10,000 UNITS/ML VIAL SQ SCH ×2 (08:28→21:13)
[2017-11-25] MEDS: DIPYRIDAMOLE/ASPIRIN 200 MG/25 MG CAP PO SCH ×2 (08:53→21:12)
[2017-11-25] MEDS ORDERED: RASAGILINE 1 MG PO SCH (09:00)
--- NOTE | 2017-11-25 09:17 | RADRPT ---
EXAM DATE/TIME: 11/25/2017 07:49 [facility] COMPARISON: No previous studies available for comparison. INDICATIONS : Left pleural effusion. MEDICAL HISTORY : Parkinson's. Hypercholesterolemia. Hypertension. CVA. SURGICAL HISTORY : Cardiac catheterization. Right knee replacement. ENCOUNTER: Subsequent ACUITY: 1 day PAIN SCORE: 1/10 LOCATION: Left chest MEASUREMENTS: SKIN TO PARIETAL PLEURA: 1.4 cm SKIN TO MAX SAFE DEPTH: 2.9 cm ESTIMATED FLUID VOLUME: 152.94 cc FLUID COMPOSITION: complex FINDINGS: There are some thin internal septa within the fluid collection.. A lis was placed on the skin surfac e superficial to the pleural fluid collection. CONCLUSION: Pleural effusion with septation. Skin marking was made. Tanner Brown MD on November 25, 2017 at 9:15 Board Certified Radiologist. This report was verified electronically.
--- NOTE | 2017-11-25 11:38 | HHI.PR ---
Subjective Remarks Follow-up orthostatic hypotension. Patient seen and examined, lying in bed comfortably. States he slept well overnight, denies any acute events. Denies any pain. Patient worked with PT this morning, significant drop in blood pressure when standing was noted. Spoke to patient's functional mental disability teacher, Dr. Multani , who suggested adding Maribel and JOSSELINE parsons. Patient denies any shortness of breath. Has been eating well, denies any abdominal pain, nausea or vomiting. Still continue productive cough. Objective Vitals Vital Signs Date Time Temp Pulse Resp B/P (MAP) Pulse Ox O2 Delivery O2 Flow Rate FiO2 11/25/17 08:00 72 107/56 (73) 88/58 (68) 75/41 (52) 11/25/17 08:00 96.8 72 20 107/56 (73) 95 11/25/17 04:00 96.9 66 20 126/62 (83) 94 11/25/17 00:00 96.6 58 20 132/70 (90) 94 11/24/17 20:51 59 11/24/17 20:00 95.5 64 20 159/72 (101) 98 11/24/17 16:41 96.5 65 18 141/63 (89) 97 121/58 (79) 86/50 (62) 11/24/17 14:30 97.2 63 20 144/68 (93) 96 11/24/17 14:25 11/24/17 13:33 61 136/76 (96) 95 11/24/17 12:28 66 127/67 (87) 96 I/O 11/24/17 11/24/17 11/24/17 11/25/17 11/25/17 11/25/17 07:00 15:00 23:00 07:00 15:00 23:00 Intake Total 100 ml 600 ml 490 ml Output Total 500 ml Balance 100 ml 100 ml 490 ml Intake Oral 600 ml IV Total 100 ml 490 ml Output Urine Total 500 ml # Voids 1 # Bowel Movements 1 Result Diagram: 11/25/17 0650 11/25/17 0650 Imaging Last Impressions Chest Ultrasound 11/25/17 0000 Signed Impressions: Service Date/Time: Saturday, November 25, 2017 07:49 - CONCLUSION: Pleural effusion with septation. Skin marking was made. Tanner Brown MD Chest CT 11/24/17 1024 Signed Impressions: Service Date/Time: November 10:33 - CONCLUSION: 1. There is a large left pleural effusion with configuration suggesting loculation. There is also in air-fluid level in the fluid collection. 2. Bilateral diffuse pleural calcifications without focal thickening. Tanner Brown MD Head CT 11/24/17 0924 Signed Impressions: Service Date/Time: November 10:12 - CONCLUSION: Normal examination. Foreign Mclaughlin MD Chest X-Ray 11/24/17923 Signed Impressions: Service Date/Time: November 09:34 - CONCLUSION: 1. There is left basilar effusion and consolidation new when compared to previous study of 11/20/16. Josué Metz MD Carotid Artery Ultrasound 11/24/17 0000 Signed Impressions: Service Date/Time: November 15:50 - CONCLUSION: 1. No hemodynamically significant flow limiting stenosis. 2. Antegrade flow in the vertebral arteries bilaterally. Truman Roque MD Objective Remarks GENERAL: Well-developed, elderly male patient in [facility]. Lying comfortably in bed on room air. SKIN: Warm and dry. No rash. HEAD: Normocephalic. Atraumatic. EYES: Pupils equal and round. No scleral icterus. No injection or drainage. ENT: No nasal bleeding or discharge. Mucous membranes pink and moist. NECK: Supple. Trachea midline. CARDIOVASCULAR: Regular rate and rhythm. S1, S2 noted. No murmur appreciated. RESPIRATORY: No accessory muscle use. Clear to auscultation. Breath sounds equal bilaterally. GASTROINTESTINAL: Abdomen soft, non-tender, nondistended. Normoactive bowel sounds x4. MUSCULOSKELETAL: No obvious deformities. Extremities without clubbing, cyanosis , or edema. NEUROLOGICAL: Awake and alert. No obvious cranial nerve deficits. Motor grossly within normal limits. 5/5 muscle strength in bilateral upper and lower extremities. Normal speech. PSYCHIATRIC: Appropriate mood and affect; insight and judgment normal. A/P Problem List: (1) Syncope ICD Code: R55 - Syncope and collapse (2) Frequent falls ICD Code: R29.6 - Repeated falls Status: Acute (3) Orthostatic hypotension ICD Code: I95.1 - Orthostatic hypotension Status: Acute Assessment and Plan This is a pleasant 77-year-old male patient with a known medical history of hyperlipidemia, orthostatic hypotension, CAD who presented to the ED after multiple syncopal episodes. Multiple syncopal episodes suspect secondary to orthostatic hypotension versus dehydration Patient presented with multiple syncopal episodes. Orthostatic hypotensive readings positive, systolic BP dropped from 107-->77. Continue to monitor closely. Continue home Midodrine and Droxidopa. Add Florinef. Spoke to patient's functional mental disability teacher who suggests JOSSELINE parsons and Maribel. Will continue to monitor. Head CT reviewed, negative examination. Fall precautions. PT eval ordered, appreciate further recommendations. Echocardiogram ordered, pending. Follow. Carotid ultrasound ordered, reviewed showing no stenosis. Status post 1 L NS bolus in ED. Continue gentle hydration. Will add 1 L slow NS bolus today. Continue cardiac telemetry, monitor for any arrhythmias. Pneumonia, community-acquired - failed outpatient antibiotics, with associated productive cough and subjective fevers Large left pleural effusion suspect secondary to above Chest x-ray reviewed showing left basilar effusion and consolidation. CT chest reviewed showing large left pleural effusion with configuration suggesting loculation. Consult placed to pulmonology and radiology, appreciate further recommendations and input. PFTs ordered. ABG done and reviewed, no significance. Blood cultures no growth to date. Continue to follow growth. UA negative. Continue antibiotics. CBC reviewed, white blood cell within normal limits continue to follow. No fevers. Lactic acid 1.0. Supplemental O2 as needed, patient comfortable on room air. US chest done, pleural effusion with lack of adequate fluid to drain. Will monitor. Normocytic normochromic anemia History of GI bleed Denies any recent hematozemia. Hemoglobin 8.5/hematocrit 25.9. Hemoccult stool performed in ED, positive. Will consult gastroenterology, appreciate input and recommendations. Continue to monitor H&H. Stable today. History of Parkinson's disease History of Alzheimer's dementia Continue home medications. Stable at this time. Supportive care. Hyperlipidemia, chronic: Continue home pravastatin. DVT prophylaxis: SCDs. Heparin. Jessica Price Nov 25, 2017 11:38
[2017-11-25] MEDS ORDERED: SODIUM CHLOR 0.9% 1000 ML INJ 1,000 ML IV ONE (11:45)
[2017-11-25 12:00] VITALS: BP 105/60; PULSE 74; RESP 18; TEMP 96.7; O2SAT 95
[2017-11-25] MEDS ORDERED: FLUDROCORTISONE ACETATE 0.1 MG TAB PO ONE (12:00)
--- NOTE | 2017-11-25 12:31 | MB ---
cc: TONYA DOMÍNGUEZ MD, JOHN DATE OF CONSULTATION 11/24/2017 REASON FOR CONSULTATION Respiratory failure and a large pleural effusion. HISTORY OF PRESENT ILLNESS This is a 77-year-old white male with a past history of coronary artery disease, hyperlipidemia, orthostatic hypotension and multiple blackout spells, who was brought to the hospital for evaluation. The patient also has a history of dementia and Parkinson's disease and is unable to provide any meaningful details. He apparently had blacked out three times over the past two days and was brought to the hospital today. He was quite light-headed and had been eating poorly. Following admission, however, the patient complained of pain along the left chest and back and he had a CT of the chest which showed a loculated large pleural effusion on the left side. He has been fatigued and has trouble sleeping but no hemoptysis, cough, nausea, vomiting or aspiration. The CT of the head was unremarkable. Chest x-ray showed a left basilar effusion and consolidation. PAST MEDICAL HISTORY 1. Parkinson's disease. 2. Hyperlipidemia. 3. History of stroke. 4. Arthritis. PAST SURGICAL HISTORY 1. Right knee replacement. 2. Cardiac catheterization. MEDICATIONS 1. Ceftin. 2. Midodrine. 3. Escitalopram. 4. Omeprazole. 5. Aggrenox one capsule b.i.d. 6. Benazepril 10 mg h.s. 7. Hydrocodone 7.5 mg p.r.n. 8. Rosa 180 mg a day. 9. Pravastatin 20 mg daily. 10.Rasagiline/Azilect 1 mg daily. 11.Sinemet 25/100, one t.i.d. 12.Comtan 200 mg t.i.d. ALLERGIES No drug allergies. FAMILY HISTORY Noncontributory. HABITS The patient does not smoke. No significant alcohol use. REVIEW OF SYSTEMS The patient is unable to provide meaningful details. He has no chest pains. No abdominal pains. No nausea, vomiting or hemoptysis. He has some soreness across the left lower rib cage. PHYSICAL EXAMINATION GENERAL: This is an elderly man, pale, in no acute distress, not on oxygen, lying flat. VITAL SIGNS: Blood pressure 130/70, pulse 64, respirations 18, temperature 97.2. HEENT: Head is normocephalic. Pupils reactive. Tongue is moist. Nasal mucosa edematous. Throat is mildly injected. NECK: Supple. No bruits. No thyroid enlargement. CHEST: Decreased excursions in the left chest with diminished breath sounds at the bases, mostly the left lower chest. HEART: The heart sounds are irregular, S1 and S2. No murmur. ABDOMEN: Soft, protuberant, nontender. No organomegaly. Bowel sounds are active. EXTREMITIES: Mild varicosities and no joint deformities. There is minimal edema. No calf tenderness. NEUROLOGIC: Reflexes are 1+ with no gross motor deficits. Cranial nerves are intact. IMPRESSION 1. Large left pleural effusion, etiology undetermined, possible hemothorax. 2. Pleural calcification with possible asbestosis. 3. Left basilar atelectasis and possible pneumonia. 4. Syncopal episodes. PLAN The patient will be placed on O2 at 2 liters p.r.n. Coagulation profile is ordered. Ultrasound examination of the chest. A thoracentesis will be planned. Will start him on IV fluids for hydration. Continue with antibiotic coverage as ordered including Zosyn and Levaquin. Sputum will be sent for Gram stain and culture. Pulmonary function study will be done at the bedside. Further neurologic work-up is in progress. Electrolytes and a CBC will be repeated in the a.m. A 2-D echocardiogram is to be done as well. Thank you Dr. Domínguez for this consultation. MD RAFI Majano/WILL /12:38 AM /11:52 AM
[2017-11-25 16:00] VITALS: BP 102/59; PULSE 78; RESP 20; TEMP 97; O2SAT 94
--- NOTE | 2017-11-25 16:03 | ECHRPT ---
Indication: SYNCOPE CONCLUSIONS Normal left ventricular size. Wall thickness is normal. The left ventricular systolic function is normal with an estimated ejection fraction in the range of 55-60%. [id number] mitral valve regurgitation. Mitral annular calcification is present. There is trace tricuspid valve regurgitation. There is estimated mild pulmonary hypertension present ( 47 mmHg). BP: / HR: Rhythm: MEASUREMENTS (Male / Female) Normal Values Technical Quality:Good 2D ECHO LV Diastolic Diameter PLAX 4.5 cm 4.2 - 5.9 / 3.9 - 5.3 cm LV Systolic Diameter PLAX 3.2 cm IVS Diastolic Thickness 0.7 cm 0.6 - 1.0 / 0.6 - 0.9 cm LVPW Diastolic Thickness 0.7 cm 0.6 - 1.0 / 0.6 - 0.9 cm LV Relative Wall Thickness 0.3 RV Internal Dim ED PLAX 2.5 cm DOPPLER MR Peak Velocity 617.0 cm/s MR Peak Gradient 152.3 mmHg Mitral E Point Velocity 78.0 cm/s Mitral A Point Velocity 107.0 cm/s Mitral E to A Ratio 0.7 LV E' Lateral Velocity 11.4 cm/s Mitral E to LV E' Lateral Ratio 6.8 LV E' Septal Velocity 10.7 cm/s Mitral E to LV E' Septal Ratio 7.3 TR Peak Velocity 304.0 cm/s TR Peak Gradient 37.0 mmHg Right Atrial Pressure 10.0 mmHg Pulmonary Artery Systolic Pressu 47.0 mmHg Right Ventricular Systolic Press 47.0 mmHg FINDINGS LEFT VENTRICLE Normal left ventricular size. Wall thickness is normal. The left ventricular systolic function is normal with an estimated ejection fraction in the range of 55-60%. RIGHT VENTRICLE Normal right ventricular size and systolic function. LEFT ATRIUM The left atrial size is normal. RIGHT ATRIUM The right atrial size is normal. ATRIAL SEPTUM Normal atrial septal thickness without atrial level shunting by limited color doppler interrogation. AORTA The aortic root and proximal ascending aorta are normal in size on limited imaging. MITRAL VALVE [id number] mitral valve regurgitation. Mitral annular calcification is present. AORTIC VALVE Trileaflet aortic valve. No aortic valve stenosis or regurgitation. TRICUSPID VALVE There is trace tricuspid valve regurgitation. There is estimated mild pulmonary hypertension present ( 47 mmHg). PULMONARY VALVE No pulmonary valve regurgitation or stenosis. VESSELS The inferior vena cava is normal in size. PERICARDIUM No pericardial effusion. Shai Goff MD, FACC (Electronically Signed) Final Date:25 November 2017 16:03
[2017-11-25] MEDS: PIPERACIL-TAZO 4.5 GM PREMIX 100 ML IV SCH (17:12)
[2017-11-25] MEDS: SODIUM CHLOR 0.9% 1000 ML INJ 1,000 ML IV SCH (17:13)
--- NOTE | 2017-11-25 19:16 | HHI.PR ---
Subjective Remarks He feels better. MOre alert today. Off O2. No Thoracentesis done . Not enough fluid in chest Objective Vital Signs Date Time Temp Pulse Resp B/P (MAP) Pulse Ox O2 Delivery O2 Flow Rate FiO2 11/25/17 16:00 97.0 78 20 102/59 (73) 94 11/25/17 12:00 96.7 74 18 105/60 (75) 95 11/25/17 08:00 72 107/56 (73) 88/58 (68) 75/41 (52) 11/25/17 08:00 96.8 72 20 107/56 (73) 95 11/25/17 08:00 80 11/25/17 04:00 96.9 66 20 126/62 (83) 94 11/25/17 00:00 96.6 58 20 132/70 (90) 94 11/24/17 20:51 59 11/24/17 20:00 95.5 64 20 159/72 (101) 98 I/O 11/24/17 11/24/17 11/24/17 11/25/17 11/25/17 11/25/17 07:00 15:00 23:00 07:00 15:00 23:00 Intake Total 100 ml 600 ml 490 ml 1825 ml 100 ml Output Total 500 ml 950 ml Balance 100 ml 100 ml 490 ml 875 ml 100 ml Intake Oral 600 ml 825 ml IV Total 100 ml 490 ml 1000 ml 100 ml Output Urine Total 500 ml 950 ml # Voids 1 # Bowel Movements 1 1 Result Diagram: 11/25/17 0650 11/25/17 0650 Objective Remarks GENERAL: This is an elderly man, pale, in no acute distress, lying flat. HEENT: Head is normocephalic. Pupils reactive. Tongue is moist. Nasal mucosa edematous. Throat is mildly injected. NECK: Supple. No bruits. No thyroid enlargement. CHEST: Decreased excursions in the left chest with diminished breath sounds at the bases, mostly the left lower chest. HEART: The heart sounds are irregular, S1 and S2. No murmur. ABDOMEN: Soft, protuberant, nontender. No organomegaly. Bowel sounds are active. EXTREMITIES: No varicosities and no joint deformities. There is minimal edema. No calf tenderness. NEUROLOGIC: Reflexes are 1+ with no gross motor deficits. Cranial nerves are intact. Assessment and Plan Assessment and Plan IMPRESSION 1. Large left pleural effusion, etiology undetermined, possible hemothorax. 2. Pleural calcification with possible asbestosis. 3. Left basilar atelectasis and possible pneumonia. 4. Syncopal episodes PLan: 1. Continue antibiotics Levaquin PO. 2. Duonebs tid PRN. 3. Rpt Chest Xray on Tuesday 4. Neuro and cardiac Eval. 5. PFT with Bronchodilators Jean-Paul Islas MD Nov 25, 2017 19:16
[2017-11-25 20:00] VITALS: BP 151/77; PULSE 56; RESP 20; TEMP 96.5; O2SAT 97
[2017-11-25] MEDS: DONEPEZIL HCL 5 MG TAB PO SCH (21:12)
[2017-11-26] VITALS (8 sets, daily range): BP systolic 66–153; BP diastolic 33–79; PULSE 59–97; RESP 16–18; TEMP 95.6–97.8; O2SAT 93–98
[2017-11-26] MEDS: PIPERACIL-TAZO 4.5 GM PREMIX 100 ML IV SCH ×2 (01:12→09:55)
[2017-11-26 08:39] LABS: BASOPHIL % 0.2 % (0.0-2.0); EOSINOPHIL % 0.3 % (0.0-4.0); HEMATOCRIT 25.8 % (39.0-51.0); LYMPH % 14.3 % (9.0-44.0); LYMPHOCYTE # 0.9 TH/MM3 (1.0-4.8); MEAN CELL VOLUME 87.9 FL (80.0-100.0); MEAN CORPUSCULAR HEMOGLOBIN 30.7 PG (27.0-34.0); MEAN PLATELET VOLUME 5.7 FL (7.0-11.0); MONO % 4.7 % (0.0-8.0); MONOCYTE # 0.3 TH/MM3 (0-0.9); NEUT % 80.5 % (16.0-70.0); PLATELET COUNT 452 TH/MM3 (150-450); RED BLOOD COUNT 2.94 MIL/MM3 (4.50-5.90); RED CELL DISTRIBUTION WIDTH 12.7 % (11.6-17.2); WHITE BLOOD COUNT 6.2 TH/MM3 (4.0-11.0)
[2017-11-26] MEDS: SODIUM CHLORIDE 0.9% FLUSH 10 ML FLUSH IV FLUSH SCH ×2 (09:00→23:18)
[2017-11-26] MEDS: MIDODRINE 5 MG TAB PO SCH ×3 (09:55→17:12)
[2017-11-26] MEDS: PANTOPRAZOLE SOD 20 MG DELAYED RELEASE TAB PO SCH (09:56)
[2017-11-26] MEDS: ESCITALOPRAM OXALATE 10 MG TAB PO SCH (09:57)
[2017-11-26] MEDS: PRAVASTATIN SOD 20 MG TAB PO SCH (09:57)
[2017-11-26] MEDS: CARBIDOPA/LEVODOPA 25 MG/100 MG TAB PO SCH ×3 (09:57→17:12)
[2017-11-26] MEDS: DIPYRIDAMOLE/ASPIRIN 200 MG/25 MG CAP PO SCH ×2 (09:58→23:17)
[2017-11-26] MEDS: DOCUSATE SODIUM 50 MG/SENNA 8.6 MG TAB PO SCH ×2 (09:59→23:17)
[2017-11-26] MEDS: HEPARIN SODIUM - SQ 10,000 UNITS/ML VIAL SQ SCH ×2 (09:59→23:17)
[2017-11-26] MEDS: FLUDROCORTISONE ACETATE 0.1 MG TAB PO SCH (09:59)
[2017-11-26] MEDS: LEVOFLOXACIN 750 MG TAB PO SCH (10:01)
--- NOTE | 2017-11-26 15:00 | PD.CONS ---
HPI History of Present Illness This is a 77 year old male who is somewhat of a poor historian apparently presents to the hospital with complaints of a syncopal episode he was found to be anemic with guaiac positive stools and this prompted this GI consult the patient denies any abdominal pain denies any obvious bleeding denies any diarrhea constipation nausea vomiting hematemesis coffee-ground emesis melena or hematochezia the patient reports having had endoscopy in the past but doesn' t recall when and doesn't recall what the findings were also on admission it was noted that he has pleural effusion On chart review Per , patient states that he passed out 3 times in the last couple days. He did hit his head, and lost consciousness. Patient admits to poor appetite, states he has not been eating as much lately. He has also been feeling overall fatigued. Denies any bloody or black stools or diarrhea. Patient denies any recent nausea or vomiting or diarrhea. Review of medical records reveals patient was last seen in April for admission for GI bleed. At that time he was found to have a bleeding ulcer. PFSH Past Medical History History of Parkinson's disease Orthostatic hypotension Hyperlipidemia History of CVA Arthritis Past Surgical History History of cardiac catheterization Right knee replacement Coded Allergies: No Known Allergies (Verified Adverse Reaction, Unknown, 11/24/17) Medications Current Medications Medications (Trade) Dose Ordered Sig/Renea Route PRN Reason Start Time Stop Time Status Last Admin Dose Admin Sodium Chloride (NS Flush) 2 ml UNSCH PRN IV FLUSH FLUSH AFTER USING IV ACCESS 11/24/17 12:45 Sodium Chloride (NS Flush) 2 ml BID IV FLUSH 11/24/17 21:00 11/25/17 21:13 Acetaminophen (Tylenol) 650 mg Q4H PRN PO TEMP > 100.4 11/24/17 12:45 Ondansetron HCl (Zofran Inj) 4 mg Q6H PRN IVP NAUSEA OR VOMITING 11/24/17 12:45 Naloxone HCl (Narcan Inj) 0.4 mg UNSCH PRN IV PUSH SEE LABEL COMMENTS 11/24/17 12:45 Senna/Docusate Sodium (Madhuri-Colace) 1 tab BID PO 11/24/17 21:00 11/26/17 09:59 Magnesium Hydroxide (Milk Of Magnesia Liq) 30 ml Q12H PRN PO Mild constipation 11/24/17 12:45 Sennosides (Senokot) 17.2 mg Q12H PRN PO Moderate constipation 11/24/17 12:45 Bisacodyl (Dulcolax Supp) 10 mg DAILY PRN RECTAL SEVERE CONSITIPATION 11/24/17 12:45 Carbidopa/Levodopa (Sinemet 25-100 Mg) 1 tab TID PO 11/24/17 18:00 11/26/17 12:58 Dipyridamole/ Aspirin (Aggrenox 200-25 Mg) 1 cap BID PO 11/24/17 21:00 11/26/17 09:58 Donepezil HCl (Aricept) 10 mg HS PO 11/24/17 21:00 11/25/17 21:12 Escitalopram Oxalate (Lexapro) 10 mg DAILY PO 11/25/17 09:00 11/26/17 09:57 Pravastatin Sodium (Pravachol) 20 mg DAILY PO 11/25/17 09:00 11/26/17 09:57 Non-Formulary Medication 600 mg TID PO 11/24/17 18:00 Future Hold Non-Formulary Medication 200 mg TID PO 11/24/17 18:00 Future Hold Pantoprazole Sodium (Protonix) 20 mg DAILY PO 11/25/17 09:00 11/26/17 09:56 Non-Formulary Medication 1 mg DAILY PO 11/25/17 09:00 Future Hold Levofloxacin (Levaquin) 750 mg DAILY PO 11/25/17 09:00 11/26/17 10:01 Heparin Sodium (Porcine) (Heparin Inj) 5,000 units Q12HR SQ 11/24/17 21:00 11/26/17 09:59 Sodium Chloride 1,000 ml @ 42 mls/hr [id number] IV 11/24/17 16:30 11/25/17 17:13 Midodrine (Proamatine) 10 mg TID PO 11/24/17 18:00 11/26/17 12:58 Albuterol/ Ipratropium (Duoneb Neb) 1 ampule QID NEB PRN NEB WHEEZING 11/24/17 21:00 Fludrocortisone Acetate (Florinef) 0.1 mg DAILY PO 11/26/17 09:00 11/26/17 09:59 Piperacillin Sod/ Tazobactam Sod 100 ml @ 200 mls/hr Q8H IV 11/25/17 17:00 11/26/17 09:55 Family History Both maternal and paternal family medical history significant for cardiovascular disease. Father had a stroke. Social History Patient denies any previous or current tobacco use. Denies any alcohol or illicit drug use. Review of Systems Review of systems Patient denies any headache dizziness blurry vision, denies any chest pain shortness of breath cough fever chills, Denies any palpitations or fatigue denies any polyuria dysuria hematuria, denies any numbness tingling or weakness, denies any skin rash pruritus or jaundice, denies any easy bruising or bleeding tendency, denies any recent change in mood GI Exam Vitals I&O Vital Signs Date Time Temp Pulse Resp B/P (MAP) Pulse Ox O2 Delivery O2 Flow Rate FiO2 11/26/17 08:00 97.5 97 18 133/63 (86) 94 119/63 (81) 77/38 (51) 11/26/17 04:00 96.4 64 18 153/68 (96) 96 11/26/17 00:00 95.6 59 18 145/79 (101) 95 11/25/17 20:00 96.5 56 20 151/77 (101) 97 11/25/17 16:00 97.0 78 20 102/59 (73) 94 I/O 11/25/17 11/25/17 11/25/17 11/26/17 11/26/17 11/26/17 07:00 15:00 23:00 07:00 15:00 23:00 Intake Total 490 ml 1825 ml 100 ml 0 ml Output Total 950 ml 600 ml Balance 490 ml 875 ml 100 ml -600 ml Intake Oral 825 ml 0 ml IV Total 490 ml 1000 ml 100 ml Output Urine Total 950 ml 600 ml # Bowel Movements 1 1 Laboratory Test 11/26/17 08:22 White Blood Count 6.2 TH/MM3 Red Blood Count 2.94 MIL/MM3 Hemoglobin 9.0 GM/DL Hematocrit 25.8 % Mean Corpuscular Volume 87.9 FL Mean Corpuscular Hemoglobin 30.7 PG Mean Corpuscular Hemoglobin Concent 35.0 % Red Cell Distribution Width 12.7 % Platelet Count 452 TH/MM3 Mean Platelet Volume 5.7 FL Neutrophils (%) (Auto) 80.5 % Lymphocytes (%) (Auto) 14.3 % Monocytes (%) (Auto) 4.7 % Eosinophils (%) (Auto) 0.3 % Basophils (%) (Auto) 0.2 % Neutrophils # (Auto) 5.0 TH/MM3 Lymphocytes # (Auto) 0.9 TH/MM3 Monocytes # (Auto) 0.3 TH/MM3 Eosinophils # (Auto) 0.0 TH/MM3 Basophils # (Auto) 0.0 TH/MM3 CBC Comment DIFF FINAL Differential Comment Date/Time Source Procedure Growth Status 11/24/17 11:00 Blood Peripheral Aerobic Blood Culture - Preliminary NO GROWTH IN 2 DAYS Resulted 11/24/17 11:00 Blood Peripheral Anaerobic Blood Culture - Preliminary NO GROWTH IN 2 DAYS Resulted 11/26/17 01:15 Sputum Expectorated Sputum Gram Stain Pending Received 11/26/17 01:15 Sputum Expectorated Sputum Sputum Culture Pending Received Physical Examination HEENT: Pupils round and reactive to light; normocephalic; atraumatic; no jaundice. Throat is clear. NECK: Neck is supple, no JVD, no lymphadenopathy. CHEST: Chest is clear to auscultation and percussion. CARDIAC: Regular rate and rhythm with no murmur gallop or rubs. ABDOMEN: Soft, nondistended, nontender; no hepatosplenomegaly; bowel sounds are present in all four quadrants. EXTREMITIES: No clubbing, cyanosis, or edema. SKIN: Normal; no rash; no jaundice. [employer]ATION: No focal deficits; alert and oriented times two. Assessment and Plan Plan Anemia, guaiac-positive stools, syncope, pleural effusion Review of records reveal recent EGD and colonoscopy this was done in April 06, 2017 most significant finding was that of the gastric ulcers I think at this point it would be best to pursue a repeat endoscopy to follow up on the gastric ulcers In the meanwhile agree with current supportive care Avoid NSAIDs and aspirin avoid anticoagulation Recommend Protonix Blood transfusion as needed Further recommendations shall depend on the findings and hospital course Sterling Thurman MD Nov 26, 2017 15:00
--- NOTE | 2017-11-26 15:46 | HHI.PR ---
Subjective Remarks Follow-up orthostatic hypotension. Patient seen and examined, lying in bed comfortably. No apparent distress. Gastroenterology in to see patient, plan for EGD to follow-up gastric ulcers. Positive orthostatics today upon standing. Asymptomatic. Continue to monitor. PT working with patient. Adjusting medications. Monitor response. Objective Vitals Vital Signs Date Time Temp Pulse Resp B/P (MAP) Pulse Ox O2 Delivery O2 Flow Rate FiO2 11/26/17 08:00 97.5 97 18 133/63 (86) 94 119/63 (81) 77/38 (51) 11/26/17 04:00 96.4 64 18 153/68 (96) 96 11/26/17 00:00 95.6 59 18 145/79 (101) 95 11/25/17 20:00 96.5 56 20 151/77 (101) 97 11/25/17 16:00 97.0 78 20 102/59 (73) 94 I/O 11/25/17 11/25/17 11/25/17 11/26/17 11/26/17 11/26/17 06:59 14:59 22:59 06:59 14:59 22:59 Intake Total 490 ml 1825 ml 100 ml 0 ml Output Total 950 ml 600 ml Balance 490 ml 875 ml 100 ml -600 ml Intake Oral 825 ml 0 ml IV Total 490 ml 1000 ml 100 ml Output Urine Total 950 ml 600 ml # Bowel Movements 1 1 Result Diagram: 11/26/17 0822 11/25/17 0650 Imaging Last Impressions Chest Ultrasound 11/25/17 0000 Signed Impressions: Service Date/Time: Saturday, November 25, 2017 07:49 - CONCLUSION: Pleural effusion with septation. Skin marking was made. Tanner Brown MD Chest CT 11/24/17 1024 Signed Impressions: Service Date/Time: November 10:33 - CONCLUSION: 1. There is a large left pleural effusion with configuration suggesting loculation. There is also in air-fluid level in the fluid collection. 2. Bilateral diffuse pleural calcifications without focal thickening. Tanner Brown MD Head CT 11/24/17 0924 Signed Impressions: Service Date/Time: November 10:12 - CONCLUSION: Normal examination. Foreign Mclaughlin MD Chest X-Ray 11/24/17 0924 Signed Impressions: Service Date/Time: November 09:34 - CONCLUSION: 1. There is left basilar effusion and consolidation new when compared to previous study of 11/20/16. Josué Metz MD Carotid Artery Ultrasound 11/24/17 0000 Signed Impressions: Service Date/Time: November 15:50 - CONCLUSION: 1. No hemodynamically significant flow limiting stenosis. 2. Antegrade flow in the vertebral arteries bilaterally. Truman Roque MD Objective Remarks GENERAL: Well-developed, elderly male patient in NAD. Lying comfortably in bed on room air. SKIN: Warm and dry. No rash. HEAD: Normocephalic. Atraumatic. EYES: Pupils equal and round. No scleral icterus. No injection or drainage. ENT: No nasal bleeding or discharge. Mucous membranes pink and moist. NECK: Supple. Trachea midline. CARDIOVASCULAR: Regular rate and rhythm. S1, S2 noted. No murmur appreciated. RESPIRATORY: No accessory muscle use. Clear to auscultation. Breath sounds equal bilaterally. GASTROINTESTINAL: Abdomen soft, non-tender, nondistended. Normoactive bowel sounds x4. MUSCULOSKELETAL: No obvious deformities. Extremities without clubbing, cyanosis , or edema. NEUROLOGICAL: Awake and alert. No obvious cranial nerve deficits. Motor grossly within normal limits. 5/5 muscle strength in bilateral upper and lower extremities. Normal speech. PSYCHIATRIC: Appropriate mood and affect; insight and judgment normal. A/P Problem List: (1) Syncope ICD Code: R55 - Syncope and collapse (2) Frequent falls ICD Code: R29.6 - Repeated falls Status: Acute (3) Orthostatic hypotension ICD Code: I95.1 - Orthostatic hypotension Status: Acute Assessment and Plan This is a pleasant 77-year-old male patient with a known medical history of hyperlipidemia, orthostatic hypotension, CAD who presented to the ED after multiple syncopal episodes. Multiple syncopal episodes suspect secondary to orthostatic hypotension versus dehydration Patient presented with multiple syncopal episodes. Orthostatic hypotensive readings positive, systolic BP dropped from 133->77. Continue to monitor closely. Continue home Midodrine and Droxidopa (have bring from home). Spoke to patient's restaurant hourly manager who suggests JOSSELINE hoes and Florinef. Added Florinef with no response yesterday. Will continue to monitor. Head CT reviewed, negative examination. Fall precautions. PT eval ordered, appreciate further recommendations. Echocardiogram 50-55%. Carotid ultrasound ordered, reviewed showing no stenosis. Status post 2 L NS bolus. Continue gentle hydration. Continue cardiac telemetry, monitor for any arrhythmias. Pneumonia, community-acquired - failed outpatient antibiotics, with associated productive cough and subjective fevers Large left pleural effusion suspect secondary to above. Resolved. Chest x-ray reviewed showing left basilar effusion and consolidation. CT chest reviewed showing large left pleural effusion with configuration suggesting loculation. Pulmonology following patient. PFTs ordered awaiting results. ABG done and reviewed, no significance. Blood cultures no growth to date. Continue to follow growth. UA negative. Continue antibiotics. CBC unremarkable. No fevers. Lactic acid 1.0. Supplemental O2 as needed, patient comfortable on room air. US chest done, pleural effusion with lack of adequate fluid to drain. Normocytic normochromic anemia History of GI bleed Denies any recent hematozemia. Hemoglobin 9. Hemoccult stool performed in ED , positive. Gastroenterology in to see patient, appreciate input and recommendations. Plan for EGD for follow-up gastric ulcers on Tuesday 11/28. History of Parkinson's disease History of Alzheimer's dementia Continue home medications. Stable at this time. Supportive care. Hyperlipidemia, chronic: Continue home pravastatin. DVT prophylaxis: SCDs. Heparin. Jessica Price Nov 26, 2017 15:46
[2017-11-26] MEDS: SODIUM CHLOR 0.9% 1000 ML INJ 1,000 ML IV SCH (17:12)
[2017-11-26] MEDS: DONEPEZIL HCL 5 MG TAB PO SCH (23:17)
[2017-11-27] VITALS (8 sets, daily range): BP systolic 90–186; BP diastolic 49–84; PULSE 62–84; RESP 16–18; TEMP 97.5–98.2; O2SAT 93–97
[2017-11-27] MEDS: SODIUM CHLORIDE 0.9% FLUSH 10 ML FLUSH IV FLUSH SCH ×2 (09:00→20:35)
[2017-11-27] MEDS: DROXIDOPA 600 MG PO SCH ×3 (09:19→18:28)
[2017-11-27] MEDS: MIDODRINE 5 MG TAB PO SCH ×3 (09:20→18:28)
[2017-11-27] MEDS: DIPYRIDAMOLE/ASPIRIN 200 MG/25 MG CAP PO SCH ×2 (09:20→20:35)
[2017-11-27] MEDS: FLUDROCORTISONE ACETATE 0.1 MG TAB PO SCH (09:20)
[2017-11-27] MEDS: ESCITALOPRAM OXALATE 10 MG TAB PO SCH (09:21)
[2017-11-27] MEDS: PANTOPRAZOLE SOD 20 MG DELAYED RELEASE TAB PO SCH (09:21)
[2017-11-27] MEDS: PRAVASTATIN SOD 20 MG TAB PO SCH (09:21)
[2017-11-27] MEDS: DOCUSATE SODIUM 50 MG/SENNA 8.6 MG TAB PO SCH ×2 (09:21→20:35)
[2017-11-27] MEDS: HEPARIN SODIUM - SQ 10,000 UNITS/ML VIAL SQ SCH ×2 (09:22→20:35)
[2017-11-27] MEDS: LEVOFLOXACIN 750 MG TAB PO SCH (09:30)
[2017-11-27 11:57] LABS: AUTOMATED NEUTROPHIL # 4.8 TH/MM3 (1.8-7.7); BASOPHIL % 0.2 % (0.0-2.0); EOSINOPHIL % 0.2 % (0.0-4.0); HEMATOCRIT 23.8 % (39.0-51.0); HEMOGLOBIN 8.2 GM/DL (13.0-17.0); LYMPHOCYTE # 1.1 TH/MM3 (1.0-4.8); MEAN CELL VOLUME 87.9 FL (80.0-100.0); MEAN CORPUSCULAR HEMOGLOBIN 30.4 PG (27.0-34.0); MEAN CORPUSCULAR HGB CONC 34.6 % (32.0-36.0); MEAN PLATELET VOLUME 6.1 FL (7.0-11.0); MONO % 5.8 % (0.0-8.0); MONOCYTE # 0.4 TH/MM3 (0-0.9); NEUT % 76.8 % (16.0-70.0); PLATELET COUNT 429 TH/MM3 (150-450); RED BLOOD COUNT 2.71 MIL/MM3 (4.50-5.90); RED CELL DISTRIBUTION WIDTH 12.6 % (11.6-17.2); WHITE BLOOD COUNT 6.3 TH/MM3 (4.0-11.0)
--- NOTE | 2017-11-27 12:06 | HHI.PR ---
Subjective Remarks Follow-up orthostatic hypotension and Hemoccult positive stool. Patient seen and examined, lying in bed comfortably. In no apparent distress. Denies any acute events overnight. Has been eating well. Plan for EGD tomorrow morning. PT working with patient. Continued positive orthostatics. Objective Vitals Vital Signs Date Time Temp Pulse Resp B/P (MAP) Pulse Ox O2 Delivery O2 Flow Rate FiO2 11/27/17 08:00 97.9 72 16 121/59 (79) 94 11/27/17 04:00 97.5 72 18 151/74 (99) 93 11/27/17 00:00 98.2 64 18 168/72 (104) 96 11/26/17 20:00 96.8 61 18 146/66 (92) 96 11/26/17 20:00 59 11/26/17 20:00 81 18 66/33 (44) 93 11/26/17 20:00 71 18 102/50 (67) 94 11/26/17 18:00 97.8 66 18 116/56 (76) 98 11/26/17 15:01 61 I/O 11/26/17 11/26/17 11/26/17 11/27/17 11/27/17 11/27/17 07:00 15:00 23:00 07:00 15:00 23:00 Intake Total 0 ml 100 ml 1000 ml 120 ml Output Total 600 ml 800 ml 1600 ml 350 ml Balance -600 ml -700 ml -600 ml -230 ml Intake Oral 0 ml 120 ml IV Total 100 ml 1000 ml Output Urine Total 600 ml 800 ml 1600 ml 350 ml # Voids 1 2 # Bowel Movements 1 1 Result Diagram: 11/27/17 1124 11/25/17 0650 Imaging Last Impressions Chest Ultrasound 11/25/17 0000 Signed Impressions: Service Date/Time: Saturday, November 25, 2017 07:49 - CONCLUSION: Pleural effusion with septation. Skin marking was made. Tanner Brown MD Chest CT 11/24/17 1024 Signed Impressions: Service Date/Time: November 10:33 - CONCLUSION: 1. There is a large left pleural effusion with configuration suggesting loculation. There is also in air-fluid level in the fluid collection. 2. Bilateral diffuse pleural calcifications without focal thickening. Tanner Brown MD Head CT 11/24/17923 Signed Impressions: Service Date/Time: November 10:12 - CONCLUSION: Normal examination. Foreign Mclaughlin MD Chest X-Ray 11/24/17923 Signed Impressions: Service Date/Time: November 09:34 - CONCLUSION: 1. There is left basilar effusion and consolidation new when compared to previous study of 11/20/16. Josué Metz MD Carotid Artery Ultrasound 11/24/17 0000 Signed Impressions: Service Date/Time: November 15:50 - CONCLUSION: 1. No hemodynamically significant flow limiting stenosis. 2. Antegrade flow in the vertebral arteries bilaterally. Truman Roque MD Objective Remarks GENERAL: Well-developed, elderly male patient in NAD. Lying comfortably in bed on room air. SKIN: Warm and dry. No rash. HEAD: Normocephalic. Atraumatic. EYES: Pupils equal and round. No scleral icterus. No injection or drainage. ENT: No nasal bleeding or discharge. Mucous membranes pink and moist. NECK: Supple. Trachea midline. CARDIOVASCULAR: Regular rate and rhythm. S1, S2 noted. No murmur appreciated. RESPIRATORY: No accessory muscle use. Clear to auscultation. Breath sounds equal bilaterally. GASTROINTESTINAL: Abdomen soft, non-tender, nondistended. Normoactive bowel sounds x4. MUSCULOSKELETAL: No obvious deformities. Extremities without clubbing, cyanosis , or edema. NEUROLOGICAL: Awake and alert. No obvious cranial nerve deficits. Motor grossly within normal limits. 5/5 muscle strength in bilateral upper and lower extremities. Normal speech. PSYCHIATRIC: Appropriate mood and affect; insight and judgment normal. A/P Problem List: (1) Syncope ICD Code: R55 - Syncope and collapse (2) Frequent falls ICD Code: R29.6 - Repeated falls Status: Acute (3) Orthostatic hypotension ICD Code: I95.1 - Orthostatic hypotension Status: Acute Assessment and Plan This is a pleasant 77-year-old male patient with a known medical history of hyperlipidemia, orthostatic hypotension, CAD who presented to the ED after multiple syncopal episodes. Multiple syncopal episodes suspect secondary to orthostatic hypotension versus dehydration Patient presented with multiple syncopal episodes. Orthostatic hypotensive readings positive, systolic BP dropped from 146->66. Continue home Midodrine and Droxidopa. Spoke to patient's cement paver who suggests JOSSELINE parsons and Maribel. Added Maribel. Will continue to monitor. Decrease dose of Sinemet, continue to monitor response hope to improve orthostatic hypotension. Monitor Parkinson symptoms. Head CT reviewed, negative examination. Fall precautions. PT eval ordered, appreciate further recommendations. Echocardiogram 50-55%. Carotid ultrasound ordered, reviewed showing no stenosis. Status post 2 L NS bolus. Continue gentle hydration. Continue cardiac telemetry, monitor for any arrhythmias. Pneumonia, community-acquired - failed outpatient antibiotics, with associated productive cough and subjective fevers upon presentation Large left pleural effusion suspect secondary to above. Resolved. Chest x-ray reviewed showing left basilar effusion and consolidation. CT chest reviewed showing large left pleural effusion with configuration suggesting loculation. Pulmonology following patient. PFTs done. ABG done and reviewed, no significance. Blood cultures no growth to date. Continue to follow growth. UA negative. Continue antibiotics. CBC unremarkable. No fevers. Lactic acid 1.0. Supplemental O2 as needed, patient comfortable on room air. US chest done, pleural effusion with lack of adequate fluid to drain. Supportive care. Normocytic normochromic anemia History of GI bleed Denies any recent hematozemia. Hemoglobin 8.2. Hemoccult stool performed in ED, positive. Gastroenterology following, appreciate input and recommendations. Plan for EGD for follow-up gastric ulcers on Tuesday 11/28. History of Parkinson's disease History of Alzheimer's dementia Continue home medications. Stable at this time. Supportive care. Hyperlipidemia, chronic: Continue home pravastatin. DVT prophylaxis: SCDs. Heparin. Jessica Price Nov 27, 2017 12:06
--- NOTE | 2017-11-27 12:07 | HHI.GIFU ---
Subjective Remarks Patient is laying in bed comfortably, he denies any abdominal pain, no sign of active bleeding, hemoglobin slightly lower Objective Vitals I&O Vital Signs Date Time Temp Pulse Resp B/P (MAP) Pulse Ox O2 Delivery O2 Flow Rate FiO2 11/27/17 08:00 97.9 72 16 121/59 (79) 94 11/27/17 04:00 97.5 72 18 151/74 (99) 93 11/27/17 00:00 98.2 64 18 168/72 (104) 96 11/26/17 20:00 96.8 61 18 146/66 (92) 96 11/26/17 20:00 59 11/26/17 20:00 81 18 66/33 (44) 93 11/26/17 20:00 71 18 102/50 (67) 94 11/26/17 18:00 97.8 66 18 116/56 (76) 98 11/26/17 15:01 61 I/O 11/26/17 11/26/17 11/26/17 11/27/17 11/27/17 11/27/17 07:00 15:00 23:00 07:00 15:00 23:00 Intake Total 0 ml 100 ml 1000 ml 120 ml Output Total 600 ml 800 ml 1600 ml 350 ml Balance -600 ml -700 ml -600 ml -230 ml Intake Oral 0 ml 120 ml IV Total 100 ml 1000 ml Output Urine Total 600 ml 800 ml 1600 ml 350 ml # Voids 1 2 # Bowel Movements 1 1 Laboratory Laboratory Tests Test 11/27/17 11:24 White Blood Count 6.3 Red Blood Count 2.71 Hemoglobin 8.2 Hematocrit 23.8 Mean Corpuscular Volume 87.9 Mean Corpuscular Hemoglobin 30.4 Mean Corpuscular Hemoglobin Concent 34.6 Red Cell Distribution Width 12.6 Platelet Count 429 Mean Platelet Volume 6.1 Neutrophils (%) (Auto) 76.8 Lymphocytes (%) (Auto) 17.0 Monocytes (%) (Auto) 5.8 Eosinophils (%) (Auto) 0.2 Basophils (%) (Auto) 0.2 Neutrophils # (Auto) 4.8 Lymphocytes # (Auto) 1.1 Monocytes # (Auto) 0.4 Eosinophils # (Auto) 0.0 Basophils # (Auto) 0.0 CBC Comment DIFF FINAL Differential Comment Date/Time Source Procedure Growth Status 11/24/17 11:00 Blood Peripheral Aerobic Blood Culture - Preliminary NO GROWTH IN 3 DAYS Resulted 11/24/17 11:00 Blood Peripheral Anaerobic Blood Culture - Preliminary NO GROWTH IN 3 DAYS Resulted 11/26/17 01:15 Sputum Expectorated Sputum Gram Stain - Final Resulted 11/26/17 01:15 Sputum Expectorated Sputum Sputum Culture Pending Resulted Physical Exam HEENT: Pupils round and reactive to light; normocephalic; atraumatic; no jaundice. Throat is clear. NECK: Neck is supple, no JVD, no lymphadenopathy. CHEST: Chest is clear to auscultation and percussion. CARDIAC: Regular rate and rhythm with no murmur gallop or rubs. ABDOMEN: Soft, nondistended, nontender; no hepatosplenomegaly; bowel sounds are present in all four quadrants. EXTREMITIES: No clubbing, cyanosis, or edema. SKIN: Normal; no rash; no jaundice. SLATE ROOFER: No focal deficits; alert and oriented times three. Assessment and Plan Plan 11/27/2017 pleasant gentleman who presented with Anemia, guaiac-positive stools, syncope, pleural effusion had EGD and colonoscopy this was done in April 06, 2017 most significant finding was that of the gastric ulcers Hemoglobin slightly lower Continue to monitor H&H Upper endoscopy tomorrow Donta Squires MD Nov 27, 2017 12:07
[2017-11-27] MEDS: CARBIDOPA/LEVODOPA 10 MG/100 MG TAB PO SCH ×2 (12:29→20:35)
[2017-11-27] MEDS: SODIUM CHLOR 0.9% 1000 ML INJ 1,000 ML IV SCH (15:57)
[2017-11-27] MEDS: DONEPEZIL HCL 5 MG TAB PO SCH (20:35)
[2017-11-27 23:34] LABS: HEMATOCRIT 24.7 % (39.0-51.0); HEMOGLOBIN 8.5 GM/DL (13.0-17.0)
[2017-11-28] VITALS (9 sets, daily range): BP systolic 83–167; BP diastolic 37–85; PULSE 67–80; RESP 17–20; TEMP 96.2–98; O2SAT 95–96
--- NOTE | 2017-11-28 00:14 | PD ---
Physical Exam Date Seen by Provider: Nov 28, 2017 Time Seen by Provider: 12:00 Narrative I have been called to patient's room due to epistaxis. Patient is currently being treated with Aggrenox and heparin. Epistaxis started this evening. He denies any other issues. His H&H has been stable. On evaluation, I see active bleeding from the left nare. No signs of septal hematoma identified. A Rhino Rocket was placed by me in the left nare without issues. Patient tolerated procedure well. The bleeding stopped with placement. Procedure note: The left near was visualized, Rhino Rocket was placed and sterile water, then placed into the left nare, and 9 cc of air was placed within the Rhino Rocket using a 10 cc syringe. It was taped into place. Patient tolerated procedure well. Data Data Last Documented VS Vital Signs Date Time Temp Pulse Resp B/P (MAP) Pulse Ox O2 Delivery O2 Flow Rate FiO2 11/24/17 11:07 63 14 123/61 (81) 96 11/24/17 09:12 98.1 Orders Orders Electrocardiogram (11/24/17 09:24) Complete Blood Count With Diff (11/24/17 09:24) Comprehensive Metabolic Panel (11/24/17 09:24) Troponin I (11/24/17:24) Magnesium (Mg) (11/24/17 09:24) Chest, Single Ap (11/24/17 09:24) Ct Brain W/O Iv Contrast(Rout) (11/24/17 09:24) Sodium Chlor 0.9% 1000 Ml Inj (Ns 1000 M (11/24/17 09:30) Ct Thorax/ Chest W Iv Contrast (11/24/17 10:24) Blood Culture (11/24/17 10:25) Piperacil-Tazo 4.5 Gm Premix (Zosyn 4.5 (11/24/17 10:25) Lactic Acid Sepsis Protocol (11/24/17 10:25) Iohexol 350 Inj (Omnipaque 350 Inj) (11/24/17 09:08) Admit Order (Ed Use Only) (11/24/17 12:05) Labs Laboratory Tests Test 11/24/17 09:41 11/24/17 09:44 11/24/17 11:00 Triglycerides Level 65 MG/DL Cholesterol Level 92 MG/DL LDL Cholesterol 48 MG/DL HDL Cholesterol 30.9 MG/DL Cholesterol/HDL Ratio 2.97 RATIO Thyroid Stimulating Hormone 3rd Gen 1.660 uIU/ML White Blood Count 7.3 TH/MM3 Red Blood Count 2.92 MIL/MM3 Hemoglobin 8.5 GM/DL Hematocrit 25.9 % Mean Corpuscular Volume 88.7 FL Mean Corpuscular Hemoglobin 29.2 PG Mean Corpuscular Hemoglobin Concent 33.0 % Red Cell Distribution Width 12.3 % Platelet Count 439 TH/MM3 Mean Platelet Volume 6.0 FL Neutrophils (%) (Auto) 83.1 % Lymphocytes (%) (Auto) 10.0 % Monocytes (%) (Auto) 6.2 % Eosinophils (%) (Auto) 0.4 % Basophils (%) (Auto) 0.3 % Neutrophils # (Auto) 6.1 TH/MM3 Lymphocytes # (Auto) 0.7 TH/MM3 Monocytes # (Auto) 0.5 TH/MM3 Eosinophils # (Auto) 0.0 TH/MM3 Basophils # (Auto) 0.0 TH/MM3 CBC Comment DIFF FINAL Differential Comment Blood Urea Nitrogen 16 MG/DL Creatinine 0.92 MG/DL Random Glucose 105 MG/DL Total Protein 7.5 GM/DL Albumin 2.3 GM/DL Calcium Level 8.4 MG/DL Magnesium Level 2.4 MG/DL Alkaline Phosphatase 81 U/L Aspartate Amino Transf (AST/SGOT) 15 U/L Alanine Aminotransferase (ALT/SGPT) 11 U/L Total Bilirubin 0.3 MG/DL Sodium Level 135 MEQ/L Potassium Level 3.8 MEQ/L Chloride Level 100 MEQ/L Carbon Dioxide Level 27.1 MEQ/L Anion Gap 8 MEQ/L Estimat Glomerular Filtration Rate 79 ML/MIN Troponin I LESS THAN 0.02 NG/ML Lactic Acid Level 1.0 mmol/L [facility] Medical Record Reviewed: Yes Supervised Visit with AIME: No Diagnosis Primary Impression: Pneumonia Additional Impression: Epistaxis Admitting Information Admitting Physician Requests: Tyson Casas MD Nov 28, 2017 00:14
[2017-11-28] MEDS: CARBIDOPA/LEVODOPA 10 MG/100 MG TAB PO SCH ×2 (06:23→14:55)
[2017-11-28] MEDS ORDERED: POVIDONE IODINE 5% (ANTISEPSIS KIT) 4 APPLICATIONS EACH NARE PRN (07:30)
[2017-11-28] MEDS ORDERED: METOPROLOL TARTRATE 25 MG TAB PO PRN (07:30)
[2017-11-28] MEDS ORDERED: LACTATED RINGER'S 1000 ML IV PRN (07:30)
[2017-11-28] MEDS ORDERED: CHLORHEXIDINE GLUCONATE 2 % 1 PACK (2 CLOTHS) TOPICAL PRN (07:30)
[2017-11-28] MEDS ORDERED: SODIUM CHLORID 0.9% 500 ML IV PRN (07:30)
--- NOTE | 2017-11-28 08:08 | GIPROC ---
[facility] [address] [place] [address], [id number] EGD PROCEDURE REPORT EXAM DATE: 11/28/2017 PATIENT NAME: Levi Pacheco MR #: [id number] BIRTHDATE: 1940 ATTENDING: Sally Goldsmith MD ORDER #: [id number] PAINTER PLATE: Bridger Rodas and Tish Leslie STATUS: inpatient INDICATIONS: The patient is a 77 yr old male here for an EGD due to gi bleeding PROCEDURE PERFORMED: EGD w/ biopsy MEDICATIONS: None and Per Anesthesia. TOPICAL ANESTHETIC: none CONSENT: The patient understands the risks and benefits of the procedure and understands that these risks include, but are not limited to: sedation, allergic reaction, infection, perforation and/or bleeding. Alternative means of evaluation and treatment include, among others: physical exam, x-rays, and/or surgical intervention. The patient elects to proceed with this endoscopic procedure. medical equipment was checked for proper function. Hand hygiene and appropriate measures for infection prevention was taken. After the risks, benefits and alternatives of the procedure were thoroughly explained, Informed consent was verified, confirmed and timeout was successfully executed by the treatment team. The patient was anesthetized with topical anesthesia and the Digitiliti [id number] endoscope was introduced through the mouth and advanced to the second portion of the duodenum. Retroflexed views revealed a hiatal hernia The gastroscope was then slowly withdrawn and removed. White deposits in duodenum second portion-biopsy gastrtis antrum/superficial ulcerations-biopsy. ADVERSE EVENTS: There were no complications. IMPRESSIONS: 1. White deposits in duodenum second portion-biopsy gastrtis antrum/superficial ulcerations-biopsy 2. Retroflexed views revealed a hiatal hernia RECOMMENDATIONS: 1. Await biopsy results. Biopsy results will not be ready for 7-10 days. If you don't hear from us in two weeks, call our office for biopsy results. 2. Anti-reflux regimen 3. Avoid NSAIDS 4. Resume diet ok to dc home from gi point if tolerated diet and hb stable ok to stsrt anticoagulation from gi point fu office 2 weeks PATIENT CONDITION: stable DISPOSITION: Inpatient REPEAT EXAM: Return 3 months EGD Sally Goldsmith MD eSigned: Sally Goldsmith MD 11/28/2017 8:08 AM cc: PATIENT NAME: Levi Pacheco MR#: [id number]
[2017-11-28] MEDS: SODIUM CHLORIDE 0.9% FLUSH 10 ML FLUSH IV FLUSH SCH ×2 (09:00→21:00)
[2017-11-28] MEDS: HEPARIN SODIUM - SQ 10,000 UNITS/ML VIAL SQ SCH ×2 (09:00→21:08)
[2017-11-28] MEDS: MIDODRINE 5 MG TAB PO SCH ×3 (09:00→18:47)
[2017-11-28] MEDS ORDERED: DIATRIZOATE MEGLUM/DIATRIZOATE SOD 9 ML CUP PO ONE (09:45)
[2017-11-28] MEDS: DROXIDOPA 600 MG PO SCH ×3 (11:21→18:48)
[2017-11-28] MEDS: FLUDROCORTISONE ACETATE 0.1 MG TAB PO SCH (11:22)
[2017-11-28] MEDS: PRAVASTATIN SOD 20 MG TAB PO SCH (11:22)
[2017-11-28] MEDS: DOCUSATE SODIUM 50 MG/SENNA 8.6 MG TAB PO SCH ×2 (11:22→21:08)
[2017-11-28] MEDS: PANTOPRAZOLE SOD 20 MG DELAYED RELEASE TAB PO SCH (11:23)
[2017-11-28] MEDS: LEVOFLOXACIN 750 MG TAB PO SCH (11:23)
[2017-11-28] MEDS: ESCITALOPRAM OXALATE 10 MG TAB PO SCH (11:23)
[2017-11-28] MEDS: DIPYRIDAMOLE/ASPIRIN 200 MG/25 MG CAP PO SCH ×2 (11:24→21:08)
--- NOTE | 2017-11-28 12:13 | HHI.PR ---
Subjective Remarks Follow-up orthostatic hypotension and Hemoccult-positive stool. Patient seen and examined, lying in bed status post EGD. Tolerated well. Overnight patient had an episode of Epistaxis with placement of Rhino Rocket. No further bleeding. Vital signs are stable. GI following, awaiting CT abdomen. Objective Vitals Vital Signs Date Time Temp Pulse Resp B/P (MAP) Pulse Ox O2 Delivery O2 Flow Rate FiO2 11/28/17 09:02 96.3 70 20 139/66 (90) 95 11/28/17 08:42 97.7 70 15 132/78 (96) 98 11/28/17 08:25 65 15 117/64 (81) 99 11/28/17 08:10 97.7 77 15 109/66 (80) 97 11/28/17 07:02 97.3 67 16 156/83 (107) 96 11/28/17 04:00 98.0 80 17 148/76 (100) 96 11/28/17 00:00 97.9 77 18 166/72 (103) 95 11/27/17 20:00 98.1 84 17 186/84 (118) 97 142/70 (94) 90/49 (63) 11/27/17 20:00 62 11/27/17 16:00 98.0 77 18 126/70 (88) 94 11/27/17 15:01 77 I/O 11/27/17 11/27/17 11/27/17 11/28/17 11/28/17 11/28/17 07:00 15:00 23:00 07:00 15:00 23:00 Intake Total 120 ml 100 ml Output Total 350 ml 600 ml Balance -230 ml -600 ml 100 ml Intake Oral 120 ml Other 100 ml Output Urine Total 350 ml 600 ml # Voids 13 # Bowel Movements 1 1 Result Diagram: 11/27/17 2330 11/25/17 0650 Imaging Last Impressions Chest Ultrasound 11/25/17 0000 Signed Impressions: Service Date/Time: Saturday, November 25, 2017 07:49 - CONCLUSION: Pleural effusion with septation. Skin marking was made. Tannre Brown MD Chest CT 11/24/17 1024 Signed Impressions: Service Date/Time: November 10:33 - CONCLUSION: 1. There is a large left pleural effusion with configuration suggesting loculation. There is also in air-fluid level in the fluid collection. 2. Bilateral diffuse pleural calcifications without focal thickening. Tanner Brown MD Head CT 11/24/17923 Signed Impressions: Service Date/Time: November 10:12 - CONCLUSION: Normal examination. Foreign Mclaughlin MD Chest X-Ray 11/24/17923 Signed Impressions: Service Date/Time: November 09:34 - CONCLUSION: 1. There is left basilar effusion and consolidation new when compared to previous study of 11/20/16. Josué Metz MD Carotid Artery Ultrasound 11/24/17 0000 Signed Impressions: Service Date/Time: November 15:50 - CONCLUSION: 1. No hemodynamically significant flow limiting stenosis. 2. Antegrade flow in the vertebral arteries bilaterally. Truman Roque MD Objective Remarks GENERAL: Well-developed, elderly male patient in NAD. Lying comfortably in bed on room air. SKIN: Warm and dry. No rash. HEAD: Normocephalic. Atraumatic. EYES: Pupils equal and round. No scleral icterus. No injection or drainage. ENT: Mucous membranes pink and moist. Rhino Rocket to left nare. NECK: Supple. Trachea midline. CARDIOVASCULAR: Regular rate and rhythm. S1, S2 noted. No murmur appreciated. RESPIRATORY: No accessory muscle use. Clear to auscultation. Breath sounds equal bilaterally. GASTROINTESTINAL: Abdomen soft, non-tender, nondistended. Normoactive bowel sounds x4. MUSCULOSKELETAL: No obvious deformities. Extremities without clubbing, cyanosis , or edema. NEUROLOGICAL: Awake and alert. No obvious cranial nerve deficits. Motor grossly within normal limits. 5/5 muscle strength in bilateral upper and lower extremities. Normal speech. PSYCHIATRIC: Appropriate mood and affect; insight and judgment normal. A/P Problem List: (1) Syncope ICD Code: R55 - Syncope and collapse (2) Frequent falls ICD Code: R29.6 - Repeated falls Status: Acute (3) Orthostatic hypotension ICD Code: I95.1 - Orthostatic hypotension Status: Acute (4) Epistaxis ICD Code: R04.0 - Epistaxis Status: Acute Assessment and Plan This is a pleasant 77-year-old male patient with a known medical history of hyperlipidemia, orthostatic hypotension, CAD who presented to the ED after multiple syncopal episodes. Multiple syncopal episodes suspect secondary to orthostatic hypotension versus dehydration Patient presented with multiple syncopal episodes. Orthostatic hypotensive readings positive, systolic BP dropped from 133-->77 initially. Continue home Midodrine and Droxidopa. Spoke to patient's bench examiner, Dr. Multani, who suggests JOSSELINE hoes and Florinef. Added Florinef. Decrease dose of Sinemet, continue to monitor response with hope to improve orthostatic hypotension. Improvement seen yesterday afternoon and overnight with orthostatic hypotension. No change in Parkinson symptoms. is requesting neuro consult, Dr. Prasad is known to patient for further recommendations and input, there are reports that he has been managing and adjusting his Sinemet outpatient. Head CT reviewed, negative examination. Fall precautions. PT eval ordered, appreciate further recommendations. Recommendations for rehab. Echocardiogram 50-55%. Carotid ultrasound ordered, reviewed showing no stenosis. Status post 2 L NS bolus. Continue gentle hydration. Continue cardiac telemetry, monitor for any arrhythmias. Pneumonia, community-acquired - failed outpatient antibiotics, with associated productive cough and subjective fevers upon presentation Large left pleural effusion suspect secondary to above. Resolved. Chest x-ray reviewed showing left basilar effusion and consolidation. CT chest reviewed showing large left pleural effusion with configuration suggesting loculation. Pulmonology following patient. PFTs done. ABG done and reviewed, no significance. Blood cultures no growth to date. Continue to follow growth. UA negative. Continue antibiotics. CBC unremarkable. No fevers. Lactic acid 1.0. Supplemental O2 as needed, patient comfortable on room air. US chest done, pleural effusion with lack of adequate fluid to drain. Supportive care. Normocytic normochromic anemia History of GI bleed Episode of Epistaxis overnight Denies any recent hematozemia. Hemoglobin 8.5/Hematocrit 24.7. Hemoccult stool performed in ED, positive. Gastroenterology following, appreciate input and recommendations. Underwent EGD today. Showing white deposits in duodenum, biopsied. Hiatal hernia. Continue Protonix. On Aggrenox for history of CVA. Will continue, continue to monitor. Continue Rhino Rocket, placed last evening for episode of epistaxis. History of Parkinson's disease History of Alzheimer's dementia Continue home medications. Stable at this time. Supportive care. Hyperlipidemia, chronic: Continue home pravastatin. DVT prophylaxis: SCDs. Heparin. 1620 spoke to neurology who is adjusting Sinemet dose. Will continue to monitor. Discharge Planning Case management assisting with SNF placement. Jessica Price Nov 28, 2017 12:13
[2017-11-28] MEDS: SODIUM CHLOR 0.9% 1000 ML INJ 1,000 ML IV SCH (15:08)
[2017-11-28] MEDS ORDERED: IOHEXOL 350 MG/ML 10 ML VIAL (for RAD DIAG) IVCONTRAST ONE (16:24)
--- NOTE | 2017-11-28 16:35 | PD.CONS ---
History of Present Illness Service Neurology Consult Requested By Medical Team Reason for Consult Pd and orthostasis Primary Care Physician Jasvir Day MD History of Present Illness 77 y/o male presented to hospital with 3 falls in 3 days. Was found to have pneumonia. Also found to have low hgb/hct and being worked up by GI. Pt has hx of orthostasis and was on Northera, Midodrine outpt. Florinef was added during this hospitalization. There was concern outpt that Sinemet was contributing to orthostasis and not significantly improving symptoms. Pt had decreased Sinemet to twice daily with only slight increase tremor. No change in balance. No other changes with the lower dose. Pt no longer having lightheadedness. Has had some elevated BP supine but also drops with position changes. He is being worked up by GI for bleeding ulcers per the pt report. He will be discharged to rehab in the next few days Review of Systems Constitutional: Negative except HPI Eye: Negative Except HPI ENMT: Negative except HPI Respiratory: Negative except HPI Cardiovascular: Negative except HPI Gastrointestinal: Negative except HPI William/Lymph: Negative except HPI Musculoskeletal: Negative except HPI Neurologic: Negative except HPI Psychiatric: Negative except HPI All other ROS: ROS reviewed as documented in chart Past Family Social History Allergies: Coded Allergies: No Known Allergies (Verified Adverse Reaction, Unknown, 11/24/17) Past Medical History parkinson's disease orthostasis hyperlipidemia stroke B12 def memory loss Active Ordered Medications Current Medications Medications (Trade) Dose Ordered Sig/Renea Route Start Time Stop Time Status Last Admin (NS Flush) 2 ml UNSCH PRN IV FLUSH 11/24/17 12:45 (NS Flush) 2 ml BID IV FLUSH 11/24/17 21:00 11/26/17 23:18 (Tylenol) 650 mg Q4H PRN PO 11/24/17 12:45 11/27/17 20:45 (Zofran Inj) 4 mg Q6H PRN IVP 11/24/17 12:45 (Narcan Inj) 0.4 mg UNSCH PRN IV PUSH 11/24/17 12:45 (Madhuri-Colace) 1 tab BID PO 11/24/17 21:00 11/28/17 11:22 (Milk Of Magnesia Liq) 30 ml Q12H PRN PO 11/24/17 12:45 (Senokot) 17.2 mg Q12H PRN PO 11/24/17 12:45 (Dulcolax Supp) 10 mg DAILY PRN RECTAL 11/24/17 12:45 (Aggrenox 200-25 Mg) 1 cap BID PO 11/24/17 21:00 11/28/17 11:24 (Aricept) 10 mg HS PO 11/24/17 21:00 11/27/17 20:35 (Lexapro) 10 mg DAILY PO 11/25/17 09:00 11/28/17 11:23 (Pravachol) 20 mg DAILY PO 11/25/17 09:00 11/28/17 11:22 Non-Formulary Medication 200 mg TID PO 11/24/17 18:00 Future Hold (Protonix) 20 mg DAILY PO 11/25/17 09:00 11/28/17 11:23 Non-Formulary Medication 1 mg DAILY PO 11/25/17 09:00 Future Hold (Levaquin) 750 mg DAILY PO 11/25/17 09:00 11/28/17 11:23 (Heparin Inj) 5,000 units Q12HR SQ 11/24/17 21:00 11/27/17 09:22 Sodium Chloride 1,000 ml @ 42 mls/hr [id number] IV 11/24/17 16:30 11/28/17 15:08 (Proamatine) 10 mg TID PO 11/24/17 18:00 11/28/17 13:57 (Duoneb Neb) 1 ampule QID NEB PRN NEB 11/24/17 21:00 (Florinef) 0.1 mg DAILY PO 11/26/17 09:00 11/28/17 11:22 Patient Own Medication PT OWN MED: (DROXID... TID PO 11/27/17 09:00 11/28/17 13:57 (Sinemet 10-100 Mg) 1 tab Q8HR PO 11/27/17 14:00 11/28/17 14:55 Lactated Ringer's 1,000 ml @ 30 mls/hr Q24H PRN IV 11/28/17 07:30 12/01/17 07:29 11/28/17 07:10 Sodium Chloride 500 ml @ 30 mls/hr [id number] PRN IV 11/28/17 07:30 12/01/17 07:29 (Lopressor) 25 mg [employer] PRN PO 11/28/17 07:30 12/01/17 07:29 (Betadine 5% Antisepsis Kit) 1 applic [employer] PRN EACH NARE 11/28/17 07:30 12/01/17 07:29 (Chlorhexidine 2% Cloth) 3 pack [employer] PRN TOPICAL 11/28/17 07:30 12/01/17 07:29 Family History + for stroke Social History nonsmoker, ETOH Exam I&O / VS 11/28/17 11/28/17 11/29/17 15:00 23:00 07:00 Intake Total 100 ml Balance 100 ml Other 100 ml Vital Signs Date Time Temp Pulse Resp B/P (MAP) Pulse Ox O2 Delivery O2 Flow Rate FiO2 11/28/17 15:15 96.2 73 20 167/85 (112) 96 11/28/17 11:50 68 20 134/63 (86) 95 111/55 (73) 83/37 (52) 11/28/17 09:02 96.3 70 20 139/66 (90) 95 11/28/17 08:42 97.7 70 15 132/78 (96) 98 11/28/17 08:25 65 15 117/64 (81) 99 11/28/17 08:10 97.7 77 15 109/66 (80) 97 11/28/17 07:02 97.3 67 16 156/83 (107) 96 11/28/17 04:00 98.0 80 17 148/76 (100) 96 11/28/17 00:00 97.9 77 18 166/72 (103) 95 11/27/17 20:00 98.1 84 17 186/84 (118) 97 142/70 (94) 90/49 (63) 11/27/17 20:00 62 General: Alert and Oriented, No acute distress Eye: PERRL, EOMI Cardiology: Normal rate Musculoskeletal: ROM Neurologic: Alert, Oriented, No focal defects, CN II-XII intact, Normal DTR's Psychiatric: Cooperative, Appropriate mood & affect Exam Comments mild facial masking and decreased blink rate, trace intermittent left hand rest tremor, minimal cogwheeling, f-n-f normal mild slowing with RICHARD/RSM L UE, minimal slowing on the right, pushes out of bed to stand, able to transfer to stretcher without assistance Review/Management Diagnosis Parkinson's disease, 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 orthostatic hypotension hx of stroke Plan would recommend changing Sinemet 10/100 tid to Sinemet 25/100 1 tab at 8am and 5pm continue to monitor orthostatic BP continue Midodrine, Florinef and Northera would try in the next week to decrease Sinemet to 1/2 tab at 8am and 5pm to see if any change in PD motor symptoms, with close monitoring of BP if BP elevates would start weaning off Midodrine or Florinef discussed with pt do not lie flat for 3-4 hrs after taking Midodrine and Florinef sleep with head of bed elevated 30 degrees change positions slowly continue compression stockings discussed above with Jessica CHANEY from medical team Diagnosis/Plan: (1) Orthostatic hypotension ICD Codes: I95.1 - Orthostatic hypotension Status: Acute Yas Rose Nov 28, 2017 16:35
[2017-11-28 17:27] LABS: AUTOMATED NEUTROPHIL # 5.1 TH/MM3 (1.8-7.7); BASOPHIL % 0.1 % (0.0-2.0); EOSINOPHIL % 0.4 % (0.0-4.0); HEMATOCRIT 24.4 % (39.0-51.0); HEMOGLOBIN 8.5 GM/DL (13.0-17.0); LYMPH % 14.4 % (9.0-44.0); LYMPHOCYTE # 0.9 TH/MM3 (1.0-4.8); MEAN CELL VOLUME 87.6 FL (80.0-100.0); MEAN CORPUSCULAR HEMOGLOBIN 30.6 PG (27.0-34.0); MONO % 6.2 % (0.0-8.0); MONOCYTE # 0.4 TH/MM3 (0-0.9); NEUT % 78.9 % (16.0-70.0); PLATELET COUNT 432 TH/MM3 (150-450); RED BLOOD COUNT 2.79 MIL/MM3 (4.50-5.90); RED CELL DISTRIBUTION WIDTH 12.7 % (11.6-17.2); WHITE BLOOD COUNT 6.4 TH/MM3 (4.0-11.0)
--- NOTE | 2017-11-28 17:45 | RADRPT ---
EXAM DATE/TIME: 11/28/2017 16:20 [facility] COMPARISON: CT THORACIC SPINE W/O CONTRAST, November 10, 2016, 17:27. CT THORAX W CONTRAST, November 24, 2017, 1 0:33. INDICATIONS : Anemia. IV CONTRAST: 95 cc Omnipaque 350 (iohexol) IV ORAL CONTRAST: Prescribed oral contrast ingested. RADIATION DOSE: 7.19 CTDIvol (mGy) MEDICAL HISTORY : Cerebrovascular disease. Parkinsons. Gastrointestinal bleed. SURGICAL HISTORY : Cardiac catheterization. Orthopedic surgery. ENCOUNTER: Initial ACUITY: 1 day PAIN SCALE: 0/10 LOCATION: pelvis abdomen TECHNIQUE: Volumetric scanning of the abdomen and pelvis was performed. Using automated exposure control and ad justment of the mA and/or kV according to patient size, radiation dose was kept as low as reasonably achievable to obtain optimal diagnostic quality images. DICOM format image data is available electro nically for review and comparison. FINDINGS: LOWER LUNGS: There is a left pleural effusion that is associated with pleural air, pleural thickening and enhancem ent in adjacent left lower lobe compressive atelectasis versus consolidation. Areas of calcified pleu ral thickening/pleural plaques are present bilaterally. The left pleural collection has a stable appe arance. There is coronary artery calcification. LIVER: Homogeneous density without lesion. There is no dilation of the biliary tree. No calcified gallston es. SPLEEN: Normal size without lesion. PANCREAS: Within normal limits. KIDNEYS: Normal in size and shape. There is no mass, stone or hydronephrosis. There is an incidental 7 mm low -density lesion in the mid right kidney that is too small to characterize. ADRENAL GLANDS: Within normal limits. VASCULAR: There is no aortic aneurysm. There is mild atherosclerotic disease. BOWEL/MESENTERY: The stomach, small bowel, and colon demonstrate no acute abnormality. There is no free intraperitone al air or fluid. There is sigmoid diverticulosis. ABDOMINAL WALL: Within normal limits. RETROPERITONEUM: There is no lymphadenopathy. BLADDER: No wall thickening or mass. REPRODUCTIVE: Within normal limits. INGUINAL: There is no lymphadenopathy or hernia. MUSCULOSKELETAL: There is levoscoliosis with degenerative change of the lumbar spine. CONCLUSION: 1. No finding is identified to explain the anemia. Overall, no acute finding is identified within the abdomen or pelvis. 2. There is a left pleural effusion associated with pleural air, pleural thickening and enhancement, and left lower lobe atelectasis. The appearance is stable but the features suggest an infected left p leural fluid collection/empyema. Suggest correlating with the clinical history and consider chest tub e drainage. This finding is new since the 11/10/[address] but stable compared to the chest CT pe rformed 4 days ago. Foreign Miller MD on November 28, 2017 at 17:38 Board Certified Radiologist. This report was verified electronically.
--- NOTE | 2017-11-28 18:10 | HHI.PR ---
Subjective Remarks He feels better and had a Nasal bleed with Packing Off O2. No Thoracentesis done . Not enough fluid in chest Objective Vital Signs Date Time Temp Pulse Resp B/P (MAP) Pulse Ox O2 Delivery O2 Flow Rate FiO2 11/28/17 15:15 96.2 73 20 167/85 (112) 96 11/28/17 11:50 68 20 134/63 (86) 95 111/55 (73) 83/37 (52) 11/28/17 09:02 96.3 70 20 139/66 (90) 95 11/28/17 08:42 97.7 70 15 132/78 (96) 98 11/28/17 08:25 65 15 117/64 (81) 99 11/28/17 08:10 97.7 77 15 109/66 (80) 97 11/28/17 07:02 97.3 67 16 156/83 (107) 96 11/28/17 04:00 98.0 80 17 148/76 (100) 96 11/28/17 00:00 97.9 77 18 166/72 (103) 95 11/27/17 20:00 98.1 84 17 186/84 (118) 97 142/70 (94) 90/49 (63) 11/27/17 20:00 62 I/O 11/27/17 11/27/17 11/27/17 11/28/17 11/28/17 11/28/17 07:00 15:00 23:00 07:00 15:00 23:00 Intake Total 120 ml 100 ml Output Total 350 ml 600 ml Balance -230 ml -600 ml 100 ml Intake Oral 120 ml Other 100 ml Output Urine Total 350 ml 600 ml # Voids 13 # Bowel Movements 1 1 Result Diagram: 11/28/17 1645 11/25/17 0650 Objective Remarks GENERAL: This is an elderly man, pale, in no acute distress, HEENT: Head is normocephalic. Pupils reactive. Tongue is moist. Nasal mucosa edematous. Throat is clear. Packing in left nostril NECK: Supple. No bruits. No thyroid enlargement. CHEST: Decreased excursions in the left chest with diminished breath sounds at the bases, mostly the left lower chest. HEART: The heart sounds are irregular, S1 and S2. No murmur. ABDOMEN: Soft, protuberant, nontender. No organomegaly. Bowel sounds are active. EXTREMITIES: No varicosities and no joint deformities. There is minimal edema. No calf tenderness. NEUROLOGIC: Reflexes are 1+ with no gross motor deficits. Cranial nerves are intact. Assessment and Plan Assessment and Plan IMPRESSION 1. Small left pleural effusion, 2. Pleural calcification with possible asbestosis. 3. Left basilar atelectasis and possible pneumonia. 4. Syncopal episodes PLan: 1. Continue antibiotics for 3 days 2. Duonebs tid PRN. 3. BMP CBC 4. D/C O2 5. PFT with Bronchodilators Jean-Paul Islas MD Nov 28, 2017 18:10
[2017-11-28] MEDS: DONEPEZIL HCL 5 MG TAB PO SCH (21:00)
[2017-11-28] MEDS: CARBIDOPA/LEVODOPA 25 MG/100 MG TAB PO SCH (21:08)
[2017-11-29] VITALS: BP 94/52; PULSE 84; RESP 18; TEMP 97.1; O2SAT 92
[2017-11-29 04:00] VITALS: BP 153/72; PULSE 70; RESP 18; TEMP 97.6; O2SAT 96
--- NOTE | 2017-11-29 06:25 | RADRPT ---
EXAM DATE/TIME: 11/29/2017 06:15 [facility] COMPARISON: CHEST SINGLE AP, November 24, 2017, 9:34. INDICATIONS : Shortness of breath. MEDICAL HISTORY : Cardiovascular disease. Stroke. Parkinsons. SURGICAL HISTORY : Cardiac catheterization. ENCOUNTER: Subsequent ACUITY: 4 - 6 days PAIN SCORE: Non-responsive. LOCATION: Bilateral chest FINDINGS: Persistent small to moderate left pleural effusion and associated airspace disease in the left lower lobe. Cardiomediastinal contours are within normal limits. Remainder of the exam is unchanged. CONCLUSION: 1. Persistent small to moderate left pleural effusion with associated airspace disease in the left lo wer lobe. 2. No significant interval change. Truman Roque MD on November 29, 2017 at 6:23 Board Certified Radiologist. This report was verified electronically.
[2017-11-29 08:00] VITALS: BP 150/69; PULSE 76; RESP 16; TEMP 97.7; O2SAT 94
[2017-11-29 08:01] VITALS: PULSE 73
[2017-11-29] MEDS: DROXIDOPA 600 MG PO SCH ×3 (08:40→17:14)
[2017-11-29] MEDS: CARBIDOPA/LEVODOPA 25 MG/100 MG TAB PO SCH (08:40)
[2017-11-29] MEDS: ESCITALOPRAM OXALATE 10 MG TAB PO SCH (08:40)
[2017-11-29] MEDS: DOCUSATE SODIUM 50 MG/SENNA 8.6 MG TAB PO SCH (08:41)
[2017-11-29] MEDS: PRAVASTATIN SOD 20 MG TAB PO SCH (08:41)
[2017-11-29] MEDS: DIPYRIDAMOLE/ASPIRIN 200 MG/25 MG CAP PO SCH (08:41)
[2017-11-29] MEDS: LEVOFLOXACIN 750 MG TAB PO SCH (08:41)
[2017-11-29] MEDS: PANTOPRAZOLE SOD 20 MG DELAYED RELEASE TAB PO SCH (08:42)
[2017-11-29] MEDS: MIDODRINE 5 MG TAB PO SCH ×3 (08:42→17:15)
[2017-11-29] MEDS: FLUDROCORTISONE ACETATE 0.1 MG TAB PO SCH (08:44)
[2017-11-29] MEDS: SODIUM CHLORIDE 0.9% FLUSH 10 ML FLUSH IV FLUSH SCH (08:48)
[2017-11-29] MEDS: HEPARIN SODIUM - SQ 10,000 UNITS/ML VIAL SQ SCH (08:49)
--- NOTE | 2017-11-29 11:35 | HHI.DCPOC ---
Discharge Care Plan Diagnosis: (1) Syncope (2) Orthostatic hypotension (3) GI bleed (4) Pneumonia (5) Epistaxis (6) Frequent falls Goals to Promote Your Health * To prevent worsening of your condition and complications * To maintain your health at the optimal level Directions to Meet Your Goals Take your medications as prescribed Follow your dietary instruction Follow activity as directed Keep your appointments as scheduled Take your immunizations and boosters as scheduled If your symptoms worsen call your PCP, if no PCP go to Urgent Care Center or Emergency Room Smoking is Dangerous to Your Health. Avoid second hand smoke Call the 24-hour hour crisis hotline for domestic abuse at Maksim Avila Nov 29, 2017 11:35
[2017-11-29] MEDS ORDERED: FLUD.1 PO (11:42)
[2017-11-29] MEDS ORDERED: LEVA750T9 PO (11:42)
[2017-11-29] MEDS ORDERED: Carbidopa-Levodopa 25-100 Mg PO (11:42)
--- NOTE | 2017-11-29 11:48 | HHI.DS ---
Discharge Summary Admission Date Nov 24, 2017 at 12:06 Discharge Date: Nov 29, 2017 Admitting Diagnosis ORTHOSTATIC HYPOTENSION, ANEMIA, EMPYEMA (1) Syncope ICD Code: R55 - Syncope and collapse (2) Frequent falls ICD Code: R29.6 - Repeated falls Status: Acute (3) Orthostatic hypotension ICD Code: I95.1 - Orthostatic hypotension Status: Acute (4) Epistaxis ICD Code: R04.0 - Epistaxis Status: Acute Procedures ECHOCARDIOGRAM CONCLUSIONS Normal left ventricular size. Wall thickness is normal. The left ventricular systolic function is normal with an estimated ejection fraction in the range of 55-60%. [id number] mitral valve regurgitation. Mitral annular calcification is present. There is trace tricuspid valve regurgitation. There is estimated mild pulmonary hypertension present ( 47 mmHg). EGD IMPRESSIONS: 1. White deposits in duodenum second portion-biopsy gastrtis antrum/superficial ulcerations-biopsy 2. Retroflexed views revealed a hiatal hernia Brief History - From Admission This is a pleasant 77-year-old male patient with a known medical history of hyperlipidemia, orthostatic hypotension, CAD who presented to the ED after multiple syncopal episodes. Patient is seen at bedside with history of dementia and Parkinson's disease, is at bedside who assist with obtaining medical history. Per , patient states that he passed out 3 times in the last couple days. He did hit his head, and lost consciousness today. Patient states that usually before he has the syncopal episodes he feels lightheaded. Patient admits to poor appetite, states he has not been eating as much lately. He has also been feeling overall fatigued. Denies any bloody or black stools or diarrhea. Patient denies any recent nausea or vomiting or diarrhea. After review of medical records, patient was last seen in April for admission for GI bleed. At that time was found to have a bleeding ulcer. Patient follows with his PCP Dr. Day. He does complain of recent productive cough with yellow phlegm, patient states he was given an antibiotic a month ago which did not seem to help and was just recently prescribed cefuroxime in the last few days. Patient does follow with Dr. Multani, cardiology. CBC/BMP: 11/28/17 1645 11/25/17 0650 Significant Findings Laboratory Tests Test 11/27/17 11:24 11/27/17 23:30 11/28/17 16:45 Red Blood Count 2.71 MIL/MM3 (4.50-5.90) 2.79 MIL/MM3 (4.50-5.90) Hemoglobin 8.2 GM/DL (13.0-17.0) 8.5 GM/DL (13.0-17.0) 8.5 GM/DL (13.0-17.0) Hematocrit 23.8 % (39.0-51.0) 24.7 % (39.0-51.0) 24.4 % (39.0-51.0) Mean Platelet Volume 6.1 FL (7.0-11.0) 6.0 FL (7.0-11.0) Neutrophils (%) (Auto) 76.8 % (16.0-70.0) 78.9 % (16.0-70.0) Lymphocytes # (Auto) 0.9 TH/MM3 (1.0-4.8) Imaging Last Impressions Chest X-Ray 11/29/17 0600 Signed Impressions: Service Date/Time: Wednesday, November 29, 2017 06:15 - CONCLUSION: 1. Persistent small to moderate left pleural effusion with associated airspace disease in the left lower lobe. 2. No significant interval change. Truman Roque MD Abdomen/Pelvis CT 11/28/17 0000 Signed Impressions: Service Date/Time: Tuesday, November 28, 2017 16:20 - CONCLUSION: 1. No finding is identified to explain the anemia. Overall, no acute finding is identified within the abdomen or pelvis. 2. There is a left pleural effusion associated with pleural air, pleural thickening and enhancement, and left lower lobe atelectasis. The appearance is stable but the features suggest an infected left pleural fluid collection/empyema. Suggest correlating with the clinical history and consider chest tube drainage. This finding is new since the 11/10/[address] but stable compared to the chest CT performed 4 days ago. Foreign Miller MD Chest Ultrasound 11/25/17 0000 Signed Impressions: Service Date/Time: Saturday, November 25, 2017 07:49 - CONCLUSION: Pleural effusion with septation. Skin marking was made. Tanner Brown MD Chest CT 11/24/17 1024 Signed Impressions: Service Date/Time: November 10:33 - CONCLUSION: 1. There is a large left pleural effusion with configuration suggesting loculation. There is also in air-fluid level in the fluid collection. 2. Bilateral diffuse pleural calcifications without focal thickening. Tanner Brown MD Head CT 11/24/17 0924 Signed Impressions: Service Date/Time: November 10:12 - CONCLUSION: Normal examination. Foreign Mclaughlin MD Carotid Artery Ultrasound 11/24/17 0000 Signed Impressions: Service Date/Time: November 15:50 - CONCLUSION: 1. No hemodynamically significant flow limiting stenosis. 2. Antegrade flow in the vertebral arteries bilaterally. Truman Roque MD PE at Discharge GENERAL: Well-developed, elderly male patient in NAD. Lying comfortably in bed on room air. SKIN: Warm and dry. No rash. HEAD: Normocephalic. Atraumatic. EYES: Pupils equal and round. No scleral icterus. No injection or drainage. ENT: Mucous membranes pink and moist. Rhino Rocket to left nare. NECK: Supple. Trachea midline. CARDIOVASCULAR: Regular rate and rhythm. S1, S2 noted. No murmur appreciated. RESPIRATORY: No accessory muscle use. Clear to auscultation. Breath sounds equal bilaterally. GASTROINTESTINAL: Abdomen soft, non-tender, nondistended. Normoactive bowel sounds x4. MUSCULOSKELETAL: No obvious deformities. Extremities without clubbing, cyanosis , or edema. NEUROLOGICAL: Awake and alert. No obvious cranial nerve deficits. Motor grossly within normal limits. 5/5 muscle strength in bilateral upper and lower extremities. Normal speech. PSYCHIATRIC: Appropriate mood and affect; insight and judgment normal. Hospital Course Multiple syncopal episodes suspect secondary to orthostatic hypotension versus dehydration Patient presented with multiple syncopal episodes. Orthostatic hypotensive readings positive, systolic BP dropped from 133-->77 initially. Continue home Midodrine and Droxidopa. Spoke to patient's celluloid trimmer, Dr. Multani, who suggests JOSSELINE hoes and Florinef. Added Florinef. Decrease dose of Sinemet, continue to monitor response with hope to improve orthostatic hypotension. Improvement seen yesterday afternoon and overnight with orthostatic hypotension. No change in Parkinson symptoms. is requesting neuro consult, Dr. Prasad is known to patient for further recommendations and input, there are reports that he has been managing and adjusting his Sinemet outpatient. Head CT reviewed, negative examination. Fall precautions. PT eval ordered, appreciate further recommendations. Recommendations for rehab. Echocardiogram 50-55%. Carotid ultrasound ordered, reviewed showing no stenosis. Status post 2 L NS bolus. Continue gentle hydration. Continue cardiac telemetry, monitor for any arrhythmias. Pneumonia, community-acquired - failed outpatient antibiotics, with associated productive cough and subjective fevers upon presentation Large left pleural effusion suspect secondary to above. Resolved. Chest x-ray reviewed showing left basilar effusion and consolidation. CT chest reviewed showing large left pleural effusion with configuration suggesting loculation. Pulmonology following patient. PFTs done. ABG done and reviewed, no significance. Blood cultures no growth to date. Continue to follow growth. UA negative. Continue antibiotics. CBC unremarkable. No fevers. Lactic acid 1.0. Supplemental O2 as needed, patient comfortable on room air. US chest done, pleural effusion with lack of adequate fluid to drain. Supportive care. Normocytic normochromic anemia History of GI bleed Episode of Epistaxis overnight Denies any recent hematozemia. Hemoglobin 8.5/Hematocrit 24.7. Hemoccult stool performed in ED, positive. Gastroenterology following, appreciate input and recommendations. Underwent EGD today. Showing white deposits in duodenum, biopsied. Hiatal hernia. Continue Protonix. On Aggrenox for history of CVA. Will continue, continue to monitor. Continue Rhino Rocket, placed last evening for episode of epistaxis. History of Parkinson's disease History of Alzheimer's dementia Continue home medications. Stable at this time. Supportive care. Hyperlipidemia, chronic: Continue home pravastatin. Pt Condition on Discharge: Stable Discharge Disposition: Discharge to SNF Discharge Time: > 30 minutes Discharge Instructions DIET: Follow Instructions for: As Tolerated, No Restrictions Activities you can perform: Regular-No Restrictions Follow up Referrals: Gastroenterology - 3 Weeks with Sterling Thurman MD Neurology - 2 Weeks with Suresh Eisenberg MD PCP Follow-up - 1 Week Pulmonology - 2 Weeks with Jean-Paul Islas MD New Medications: Fludrocortisone (Fludrocortisone) 0.1 Mg Tab 0.1 MG PO DAILY for Orthostasis for 30 Days, #30 TAB Levofloxacin (Levaquin) 750 Mg Tablet 750 MG PO DAILY for Infection for 5 Days, #5 TAB [Carbidopa-Levodopa 25-100 Mg] () 1 TAB TAB 1 TAB PO Q12HR for Parkinson for 30 Days, TAB Continued Medications: Dipyridamole-Aspirin (Aggrenox) 200-25 Mg Cap 1 CAP PO BID for Prevent Blood Clot, #60 CAP 0 Refills Docusate Sodium (Stool Softener) 100 Mg Cap 1 TAB PO DAILY PRN for constipation Donepezil (Donepezil) 10 Mg Tab 10 MG PO HS for Dementia, #30 TAB 0 Refills Droxidopa (Northera) 300 Mg Cap 600 MG PO TID Entacapone (Comtan) 200 Mg Tab 200 MG PO TID for Parkinson Disease Mgmt, #120 TAB 0 Refills administered concomitantly with each levodopa/carbidopa dose Escitalopram (Escitalopram) 10 Mg Tab 10 MG PO DAILY, #30 TAB 0 Refills Melatonin (Melatonin) 5 Mg Tab 5 MG PO HS for Provide Good Sleep, TAB 0 Refills Midodrine (Midodrine) 10 Mg Tab 10 MG PO TID PRN for SYMPTOMATIC HYPOTENSION, #90 TAB 0 Refills Omeprazole (Omeprazole) 20 Mg Tab 20 MG PO DAILY, #30 TAB 0 Refills Pravastatin (Pravastatin) 20 Mg Tab 20 MG PO DAILY for Cholesterol Management, #30 TAB 0 Refills Rasagiline (Azilect) 1 Mg Tab 1 MG PO DAILY Discontinued Medications: Carbidopa-Levodopa (Sinemet) 25-100 Mg Tab 1 TAB PO TID for Parkinson Disease Mgmt, #90 TAB 0 Refills Cefuroxime (Cefuroxime) 500 Mg Tab 500 MG PO BID for Infection, TAB 0 Refills Fexofenadine (Rosa Allergy) 180 Mg Tab 180 MG PO DAILY for Allergy Management, #30 TAB 0 Refills Hydrocodone-Acetaminophen (Hydrocodone-Acetaminophen) 7.5-325 mg Tab 1 TAB PO Q4H PRN for PAIN, TAB 0 Refills Maksim Avila Nov 29, 2017 11:47
[2017-11-29 12:00] VITALS: BP 162/75; PULSE 73; RESP 16; TEMP 98.1; O2SAT 96
[2017-11-29 16:00] VITALS: BP 162/75; PULSE 73; RESP 18; TEMP 98.2; O2SAT 96
[2017-11-29] MEDS ORDERED: PROPOFOL 200 MG/20 ML AMP IV ONE (18:31)
== END 2017-11-29 18:32 | DRG 194 ==
LOC: PHED 09:07 → PHEDA 12:06 → PH3A 14:15
PROVIDERS: ADMIT Hospitalist; ATTEND Hospitalist
PROC: 0DB98ZX Excision of Duodenum, Via Natural or Artificial Opening Endoscopic, Diagnostic (ICD-10-PCS; 2017-11-28)
PROC: 0DB78ZX Excision of Stomach, Pylorus, Via Natural or Artificial Opening Endoscopic, Diagnostic (ICD-10-PCS; 2017-11-28)
PROC: 2Y41X5Z Packing of Nasal Region using Packing Material (ICD-10-PCS; principal; 2017-11-28 07:58)
DX: J18.9 Pneumonia, unspecified organism (principal); J98.11 Atelectasis; G20 Parkinson's disease; I27.20 Pulmonary hypertension, unspecified; J90 Pleural effusion, not elsewhere classified; G30.9 Alzheimer's disease, unspecified; F02.80 Dementia in other diseases classified elsewhere, unspecified severity, without behavioral disturbance, psychotic disturbance, mood disturbance, and anxiety; D64.9 Anemia, unspecified; I95.1 Orthostatic hypotension; M19.90 Unspecified osteoarthritis, unspecified site; E78.5 Hyperlipidemia, unspecified; H91.93 Unspecified hearing loss, bilateral; Z96.651 Presence of right artificial knee joint; R29.6 Repeated falls; K25.9 Gastric ulcer, unspecified as acute or chronic, without hemorrhage or perforation; I25.10 Atherosclerotic heart disease of native coronary artery without angina pectoris; R04.0 Epistaxis; K44.9 Diaphragmatic hernia without obstruction or gangrene; Z87.11 Personal history of peptic ulcer disease; Z86.73 Personal history of transient ischemic attack (TIA), and cerebral infarction without residual deficits
CPT/HCPCS: 36600; 70450; 71045; 71260; 74177; 76604; 80048; 80053; 80061; 81001; 82805; 83605; 83735; 84443; 84484; 85014; 85018; 85025; 85610; 85730; 87040; 87070; 87205; 88305; 88312; 93005; 93306; 93880; 94060; 96361; 96365; J1644; J2543; J7030; J7120; Q9963; Q9967

== ENCOUNTER 2018-01-19 10:02 | Inpatient (IN) | payer MEDICARE, OTHER ==
[~2018-01-19] VITALS: Ht 172.7 cm; Wt 67.9 kg
[~2018-01-19 10:02] MED LIST changes: +Carbidopa-Levodopa 25-100 Mg PO; -FER-15DR3 PO; -FEXO15TA PO; +FLUD.1 PO; -HYDR-3580 PO; +LEVA750T9 PO; +MELA5 PO; +MIDO10TA PO; -MIDO5TAB PO; +OMEP20TA93 PO; -SINE25TA PO; -TIZA2TAB PO; -WALKER WHEELS/F1 MIS; +[UNRECOGNIZED DRUG - CODE] PO; -[UNRECOGNIZED DRUG - CODE] PO
[2018-01-19 10:04] VITALS: BP 65/44; PULSE 87; RESP 18; TEMP 97.4; O2SAT 97
[2018-01-19] MEDS ORDERED: SODIUM CHLOR 0.9% 1000 ML INJ 1,000 ML IV ONE (10:30)
[2018-01-19 10:37] LABS: AUTOMATED NEUTROPHIL # 4.6 TH/MM3 (1.8-7.7); BASOPHIL % 0.2 % (0.0-2.0); EOSINOPHIL % 0.3 % (0.0-4.0); HEMATOCRIT 31.6 % (39.0-51.0); LYMPH % 14.3 % (9.0-44.0); LYMPHOCYTE # 0.8 TH/MM3 (1.0-4.8); MEAN CELL VOLUME 81.2 FL (80.0-100.0); MEAN CORPUSCULAR HEMOGLOBIN 25.7 PG (27.0-34.0); MEAN CORPUSCULAR HGB CONC 31.7 % (32.0-36.0); MEAN PLATELET VOLUME 6.2 FL (7.0-11.0); MONO % 6.8 % (0.0-8.0); MONOCYTE # 0.4 TH/MM3 (0-0.9); NEUT % 78.4 % (16.0-70.0); PLATELET COUNT 467 TH/MM3 (150-450); RED BLOOD COUNT 3.89 MIL/MM3 (4.50-5.90); RED CELL DISTRIBUTION WIDTH 16.2 % (11.6-17.2); WHITE BLOOD COUNT 5.8 TH/MM3 (4.0-11.0)
[2018-01-19 10:44] LABS: CHLORIDE 98 MEQ/L (98-107); SODIUM (NA) 135 MEQ/L (136-145)
[2018-01-19 10:47] LABS: CALCIUM 9.4 MG/DL (8.5-10.1)
[2018-01-19 10:48] LABS: ALBUMIN 3.1 GM/DL (3.4-5.0); BICARBONATE 29.2 MEQ/L (21.0-32.0); BLOOD UREA NITROGEN 18 MG/DL (7-18); GLUCOSE,RANDOM 107 MG/DL (74-106); MAGNESIUM 2.5 MG/DL (1.5-2.5)
[2018-01-19 10:51] LABS: ALT (GPT) 21 U/L (12-78); AST (GOT) 17 U/L (15-37); GLOMERULAR FILTRATION RATE 53 ML/MIN (>89)
[2018-01-19 10:52] LABS: TOTAL BILIRUBIN ADULT 0.4 MG/DL (0.2-1.0); TOTAL PROTEIN 8.7 GM/DL (6.4-8.2)
[2018-01-19 10:53] LABS: ALKALINE PHOSPHATASE 96 U/L (45-117)
[2018-01-19 10:56] LABS: TROPONIN I LESS THAN 0.02 NG/ML (0.02-0.05)
[2018-01-19 11:06] VITALS: BP_SYST 134; BP_SYST 145; BP_SYST 82; BP_DIAS 56; BP_DIAS 77; BP_DIAS 88; RESP 16; RESP 18
--- NOTE | 2018-01-19 11:21 | RADRPT ---
EXAM DATE/TIME: 01/19/2018 11:09 [facility] COMPARISON: CT BRAIN W/O CONTRAST, November 24, 2017, 10:12. INDICATIONS : Trauma. Fall. RADIATION DOSE: 63.36 CTDIvol (mGy) MEDICAL HISTORY : Parkinson's. Cerebrovascular disease. Cardiovascular diseaseDementia. SURGICAL HISTORY : Cardiac cath ENCOUNTER: Initial ACUITY: 1 day PAIN SCALE: 0/10 LOCATION: cranial TECHNIQUE: Multiple contiguous axial images were obtained of the head. Using automated exposure control and adj ustment of the mA and/or kV according to patient size, radiation dose was kept as low as reasonably a chievable to obtain optimal diagnostic quality images. DICOM format image data is available electro nically for review and comparison. FINDINGS: CEREBRUM: The ventricles are normal for age. No evidence of midline shift, mass lesion, hemorrhage or acute in farction. No extra-axial fluid collections are seen. POSTERIOR FOSSA: The cerebellum and brainstem are intact. The 4th ventricle is midline. The cerebellopontine angle i s unremarkable. EXTRACRANIAL: The visualized portion of the orbits is intact. SKULL: The calvaria is intact. No evidence of skull fracture. CONCLUSION: No acute intracranial disease. Matt Morales MD on January 19, 2018 at 11:18 Board Certified Radiologist. This report was verified electronically.
--- NOTE | 2018-01-19 11:25 | PD ---
HPI Chief Complaint: Fall Time Seen by Provider: 10:17 Travel History International Travel<30 days: No Contact w/Intl Traveler<30days: No Traveled to known affect area: No History of Present Illness HPI This 77-year-old male is brought for evaluation after 2 falls at home. Last night he was standing at the sink and he just lost his balance and fell sustaining a cut to his left arm. This morning he got up and walking with his walker when he fell and hit his head on wall and twisted his neck. He says that this morning he does not think he passed out he got very dizzy and lightheaded. He has a history of Parkinson's disease he has some dementia and he also has orthostatic hypotension. He had a stroke about 3 years ago he is on Aggrenox. He was recently admitted to the hospital and had evaluation of an abnormality on his chest x-ray. He does not have a history of atrial fibrillation according to his and I have reviewed several old EKGs done of which show atrial fibrillation. He is on Midrin and florinef for orthostatic hypotension PFSH Past Medical History Hx Anticoagulant Therapy: Yes (Aggranox) Arthritis: Yes Anxiety: No Depression: No Cancer: No Cardiac Catheterization: Yes Cardiovascular Problems: Yes (ORTHOSTATIC HYPOTENSION) High Cholesterol: Yes Congestive Heart Failure: No Cerebrovascular Accident: Yes Diabetes: No Diminished Hearing: Yes (BILATERAL HEARING AIDES) Endocrine: No Gastrointestinal Disorders: No Genitourinary: No Herniated Disk: Yes Immune Disorder: No Implanted Vascular Access Dvce: Yes Musculoskeletal: Yes Neurologic: Yes (dementia ) Parkinson's Disease: Yes Psychiatric: No Reproductive: No Respiratory: No Immunizations Current: Yes Tetanus Vaccination: < 5 Years Influenza Vaccination: Yes Past Surgical History Cardiac Surgery: Yes (cardiac cath) Eye Surgery: Yes (REMOVED DROOPY SKIN) Joint Replacement: Yes (RT KNEE) Neurologic Surgery: Yes (PARKINSONS) Pacemaker: No Other Surgery: Yes (STITCHES IN BEFORE) Social History Alcohol Use: Yes (OCCASIONAL) Tobacco Use: No Substance Use: No Allergies-Medications (Allergen,Severity, Reaction): Coded Allergies: No Known Allergies (Verified Adverse Reaction, Unknown, 01/19/18) Reported Meds & Prescriptions Reported Meds & Active Scripts Active Fludrocortisone (Fludrocortisone Acetate) 0.1 Mg Tab 0.1 Mg PO DAILY 30 Days [Carbidopa-Levodopa 25-100 Mg] 1 TAB Tab 1 Tab PO Q12HR 30 Days Levaquin (Levofloxacin) 750 Mg Tablet 750 Mg PO DAILY 5 Days Reported Midodrine 10 Mg Tab 10 Mg PO TID PRN Melatonin 5 Mg Tab 5 Mg PO HS Northera (Droxidopa) 300 Mg Cap 600 Mg PO TID Omeprazole 20 Mg Tab 20 Mg PO DAILY Escitalopram (Escitalopram Oxalate) 10 Mg Tab 10 Mg PO DAILY Donepezil 10 Mg Tab 10 Mg PO HS Aggrenox (Dipyridamole/Aspirin) 200-25 Mg Cap 1 Cap PO BID Stool Softener (Docusate Sodium) 100 Mg Cap 1 Tab PO DAILY PRN Pravastatin 20 Mg Tab 20 Mg PO DAILY Azilect (Rasagiline) 1 Mg Tab 1 Mg PO DAILY Comtan (Entacapone) 200 Mg Tab 200 Mg PO TID administered concomitantly with each levodopa/carbidopa dose Review of Systems General / Constitutional: No: Fever, Chills Eyes: No: Diploplia HENT: Positive: Headaches, No: Sore Throat Cardiovascular: No: Chest Pain or Discomfort, Palpitations Respiratory: Positive: Cough, Shortness of Breath Gastrointestinal: No: Vomiting, Diarrhea Genitourinary: No: Urgency Musculoskeletal: No: Myalgias Skin: No Rash Neurologic: Positive: Weakness, Dizziness, Syncope Endocrine: No: Heat Intolerance, Cold Intolerance Hematologic/Lymphatic: No: Easy Bruising Physical Exam Narrative GENERAL: Thin chronically ill-appearing male. His heart rate is irregular and varies between 101 120. On standing his blood pressure is 82/60 and is very lightheaded SKIN: Focused skin assessment warm/dry. There is a skin tear on his left forearm HEAD: Atraumatic. Normocephalic. EYES: Pupils equal and round. No scleral icterus. No injection or drainage. ENT: No nasal bleeding or discharge. Mucous membranes pink and moist. NECK: Trachea midline. No JVD. He is tender on the right side of the neck CARDIOVASCULAR: Irregular rate and rhythm. No murmur appreciated. RESPIRATORY: No accessory muscle use. Diminished breath sounds on the left side GASTROINTESTINAL: Abdomen soft, non-tender, nondistended. Hepatic and splenic margins not palpable. MUSCULOSKELETAL: No obvious deformities. No clubbing. No cyanosis. No edema. NEUROLOGICAL: Awake and alert. Speech is very slow. He is diffusely weak PSYCHIATRIC: Depressed mood Data Data Last Documented VS Vital Signs Date Time Temp Pulse Resp B/P (MAP) Pulse Ox O2 Delivery O2 Flow Rate FiO2 01/19/18 11:06 128 16 145/88 (107) 117 16 134/77 (96) 130 18 82/56 (65) 01/19/18 10:04 97.4 97 Orders Orders Electrocardiogram (01/19/18 10:21) Complete Blood Count With Diff (01/19/18 10:21) Comprehensive Metabolic Panel (01/19/18 10:21) Troponin I (01/19/18 10:21) B-Type Natriuretic Peptide (01/19/18 10:21) Urinalysis - C+S If Indicated (01/19/18 10:21) Magnesium (Mg) (01/19/18 10:21) Chest, Single Ap (01/19/18 10:21) Orthostatic Vital Signs (01/19/18 10:21) Sodium Chlor 0.9% 1000 Ml Inj (Ns 1000 M (01/19/18 10:30) Ct Brain W/O Iv Contrast(Rout) (01/19/18 10:21) Ct Cerv Spine W/O Contrast (01/19/18 10:21) Troponin I (01/19/18 11:14) Wound Care (01/19/18 11:51) Admit Order (Ed Use Only) (01/19/18 12:19) Labs Laboratory Tests Test 01/19/18 10:26 01/19/18 11:10 01/19/18 11:30 White Blood Count 5.8 TH/MM3 Red Blood Count 3.89 MIL/MM3 Hemoglobin 10.0 GM/DL Hematocrit 31.6 % Mean Corpuscular Volume 81.2 FL Mean Corpuscular Hemoglobin 25.7 PG Mean Corpuscular Hemoglobin Concent 31.7 % Red Cell Distribution Width 16.2 % Platelet Count 467 TH/MM3 Mean Platelet Volume 6.2 FL Neutrophils (%) (Auto) 78.4 % Lymphocytes (%) (Auto) 14.3 % Monocytes (%) (Auto) 6.8 % Eosinophils (%) (Auto) 0.3 % Basophils (%) (Auto) 0.2 % Neutrophils # (Auto) 4.6 TH/MM3 Lymphocytes # (Auto) 0.8 TH/MM3 Monocytes # (Auto) 0.4 TH/MM3 Eosinophils # (Auto) 0.0 TH/MM3 Basophils # (Auto) 0.0 TH/MM3 CBC Comment DIFF FINAL Differential Comment Blood Urea Nitrogen 18 MG/DL Creatinine 1.30 MG/DL Random Glucose 107 MG/DL Total Protein 8.7 GM/DL Albumin 3.1 GM/DL Calcium Level 9.4 MG/DL Magnesium Level 2.5 MG/DL Alkaline Phosphatase 96 U/L Aspartate Amino Transf (AST/SGOT) 17 U/L Alanine Aminotransferase (ALT/SGPT) 21 U/L Total Bilirubin 0.4 MG/DL Sodium Level 135 MEQ/L Potassium Level 4.1 MEQ/L Chloride Level 98 MEQ/L Carbon Dioxide Level 29.2 MEQ/L Anion Gap 8 MEQ/L Estimat Glomerular Filtration Rate 53 ML/MIN Troponin I LESS THAN 0.02 NG/ML LESS THAN 0.02 NG/ML B-Type Natriuretic Peptide 332 PG/ML Urine Collection Type CLEAN CATCH Urine Color YELLOW Urine Turbidity CLEAR Urine pH 7.5 Urine Specific [place] 1.015 Urine Protein TRACE mg/dL Urine Glucose (UA) NEG mg/dL Urine Ketones TRACE mg/dL Urine Occult Blood NEG Urine Nitrite NEG Urine Bilirubin NEG Urine Urobilinogen 0.2 MG/DL Urine Leukocyte Esterase NEG Urine RBC 0-3 /hpf Urine WBC 0-2 /hpf Urine Squamous Epithelial Cells 0-5 /hpf Urine Bacteria RARE /hpf Microscopic Urinalysis Comment CULT NOT INDICATED Urine Collection Time 11:30 [facility] Medical Decision Making Medical Screen Exam Complete: Yes Emergency Medical Condition: Yes Medical Record Reviewed: Yes Differential Diagnosis Differential includes orthostatic hypotension, frequent falls. Laceration arm, neck injury, subdural hematoma Narrative Course Chest x-ray shows persistent density in the left lower lung field which may be a posterior loculated effusion. This does appear somewhat improved compared to prior x-ray. There is elevation of left hemidiaphragm at the right lung is clear. CT brain is unchanged from previous scans CT of the cervical spine shows extensive degenerative changes but no fracture. Orthostatic vital signs were checked and the patient was very dizzy and had to sit down. EKG shows atrial fibrillation. I reviewed his previous charts and I do not see any evidence that he has had atrial fibrillation before Diagnosis Primary Impression: New onset atrial fibrillation Additional Impression: Orthostatic hypotension Rudy Dunn MD Jan 19, 2018 11:25
--- NOTE | 2018-01-19 11:32 | RADRPT ---
EXAM DATE/TIME: 01/19/2018 11:03 [facility] COMPARISON: CHEST SINGLE AP, November 29, 2017, 6:15. INDICATIONS : Cough. Syncope. Fall. MEDICAL HISTORY : Parkinson's. Hypercholesterolemia. Hypertension. CVA. SURGICAL HISTORY : Cardiac catheterization. Right knee replacement. ENCOUNTER: Initial ACUITY: 1 day PAIN SCORE: 0/10 LOCATION: chest FINDINGS: A single view of the chest demonstrates elevation of the left hemidiaphragm. Persistent area of incre ased density in the left lower lung field without significant shadowing may represent a loculated pos terior fusion. I do believe that there is interval improvement from the prior, however. Right lung re lexy clear. Heart size is normal. Dextroscoliosis of the dorsal spine with associated mild degenerat frank changes. Osseous structures are otherwise intact. CONCLUSION: 1. Persistent increased density in the left lower lung field without shadowing may represent a scale tester ior loculated effusion. This does show some interval improvement compared to prior, however. 2. Elevation of the left hemidiaphragm. 3. Right lung remains clear. Frank Reynolds MD on January 19, 2018 at 11:27 Board Certified Radiologist. This report was verified electronically.
--- NOTE | 2018-01-19 11:43 | RADRPT ---
EXAM DATE/TIME: 01/19/2018 11:09 [facility] COMPARISON: CT CERVICAL SPINE W/O CONTRAST, March 28, 2017, 15:25. INDICATIONS : Trauma. Fall. Right neck pain. RADIATION DOSE: 26.27 CTDIvol (mGy) MEDICAL HISTORY : Parkinson's. Cerebrovascular disease. Cardiovascular diseaseDementia. SURGICAL HISTORY : Cardiac cath ENCOUNTER: Initial ACUITY: 1 day PAIN SCALE: 4/10 LOCATION: Right neck TECHNIQUE: Volumetric scanning of the cervical spine was performed. Multiplanar reconstructions in the sagittal, coronal and oblique axial planes were performed. Using automated exposure control and adjustment o f the mA and/or kV according to patient size, radiation dose was kept as low as reasonably achievable to obtain optimal diagnostic quality images. DICOM format image data is available electronically f or review and comparison. FINDINGS: VERTEBRAE: Normal vertebral body height. Advanced multilevel degenerative changes. Degenerative disc disease at every level. ALIGNMENT: Alignment unchanged.. C2-C3: The bony spinal canal is normal in size. No evidence of disc bulge or herniation. The neural forami na are bilaterally patent. C3-C4: Small posterior disc osteophyte complex without canal stenosis. Mild bilateral neural foraminal narro wing. C4-C5: Small posterior disc osteophyte complex without canal stenosis. Mild bilateral neural foraminal narro wing. C5-C6: Small posterior disc osteophyte complex without canal stenosis. Mild bilateral neural foraminal narro wing. C6-C7: Small posterior disc osteophyte complex without canal stenosis. Mild bilateral neural foraminal narro wing. C7-T1: The bony spinal canal is normal in size. No evidence of disc bulge or herniation. The neural forami na are bilaterally patent. CONCLUSION: Advanced multilevel degenerative changes. No fracture. Matt Morales MD on January 19, 2018 at 11:39 Board Certified Radiologist. This report was verified electronically.
[2018-01-19 11:57] LABS: BILIRUBIN, URINE NEG (NEG); BLOOD, URINE NEG (NEG); GLUCOSE,URINE NEG (NEG); KETONE, URINE TRACE mg/dL (NEG); NITRITE,URINE NEG (NEG); PH, URINE 7.5 (5.0-8.5); URINE COLOR YELLOW (YELLW/STRAW); URINE LEUKOCYTE ESTERASE NEG (NEG)
[2018-01-19 12:10] LABS: BACTERIA, URINE RARE /hpf; RBC, URINE 0-3 /hpf (0-3); SQUAMOUS EPITHELIAL CELL URINE 0-5 /hpf (0-5); WBC, URINE 0-2 /hpf (0-5)
[2018-01-19] MEDS ORDERED: NALOXONE HCL 0.4 MG/ML AMP IV PUSH PRN (13:30)
[2018-01-19] MEDS ORDERED: SODIUM CHLORIDE 0.9% FLUSH 10 ML FLUSH IV FLUSH PRN (13:30)
[2018-01-19] MEDS ORDERED: ONDANSETRON HCL 4 MG/2 ML VIAL IVP PRN (13:30)
[2018-01-19] MEDS ORDERED: MAGNESIUM HYDROXIDE SUSP 30 ML CUP PO PRN (13:30)
[2018-01-19] MEDS: LACTATED RINGER'S 1000 ML INJ 1,000 ML IV SCH ×2 (14:25→23:37)
--- NOTE | 2018-01-19 15:01 | HHI.HP ---
HPI Service [facility] Primary Care Physician Unknown Admission Diagnosis NEW ONSET ATRIAL FIBRILLATION, ORTHOSTATIC HYPOTENSION, FREQUENT FAL Diagnoses: Chief Complaint: Frequent falls Travel History International Travel<30 Days: No Contact w/Intl Traveler <30 Da: No Traveled to Known Affected Are: No History of Present Illness This is a 77-year-old gentleman came to the emergency room after a fall at home. Was recently discharged from the hospital and has been the rehab facility post discharge. He has been home for 2 weeks and per his spouse he has had frequent falls. This morning he was at the bathroom sink and fell backwards. Did not lose consciousness. He has known history of Parkinson's dementia with likely associated orthostatic hypotension. He also has a history of a stroke and is on Aggrenox. He has been in follow-up with Dr. Eisenberg for this. He did come to the emergency room with multiple bruises in various stages of healing and a new laceration on the left forearm. Patient did have imaging done which did not show any acute bony fractures are traumatic injury. Patient's been admitted to the hospital after the emergency room doctor noted at the patient was in atrial fibrillation with a slightly elevated heart rate. This is new per the patient. Heart rate was in the low 100s. Was put this fracture recently the patient was discharged with treatment for empyema and was on Levaquin. He saw his primary care provider recently and an outpatient follow -up for pulmonology was recommended due to CT findings showing persistent left- sided loculated effusion despite antibiotic therapy. Patient appears quite malnourished and dehydrated. His says that he does not eat very much. There have been otherwise no new changes in his medications. He has been home for 2 weeks with his and attempting to regain some independence in his ADLs. For these reasons the patient has been admitted to the hospital for further evaluation and treatment. Past Family Social History Allergies: Coded Allergies: No Known Allergies (Verified Adverse Reaction, Unknown, 01/19/18) Physical Exam Vital Signs Vital Signs Date Time Temp Pulse Resp B/P (MAP) Pulse Ox O2 Delivery O2 Flow Rate FiO2 01/19/18 13:05 01/19/18 11:06 128 16 145/88 (107) 117 16 134/77 (96) 130 18 82/56 (65) 01/19/18 10:04 97.4 87 18 65/44 (51) 97 Physical Exam GENERAL: This is a well-nourished, elderly male who is well-developed patient, masked face disease with flat affect SKIN: No rashes, multiple ecchymoses in various stages of healing on the legs, left forearm last cool and dry. HEAD: Atraumatic. Normocephalic. No temporal or scalp tenderness. EYES: Pupils equal round and reactive. Extraocular motions intact. No scleral icterus. No injection or drainage. ENT: Bilateral temporal wasting, nose without bleeding, purulent drainage or septal hematoma. Throat without erythema, tonsillar hypertrophy or exudate. Uvula midline. Airway patent. NECK: Trachea midline. No JVD or lymphadenopathy. Supple, nontender, no meningeal signs. CARDIOVASCULAR: Rate controlled A. fib and rhythm without murmurs, gallops, or rubs. RESPIRATORY: Bilateral diminished at the base with decreased effort no wheezes or rales are rhonchi present GASTROINTESTINAL: Abdomen soft, non-tender, nondistended. No hepato-splenomegaly , or palpable masses. No guarding. MUSCULOSKELETAL: Extremities without clubbing, cyanosis, or edema. No joint tenderness, effusion, or edema noted. No calf tenderness. Negative Homans sign bilaterally. NEUROLOGICAL: Awake and alert 3 , motor strength equal throughout, bilateral upper arms with notable cogwheel rigidity worse on the left than the right, rigid to passive movement Laboratory Laboratory Tests Test 01/19/18 10:26 01/19/18 11:10 01/19/18 11:30 White Blood Count 5.8 Red Blood Count 3.89 Hemoglobin 10.0 Hematocrit 31.6 Mean Corpuscular Volume 81.2 Mean Corpuscular Hemoglobin 25.7 Mean Corpuscular Hemoglobin Concent 31.7 Red Cell Distribution Width 16.2 Platelet Count 467 Mean Platelet Volume 6.2 Neutrophils (%) (Auto) 78.4 Lymphocytes (%) (Auto) 14.3 Monocytes (%) (Auto) 6.8 Eosinophils (%) (Auto) 0.3 Basophils (%) (Auto) 0.2 Neutrophils # (Auto) 4.6 Lymphocytes # (Auto) 0.8 Monocytes # (Auto) 0.4 Eosinophils # (Auto) 0.0 Basophils # (Auto) 0.0 CBC Comment DIFF FINAL Differential Comment Blood Urea Nitrogen 18 Creatinine 1.30 Random Glucose 107 Total Protein 8.7 Albumin 3.1 Calcium Level 9.4 Magnesium Level 2.5 Alkaline Phosphatase 96 Aspartate Amino Transf (AST/SGOT) 17 Alanine Aminotransferase (ALT/SGPT) 21 Total Bilirubin 0.4 Sodium Level 135 Potassium Level 4.1 Chloride Level 98 Carbon Dioxide Level 29.2 Anion Gap 8 Estimat Glomerular Filtration Rate 53 Troponin I LESS THAN 0.02 LESS THAN 0.02 B-Type Natriuretic Peptide 332 Urine Collection Type CLEAN CATCH Urine Color YELLOW Urine Turbidity CLEAR Urine pH 7.5 Urine Specific [place] 1.015 Urine Protein TRACE Urine Glucose (UA) NEG Urine Ketones TRACE Urine Occult Blood NEG Urine Nitrite NEG Urine Bilirubin NEG Urine Urobilinogen 0.2 Urine Leukocyte Esterase NEG Urine RBC 0-3 Urine WBC 0-2 Urine Squamous Epithelial Cells 0-5 Urine Bacteria RARE Microscopic Urinalysis Comment CULT NOT INDICATED Urine Collection Time 11:30 Result Diagram: 01/19/18 1026 01/19/18 1026 Imaging Last [address] 01/19/18 1021 Signed Impressions: Service Date/Time: January 11:09 - CONCLUSION: No acute intracranial disease. Matt Morales MD Chest X-Ray 01/19/18 1021 Signed Impressions: Service Date/Time: January 11:03 - CONCLUSION: 1. Persistent increased density in the left lower lung field without shadowing may represent a posterior loculated effusion. This does show some interval improvement compared to prior, however. 2. Elevation of the left hemidiaphragm. 3. Right lung remains clear. Frank Reynolds MD Cervical Spine CT 01/19/18 1021 Signed Impressions: Service Date/Time: January 11:09 - CONCLUSION: Advanced multilevel degenerative changes. No fracture. Matt Morales MD [place] VTE Risk Assessment Caparely VTE Risk Assessment: Mod/High Risk (score >= 2) VTE Pharm Contraindication: frequent falls Caprini Risk Assessment Model Point Value = 1 Point Value = 2 Point Value = 3 Point Value = 5 Age 41-60 Minor surgery BMI > 25 kg/m2 Swollen legs Varicose veins or History of unexplained or recurrent spontaneous Oral contraceptives or hormone replacement Sepsis (< 1 month) Serious lung disease, including pneumonia (< 1 month) Abnormal pulmonary function Acute myocardial infarction Congestive heart failure (< 1 month) History of inflammatory bowel disease Medical patient at bed rest Age 61-74 Arthroscopic surgery Major open surgery (> 45 min) Laparoscopic surgery (> 45 min) Malignancy Confined to bed (> 72 hours) Immobilizing plaster cast Central venous access Age >= 75 History of VTE Family history of VTE Factor V Leiden Prothrombin [id number] Lupus anticoagulant Anticardiolipin antibodies Elevated serum homocysteine Heparin-induced thrombocytopenia Other congenital or acquired thrombophilia Stroke (< 1 month) Elective arthroplasty Hip, pelvis, or leg fracture Acute spinal cord injury (< 1 month) Prophylaxis Regimen Total Risk Factor Score Risk Level Prophylaxis Regimen 0-1 Low Early ambulation 2 Moderate Order ONE of the following: *Sequential Compression Device (SCD) *Heparin 5000 units SQ BID 3-4 Higher Order ONE of the following medications: *Heparin 5000 units SQ TID *Enoxaparin/Lovenox 40 mg SQ daily (WT < 150 kg, CrCl > 30 mL/min) *Enoxaparin/Lovenox 30 mg SQ daily (WT < 150 kg, CrCl > 10-29 mL/min) *Enoxaparin/Lovenox 30 mg SQ BID (WT < 150 kg, CrCl > 30 mL/min) AND/OR *Sequential Compression Device (SCD) 5 or more Highest Order ONE of the following medications: *Heparin 5000 units SQ TID (Preferred with Epidurals) *Enoxaparin/Lovenox 40 mg SQ daily (WT < 150 kg, CrCl > 30 mL/min) *Enoxaparin/Lovenox 30 mg SQ daily (WT < 150 kg, CrCl > 10-29 mL/min) *Enoxaparin/Lovenox 30 mg SQ BID (WT < 150 kg, CrCl > 30 mL/min) AND *Sequential Compression Device (SCD) Assessment and Plan Problem List: (1) New onset atrial fibrillation ICD Code: I48.91 - Unspecified atrial fibrillation Status: Acute Plan: A. fib appears to be new onset with a relatively controlled rate of just over 100 patient was also on levaquin Continue with medical management for now Continue telemetry Recent echocardiogram done 11/25/17 showed an EF of 55-60%, no need to repeat a new echocardiogram We will manage medically and adjust medications according as his blood pressure will tolerate continue diltiazem Patient is a significant fall risk and is already on Aggrenox We will discussed with neurology regarding full anticoagulation in this complicated patient Follow-up TSH and magnesium (2) Frequent falls ICD Code: R29.6 - Repeated falls Status: Acute Plan: Likely multifactorial due to Parkinson's and orthostatic hypertension Fall precautions PT/OT evaluation for patient safety Patient was recently discharged from a halfway facility and has been at home and would like to return home and we will assess for safety (3) PURA (acute kidney injury) ICD Code: N17.9 - Acute kidney failure, unspecified Plan: New per patient, may be volume depleted and malnourished We will continue with a trial of IV hydration and encourage oral intake and follow electrolytes (4) Malnutrition ICD Code: E46 - Unspecified protein-calorie malnutrition Plan: Protein and albumin are abnormal Will encourage oral intake, dietitian consult Add Ensure (5) Loculated pleural effusion ICD Code: J90 - Pleural effusion, not elsewhere classified Plan: Patient had been on Levaquin per his primary care doctor Patient's family was in the middle of referral to pulmonology given the abnormal findings We will repeat CT and follow-up improvement Patient is a poor surgical risk for decortication Follow-up pulmonology (6) Elevated brain natriuretic peptide (BNP) level ICD Code: R79.89 - Other specified abnormal findings of blood chemistry Plan: Patient likely not in heart failure given that he is relatively volume depleted, his x-ray does not show any vascular fullness Patient in atrial fibrillation with elevated rate Continue to monitor clinically (7) Parkinson disease ICD Code: G20 - Parkinson's disease Plan: Patient on carbidopa levodopa, Droxidopa and Comtan Follow-up with neurology, Dr. Eisenberg Patient with Parkinson's dementia and likely orthostasis is and appears to have decreased quality of life Patient may benefit from palliative care consult and/or hospice consult We will need to further clarify goals with the patient and family (8) Orthostatic hypotension ICD Code: I95.1 - Orthostatic hypotension Status: Acute Plan: Patient appears to be still quite symptomatic despite his fludrocortisone and midodrine We will attempt to hydrate the patient to see if there is any improvement (9) Dementia ICD Code: F03.90 - Unspecified dementia without behavioral disturbance Plan: Without psychotic features Patient on omeprazole and Azilect Patient lives with family ( is proxy), home health had been started CODE STATUS addressed as full code (10) Thrombocytopenia ICD Code: D69.6 - Thrombocytopenia, unspecified Plan: Probably reactive, appears to be stable Patient also on Aggrenox (11) History of CVA in adulthood ICD Code: Z86.73 - Personal history of transient ischemic attack (TIA), and cerebral infarction without residual deficits Plan: History of a stroke On Aggrenox Code Status full code Discussed Condition With Patient, ER MD, spouse and Tiffanie RN Physician Certification 2 Midnight Certification Type: Admission for Inpatient Services Order for Inpatient Services The services are ordered in accordance with Medicare regulations or non- Medicare payer requirements, as applicable. In the case of services not specified as inpatient-only, they are appropriately provided as inpatient services in accordance with the 2-midnight benchmark. Estimated LOS (days): 2 2 days is the estimated time the patient will need to remain in the hospital, assuming treatment plan goals are met and no additional complications. Post-Hospital Plan: Not yet determined Lucille Sandhu MD Jan 19, 2018 15:01
[2018-01-19 15:42] VITALS: BP_SYST 104; BP_SYST 65; BP_DIAS 31; BP_DIAS 53; PULSE 82; RESP 18; TEMP 97.2; O2SAT 96
[2018-01-19] MEDS ORDERED: DOCUSATE SODIUM 100 MG CAP PO PRN (17:00)
[2018-01-19] MEDS ORDERED: MIDODRINE 5 MG TAB PO PRN (17:00)
[2018-01-19] MEDS ORDERED: AZILECT 1 MG PO SCH (17:45)
[2018-01-19] MEDS: FLUDROCORTISONE ACETATE 0.1 MG TAB PO SCH (17:53)
[2018-01-19] MEDS: ESCITALOPRAM OXALATE 10 MG TAB PO SCH (17:53)
[2018-01-19] MEDS: PRAVASTATIN SOD 20 MG TAB PO SCH (17:53)
[2018-01-19] MEDS ORDERED: DROXIDOPA PO SCH (18:00)
[2018-01-19] MEDS ORDERED: COMTAN 200 MG PO SCH (18:00)
[2018-01-19 20:00] VITALS: BP 123/59; PULSE 73; PULSE 75; RESP 18; TEMP 97.1; O2SAT 95
[2018-01-19] MEDS: SODIUM CHLORIDE 0.9% FLUSH 10 ML FLUSH IV FLUSH SCH (20:31)
[2018-01-19] MEDS: DIPYRIDAMOLE/ASPIRIN 200 MG/25 MG CAP PO SCH (20:32)
[2018-01-19] MEDS: DONEPEZIL HCL 5 MG TAB PO SCH (20:32)
[2018-01-19] MEDS: CARBIDOPA/LEVODOPA 25 MG/100 MG TAB PO SCH (20:32)
[2018-01-19] MEDS: ACETAMINOPHEN 325 MG TAB PO PRN (20:33)
[2018-01-20] VITALS (8 sets, daily range): BP systolic 74–142; BP diastolic 43–78; PULSE 18–74; RESP 18–22; TEMP 96.3–97.5; O2SAT 94–98
[2018-01-20 06:27] LABS: BASOPHIL % 0.2 % (0.0-2.0); EOSINOPHIL % 0.5 % (0.0-4.0); HEMATOCRIT 27.3 % (39.0-51.0); HEMOGLOBIN 8.4 GM/DL (13.0-17.0); LYMPH % 23.2 % (9.0-44.0); MEAN CELL VOLUME 80.6 FL (80.0-100.0); MEAN CORPUSCULAR HEMOGLOBIN 24.8 PG (27.0-34.0); MEAN CORPUSCULAR HGB CONC 30.8 % (32.0-36.0); MEAN PLATELET VOLUME 6.5 FL (7.0-11.0); MONO % 8.1 % (0.0-8.0); MONOCYTE # 0.4 TH/MM3 (0-0.9); PLATELET COUNT 354 TH/MM3 (150-450); RED BLOOD COUNT 3.39 MIL/MM3 (4.50-5.90); RED CELL DISTRIBUTION WIDTH 15.8 % (11.6-17.2); WHITE BLOOD COUNT 4.4 TH/MM3 (4.0-11.0)
[2018-01-20 06:59] LABS: BICARBONATE 31.4 MEQ/L (21.0-32.0); CALCIUM 8.6 MG/DL (8.5-10.1); CREATININE 0.82 MG/DL (0.60-1.30)
[2018-01-20 07:10] LABS: ROULEAUX PRESENT (NORMAL)
[2018-01-20] MEDS: FLUDROCORTISONE ACETATE 0.1 MG TAB PO SCH (08:48)
[2018-01-20] MEDS: PRAVASTATIN SOD 20 MG TAB PO SCH (08:48)
[2018-01-20] MEDS: CARBIDOPA/LEVODOPA 25 MG/100 MG TAB PO SCH ×2 (08:48→20:48)
[2018-01-20] MEDS: ESCITALOPRAM OXALATE 10 MG TAB PO SCH (08:48)
[2018-01-20] MEDS: PANTOPRAZOLE SOD 20 MG DELAYED RELEASE TAB PO SCH (08:48)
[2018-01-20] MEDS: SODIUM CHLORIDE 0.9% FLUSH 10 ML FLUSH IV FLUSH SCH ×2 (09:00→20:48)
[2018-01-20] MEDS: DIPYRIDAMOLE/ASPIRIN 200 MG/25 MG CAP PO SCH ×3 (09:03→20:47)
[2018-01-20] MEDS: ACETAMINOPHEN 325 MG TAB PO PRN ×2 (09:03→16:00)
[2018-01-20] MEDS: LACTATED RINGER'S 1000 ML INJ 1,000 ML IV SCH ×2 (10:04→19:28)
--- NOTE | 2018-01-20 10:58 | HHI.PR ---
Subjective Remarks Patient seen and evaluated in follow-up for weakness and atrial fibrillation. Patient doing much better. Rate is controlled off medications on telemetry. Patient is eating better today. Complaining of some neck pain but overall doing much better Objective Vitals Vital Signs Date Time Temp Pulse Resp B/P (MAP) Pulse Ox O2 Delivery O2 Flow Rate FiO2 01/20/18 09:45 72 20 127/67 (87) 96/52 (67) 74/43 (53) 01/20/18 08:00 97.2 70 18 142/65 (90) 97 01/20/18 04:07 96.7 66 18 120/61 (80) 98 01/20/18 00:00 96.3 18 22 109/58 (75) 95 01/19/18 20:00 73 01/19/18 20:00 97.1 75 18 123/59 (80) 95 01/19/18 15:42 97.2 82 18 104/53 (70) 96 65/31 (42) 01/19/18 13:05 01/19/18 11:06 128 16 145/88 (107) 117 16 134/77 (96) 130 18 82/56 (65) I/O 01/19/18 01/19/18 01/19/18 01/20/18 01/20/18 01/20/18 07:00 15:00 23:00 07:00 15:00 23:00 Intake Total 360 ml 2165 ml 400 ml Output Total 300 ml 875 ml Balance 60 ml 1290 ml 400 ml Intake Oral 360 ml 480 ml IV Total 1685 ml 400 ml Output Urine Total 300 ml 875 ml # Bowel Movements 0 0 Result Diagram: 01/20/18 0555 01/20/18 0555 Objective Remarks GENERAL: This is a well-nourished, well-developed patient,, eating breakfast CARDIOVASCULAR: A. fib with controlled rate without murmurs, gallops, or rubs. RESPIRATORY: Clear to auscultation. Breath sounds equal bilaterally. No wheezes , rales, or rhonchi. GASTROINTESTINAL: Abdomen soft, non-tender, nondistended. Normal active bowel sounds MUSCULOSKELETAL: Extremities without clubbing, cyanosis, or edema. NEURO: Alert & Oriented x4 to person, place, time, situation. Moves all ext x4 but is still rigid consistent with previous exam A/P Problem List: (1) New onset atrial fibrillation ICD Code: I48.91 - Unspecified atrial fibrillation Status: Acute Plan: A. fib appears to be new onset with a relatively controlled rate of just over 100 patient was also on levaquin Continue with medical management for now Continue telemetry Recent echocardiogram done 11/25/17 showed an EF of 55-60%, no need to repeat a new echocardiogram We will manage medically and adjust medications according as his blood pressure will tolerate Patient not on diltiazem due to good rate control off of this medication and orthostatic hypotension Patient is a significant fall risk and is already on Aggrenox We will discussed with neurology regarding full anticoagulation in this complicated patient Follow-up TSH and magnesium (2) Frequent falls ICD Code: R29.6 - Repeated falls Status: Acute Plan: Likely multifactorial due to Parkinson's and orthostatic hypertension Fall precautions PT/OT evaluation for patient safety Patient was recently [facility] facility and has been at home and would like to return home and we will assess for safety (3) PURA (acute kidney injury) ICD Code: N17.9 - Acute kidney failure, unspecified Plan: Improved after IV hydration Encourage oral intake (4) Malnutrition ICD Code: E46 - Unspecified protein-calorie malnutrition Plan: Protein and albumin are abnormal Will encourage oral intake, dietitian consult Ensure (5) Loculated pleural effusion ICD Code: J90 - Pleural effusion, not elsewhere classified Plan: Patient had been on Levaquin per his primary care doctor Patient's family was in the middle of referral to pulmonology given the abnormal findings Patient is a poor surgical risk for decortication Follow-up pulmonology pending CT findings (6) Elevated brain natriuretic peptide (BNP) level ICD Code: R79.89 - Other specified abnormal findings of blood chemistry Plan: Patient likely not in heart failure given that he is relatively volume depleted, his x-ray does not show any vascular fullness Patient in atrial fibrillation with elevated rate Continue to monitor clinically (7) Parkinson disease ICD Code: G20 - Parkinson's disease Plan: Patient on carbidopa levodopa, Droxidopa and Comtan Follow-up with neurology, Dr. Eisenberg Patient with Parkinson's dementia and likely orthostasis is and appears to have decreased quality of life Patient may benefit from palliative care consult and/or hospice consult We will need to further clarify goals with the patient and family (8) Orthostatic hypotension ICD Code: I95.1 - Orthostatic hypotension Status: Acute Plan: Patient appears to be still quite symptomatic despite his fludrocortisone and midodrine Continue to hydrate the patient to see if there is any improvement (9) Dementia ICD Code: F03.90 - Unspecified dementia without behavioral disturbance Plan: Without psychotic features Patient on omeprazole and Azilect Patient lives with family ( is proxy), home health had been started CODE STATUS addressed as full code (10) Thrombocytopenia ICD Code: D69.6 - Thrombocytopenia, unspecified Plan: Probably reactive and a bit volume contracted, appears to be stable Patient also on Aggrenox (11) History of CVA in adulthood ICD Code: Z86.73 - Personal history of transient ischemic attack (TIA), and cerebral infarction without residual deficits Plan: History of a stroke On Aggrenox Discharge Planning Likely home with home health care when stable and pending pulmonary workup Lucille Sandhu MD Jan 20, 2018 10:58
--- NOTE | 2018-01-20 14:00 | RADRPT ---
EXAM DATE/TIME: 01/20/2018 13:24 [facility] COMPARISON: CHEST SINGLE AP, January 19, 2018, 11:03. INDICATIONS : Abnormal chest x-ray. Evaluate for pleural effusion. RADIATION DOSE: 12.69 CTDIvol (mGy) MEDICAL HISTORY : Cerebrovascular disease. Dementia. Parkinsons. Hypertension. SURGICAL HISTORY : None. ENCOUNTER: Initial ACUITY: 2 days PAIN SCALE: 0/10 LOCATION: Left chest TECHNIQUE: Volumetric scanning of the chest was performed. Using automated exposure control and adjustment of t he mA and/or kV according to patient size, radiation dose was kept as low as reasonably achievable to obtain optimal diagnostic quality images. DICOM format image data is available electronically for r eview and comparison. Follow-up recommendations for detected pulmonary nodules are based at a minimum on nodule size and pa tient risk factors according to Fleischner Society Guidelines. FINDINGS: There is an 7 cm empyema with loculated fluid in the left base. The right lung is clear. There is axillary adenopathy. Moderate coronary calcifications are noted. There is no mediastinal adenopathy. Upper abdomen is unremarkable. CONCLUSION: Presumed empyema left base with an air-fluid level evident within the lung. This is associated with moderate loculated effusion. Girish Metz MD FACR on January 20, 2018 at 13:53 Board Certified Radiologist. This report was verified electronically.
[2018-01-20] MEDS: LEVOFLOXACIN 500 MG PREMIX INJ 100 ML IV SCH (16:49)
--- NOTE | 2018-01-20 16:53 | PQ ---
Physician Query Response Document PATIENT: MADELIN COATES : 1940 ADMIT DATE: 01/19/2018 12:20 PM DISCH DATE: RESPONDING PROVIDER #: harjinder QUERY TEXT: CDS Clarification Moderate protein-calorie malnutrition in a patient with an 8 lbs weight loss since November 2017, elina ateral temporal wasting, dehydration, PURA, abnormal Protein and albumin levels Other explanation of clinical findings. Unable to determine (no explanation for clinical findings). The medical record reflects the following clinical findings, treatment, and risk factors. * Clinical Indicators 8 lbs loss of weight since November, bilateral temporal wasting, dehydration an d PURA protein 8.7 and alb 3.1 * Risk Factors age, Parkinsons disease , dementia, anorexia * Treatment dietitian consult dietary supplements The patient's Clinical Indicators include: Please clarify and document your clinical opinion in the progress notes and discharge summary includi ng the definitive and/or presumptive diagnosis (suspected or probable), related to the above clinical findings. Please include clinical findings supporting your diagnosis. Thank you, Jade Ledbetter Query created by: Jade Ledbetter on 01/20/2018 11:30 AM RESPONSE TEXT: Patient does have moderate protein calorie malnutrition with an 8 pound weight loss, bilateral tempor al wasting and evidence of dehydration with abnormal protein and albumin levels. Electronically signed by: Lucille Sandhu MD 01/20/2018 4:50 PM
[2018-01-20] MEDS: DONEPEZIL HCL 5 MG TAB PO SCH (20:48)
[2018-01-21] VITALS (7 sets, daily range): BP systolic 123–160; BP diastolic 67–77; PULSE 70–100; RESP 18–20; TEMP 96.6–99.1; O2SAT 94–97
[2018-01-21] MEDS: LACTATED RINGER'S 1000 ML INJ 1,000 ML IV SCH ×2 (01:00→09:55)
[2018-01-21] MEDS: ACETAMINOPHEN 325 MG TAB PO PRN ×2 (04:16→20:39)
--- NOTE | 2018-01-21 08:39 | PD.PN.STU ---
Subjective Remarks 77 yo male seen and evaluated for new onset atrial fibrillation, weakness, and persistent loculated pleural effusion. Patient reports feeling better , however has complaints of poor sleep do to uncomfortable bed. Rate continues to be controlled without medication. Eating and drinking well. States his cough is getting better. Objective Vitals Vital Signs Date Time Temp Pulse Resp B/P (MAP) Pulse Ox O2 Delivery O2 Flow Rate FiO2 01/21/18 04:00 96.6 92 20 129/70 (89) 96 01/21/18 00:00 97.7 70 20 140/67 (91) 95 01/20/18 22:04 73 01/20/18 20:00 97.1 71 20 137/67 (90) 96 01/20/18 16:00 97.2 71 18 137/65 (89) 97 01/20/18 12:00 97.0 74 18 135/71 (92) 97 01/20/18 09:45 72 20 127/67 (87) 96/52 (67) 74/43 (53) I/O 01/20/18 01/20/18 01/20/18 01/21/18 01/21/18 01/21/18 07:00 15:00 23:00 07:00 15:00 23:00 Intake Total 2165 ml 1150 ml 2407 ml Output Total 875 ml 1350 ml Balance 1290 ml 1150 ml 1057 ml Intake Oral 480 ml 750 ml 480 ml IV Total 1685 ml 400 ml 1927 ml Output Urine Total 875 ml 1350 ml # Voids 5 # Bowel Movements 0 1 Result Diagram: 01/20/18 0555 01/20/18 0555 Imaging Last [address] 01/20/18 0000 Signed Impressions: Service Date/Time: Saturday, January 20, 2018 13:24 - CONCLUSION: Presumed empyema left base with an air-fluid level evident within the lung. This is associated with moderate loculated effusion. Girish Metz MD FACR Head CT 01/19/18 1021 Signed Impressions: Service Date/Time: January 11:09 - CONCLUSION: No acute intracranial disease. Matt Morales MD Chest X-Ray 01/19/18 1021 Signed Impressions: Service Date/Time: January 11:03 - CONCLUSION: 1. Persistent increased density in the left lower lung field without shadowing may represent a posterior loculated effusion. This does show some interval improvement compared to prior, however. 2. Elevation of the left hemidiaphragm. 3. Right lung remains clear. Frank Reynolds MD Cervical Spine CT 01/19/18 1021 Signed Impressions: Service Date/Time: January 11:09 - CONCLUSION: Advanced multilevel degenerative changes. No fracture. Matt Morales MD Objective Remarks GENERAL: This is a thin, well-developed, pleasant male, in no apparent distress. CARDIOVASCULAR: irregular rate and rhythm without murmurs, gallops, or rubs. RESPIRATORY: diminished Breath sounds on the left; No wheezes, rales, or rhonchi. GASTROINTESTINAL: Abdomen soft, non-tender, nondistended. Normal active bowel sounds MUSCULOSKELETAL: Extremities without clubbing, cyanosis, or edema. NEURO: Alert & Oriented x4 to person, place, time, situation. Moves all ext x4 A/P Assessment and Plan Problem List: (1) New onset atrial fibrillation ICD Code: I48.91 - Unspecified atrial fibrillation Status: Acute Plan: A. fib appears to be new onset with a relatively controlled rate of just over 100 patient was also on levaquin Continue with medical management for now Continue telemetry Recent echocardiogram done 11/25/17 showed an EF of 55-60%, no need to repeat a new echocardiogram We will manage medically and adjust medications according as his blood pressure will tolerate Patient not on diltiazem due to good rate control off of this medication and orthostatic hypotension Patient is a significant fall risk and is already on Aggrenox neuro consult deferred Follow-up TSH and magnesium 01/21 magnesium 2.5, TSH pending. A-fib controlled with pulse 92 bpm this morning without medications. Will continue to monitor and recommend followup with [facility] pattern [facility] outpatient after discharge. (2) Frequent falls ICD Code: R29.6 - Repeated falls Status: Acute Plan: Likely multifactorial due to Parkinson's and orthostatic hypertension Fall precautions PT/OT evaluation for patient safety Patient was recently discharged from a [facility] facility and has been at home and would like to return home and we will assess for safety (3) PURA (acute kidney injury) ICD Code: N17.9 - Acute kidney failure, unspecified Plan: Improved after IV hydration Encourage oral intake 01/21 resolved. (4) Malnutrition ICD Code: E46 - Unspecified protein-calorie malnutrition Plan: Protein and albumin are abnormal Will encourage oral intake, dietitian consult Ensure 01/21 Nutrition recommends Ensure tid for additional nutrition. (5) Loculated pleural effusion ICD Code: J90 - Pleural effusion, not elsewhere classified Plan: Patient had been on Levaquin per his primary care doctor Patient's family was in the middle of referral to pulmonology given the abnormal findings Patient is a poor surgical risk for decortication 01/21 CT showed continuation of loculated effusion. Waiting on pulmonology recommendation. (6) Elevated brain natriuretic peptide (BNP) level ICD Code: R79.89 - Other specified abnormal findings of blood chemistry Plan: Patient likely not in heart failure given that he is relatively volume depleted, his x-ray does not show any vascular fullness Patient in atrial fibrillation with elevated rate Continue to monitor clinically (7) Parkinson disease ICD Code: G20 - Parkinson's disease Plan: Patient on carbidopa levodopa, Droxidopa and Comtan Follow-up with neurology, Dr. Eisenberg outpatient Patient with Parkinson's dementia and likely orthostasis and appears to have decreased quality of life hospice consulted (8) Orthostatic hypotension ICD Code: I95.1 - Orthostatic hypotension Status: Acute Plan: Patient appears to be tolerating his fludrocortisone and midodrine improved (9) Dementia ICD Code: F03.90 - Unspecified dementia without behavioral disturbance Plan: Without psychotic features Patient on omeprazole and Azilect Patient lives with family ( is proxy), home health had been started CODE STATUS addressed as full code (10) Thrombocytopenia ICD Code: D69.6 - Thrombocytopenia, unspecified Plan: Probably reactive and a bit volume contracted, appears to be stable Patient also on Aggrenox, held due to possible procedures (11) History of CVA in adulthood ICD Code: Z86.73 - Personal history of transient ischemic attack (TIA), and cerebral infarction without residual deficits Plan: History of a stroke On Aggrenox, held due to possible procedures Medical Decision Making Impression and Plan Patient seen and evaluated in follow-up for weakness and for orthostatic hypotension which was increasingly symptomatic. Overall improved clinically. Empyema discussed with patient and with family. They would like to pursue further therapy to improve his quality of life. They feel that he has difficulty getting back to his baseline while this infection is still present. I did discuss a possible chest tube for drainage. They are in agreement. We will consult interventional radiology GENERAL: This is a well-nourished, well-developed patient, in no apparent distress. CARDIOVASCULAR: A. fib regular rate and without murmurs, gallops, or rubs. RESPIRATORY: Clear to auscultation. Breath sounds equal bilaterally. No wheezes , rales, or rhonchi. GASTROINTESTINAL: Abdomen soft, non-tender, nondistended. Normal active bowel sounds MUSCULOSKELETAL: Extremities without clubbing, cyanosis, or edema. NEURO: Alert & Oriented x4 to person, place, time, situation. Moves all ext x4 Assessment plan 1. A. fib, rate controlled on current regimen We will continue Aggrenox at discharge. No change anticoagulation due to excessive fall risk 2. Empyema. Failed oral therapy on antibiotics. Evaluate for chest tube Pulmonary consult pending 3. Parkinson's with dementia but without psychosis. Continue current management Neuro consult appreciated 4. Orthostatic hypotension, improved clinically Magalie King Jan 21, 2018 08:39 Lucille Sandhu MD Jan 21, 2018 11:09
[2018-01-21] MEDS: DIPYRIDAMOLE/ASPIRIN 200 MG/25 MG CAP PO SCH (09:00)
[2018-01-21] MEDS: SODIUM CHLORIDE 0.9% FLUSH 10 ML FLUSH IV FLUSH SCH ×2 (09:00→20:02)
--- NOTE | 2018-01-21 09:27 | EKG ---
Date Performed: 01/19/2018 Time Performed: 10:33:25 PTAGE: 77 years EKG: ATRIAL FIBRILLATION WITH RAPID VENTRICULAR RESPONSE NONSPECIFIC ST & T-WAVE ABNORMALITY ABN ORMAL RHYTHM ECG PREVIOUS TRACING : 11/24/2017 09.30 DOCTOR: Alessandro Allan Interpretating Date/Time 01/21/2018 09:19:20
--- NOTE | 2018-01-21 09:44 | MB ---
cc: Mulu Campos MD, Olimpio F MD DATE: 01/20/2018 HISTORY OF PRESENT ILLNESS: He is a 77-year-old seen in neurological consultation in regards to the recurrent falls, Parkinson's. He follows with Dr. Eisenberg. He was recently discharged to rehab. He was home for a couple of weeks and continued to have frequent falls. Sometimes he may lose consciousness, but some falls he does not lose consciousness. He has been documented to have significant orthostatic hypotension. He has a diagnosis of Parkinson's with some associated dementia. Dr. Eisenberg has adjusted his medications. Recently, the midodrine dose was 10 mg 3 times a day along with the Northera and was not well tolerated. The midodrine dose was reduced to 5 mg 3 times a day. Blood pressure apparently continued to drop significantly. His other medications include Sinemet 25/100 twice a day, Comtan 200 mg twice a day. He uses a walker with a seat and he continues to fall independent of these. He also takes Aggrenox for a history of cerebrovascular disease. His was at bedside. The patient was awake, alert, pleasant, cooperative, oriented and able to provide most history. No distress. He was comfortable in bed. ocular movements and visual dorsey full. There is some moderate bradykinesia and mild tremor in both upper extremities. Reflex is trace responses throughout. Plantar response is flexor. IMAGING STUDIES: CT brain negative for acute injury. CT cervical spine also negative for acute abnormality. CURRENT MEDICATIONS: 1. The usual Aricept 10 mg at bedtime. 2. Sinemet. 3. Northera. 4. Comtan as discussed above. 5. Alizect is also being used, 1 mg daily. 6. Midodrine apparently back to 10 mg 3 times a day. 7. Florinef, which in the past has caused swelling of the lower extremities. Atrial fibrillation appears to be a new diagnosis. I would suggest no anticoagulation for now as this patient has had numerous falls with possible major complications. If his recurrent falls are better controlled, then would go along with anticoagulation. For now, perhaps the midodrine dose could be tried at 7.5 mg 3 times a day, as 10 mg 3 times a day caused significant swelling of the lower extremities, as per the history given by the . Management is very difficult in this setting and the understands this well. Mostly he can be managed as an outpatient. He might need to start using a wheelchair when he is more symptomatic. The Patient will probably benefit from high thigh hose/stockings. I discussed with her that sometimes ibuprofen helps these hypotension type of episodes, but he has had gastric ulcer, therefore, not a good option. When is stable, he can be followed as outpatient with Dr. Eisenberg. Thank you for asking us to assist in his care. MD LAINEY Wray/SA/ , 06:48 PM , 07:14 PM
[2018-01-21] MEDS: ESCITALOPRAM OXALATE 10 MG TAB PO SCH (09:52)
[2018-01-21] MEDS: PRAVASTATIN SOD 20 MG TAB PO SCH (09:52)
[2018-01-21] MEDS: PANTOPRAZOLE SOD 20 MG DELAYED RELEASE TAB PO SCH (09:52)
[2018-01-21] MEDS: CARBIDOPA/LEVODOPA 25 MG/100 MG TAB PO SCH ×2 (09:52→20:39)
[2018-01-21] MEDS: FLUDROCORTISONE ACETATE 0.1 MG TAB PO SCH (09:52)
[2018-01-21] MEDS: LEVOFLOXACIN 500 MG PREMIX INJ 100 ML IV SCH (15:25)
[2018-01-21 18:28] LABS: INTERNATIONAL NORMALIZED RATIO 1.1 RATIO; PROTHROMBIN TIME - PATIENT 10.9 SEC (9.8-11.6)
--- NOTE | 2018-01-21 20:10 | MB ---
cc: Ondina Nj MD DATE: 01/21/2018 REASON FOR CONSULTATION: Empyema. HISTORY OF PRESENT ILLNESS: The patient is a 77-year-old male who has known history of Parkinson disease, was recently hospitalized and discharged to rehab, went home. While in the bathroom had fallen, without loss of consciousness. He is followed by Neurology for same. He is a patient of Dr. Eisenberg. The patient has a history of dementia and is on medication for same. He had evidence of atrial fibrillation at presentation, which is new in onset. The patient's chest x-ray and subsequent CT scan revealed a fluid collection in the left lower lung. Underlying infiltrate is a possibility as well. The patient, however, has no fever or chills. He is alert and in no distress. PAST MEDICAL HISTORY: Parkinson disease, dementia. MEDICATIONS: Include Aricept, Sinemet, Northera, Comtan, Azilect, midodrine, and Florinef. ALLERGIES: NONE KNOWN TO MEDICATION. FAMILY HISTORY: Noncontributory. SOCIAL HISTORY: Does not smoke or drink. No previous industrial exposures. REVIEW OF SYSTEMS: A 12-point review of systems as per HPI and past history, otherwise negative. PHYSICAL EXAMINATION: VITAL SIGNS: Temperature 98 degrees Fahrenheit, pulse 80, respirations 18, blood pressure 125/70, oxygen saturation 94-95% on room air. HEENT: Unremarkable. Eyes without icterus. NECK: Without adenopathy, thyroid enlargement. Central trachea. CHEST: Decreased breath sounds, left base. CARDIAC: Distant irregularity noted. ABDOMEN: Lax. Bowel sounds audible. EXTREMITIES: No clubbing, cyanosis or edema. LABORATORY DATA: White count 4.4, hemoglobin 8.4, platelets 354,000. Sodium 140, potassium 3.8, BUN 15, creatinine 0.8. A CT scan of the chest with a left loculated effusion with air fluid level. IMPRESSION: 1. Loculated left pleural effusion with air fluid level, underlying empyema suspect. 2. Parkinson disease. 3. Dementia. PLAN: The patient is without evidence of acute infection at present. The process in the left lung base has likely been there for a while. He is on antibiotic therapy. He is afebrile. Plans for drainage of the left effusion are underway and appropriately so. We need to know if there is an active infection or not. An underlying lung infiltrate in the left base is a possibility as well or bronchopleural fistula; however, once the thoracentesis and drainage is undertaken, one would be able to further identify if indeed an acute infection is present or not. This has been discussed with the patient and , who is at bedside, and they are agreeable with the plan. Infectious disease consultation would be appropriate as well to manage the patient's antibiotic therapy. He is followed by neurology at present, and he was seen by Dr. Campos. I do thank you for asking me to partake in Mr. Pacheco's care. Ondina Nj MD WWW/JAUN , 06:32 PM , 08:10 PM
[2018-01-21] MEDS: DONEPEZIL HCL 5 MG TAB PO SCH (20:39)
[2018-01-22] VITALS (14 sets, daily range): BP systolic 84–159; BP diastolic 54–74; PULSE 70–109; RESP 15–20; TEMP 96.1–98.3; O2SAT 94–100
[2018-01-22 08:23] LABS: AUTOMATED NEUTROPHIL # 3.2 TH/MM3 (1.8-7.7); BASOPHIL % 0.3 % (0.0-2.0); EOSINOPHIL % 0.9 % (0.0-4.0); HEMATOCRIT 28.3 % (39.0-51.0); HEMOGLOBIN 8.8 GM/DL (13.0-17.0); LYMPH % 22.6 % (9.0-44.0); MEAN CORPUSCULAR HEMOGLOBIN 25.5 PG (27.0-34.0); MEAN CORPUSCULAR HGB CONC 31.1 % (32.0-36.0); MEAN PLATELET VOLUME 6.2 FL (7.0-11.0); MONO % 7.4 % (0.0-8.0); MONOCYTE # 0.3 TH/MM3 (0-0.9); NEUT % 68.8 % (16.0-70.0); PLATELET COUNT 326 TH/MM3 (150-450); RED BLOOD COUNT 3.46 MIL/MM3 (4.50-5.90); WHITE BLOOD COUNT 4.5 TH/MM3 (4.0-11.0)
[2018-01-22 08:43] LABS: INTERNATIONAL NORMALIZED RATIO 1.1 RATIO; PROTHROMBIN TIME - PATIENT 10.8 SEC (9.8-11.6)
[2018-01-22 08:44] LABS: CALCIUM 8.4 MG/DL (8.5-10.1)
[2018-01-22 08:48] LABS: CREATININE 0.65 MG/DL (0.60-1.30)
[2018-01-22] MEDS: PANTOPRAZOLE SOD 20 MG DELAYED RELEASE TAB PO SCH (09:00)
[2018-01-22] MEDS: ESCITALOPRAM OXALATE 10 MG TAB PO SCH (09:00)
[2018-01-22] MEDS: CARBIDOPA/LEVODOPA 25 MG/100 MG TAB PO SCH ×2 (09:00→21:20)
[2018-01-22] MEDS: PRAVASTATIN SOD 20 MG TAB PO SCH (09:00)
[2018-01-22] MEDS: DROXIDOPA PO SCH ×3 (09:00→18:00)
[2018-01-22] MEDS: FLUDROCORTISONE ACETATE 0.1 MG TAB PO SCH (09:00)
--- NOTE | 2018-01-22 09:03 | HHI.PR ---
Subjective Remarks Patient seen and evaluated today in follow-up for new onset A. fib which is quite well controlled and for continuing evaluation of empyema. Patient for chest tube placement today. Care plan discussed with patient and spouse. Pulmonary consult and neurology consult appreciated Objective Vitals Vital Signs Date Time Temp Pulse Resp B/P (MAP) Pulse Ox O2 Delivery O2 Flow Rate FiO2 01/22/18 00:00 96.5 74 20 159/74 (102) 97 01/21/18 20:00 99.1 100 20 160/73 (102) 97 01/21/18 16:00 98.1 80 18 125/77 (93) 94 01/21/18 12:00 98.0 81 18 127/76 (93) 95 I/O 01/21/18 01/21/18 01/21/18 01/22/18 01/22/18 01/22/18 07:00 15:00 23:00 07:00 15:00 23:00 Intake Total 2407 ml 400 ml 480 ml 60 ml Output Total 1350 ml 801 ml Balance 1057 ml 400 ml -321 ml 60 ml Intake Oral 480 ml 480 ml 60 ml IV Total 1927 ml 400 ml Output Urine Total 1350 ml 800 ml Stool Total 1 ml # Voids 6 3 # Bowel Movements 1 Result Diagram: 01/22/18 0750 01/22/18 0750 Objective Remarks GENERAL: This is a well-nourished, well-developed patient,, eating breakfast CARDIOVASCULAR: A. fib with controlled rate without murmurs, gallops, or rubs. RESPIRATORY: Clear to auscultation. Breath sounds equal bilaterally. No wheezes , rales, or rhonchi. GASTROINTESTINAL: Abdomen soft, non-tender, nondistended. Normal active bowel sounds MUSCULOSKELETAL: Extremities without clubbing, cyanosis, or edema. NEURO: Alert & Oriented x4 to person, place, time, situation. Moves all ext x4 but is still rigid consistent with previous exam A/P Problem List: (1) New onset atrial fibrillation ICD Code: I48.91 - Unspecified atrial fibrillation Status: Acute Plan: A. fib appears to be rate controlled off of medications Patient is a poor candidate to anticoagulate due to frequent falls. Continue with aspirin post procedure (2) Frequent falls ICD Code: R29.6 - Repeated falls Status: Acute Plan: Likely multifactorial due to Parkinson's and orthostatic hypertension Fall precautions PT/OT evaluation for patient safety Improved Likely home with home health care (3) PURA (acute kidney injury) ICD Code: N17.9 - Acute kidney failure, unspecified Plan: Improved after IV hydration Encourage oral intake (4) Malnutrition ICD Code: E46 - Unspecified protein-calorie malnutrition Plan: Oral intake improved Ensure 3 times daily (5) Loculated pleural effusion ICD Code: J90 - Pleural effusion, not elsewhere classified Plan: Pulmonary consult Chest tube placement today (6) Parkinson disease ICD Code: G20 - Parkinson's disease Plan: Neurology consult appreciated Continue with medical management Patient appropriate for hospice on Parkinson's once acute issues of empyema resolved Discussed with family and spouse and they agree with this (7) Orthostatic hypotension ICD Code: I95.1 - Orthostatic hypotension Status: Acute Plan: Improved greatly after hydration Continue fludrocortisone and midodrine (8) Dementia ICD Code: F03.90 - Unspecified dementia without behavioral disturbance Plan: Secondary to Parkinson's Stable and at baseline per spouse Continue medical management Discharge Planning Likely home with home health care when stable and pending pulmonary workup Lucille Sandhu MD Jan 22, 2018 09:03
[2018-01-22] MEDS: SODIUM CHLORIDE 0.9% FLUSH 10 ML FLUSH IV FLUSH SCH ×2 (09:10→21:21)
[2018-01-22] MEDS ORDERED: MIDAZOLAM HCL 2 MG/2 ML VIAL IV ONE (09:55)
--- NOTE | 2018-01-22 10:38 | PD.RAD ---
Post CT Procedure Prog Note Pre Procedure Diagnosis: (1) Empyema of left pleural space Post Procedure Diagnosis: (1) Empyema of left pleural space Procedure Date: Jan 22, 2018 Supervising Radiologist: Frank Reynolds Anesthesia: Local, Analgesia, Conscious Sedation Plan of Activity Patient to Unit: PACU Patient Condition: Good See PACS Report for procedural detail/treatment Drainage Procedure Procedure 1 Imaging Guidance: CT Side: Left Procedure Type: Chest Tube Non-Tunneled Procedure: Placement Pakistani: 10 Drainage: Pleurovac Fluid Removal (CCs): 80 Fluid Description: Purulent Frank Reynolds MD Jan 22, 2018 10:38
--- NOTE | 2018-01-22 12:39 | RADRPT ---
EXAM DATE/TIME: 01/22/2018 10:02 The port or INDICATIONS : Left chest tube placement for empyema. SEDATION TIME: 30 minutes MEDICATION(S): 1.) 2 mg midazolam (Versed) IV 2.) 100 mcg fentanyl (Sublimaze) IV DEVICE(S): 1.) 10 Fr Skater 2.) micropuncture introducer 4 Fr FLUID: Total volume of 80 cc of parnell fluid was remoted. Fluid was sent for laboratory ordered studies. MEDICAL HISTORY : Cerebrovascular disease. Dementia. Parkinsons. Hypertension. SURGICAL HISTORY : None. ENCOUNTER: Initial ACUITY: 1 day PAIN SCORE: 0/10 LOCATION: Left chest PROCEDURE: 1.) Conscious sedation with continuous EKG and oximetry monitoring. 2.) EKG and oximetry remained stable throughout the procedure. PROCEDURE : 1. CT guided chest tube placement. 2. Conscious sedation with continuous EKG and oximetry monitoring. The risks, benefits and alternatives to the procedure were explained and verbal and written consent w as obtained. The site was prepped in sterile fashion. Full sterile technique was used, including ca p, mask, sterile gloves and gown and a large sterile sheet. Hand hygiene and 2% chlorhexidine and/or betadine/alcohol prep was utilized per protocol for cutaneous antisepsis. The skin and subcutaneous tissues were infiltrated with local anesthetic solution. Using automated exposure control and adjus tment of the mA and/or kV according to patient size, radiation dose was kept as low as reasonably ach ievable to obtain optimal diagnostic quality images. DICOM format image data is available electronic ally for review and comparison. With CT guidance the chest was punctured and the prescribed catheter was placed in the lung apex. Wal l suction was applied. Post procedure images demonstrate satisfactory position of the tube. The cat heter was sutured in place and a Percu-Stay was applied. Conscious sedation was performed with the prescribed dosages and duration as above. The patient neelam ated the procedure well and there were no complications. EKG and oximetry remained stable throughout the procedure. The patient was sent to post anesthesia recovery in stable condition. CONCLUSION: Uncomplicated chest tube placement as above. Frank Reynolds MD on January 22, 2018 at 12:31 Board Certified Radiologist. This report was verified electronically.
[2018-01-22] MEDS: LEVOFLOXACIN 500 MG TAB PO SCH (16:18)
[2018-01-22] MEDS: DONEPEZIL HCL 5 MG TAB PO SCH (21:20)
[2018-01-23] VITALS (9 sets, daily range): BP systolic 80–125; BP diastolic 46–71; PULSE 66–95; RESP 13–20; TEMP 97.4–98.2; O2SAT 95–99
[2018-01-23] MEDS: DROXIDOPA PO SCH ×3 (09:00→20:08)
[2018-01-23] MEDS: SODIUM CHLORIDE 0.9% FLUSH 10 ML FLUSH IV FLUSH SCH ×2 (09:35→20:08)
[2018-01-23] MEDS ORDERED: KETOROLAC TROMETHAMINE 30 MG/ML (IVP) VIAL IV PUSH ONE (09:35)
[2018-01-23] MEDS: CARBIDOPA/LEVODOPA 25 MG/100 MG TAB PO SCH ×2 (09:35→20:19)
[2018-01-23] MEDS: FLUDROCORTISONE ACETATE 0.1 MG TAB PO SCH (09:35)
[2018-01-23] MEDS: PANTOPRAZOLE SOD 20 MG DELAYED RELEASE TAB PO SCH (09:35)
[2018-01-23] MEDS: ESCITALOPRAM OXALATE 10 MG TAB PO SCH (09:35)
[2018-01-23] MEDS: PRAVASTATIN SOD 20 MG TAB PO SCH (09:38)
--- NOTE | 2018-01-23 09:42 | HHI.PR ---
Subjective Remarks alert no SOB Afebrile Objective Vital Signs Date Time Temp Pulse Resp B/P (MAP) Pulse Ox O2 Delivery O2 Flow Rate FiO2 01/23/18 04:00 98.0 95 20 116/71 (86) 99 01/23/18 00:00 97.8 84 17 118/56 (76) 95 01/22/18 20:00 98.3 77 17 106/62 (77) 01/22/18 16:00 97.6 72 17 116/61 (79) 98 01/22/18 13:30 97.6 70 15 127/70 (89) 98 01/22/18 13:00 99 18 107/63 (78) 96 01/22/18 12:30 105 18 87/60 (69) 94 01/22/18 12:00 98 84/54 (64) 94 01/22/18 11:48 93/57 (69) 01/22/18 11:33 93 18 91/56 (68) 100 01/22/18 11:18 96 18 102/71 (81) 100 01/22/18 11:03 109 18 117/72 (87) 100 01/22/18 11:02 97.5 01/22/18 10:54 92 18 105/70 (82) 100 I/O 01/22/18 01/22/18 01/22/18 01/23/18 01/23/18 01/23/18 07:00 15:00 23:00 07:00 15:00 23:00 Intake Total 60 ml 500 ml 240 ml 30 ml Output Total 300 ml Balance 60 ml 500 ml 240 ml -270 ml Intake Oral 60 ml 240 ml 30 ml IV Total 500 ml Output Urine Total 300 ml # Voids 3 2 3 # Bowel Movements 0 0 Result Diagram: 01/22/18 0750 01/22/18 0750 Assessment and Plan Assessment and Plan impression Empyema Parkinson disease plan Chest tube drainage antibiotic therapy will follow Discharge Planning GENERAL: SKIN: Warm and dry. HEAD: Atraumatic. Normocephalic. EYES: Pupils equal and round. No scleral icterus. No injection or drainage. ENT: No nasal bleeding or discharge. Mucous membranes pink and moist. NECK: Trachea midline. No JVD. CARDIOVASCULAR: Regular rate and rhythm. RESPIRATORY: No accessory muscle use. Clear to auscultation.left chest tube in place GASTROINTESTINAL: Abdomen soft, non-tender, nondistended. Hepatic and splenic margins not palpable. MUSCULOSKELETAL: Extremities without clubbing, cyanosis, or edema. No obvious deformities. NEUROLOGICAL: Awake and alert. No obvious cranial nerve deficits. Motor grossly within normal limits. Five out of 5 muscle strength in the arms and legs. Normal speech. PSYCHIATRIC: Appropriate mood and affect; insight and judgment normal. Ondina Nj MD Jan 23, 2018 09:42
--- NOTE | 2018-01-23 09:43 | HHI.PR ---
Immediate Post Op Note Procedure Date: Jan 23, 2018 Pre Op Diagnosis: (1) Empyema of left pleural space Post Op Diagnosis: (1) Empyema of left pleural space Surgeon: Ondina Nj MD Coding Specialist Home Health(s): none Procedure: bronchoscopy Findings: none Complications: none Specimen(s) removed: none Estimated blood loss: none Anesthesia: MAC Drains: None IVF Tourniquet time (min at mmHg) hnone Patient to: PACU Patient Condition: Good Date/Time of Procedure: SEE SURGICAL CARE RECORD Ondina Nj MD Jan 23, 2018 09:43
--- NOTE | 2018-01-23 10:17 | RADRPT ---
EXAM DATE/TIME: 01/23/2018 09:48 [facility] COMPARISON: CT THORAX W/O CONTRAST, January 20, 2018, 13:24. CHEST SINGLE AP, January 19, 2018, 11:03. INDICATIONS : All of left pleural effusion/empyema. MEDICAL HISTORY : Cerebrovascular disease. Dementia. Parkinsons. Hypertension SURGICAL HISTORY : Cardiac catherization ENCOUNTER: Initial ACUITY: 4 - 6 days PAIN SCORE: 0/10 LOCATION: chest FINDINGS: A single AP portable erect view of the chest was obtained again demonstrates abnormal opacity in the left perihilar region and left lung base. The knee is no longer distinctly visualized. There is been interval placement of a smallbore left-sided chest tube projected over this region. The right lung re lexy clear. The heart size is within normal limits. The left hemidiaphragm remains elevated in appea ciara. CONCLUSION: Interval placement of small bore left-sided chest tube over the left lung base. Abnormal opacity jud ins in this area with decrease in the previously noted gas collection. Jose De Oliveira MD on January 23, 2018 at 10:13 Board Certified Radiologist. This report was verified electronically.
--- NOTE | 2018-01-23 10:48 | HHI.PR ---
Subjective Remarks Patient seen in follow-up for empyema status post chest tube placed without difficulty. 80 cc of parnell fluid obtained. Patient remained stable in observation ICU overnight. Some concern for dysphasia per WELD FITTER. Swallow study pending. Hospice consult appreciated. Family to defer hospice for now Objective Vitals Vital Signs Date Time Temp Pulse Resp B/P (MAP) Pulse Ox O2 Delivery O2 Flow Rate FiO2 01/23/18 08:00 98.2 78 13 125/67 (86) 98 01/23/18 04:00 98.0 95 20 116/71 (86) 99 01/23/18 00:00 97.8 84 17 118/56 (76) 95 01/22/18 20:00 98.3 77 17 106/62 (77) 01/22/18 16:00 97.6 72 17 116/61 (79) 98 01/22/18 13:30 97.6 70 15 127/70 (89) 98 01/22/18 13:00 99 18 107/63 (78) 96 01/22/18 12:30 105 18 87/60 (69) 94 01/22/18 12:00 98 84/54 (64) 94 01/22/18 11:48 93/57 (69) 01/22/18 11:33 93 18 91/56 (68) 100 01/22/18 11:18 96 18 102/71 (81) 100 01/22/18 11:03 109 18 117/72 (87) 100 01/22/18 11:02 97.5 01/22/18 10:54 92 18 105/70 (82) 100 I/O 01/22/18 01/22/18 01/22/18 01/23/18 01/23/18 01/23/18 07:00 15:00 23:00 07:00 15:00 23:00 Intake Total 60 ml 500 ml 240 ml 30 ml Output Total 300 ml Balance 60 ml 500 ml 240 ml -270 ml Intake Oral 60 ml 240 ml 30 ml IV Total 500 ml Output Urine Total 300 ml # Voids 3 2 3 # Bowel Movements 0 0 Result Diagram: 01/22/18 0750 01/22/18 0750 Imaging Last Impressions Chest X-Ray 01/23/18 0000 Signed Impressions: Service Date/Time: Tuesday, January 23, 2018 09:48 - CONCLUSION: Interval placement of small bore left-sided chest tube over the left lung base. Abnormal opacity remains in this area with decrease in the previously noted gas collection. Jose De Oliveira MD Chest Tube Insertion 01/22/18 0930 Signed Impressions: Service Date/Time: Monday, January 22, 2018 10:02 - CONCLUSION: Uncomplicated chest tube placement as above. Frank Reynolds MD Chest CT 01/20/18 0000 Signed Impressions: Service Date/Time: Saturday, January 20, 2018 13:24 - CONCLUSION: Presumed empyema left base with an air-fluid level evident within the lung. This is associated with moderate loculated effusion. Girish Metz MD FACR Head CT 01/19/18 1021 Signed Impressions: Service Date/Time: January 11:09 - CONCLUSION: No acute intracranial disease. Matt Morales MD Cervical Spine CT 01/19/18 1021 Signed Impressions: Service Date/Time: January 11:09 - CONCLUSION: Advanced multilevel degenerative changes. No fracture. Matt Morales MD Objective Remarks GENERAL: This is a well-nourished, well-developed patient,, eating breakfast CARDIOVASCULAR: A. fib with controlled rate without murmurs, gallops, or rubs. RESPIRATORY: Left-sided chest tube in place, no wheezes appreciated GASTROINTESTINAL: Abdomen soft, non-tender, nondistended. Normal active bowel sounds MUSCULOSKELETAL: Extremities without clubbing, cyanosis, or edema. NEURO: Alert & Oriented x4 to person, place, time, situation. Moves all ext x4 but is still rigid consistent with previous exam A/P Problem List: (1) New onset atrial fibrillation ICD Code: I48.91 - Unspecified atrial fibrillation Status: Acute Plan: A. fib appears to be rate controlled off of medications Patient is a poor candidate to anticoagulate due to frequent falls. Resume Aggrenox (2) Frequent falls ICD Code: R29.6 - Repeated falls Status: Acute Plan: Likely multifactorial due to Parkinson's and orthostatic hypertension Fall precautions Resume PT/OT evaluation for patient safety Improved Likely home with home health care (3) PURA (acute kidney injury) ICD Code: N17.9 - Acute kidney failure, unspecified (4) Malnutrition ICD Code: E46 - Unspecified protein-calorie malnutrition Plan: Oral intake improved Ensure 3 times daily Follow-up swallow study (5) Loculated pleural effusion ICD Code: J90 - Pleural effusion, not elsewhere classified Plan: Post chest tube placement Continue Levaquin, follow-up cultures Pulmonary consult appreciated (6) Parkinson disease ICD Code: G20 - Parkinson's disease Plan: Neurology consult appreciated Continue with medical management Patient's family would like to defer hospice management for now which is reasonable (7) Orthostatic hypotension ICD Code: I95.1 - Orthostatic hypotension Status: Acute Plan: Improved greatly after hydration Continue fludrocortisone and midodrine (8) Dementia ICD Code: F03.90 - Unspecified dementia without behavioral disturbance Plan: Secondary to Parkinson's Stable and at baseline per spouse Continue medical management Discharge Planning Likely home with home health care when stable and pending pulmonary workup Lucille Sandhu MD Jan 23, 2018 10:48
[2018-01-23] MEDS: LEVOFLOXACIN 500 MG TAB PO SCH (16:31)
[2018-01-23] MEDS: DONEPEZIL HCL 5 MG TAB PO SCH (20:19)
[2018-01-23] MEDS: DIPYRIDAMOLE/ASPIRIN 200 MG/25 MG CAP PO SCH (20:48)
[2018-01-24] VITALS (21 sets, daily range): BP systolic 61–158; BP diastolic 37–85; PULSE 64–80; RESP 17–38; TEMP 98–98.4; O2SAT 84–100
[2018-01-24] MEDS: ESCITALOPRAM OXALATE 10 MG TAB PO SCH (08:28)
[2018-01-24] MEDS: FLUDROCORTISONE ACETATE 0.1 MG TAB PO SCH (08:28)
[2018-01-24] MEDS: PANTOPRAZOLE SOD 20 MG DELAYED RELEASE TAB PO SCH (08:28)
[2018-01-24] MEDS: CARBIDOPA/LEVODOPA 25 MG/100 MG TAB PO SCH ×2 (08:28→21:37)
[2018-01-24] MEDS: PRAVASTATIN SOD 20 MG TAB PO SCH (08:28)
[2018-01-24] MEDS: DROXIDOPA PO SCH ×3 (08:29→18:35)
[2018-01-24] MEDS: SODIUM CHLORIDE 0.9% FLUSH 10 ML FLUSH IV FLUSH SCH ×2 (08:30→21:38)
[2018-01-24] MEDS: DIPYRIDAMOLE/ASPIRIN 200 MG/25 MG CAP PO SCH ×2 (09:06→21:38)
[2018-01-24] MEDS ORDERED: SODIUM CHLORID 0.9% 500 ML INJ 500 ML IV ONE (11:45)
--- NOTE | 2018-01-24 11:56 | HHI.PR ---
Subjective Remarks Nursing denies any deterioration since last night. Upon my evaluation of the patient however his blood pressure was noted to drop to the 60s systolic on the automatic cuff, on manual check it was in the 80s with a map of 57. Patient was orthostatically asymptomatic but was asymptomatic sitting down. Patient was started on emergent normal saline bolus. Patient otherwise says he feels fine, no shortness of breath. Objective Vital Signs Date Time Temp Pulse Resp B/P (MAP) Pulse Ox O2 Delivery O2 Flow Rate FiO2 01/24/18 10:00 76 20 92/53 (66) 96 01/24/18 09:19 80 24 128/85 (99) 92 01/24/18 07:00 98.2 64 17 134/65 (88) 99 01/24/18 06:00 64 18 98 01/24/18 04:00 98.2 66 18 99 01/24/18 03:00 68 20 123/66 (85) 97 01/24/18 00:00 98.0 76 22 93/54 (67) 97 01/23/18 20:00 97.4 70 16 108/54 (72) 99 01/23/18 17:41 112/68 (83) 01/23/18 17:00 80/46 (57) 01/23/18 16:00 98.1 66 16 122/70 (87) 96 01/23/18 14:20 96 21 01/23/18 12:00 98.0 80 17 104/58 (73) 97 I/O 01/23/18 01/23/18 01/23/18 01/24/18 01/24/18 01/24/18 07:00 15:00 23:00 07:00 15:00 23:00 Intake Total 30 ml 480 ml 120 ml Output Total 300 ml 440 ml 364 ml Balance -270 ml 40 ml -244 ml Intake Oral 30 ml 480 ml 120 ml Output Urine Total 300 ml 400 ml 350 ml Chest Tube Drainage Total 40 ml 14 ml # Voids 3 2 3 # Bowel Movements 0 2 Result Diagram: 01/22/18 0750 01/22/18 0750 Objective Remarks Chest tube on his right back, intact Unlabored breathing, on room air, no cyanosis, clear breath sounds actually bilaterally A/P Assessment and Plan Acute hypotension -Stat normal saline bolus, will recheck closely, signs or symptoms of septic shock; may decrease suction pressure on CT if not responsive -Echocardiogram from 2 months ago showed normal EF Empyema - growing strep viridans - Post chest tube placement, still draining, pulm following Continue Levaquin, follow-up cultures, consulting ID shay New onset atrial fibrillation A. fib appears to be rate controlled off of medications Patient is a poor candidate to anticoagulate due to frequent falls. Aggrenox Frequent falls Likely multifactorial due to Parkinson's and orthostatic hypertension Fall precautions PT/OT evaluation for patient safety Improved Likely home with home health care PURA (acute kidney injury) Acute kidney failure - resolved Malnutrition Oral intake improved Ensure 3 times daily Follow-up swallow study Parkinson disease Neurology consult appreciated Continue with medical management Patient's family would like to defer hospice management for now which is reasonable (7) Orthostatic hypotension Improved greatly after hydration Continue fludrocortisone and midodrine (8) Dementia Secondary to Parkinson's Stable and at baseline per spouse Continue medical management Won Handley MD Jan 24, 2018 11:56
[2018-01-24] MEDS: LEVOFLOXACIN 500 MG TAB PO SCH (16:10)
[2018-01-24] MEDS: MIDODRINE 5 MG TAB PO SCH (18:35)
--- NOTE | 2018-01-24 18:43 | HHI.PR ---
Subjective Remarks alert no SOB Afebrile chest tube in place Objective GENERAL: SKIN: Warm and dry. HEAD: Atraumatic. Normocephalic. EYES: Pupils equal and round. No scleral icterus. No injection or drainage. ENT: No nasal bleeding or discharge. Mucous membranes pink and moist. NECK: Trachea midline. No JVD. CARDIOVASCULAR: Regular rate and rhythm. RESPIRATORY: No accessory muscle use. Clear to auscultation , decreased breath sounds right base GASTROINTESTINAL: Abdomen soft, non-tender, nondistended. Hepatic and splenic margins not palpable. MUSCULOSKELETAL: Extremities without clubbing, cyanosis, or edema. No obvious deformities. NEUROLOGICAL: Awake and alert. No obvious cranial nerve deficits. Motor grossly within normal limits. Five out of 5 muscle strength in the arms and legs. Normal speech. PSYCHIATRIC: Appropriate mood and affect; insight and judgment normal. Vital Signs Date Time Temp Pulse Resp B/P (MAP) Pulse Ox O2 Delivery O2 Flow Rate FiO2 01/24/18 16:56 72 18 137/64 (88) 100 01/24/18 15:15 74 21 131/73 (92) 97 01/24/18 15:10 74 22 115/68 (84) 99 01/24/18 13:10 72 17 95/54 (68) 98 01/24/18 13:07 72 22 74/43 (53) 84 01/24/18 12:56 70 18 105/62 (76) 98 01/24/18 12:19 70 21 105/57 (73) 98 01/24/18 12:15 70 18 101/55 (70) 97 01/24/18 12:00 74 22 105/61 (76) 97 108/64 (79) 01/24/18 11:21 72 36 82/47 (59) 98 84/46 (59) 01/24/18 11:14 74 26 85/45 (58) 98 01/24/18 11:10 76 38 61/37 (45) 94 01/24/18 11:00 70 19 84/52 (63) 97 01/24/18 10:00 76 20 92/53 (66) 96 01/24/18 09:19 80 24 128/85 (99) 92 01/24/18 07:00 98.2 64 17 134/65 (88) 99 01/24/18 06:00 64 18 98 01/24/18 04:00 98.2 66 18 99 01/24/18 03:00 68 20 123/66 (85) 97 01/24/18 00:00 98.0 76 22 93/54 (67) 97 01/23/18 20:00 97.4 70 16 108/54 (72) 99 I/O 01/23/18 01/23/18 01/23/18 01/24/18 01/24/18 01/24/18 06:59 14:59 22:59 06:59 14:59 22:59 Intake Total 30 ml 480 ml 120 ml 500 ml Output Total 300 ml 440 ml 364 ml Balance -270 ml 40 ml -244 ml 500 ml Intake Oral 30 ml 480 ml 120 ml IV Total 500 ml Output Urine Total 300 ml 400 ml 350 ml Chest Tube Drainage Total 40 ml 14 ml # Voids 3 2 3 # Bowel Movements 0 2 Result Diagram: 01/22/18 0750 01/22/18 0750 Objective Remarks GENERAL: SKIN: Warm and dry. HEAD: Atraumatic. Normocephalic. EYES: Pupils equal and round. No scleral icterus. No injection or drainage. ENT: No nasal bleeding or discharge. Mucous membranes pink and moist. NECK: Trachea midline. No JVD. CARDIOVASCULAR: Regular rate and rhythm. RESPIRATORY: No accessory muscle use. Clear to auscultation. Breath sounds equal bilaterally. GASTROINTESTINAL: Abdomen soft, non-tender, nondistended. Hepatic and splenic margins not palpable. MUSCULOSKELETAL: Extremities without clubbing, cyanosis, or edema. No obvious deformities. NEUROLOGICAL: Awake and alert. No obvious cranial nerve deficits. Motor grossly within normal limits. Five out of 5 muscle strength in the arms and legs. Normal speech. PSYCHIATRIC: Appropriate mood and affect; insight and judgment normal. Assessment and Plan Assessment and Plan impression Empyema Parkinson disease post CT drainage plan Chest tube drainage antibiotic therapy will follow Ondina Nj MD Jan 24, 2018 18:43
[2018-01-24] MEDS: DONEPEZIL HCL 5 MG TAB PO SCH (21:37)
[2018-01-25] VITALS (7 sets, daily range): BP systolic 100–170; BP diastolic 56–81; PULSE 64–74; RESP 18–21; TEMP 96–98.4; O2SAT 92–98
[2018-01-25] MEDS: PANTOPRAZOLE SOD 20 MG DELAYED RELEASE TAB PO SCH (08:58)
[2018-01-25] MEDS: ESCITALOPRAM OXALATE 10 MG TAB PO SCH (08:58)
[2018-01-25] MEDS: PRAVASTATIN SOD 20 MG TAB PO SCH (08:58)
[2018-01-25] MEDS: FLUDROCORTISONE ACETATE 0.1 MG TAB PO SCH (08:58)
[2018-01-25] MEDS: DIPYRIDAMOLE/ASPIRIN 200 MG/25 MG CAP PO SCH ×2 (08:58→21:07)
[2018-01-25] MEDS: CARBIDOPA/LEVODOPA 25 MG/100 MG TAB PO SCH ×2 (08:59→21:07)
[2018-01-25] MEDS: DROXIDOPA PO SCH ×3 (09:00→17:38)
[2018-01-25] MEDS: MIDODRINE 5 MG TAB PO SCH ×3 (09:00→17:38)
[2018-01-25] MEDS: SODIUM CHLORIDE 0.9% FLUSH 10 ML FLUSH IV FLUSH SCH ×2 (09:08→21:06)
--- NOTE | 2018-01-25 11:12 | HHI.PR ---
Subjective Remarks Nursing denies any deterioration since last night. Chest tube apparatus suction out about 10 mL since last night. Blood pressure is holding steady this morning. Patient himself is fully oriented. Objective Vital Signs Date Time Temp Pulse Resp B/P (MAP) Pulse Ox O2 Delivery O2 Flow Rate FiO2 01/25/18 04:00 68 20 01/25/18 03:36 98.2 64 18 115/62 (79) 95 Manual Cuff/Auscultation 01/25/18 00:00 98.4 68 19 140/69 (92) 96 01/24/18 20:00 98.4 78 19 158/76 (103) 99 01/24/18 16:56 72 18 137/64 (88) 100 01/24/18 15:15 74 21 131/73 (92) 97 01/24/18 15:10 74 22 115/68 (84) 99 01/24/18 13:10 72 17 95/54 (68) 98 01/24/18 13:07 72 22 74/43 (53) 84 01/24/18 12:56 70 18 105/62 (76) 98 01/24/18 12:19 70 21 105/57 (73) 98 01/24/18 12:15 70 18 101/55 (70) 97 01/24/18 12:00 74 22 105/61 (76) 97 108/64 (79) 01/24/18 11:21 72 36 82/47 (59) 98 84/46 (59) 01/24/18 11:14 74 26 85/45 (58) 98 01/24/18 11:10 76 38 61/37 (45) 94 I/O 01/24/18 01/24/18 01/24/18 01/25/18 01/25/18 01/25/18 07:00 15:00 23:00 07:00 15:00 23:00 Intake Total 120 ml 500 ml 720 ml 120 ml Output Total 364 ml 870 ml 700 ml 10 ml Balance -244 ml 500 ml -150 ml -580 ml -10 ml Intake Oral 120 ml 720 ml 120 ml IV Total 500 ml Output Urine Total 350 ml 850 ml 700 ml Chest Tube Drainage Total 14 ml 20 ml 10 ml # Voids 3 # Bowel Movements 0 0 Result Diagram: 01/22/18 0750 01/22/18 0750 Objective Remarks Chest tube on his right back, intact, still suctioning fluid Unlabored breathing, on room air, no cyanosis, clear breath sounds actually bilaterally A/P Assessment and Plan Acute hypotension -Resolved Empyema - growing strep viridans - Post chest tube placement, still draining, pulm following -Continue Levaquin, follow-up cultures, -ID consultation pending New onset atrial fibrillation A. fib appears to be rate controlled off of medications Patient is a poor candidate to anticoagulate due to frequent falls. Aggrenox Frequent falls Likely multifactorial due to Parkinson's and orthostatic hypertension Fall precautions PT/OT evaluation for patient safety Improved Likely home with home health care Malnutrition Oral intake improved Ensure 3 times daily Follow-up swallow study Parkinson disease Neurology consult appreciated Continue with medical management Patient's family would like to defer hospice management for now which is reasonable Orthostatic hypotension stable Continue fludrocortisone and midodrine Dementia Secondary to Parkinson's Stable and at baseline per spouse Continue medical management heparin Won Handley MD Jan 25, 2018 11:12
--- NOTE | 2018-01-25 13:11 | RADRPT ---
EXAM DATE/TIME: 01/25/2018 12:47 [place] COMPARISON: CT THORAX W/O CONTRAST, January 20, 2018, 13:24. INDICATIONS : Pleural effusion. RADIATION DOSE: 8.27 CTDIvol (mGy) MEDICAL HISTORY : Dementia. Parkinsons. Stroke. SURGICAL HISTORY : None. ENCOUNTER: Subsequent ACUITY: 4 - 6 days PAIN SCALE: 4/10 LOCATION: Left chest TECHNIQUE: Volumetric scanning of the chest was performed. Using automated exposure control and adjustment of t he mA and/or kV according to patient size, radiation dose was kept as low as reasonably achievable to obtain optimal diagnostic quality images. DICOM format image data is available electronically for r eview and comparison. Follow-up recommendations for detected pulmonary nodules are based at a minimum on nodule size and pa tient risk factors according to Fleischner Society Guidelines. FINDINGS: The left posterior chest tube is in good position within the previously noted pleural collection. No significant air or fluid is noted within this collection status post drainage. There is focal alveola r consolidation involving the left lower lobe consistent with pneumonia and/or atelectasis. Calcific pleural plaques are noted bilaterally suggestive of probable asbestos-related pleural disease. [place] ry artery calcifications are noted. No mediastinal, hilar or axillary lymphadenopathy is noted. No pu lmonary nodule or mass is noted. Degenerative changes and scoliosis of the thoracic spine are noted. CONCLUSION: 1. Successful drainage of left posterior pleural fluid and air collection. 2. Focal alveolar consolidation involving the left lower lobe consistent with pneumonia and/or atelec tasis. 3. Calcific pleural plaques bilaterally suggestive of probable asbestos-related pleural disease. 4. Coronary artery calcifications. 5. Degenerative changes and scoliosis of the thoracic spine. Abelino Taylor MD on January 25, 2018 at 13:03 Board Certified Radiologist. This report was verified electronically.
[2018-01-25] MEDS: HEPARIN SODIUM - SQ 10,000 UNITS/ML VIAL SQ SCH ×2 (13:51→21:07)
--- NOTE | 2018-01-25 16:54 | PD.ID.CON ---
History of Present Illness Service ID Consult Requested By Dr George Reason for Consult empyema Primary Care Physician Unknown Diagnoses: History of Present Illness 77 yo male withPankinson dz presented sp fall He was diagnosed wigth orthostatic hypotension He also co cough, productive of purulent sputum CT showed pleural collection on the L . Focal alveolar consolidation involving the left lower lobe consistent with pneumonia and/or atelectasi, Calcific pleural plaques bilaterally suggestive of probable asbestos-related pleural disease. Sp successful drainage of left posterior pleural fluid and air collection. Clx gram stain showed MANY WBC'S and MANY GRAM POSITIVE COCCI IN PAIRS AND CHAINS CULTURE positive for viridans strep Review of Systems ROS Limitations: Poor Historian Except as stated in HPI: all other systems reviewed are Neg Past Family Social History Allergies: Coded Allergies: No Known Allergies (Verified Adverse Reaction, Unknown, 01/19/18) Past Medical History Parkinson's dz Past Surgical History R total knee replacement Active Ordered Medications Medications where reviewed in EMR Antibiotics Include: Levaquine 500 po Family History reviewed, non contributory Social History No Tobacco. No ETOH. No Illicit Drugs. 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 TUBES/LINES/DRAINS: SKIN: No jaundice, rashes, or lesions. Skin temperature appropriate. Not diaphoretic. HEAD: Atraumatic. Normocephalic. EYES: Pupils equal and round and reactive. Extraocular motions intact. No scleral icterus. No injection or drainage. Fundi not examined. ENT: Hearing grossly normal. Nose without bleeding or purulent drainage. Throat without visible erythema, exudates, masses, or lesions. NECK: Trachea midline. Supple, nontender. CARDIOVASCULAR: Regular rate and rhythm without murmurs, gallops, or rubs. No JVD. Peripheral pulses symmetric. RESPIRATORY/CHEST: Symmetric, unlabored respirations. Clear to auscultation. Breath sounds equal bilaterally. Diminished BS on R base CT inplace with serosang dc GASTROINTESTINAL: Abdomen soft, non-tender, nondistended. No hepato-splenomegaly , or palpable masses. No guarding. Bowel sounds present. GENITOURINARY: Without palpable bladder distension. MUSCULOSKELETAL: Extremities without clubbing, cyanosis, or edema. No joint tenderness or effusion noted. No calf tenderness. No mottling or clubbing. LYMPHATICS: No palpable cervical or supraclavicular adenopathy. NEUROLOGICAL: Awake and alert. Motor and sensory grossly within normal limits. Follows commands. Sppech is slow. Moves all extremities. + BUE tremor PSYCHIATRIC: No obvious anxiety/depression. no apparent hallucinations or other psychotic thought process. Laboratory Date/Time Source Procedure Growth Status 01/22/18 10:25 Abscess Lung Gram Stain - Final Complete 01/22/18 10:25 Wound Culture - Final Viridans Streptococcus Grp Complete Result Diagram: 01/22/18 0750 01/22/18 0750 Imaging Last Impressions Chest CT 01/25/18 0000 Signed Impressions: Service Date/Time: Thursday, January 25, 2018 12:47 - CONCLUSION: 1. Successful drainage of left posterior pleural fluid and air collection. 2. Focal alveolar consolidation involving the left lower lobe consistent with pneumonia and/or atelectasis. 3. Calcific pleural plaques bilaterally suggestive of probable asbestos-related pleural disease. 4. Coronary artery calcifications. 5. Degenerative changes and scoliosis of the thoracic spine. Abelino Taylor MD Chest X-Ray 01/23/18 0000 Signed Impressions: Service Date/Time: Tuesday, January 23, 2018 09:48 - CONCLUSION: Interval placement of small bore left-sided chest tube over the left lung base. Abnormal opacity remains in this area with decrease in the previously noted gas collection. Jose De Oliveira MD Chest Tube Insertion 01/22/18 0930 Signed Impressions: Service Date/Time: Monday, January 22, 2018 10:02 - CONCLUSION: Uncomplicated chest tube placement as above. Frank Reynolds MD Head CT 01/19/18 1021 Signed Impressions: Service Date/Time: January 11:09 - CONCLUSION: No acute intracranial disease. Matt Morales MD Cervical Spine CT 01/19/18 1021 Signed Impressions: Service Date/Time: January 11:09 - CONCLUSION: Advanced multilevel degenerative changes. No fracture. Matt Morales MD Assessment and Plan Assessment and Plan L pleural empyema, viridans strep sp drainage, CT placement Pleural changes cw asbestosis change abx to Rocephine will dw Dr Nj Discussed Condition With Norma Sharp MD Jan 25, 2018 16:54
[2018-01-25] MEDS: cefTRIAXone INJ 2,000 MG in SODIUM CHLORIDE 0.9% INJ 100 ML IV SCH (17:38)
[2018-01-25] MEDS: ACETAMINOPHEN 500 MG CPLT PO PRN (17:39)
[2018-01-25] MEDS: DONEPEZIL HCL 5 MG TAB PO SCH (21:07)
[2018-01-26] VITALS: BP 160/76; PULSE 68; RESP 18; TEMP 96.9; O2SAT 96
[2018-01-26] MEDS: HEPARIN SODIUM - SQ 10,000 UNITS/ML VIAL SQ SCH ×3 (06:11→22:00)
[2018-01-26 08:00] VITALS: BP 167/80; PULSE 65; RESP 19; TEMP 97.8; O2SAT 95
[2018-01-26] MEDS: MIDODRINE 5 MG TAB PO SCH ×3 (09:00→17:43)
[2018-01-26] MEDS: SODIUM CHLORIDE 0.9% FLUSH 10 ML FLUSH IV FLUSH SCH ×2 (09:58→19:54)
[2018-01-26] MEDS: DROXIDOPA PO SCH ×3 (09:59→17:43)
[2018-01-26] MEDS: DIPYRIDAMOLE/ASPIRIN 200 MG/25 MG CAP PO SCH ×2 (09:59→19:53)
[2018-01-26] MEDS: PANTOPRAZOLE SOD 20 MG DELAYED RELEASE TAB PO SCH (09:59)
[2018-01-26] MEDS: ESCITALOPRAM OXALATE 10 MG TAB PO SCH (10:00)
[2018-01-26] MEDS: CARBIDOPA/LEVODOPA 25 MG/100 MG TAB PO SCH ×2 (10:00→19:53)
[2018-01-26] MEDS: PRAVASTATIN SOD 20 MG TAB PO SCH (10:00)
[2018-01-26] MEDS: FLUDROCORTISONE ACETATE 0.1 MG TAB PO SCH (10:00)
--- NOTE | 2018-01-26 11:54 | HHI.PR ---
Subjective Remarks Nursing denies any deterioration since last night. Chest tube is still suctioning fluid per nursing. Patient denies any new complaints. Objective Vital Signs Date Time Temp Pulse Resp B/P (MAP) Pulse Ox O2 Delivery O2 Flow Rate FiO2 01/26/18 08:00 97.8 65 19 167/80 (109) 95 01/26/18 00:00 96.9 68 18 160/76 (104) 96 01/25/18 20:00 96.7 69 18 170/81 (110) 98 01/25/18 15:50 96.0 74 20 138/71 (93) 92 01/25/18 13:40 96.0 72 20 100/56 (71) 96 I/O 01/25/18 01/25/18 01/25/18 01/26/18 01/26/18 01/26/18 07:00 15:00 23:00 07:00 15:00 23:00 Intake Total 120 ml 457 ml 420 ml 120 ml Output Total 700 ml 310 ml 150 ml 750 ml 300 ml Balance -580 ml -310 ml 307 ml -330 ml -180 ml Intake Oral 120 ml 357 ml 420 ml 120 ml IV Total 100 ml Output Urine Total 700 ml 300 ml 150 ml 750 ml 300 ml Chest Tube Drainage Total 10 ml # Voids 2 # Bowel Movements 0 0 Result Diagram: 01/22/18 0750 01/22/18 0750 Objective Remarks Chest tube on his right back, intact, still suctioning fluid Unlabored breathing, on room air, no cyanosis, clear breath sounds actually bilaterally Sitting up in chair, no acute distress A/P Assessment and Plan Orthostatic hypotension noted today with systolic dropping in the 70s -Normal saline bolus ordered Empyema - growing strep viridans - Post chest tube placement, still draining, pulm following -Switched to Rocephin per infectious disease New onset atrial fibrillation A. fib appears to be rate controlled off of medications Patient is a poor candidate to anticoagulate due to frequent falls. Aggrenox Frequent falls Likely multifactorial due to Parkinson's and orthostatic hypertension Fall precautions PT/OT evaluation for patient safety Improved Likely home with home health care Malnutrition Oral intake improved Ensure 3 times daily Follow-up swallow study Parkinson disease Neurology consult appreciated Continue with medical management Patient's family would like to defer hospice management for now which is reasonable Orthostatic hypotension stable Continue fludrocortisone and midodrine Dementia Secondary to Parkinson's Stable and at baseline per spouse Continue medical management heparin Won Handley MD Jan 26, 2018 11:54
[2018-01-26 12:00] VITALS: BP 138/65; PULSE 71; RESP 19; TEMP 97.1; O2SAT 95
[2018-01-26] MEDS ORDERED: SODIUM CHLOR 0.9% 1000 ML INJ 1,000 ML IV ONE (12:00)
--- NOTE | 2018-01-26 15:47 | HHI.PR ---
Subjective Remarks alert no SOB Afebrile chest tube in place still draining Objective Vital Signs Date Time Temp Pulse Resp B/P (MAP) Pulse Ox O2 Delivery O2 Flow Rate FiO2 01/26/18 12:00 97.1 71 19 138/65 (89) 95 01/26/18 08:00 97.8 65 19 167/80 (109) 95 01/26/18 00:00 96.9 68 18 160/76 (104) 96 01/25/18 20:00 96.7 69 18 170/81 (110) 98 01/25/18 15:50 96.0 74 20 138/71 (93) 92 I/O 01/25/18 01/25/18 01/25/18 01/26/18 01/26/18 01/26/18 07:00 15:00 23:00 07:00 15:00 23:00 Intake Total 120 ml 457 ml 420 ml 1120 ml Output Total 700 ml 310 ml 150 ml 750 ml 300 ml Balance -580 ml -310 ml 307 ml -330 ml 820 ml Intake Oral 120 ml 357 ml 420 ml 120 ml IV Total 100 ml 1000 ml Output Urine Total 700 ml 300 ml 150 ml 750 ml 300 ml Chest Tube Drainage Total 10 ml # Voids 2 # Bowel Movements 0 0 Result Diagram: 01/22/18 0750 01/22/18 0750 Objective Remarks GENERAL: SKIN: Warm and dry. HEAD: Atraumatic. Normocephalic. EYES: Pupils equal and round. No scleral icterus. No injection or drainage. ENT: No nasal bleeding or discharge. Mucous membranes pink and moist. NECK: Trachea midline. No JVD. CARDIOVASCULAR: Regular rate and rhythm. RESPIRATORY: No accessory muscle use. Clear to auscultation. Breath sounds equal bilaterally. GASTROINTESTINAL: Abdomen soft, non-tender, nondistended. Hepatic and splenic margins not palpable. MUSCULOSKELETAL: Extremities without clubbing, cyanosis, or edema. No obvious deformities. NEUROLOGICAL: Awake and alert. No obvious cranial nerve deficits. Motor grossly within normal limits. Five out of 5 muscle strength in the arms and legs. Normal speech. PSYCHIATRIC: Appropriate mood and affect; insight and judgment normal. Assessment and Plan Assessment and Plan impression Empyema Parkinson disease post CT drainage plan Chest tube drainage antibiotic therapy will follow Ondina Nj MD Jan 26, 2018 15:47
[2018-01-26 16:00] VITALS: BP 105/56; PULSE 86; RESP 20; TEMP 97.8; O2SAT 96
[2018-01-26] MEDS: cefTRIAXone INJ 2,000 MG in SODIUM CHLORIDE 0.9% INJ 100 ML IV SCH (16:48)
[2018-01-26] MEDS: ACETAMINOPHEN 500 MG CPLT PO PRN (16:48)
[2018-01-26] MEDS: DONEPEZIL HCL 5 MG TAB PO SCH (19:53)
[2018-01-26 20:00] VITALS: BP 181/86; PULSE 62; RESP 18; TEMP 96.5; O2SAT 97
[2018-01-26 21:22] VITALS: BP 159/89; PULSE 62; RESP 18; TEMP 97.1; O2SAT 96
[2018-01-27] VITALS: BP 140/67; PULSE 64; RESP 18; TEMP 96.1; O2SAT 94
[2018-01-27] MEDS: HEPARIN SODIUM - SQ 10,000 UNITS/ML VIAL SQ SCH ×3 (06:28→20:37)
[2018-01-27 07:58] VITALS: BP 150/79; PULSE 67; RESP 19; TEMP 97.2; O2SAT 96
[2018-01-27] MEDS: SODIUM CHLORIDE 0.9% FLUSH 10 ML FLUSH IV FLUSH SCH ×2 (09:43→20:36)
[2018-01-27] MEDS: DROXIDOPA PO SCH ×3 (09:44→18:23)
[2018-01-27] MEDS: DIPYRIDAMOLE/ASPIRIN 200 MG/25 MG CAP PO SCH ×2 (09:45→20:36)
[2018-01-27] MEDS: PRAVASTATIN SOD 20 MG TAB PO SCH (09:45)
[2018-01-27] MEDS: CARBIDOPA/LEVODOPA 25 MG/100 MG TAB PO SCH ×2 (09:45→20:37)
[2018-01-27] MEDS: FLUDROCORTISONE ACETATE 0.1 MG TAB PO SCH (09:46)
[2018-01-27] MEDS: MIDODRINE 5 MG TAB PO SCH ×3 (09:46→18:23)
[2018-01-27] MEDS: PANTOPRAZOLE SOD 20 MG DELAYED RELEASE TAB PO SCH (09:46)
[2018-01-27] MEDS: ESCITALOPRAM OXALATE 10 MG TAB PO SCH (09:46)
--- NOTE | 2018-01-27 11:00 | HHI.IDPN ---
Subjective Subjective Remarks doing better afebrile draining around 10 cc feels ariella on RA Antibiotics CFTX Past Medical History asbestosis Allergies: Coded Allergies: No Known Allergies (Verified Adverse Reaction, Unknown, 01/19/18) Objective . Vital Signs Date Time Temp Pulse Resp B/P (MAP) Pulse Ox O2 Delivery O2 Flow Rate FiO2 01/27/18 07:58 97.2 67 19 150/79 (102) 96 01/27/18 00:00 96.1 64 18 140/67 (91) 94 01/26/18 21:22 97.1 62 18 159/89 (112) 96 01/26/18 20:00 96.5 62 18 181/86 (117) 97 01/26/18 17:48 16 01/26/18 16:00 97.8 86 20 105/56 (72) 96 01/26/18 12:00 97.1 71 19 138/65 (89) 95 01/27/18 01/27/18 01/28/18 15:00 23:00 07:00 Intake Total 120 ml Balance 120 ml Intake Oral 120 ml Imaging Last Impressions Chest CT 01/25/18 0000 Signed Impressions: Service Date/Time: Thursday, January 25, 2018 12:47 - CONCLUSION: 1. Successful drainage of left posterior pleural fluid and air collection. 2. Focal alveolar consolidation involving the left lower lobe consistent with pneumonia and/or atelectasis. 3. Calcific pleural plaques bilaterally suggestive of probable asbestos-related pleural disease. 4. Coronary artery calcifications. 5. Degenerative changes and scoliosis of the thoracic spine. Abelino Taylor MD Chest X-Ray 01/23/18 0000 Signed Impressions: Service Date/Time: Tuesday, January 23, 2018 09:48 - CONCLUSION: Interval placement of small bore left-sided chest tube over the left lung base. Abnormal opacity remains in this area with decrease in the previously noted gas collection. Jose De Oliveira MD Chest Tube Insertion 01/22/18 0930 Signed Impressions: Service Date/Time: Monday, January 22, 2018 10:02 - CONCLUSION: Uncomplicated chest tube placement as above. Frank Reynolds MD Head CT 01/19/18 1021 Signed Impressions: Service Date/Time: January 11:09 - CONCLUSION: No acute intracranial disease. Matt Morales MD Cervical Spine CT 01/19/18 1021 Signed Impressions: Service Date/Time: January 11:09 - CONCLUSION: Advanced multilevel degenerative changes. No fracture. Matt Morales MD Physical Exam CONSTITUTIONAL/GENERAL: This is an adequately nourished patient, in no apparent distress. TUBES/LINES/DRAINS: SKIN: No jaundice, rashes, or lesions. Skin temperature appropriate. Not diaphoretic. CARDIOVASCULAR: Regular rate and rhythm without murmurs, gallops, or rubs. No JVD. Peripheral pulses symmetric. RESPIRATORY/CHEST: Symmetric, unlabored respirations. Clear to auscultation. Breath sounds equal bilaterally. Diminished BS on R base CT inplace with serosang dc GASTROINTESTINAL: Abdomen soft, non-tender, nondistended. No hepato-splenomegaly , or palpable masses. No guarding. Bowel sounds present. GENITOURINARY: Without palpable bladder distension. MUSCULOSKELETAL: Extremities without clubbing, cyanosis, or edema. No joint tenderness or effusion noted. No calf tenderness. No mottling or clubbing. LYMPHATICS: No palpable cervical or supraclavicular adenopathy. NEUROLOGICAL: Awake and alert. Motor and sensory grossly within normal limits. Follows commands. Sppech is slow. Moves all extremities. + BUE tremor PSYCHIATRIC: No obvious anxiety/depression. no apparent hallucinations or other psychotic thought process. Assessment & Plan Remarks L pleural empyema, viridans strep sp drainage, CT placement Pleural changes cw asbestosis cont Rocephine - once CT is d/c'd will review 24 hr f/u CXR; if reaccumulates will consult CT surgery will dw Dr Nj Discussed Condition With Norma Chaves MD Jan 27, 2018 11:00
--- NOTE | 2018-01-27 11:03 | HHI.PR ---
Subjective Remarks Nursing denies any deterioration since last night. Chest tube is still suctioning fluid per nursing, but decreasing output. Patient denies any new complaints. Physical therapy is concerned that the patient will most likely need rehab, patient expressing apprehension towards rehab facility but says he will think about it. Objective Vital Signs Date Time Temp Pulse Resp B/P (MAP) Pulse Ox O2 Delivery O2 Flow Rate FiO2 01/27/18 07:58 97.2 67 19 150/79 (102) 96 01/27/18 00:00 96.1 64 18 140/67 (91) 94 01/26/18 21:22 97.1 62 18 159/89 (112) 96 01/26/18 20:00 96.5 62 18 181/86 (117) 97 01/26/18 17:48 16 01/26/18 16:00 97.8 86 20 105/56 (72) 96 01/26/18 12:00 97.1 71 19 138/65 (89) 95 I/O 01/26/18 01/26/18 01/26/18 01/27/18 01/27/18 01/27/18 06:59 14:59 22:59 06:59 14:59 22:59 Intake Total 420 ml 1120 ml 850 ml 120 ml Output Total 750 ml 300 ml 1300 ml 550 ml Balance -330 ml 820 ml -450 ml -550 ml 120 ml Intake Oral 420 ml 120 ml 750 ml 120 ml IV Total 1000 ml 100 ml Output Urine Total 750 ml 300 ml 1250 ml 550 ml Chest Tube Drainage Total 50 ml # Bowel Movements 0 0 0 Objective Remarks Chest tube on his right back, intact, still suctioning fluid Unlabored breathing, on room air, no cyanosis, clear breath sounds actually bilaterally Lying in bed Awake, alert A/P Assessment and Plan Empyema - growing strep viridans - Post chest tube placement, still draining, pulm following - Rocephin per infectious disease, plan to remove tube once drainage has stopped atrial fibrillation A. fib appears to be rate controlled off of medications Patient is a poor candidate to anticoagulate due to frequent falls. Aggrenox Frequent falls Likely multifactorial due to Parkinson's and orthostatic hypertension Fall precautions PT/OT evaluation for patient safety Improved Likely home with home health care Malnutrition Oral intake improved Ensure 3 times daily Follow-up swallow study Parkinson disease Neurology consult appreciated Continue with medical management Patient's family would like to defer hospice management for now which is reasonable Orthostatic hypotension stable Continue fludrocortisone and midodrine Dementia Secondary to Parkinson's Stable and at baseline per spouse Continue medical management Won Smith MD Jan 27, 2018 11:03
[2018-01-27 11:31] VITALS: BP_SYST 55; PULSE 71; RESP 20; TEMP 98.6; O2SAT 95
[2018-01-27 16:00] VITALS: BP 127/61; PULSE 68; RESP 20; TEMP 97; O2SAT 95
[2018-01-27] MEDS: cefTRIAXone INJ 2,000 MG in SODIUM CHLORIDE 0.9% INJ 100 ML IV SCH (18:23)
[2018-01-27 20:00] VITALS: BP 140/77; PULSE 67; RESP 15; TEMP 96.7; O2SAT 96
[2018-01-27] MEDS: DONEPEZIL HCL 5 MG TAB PO SCH (20:36)
[2018-01-28] VITALS: BP 182/83; PULSE 67; RESP 16; TEMP 98; O2SAT 94
[2018-01-28 04:00] VITALS: BP 163/74; PULSE 69; RESP 16; TEMP 96.2; O2SAT 95
[2018-01-28] MEDS: HEPARIN SODIUM - SQ 10,000 UNITS/ML VIAL SQ SCH ×3 (06:03→21:25)
[2018-01-28 08:00] VITALS: BP 157/74; PULSE 67; RESP 18; TEMP 96.9; O2SAT 95
[2018-01-28] MEDS: SODIUM CHLORIDE 0.9% FLUSH 10 ML FLUSH IV FLUSH SCH ×2 (09:00→21:25)
[2018-01-28] MEDS: DIPYRIDAMOLE/ASPIRIN 200 MG/25 MG CAP PO SCH ×2 (09:14→21:24)
[2018-01-28] MEDS: ESCITALOPRAM OXALATE 10 MG TAB PO SCH (09:15)
[2018-01-28] MEDS: CARBIDOPA/LEVODOPA 25 MG/100 MG TAB PO SCH ×2 (09:15→21:25)
[2018-01-28] MEDS: FLUDROCORTISONE ACETATE 0.1 MG TAB PO SCH (09:15)
[2018-01-28] MEDS: PANTOPRAZOLE SOD 20 MG DELAYED RELEASE TAB PO SCH (09:15)
[2018-01-28] MEDS: MIDODRINE 5 MG TAB PO SCH ×3 (09:15→16:50)
[2018-01-28] MEDS: PRAVASTATIN SOD 20 MG TAB PO SCH (09:15)
[2018-01-28] MEDS: DROXIDOPA PO SCH ×3 (09:16→16:51)
--- NOTE | 2018-01-28 11:02 | HHI.PR ---
Subjective Remarks Chest tube remains. Patient has no new complaints. No fevers overnight. Objective Vital Signs Date Time Temp Pulse Resp B/P (MAP) Pulse Ox O2 Delivery O2 Flow Rate FiO2 01/28/18 08:00 96.9 67 18 157/74 (101) 95 01/28/18 04:00 96.2 69 16 163/74 (103) 95 01/28/18 00:00 98.0 67 16 182/83 (116) 94 01/27/18 20:00 96.7 67 15 140/77 (98) 96 01/27/18 16:00 97.0 68 20 127/61 (83) 95 01/27/18 11:31 98.6 71 20 55/ 95 I/O 01/27/18 01/27/18 01/27/18 01/28/18 01/28/18 01/28/18 07:00 15:00 23:00 07:00 15:00 23:00 Intake Total 120 ml 900 ml 240 ml Output Total 550 ml 100 ml 810 ml 10 ml Balance -550 ml 20 ml 90 ml -10 ml 240 ml Intake Oral 120 ml 900 ml 240 ml Output Urine Total 550 ml 100 ml 800 ml Chest Tube Drainage Total 10 ml 10 ml # Bowel Movements 0 Objective Remarks GENERAL: NAD, A&Ox3 HEAD: Normocephalic. NECK: Supple, trachea midline. No lymphadenopathy. EYES: No scleral icterus. No injection or drainage. CARDIOVASCULAR: Regular rate and rhythm without murmurs, gallops, or rubs. RESPIRATORY: Breath sounds equal bilaterally. No accessory muscle use. Right- sided chest tube is present. GASTROINTESTINAL: Abdomen soft, non-tender, nondistended. MUSCULOSKELETAL: No cyanosis, or edema. SKIN: Warm and dry. NEURO: No focal neurological deficitis. A/P Problem List: (1) Empyema of left pleural space ICD Code: J86.9 - Pyothorax without fistula (2) Loculated pleural effusion ICD Code: J90 - Pleural effusion, not elsewhere classified Assessment and Plan 77-year-old male admitted secondary to new onset atrial fibrillation, now with a chest tube secondary to finding of empyema Empyema Continue to follow cultures Continue Rocephin Infectious disease following Chest tube remains Output is still present a chest tube Determination of removal of chest tube will be left to the discretion of pulmonology Pulmonology following atrial fibrillation rate controlled off of medications poor candidate to anticoagulate due to frequent falls. Continue Aggrenox Frequent falls Likely multifactorial due to Parkinson's and orthostatic hypertension Fall precautions Plan for custodial facility at discharge Continue PT and OT Malnutrition Oral intake improved Ensure 3 times daily Parkinson disease Neurology following Continue with medical management Orthostatic hypotension Continue fludrocortisone and midodrine Parkinson's dementia Stable and at baseline per spouse Continue current medical management DVT prophylaxis heparin Josué Landeros MD Jan 28, 2018 11:02
--- NOTE | 2018-01-28 11:44 | HHI.PR ---
Subjective Remarks alert no SOB Afebrile chest tube in place still draining Objective Vital Signs Date Time Temp Pulse Resp B/P (MAP) Pulse Ox O2 Delivery O2 Flow Rate FiO2 01/28/18 08:00 96.9 67 18 157/74 (101) 95 01/28/18 04:00 96.2 69 16 163/74 (103) 95 01/28/18 00:00 98.0 67 16 182/83 (116) 94 01/27/18 20:00 96.7 67 15 140/77 (98) 96 01/27/18 16:00 97.0 68 20 127/61 (83) 95 I/O 01/27/18 01/27/18 01/27/18 01/28/18 01/28/18 01/28/18 07:00 15:00 23:00 07:00 15:00 23:00 Intake Total 120 ml 900 ml 240 ml Output Total 550 ml 100 ml 810 ml 10 ml Balance -550 ml 20 ml 90 ml -10 ml 240 ml Intake Oral 120 ml 900 ml 240 ml Output Urine Total 550 ml 100 ml 800 ml Chest Tube Drainage Total 10 ml 10 ml # Bowel Movements 0 Other Results GENERAL: SKIN: Warm and dry. HEAD: Atraumatic. Normocephalic. EYES: Pupils equal and round. No scleral icterus. No injection or drainage. ENT: No nasal bleeding or discharge. Mucous membranes pink and moist. NECK: Trachea midline. No JVD. CARDIOVASCULAR: Regular rate and rhythm. RESPIRATORY: No accessory muscle use. Clear to auscultation. Breath sounds equal bilaterally. GASTROINTESTINAL: Abdomen soft, non-tender, nondistended. Hepatic and splenic margins not palpable. MUSCULOSKELETAL: Extremities without clubbing, cyanosis, or edema. No obvious deformities. NEUROLOGICAL: Awake and alert. No obvious cranial nerve deficits. Motor grossly within normal limits. Five out of 5 muscle strength in the arms and legs. Normal speech. PSYCHIATRIC: Appropriate mood and affect; insight and judgment normal. Objective Remarks GENERAL: SKIN: Warm and dry. HEAD: Atraumatic. Normocephalic. EYES: Pupils equal and round. No scleral icterus. No injection or drainage. ENT: No nasal bleeding or discharge. Mucous membranes pink and moist. NECK: Trachea midline. No JVD. CARDIOVASCULAR: Regular rate and rhythm. RESPIRATORY: No accessory muscle use. Clear to auscultation. Breath sounds equal bilaterally. GASTROINTESTINAL: Abdomen soft, non-tender, nondistended. Hepatic and splenic margins not palpable. MUSCULOSKELETAL: Extremities without clubbing, cyanosis, or edema. No obvious deformities. NEUROLOGICAL: Awake and alert. No obvious cranial nerve deficits. Motor grossly within normal limits. Five out of 5 muscle strength in the arms and legs. Normal speech. PSYCHIATRIC: Appropriate mood and affect; insight and judgment normal. Assessment and Plan Assessment and Plan impression Empyema Parkinson disease post CT drainage plan Chest tube drainage antibiotic therapy increase activity Ondina Nj MD Jan 28, 2018 11:44
[2018-01-28 15:49] VITALS: BP 139/67; PULSE 68; RESP 20; TEMP 98.8; O2SAT 96
[2018-01-28] MEDS: cefTRIAXone INJ 2,000 MG in SODIUM CHLORIDE 0.9% INJ 100 ML IV SCH (16:50)
[2018-01-28 20:00] VITALS: BP 144/74; PULSE 64; RESP 16; TEMP 96.6; O2SAT 98
[2018-01-28] MEDS: DONEPEZIL HCL 5 MG TAB PO SCH (21:24)
[2018-01-29] VITALS: BP 165/86; PULSE 83; RESP 18; TEMP 97.6; O2SAT 98
[2018-01-29] MEDS: HEPARIN SODIUM - SQ 10,000 UNITS/ML VIAL SQ SCH ×3 (06:15→21:52)
[2018-01-29 06:42] LABS: AUTOMATED NEUTROPHIL # 1.5 TH/MM3 (1.8-7.7); BASOPHIL % 0.7 % (0.0-2.0); EOSINOPHIL # 0.1 TH/MM3 (0-0.4); EOSINOPHIL % 2.3 % (0.0-4.0); HEMATOCRIT 29.1 % (39.0-51.0); LYMPHOCYTE # 1.4 TH/MM3 (1.0-4.8); MEAN CELL VOLUME 80.6 FL (80.0-100.0); MEAN CORPUSCULAR HEMOGLOBIN 24.9 PG (27.0-34.0); MEAN CORPUSCULAR HGB CONC 30.9 % (32.0-36.0); MEAN PLATELET VOLUME 6.1 FL (7.0-11.0); MONOCYTE # 0.3 TH/MM3 (0-0.9); PLATELET COUNT 332 TH/MM3 (150-450); RED BLOOD COUNT 3.62 MIL/MM3 (4.50-5.90); RED CELL DISTRIBUTION WIDTH 15.8 % (11.6-17.2); WHITE BLOOD COUNT 3.3 TH/MM3 (4.0-11.0)
[2018-01-29 06:50] LABS: CHLORIDE 107 MEQ/L (98-107); SODIUM (NA) 142 MEQ/L (136-145)
[2018-01-29 06:57] LABS: CALCIUM 8.7 MG/DL (8.5-10.1)
[2018-01-29 06:58] LABS: ALBUMIN 2.5 GM/DL (3.4-5.0); BICARBONATE 30.8 MEQ/L (21.0-32.0); BLOOD UREA NITROGEN 19 MG/DL (7-18); GLUCOSE,RANDOM 82 MG/DL (74-106)
[2018-01-29 06:59] LABS: ALT (GPT) 19 U/L (12-78)
[2018-01-29 07:00] LABS: AST (GOT) 15 U/L (15-37)
[2018-01-29 07:01] LABS: GLOMERULAR FILTRATION RATE 93 ML/MIN (>89); TOTAL BILIRUBIN ADULT 0.3 MG/DL (0.2-1.0); TOTAL PROTEIN 6.7 GM/DL (6.4-8.2)
[2018-01-29 07:02] LABS: ALKALINE PHOSPHATASE 92 U/L (45-117)
[2018-01-29 08:00] VITALS: BP 147/74; PULSE 68; RESP 19; TEMP 97.1; O2SAT 97
[2018-01-29 08:08] LABS: OVALOCYTES 1+ (NORMAL); ROULEAUX PRESENT (NORMAL)
[2018-01-29] MEDS: MIDODRINE 5 MG TAB PO SCH ×3 (09:00→18:44)
[2018-01-29] MEDS: DROXIDOPA PO SCH ×3 (10:43→18:46)
[2018-01-29] MEDS: PRAVASTATIN SOD 20 MG TAB PO SCH (10:44)
[2018-01-29] MEDS: PANTOPRAZOLE SOD 20 MG DELAYED RELEASE TAB PO SCH (10:44)
[2018-01-29] MEDS: FLUDROCORTISONE ACETATE 0.1 MG TAB PO SCH (10:44)
[2018-01-29] MEDS: ESCITALOPRAM OXALATE 10 MG TAB PO SCH (10:44)
[2018-01-29] MEDS: SODIUM CHLORIDE 0.9% FLUSH 10 ML FLUSH IV FLUSH SCH ×2 (10:44→21:52)
[2018-01-29] MEDS: CARBIDOPA/LEVODOPA 25 MG/100 MG TAB PO SCH ×2 (10:44→21:53)
[2018-01-29] MEDS: DIPYRIDAMOLE/ASPIRIN 200 MG/25 MG CAP PO SCH ×2 (10:48→21:53)
[2018-01-29 12:00] VITALS: BP 110/60; PULSE 82; RESP 19; TEMP 97; O2SAT 98
--- NOTE | 2018-01-29 13:04 | HHI.PR ---
Subjective Remarks Nursing denies any deterioration since last night. Chest tube is still suctioning fluid per nursing. Patient still feels comfortable being able to go home, says he has therapy that comes sees him very frequently during the week. Otherwise has no new complaints. Objective Vital Signs Date Time Temp Pulse Resp B/P (MAP) Pulse Ox O2 Delivery O2 Flow Rate FiO2 01/29/18 08:00 97.1 68 19 147/74 (98) 97 01/29/18 00:00 97.6 83 18 165/86 (112) 98 01/28/18 20:00 96.6 64 16 144/74 (97) 98 01/28/18 15:49 98.8 68 20 139/67 (91) 96 I/O 01/28/18 01/28/18 01/28/18 01/29/18 01/29/18 01/29/18 07:00 15:00 23:00 07:00 15:00 23:00 Intake Total 240 ml 400 ml Output Total 10 ml 300 ml 0 ml Balance -10 ml 240 ml 100 ml 0 ml Intake Oral 240 ml 300 ml IV Total 100 ml Output Urine Total 300 ml Chest Tube Drainage Total 10 ml 0 ml # Voids 1 Result Diagram: 01/29/18 0616 01/29/18 0616 Objective Remarks Chest tube on his right back, intact, still suctioning fluid Unlabored breathing, on room air, no cyanosis, clear breath sounds actually bilaterally Sitting up in chair Awake, alert A/P Assessment and Plan Empyema - growing strep viridans - Post chest tube placement, still draining, pulm following, plan to remove tube once drainage has stopped - Rocephin per infectious disease, atrial fibrillation A. fib appears to be rate controlled off of medications Patient is a poor candidate to anticoagulate due to frequent falls. 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
[2018-01-29 16:00] VITALS: BP 114/71; PULSE 81; RESP 19; TEMP 97; O2SAT 98
--- NOTE | 2018-01-29 16:01 | HHI.PR ---
Subjective Remarks alert no SOB Afebrile chest tube in place still draining, 50 cc since this AM Objective GENERAL: SKIN: Warm and dry. HEAD: Atraumatic. Normocephalic. EYES: Pupils equal and round. No scleral icterus. No injection or drainage. ENT: No nasal bleeding or discharge. Mucous membranes pink and moist. NECK: Trachea midline. No JVD. CARDIOVASCULAR: Regular rate and rhythm. RESPIRATORY: No accessory muscle use. Clear to auscultation. Breath sounds equal bilaterally. GASTROINTESTINAL: Abdomen soft, non-tender, nondistended. Hepatic and splenic margins not palpable. MUSCULOSKELETAL: Extremities without clubbing, cyanosis, or edema. No obvious deformities. NEUROLOGICAL: Awake and alert. No obvious cranial nerve deficits. Motor grossly within normal limits. Five out of 5 muscle strength in the arms and legs. Normal speech. PSYCHIATRIC: Appropriate mood and affect; insight and judgment normal. Vital Signs Date Time Temp Pulse Resp B/P (MAP) Pulse Ox O2 Delivery O2 Flow Rate FiO2 01/29/18 12:00 97.0 82 19 110/60 (77) 98 01/29/18 08:00 97.1 68 19 147/74 (98) 97 01/29/18 00:00 97.6 83 18 165/86 (112) 98 01/28/18 20:00 96.6 64 16 144/74 (97) 98 I/O 01/28/18 01/28/18 01/28/18 01/29/18 01/29/18 01/29/18 06:59 14:59 22:59 06:59 14:59 22:59 Intake Total 240 ml 400 ml Output Total 10 ml 300 ml 0 ml Balance -10 ml 240 ml 100 ml 0 ml Intake Oral 240 ml 300 ml IV Total 100 ml Output Urine Total 300 ml Chest Tube Drainage Total 10 ml 0 ml # Voids 1 Result Diagram: 01/29/18 0616 01/29/18 0616 Objective Remarks GENERAL: SKIN: Warm and dry. HEAD: Atraumatic. Normocephalic. EYES: Pupils equal and round. No scleral icterus. No injection or drainage. ENT: No nasal bleeding or discharge. Mucous membranes pink and moist. NECK: Trachea midline. No JVD. CARDIOVASCULAR: Regular rate and rhythm. RESPIRATORY: No accessory muscle use. Clear to auscultation. Breath sounds equal bilaterally. GASTROINTESTINAL: Abdomen soft, non-tender, nondistended. Hepatic and splenic margins not palpable. MUSCULOSKELETAL: Extremities without clubbing, cyanosis, or edema. No obvious deformities. NEUROLOGICAL: Awake and alert. No obvious cranial nerve deficits. Motor grossly within normal limits. Five out of 5 muscle strength in the arms and legs. Normal speech. PSYCHIATRIC: Appropriate mood and affect; insight and judgment normal. Assessment and Plan Assessment and Plan impression Empyema Parkinson disease post CT drainage plan will remove Chest tube drainage when drainage stops antibiotic therapy increase activity Ondina,Ondina Hairston MD Jan 29, 2018 16:01
[2018-01-29] MEDS: cefTRIAXone INJ 2,000 MG in SODIUM CHLORIDE 0.9% INJ 100 ML IV SCH (18:45)
[2018-01-29 20:00] VITALS: BP 98/54; PULSE 77; RESP 19; TEMP 96.5; O2SAT 95
[2018-01-29] MEDS: DONEPEZIL HCL 5 MG TAB PO SCH (21:53)
[2018-01-29 22:59] VITALS: BP 156/81; PULSE 76; RESP 18; TEMP 98.3; O2SAT 95
[2018-01-30] MEDS: HEPARIN SODIUM - SQ 10,000 UNITS/ML VIAL SQ SCH ×3 (06:03→22:00)
[2018-01-30] MEDS: FLUDROCORTISONE ACETATE 0.1 MG TAB PO SCH (08:05)
[2018-01-30] MEDS: SODIUM CHLORIDE 0.9% FLUSH 10 ML FLUSH IV FLUSH SCH ×2 (08:05→20:10)
[2018-01-30] MEDS: PANTOPRAZOLE SOD 20 MG DELAYED RELEASE TAB PO SCH (08:05)
[2018-01-30] MEDS: ESCITALOPRAM OXALATE 10 MG TAB PO SCH (08:05)
[2018-01-30] MEDS: CARBIDOPA/LEVODOPA 25 MG/100 MG TAB PO SCH ×2 (08:05→20:09)
[2018-01-30] MEDS: PRAVASTATIN SOD 20 MG TAB PO SCH (08:05)
[2018-01-30] MEDS: MIDODRINE 5 MG TAB PO SCH ×3 (08:05→16:41)
[2018-01-30 08:27] VITALS: BP 129/60; PULSE 79; RESP 16; TEMP 98; O2SAT 95
--- NOTE | 2018-01-30 08:37 | HHI.PR ---
Subjective Remarks alert no SOB Afebrile chest tube in place still draining, 8 cc since during night Objective Vital Signs Date Time Temp Pulse Resp B/P (MAP) Pulse Ox O2 Delivery O2 Flow Rate FiO2 01/30/18 08:27 98.0 79 16 129/60 (83) 95 01/29/18 22:59 98.3 76 18 156/81 (106) 95 01/29/18 20:00 96.5 77 19 98/54 (69) 95 01/29/18 16:00 97.0 81 19 114/71 (85) 98 01/29/18 12:00 97.0 82 19 110/60 (77) 98 I/O 01/29/18 01/29/18 01/29/18 01/30/18 01/30/18 01/30/18 07:00 15:00 23:00 07:00 15:00 23:00 Output Total 0 ml 450 ml 420 ml Balance 0 ml -450 ml -420 ml Output Urine Total 450 ml 400 ml Chest Tube Drainage Total 0 ml 20 ml # Voids 3 3 Result Diagram: 01/29/1816 01/29/18 0616 Objective Remarks GENERAL: SKIN: Warm and dry. HEAD: Atraumatic. Normocephalic. EYES: Pupils equal and round. No scleral icterus. No injection or drainage. ENT: No nasal bleeding or discharge. Mucous membranes pink and moist. NECK: Trachea midline. No JVD. CARDIOVASCULAR: Regular rate and rhythm. RESPIRATORY: No accessory muscle use. Clear to auscultation. Breath sounds equal bilaterally. GASTROINTESTINAL: Abdomen soft, non-tender, nondistended. Hepatic and splenic margins not palpable. MUSCULOSKELETAL: Extremities without clubbing, cyanosis, or edema. No obvious deformities. NEUROLOGICAL: Awake and alert. No obvious cranial nerve deficits. Motor grossly within normal limits. Five out of 5 muscle strength in the arms and legs. Normal speech. PSYCHIATRIC: Appropriate mood and affect; insight and judgment normal. Assessment and Plan Assessment and Plan impression Empyema Parkinson disease post CT drainage plan will remove Chest tube drainage when drainage stops antibiotic therapy increase activity CT CHEST TODAY Ondina Nj MD Jan 30, 2018 08:37
[2018-01-30] MEDS: DROXIDOPA PO SCH ×3 (09:00→16:39)
[2018-01-30] MEDS: DIPYRIDAMOLE/ASPIRIN 200 MG/25 MG CAP PO SCH ×2 (09:00→20:09)
[2018-01-30 11:48] VITALS: BP 99/50; PULSE 80; RESP 16; TEMP 98.2; O2SAT 95
--- NOTE | 2018-01-30 14:17 | HHI.PR ---
Subjective Remarks Nursing denies any deterioration since last night. is present at the bedside. Chest tube is still suctioning fluid per nursing. Pt has no new complaints. Objective Vital Signs Date Time Temp Pulse Resp B/P (MAP) Pulse Ox O2 Delivery O2 Flow Rate FiO2 01/30/18 11:48 98.2 80 16 99/50 (66) 95 01/30/18 08:27 98.0 79 16 129/60 (83) 95 01/29/18 22:59 98.3 76 18 156/81 (106) 95 01/29/18 20:00 96.5 77 19 98/54 (69) 95 01/29/18 16:00 97.0 81 19 114/71 (85) 98 I/O 01/29/18 01/29/18 01/29/18 01/30/18 01/30/18 01/30/18 07:00 15:00 23:00 07:00 15:00 23:00 Output Total 0 ml 450 ml 420 ml Balance 0 ml -450 ml -420 ml Output Urine Total 450 ml 400 ml Chest Tube Drainage Total 0 ml 20 ml # Voids 3 3 Result Diagram: 01/29/18 0616 01/29/18 0616 Objective Remarks Chest tube on his right back, intact, still suctioning fluid Unlabored breathing, on room air, no cyanosis, clear breath sounds actually bilaterally Sitting up in chair Awake, alert A/P Assessment and Plan Empyema - growing strep viridans - Post chest tube placement, still draining, pulm following, plan to remove tube once drainage has stopped possibly tomorrow - Rocephin per infectious disease, atrial fibrillation A. fib appears to be rate controlled off of medications Patient is a poor candidate to anticoagulate due to frequent falls. Aggrenox Frequent falls Likely multifactorial due to Parkinson's and orthostatic hypertension Fall precautions PT/OT evaluation for patient safety Improved Likely home with home health care Malnutrition Oral intake improved Ensure 3 times daily Follow-up swallow study Parkinson disease Neurology consult appreciated Continue with medical management Patient's family would like to defer hospice management for now which is reasonable Orthostatic hypotension stable Continue fludrocortisone and midodrine Dementia Secondary to Parkinson's Stable and at baseline per spouse Continue medical management heparin Won Handley MD Jan 30, 2018 14:17
[2018-01-30] MEDS: cefTRIAXone INJ 2,000 MG in SODIUM CHLORIDE 0.9% INJ 100 ML IV SCH (16:40)
[2018-01-30 16:51] VITALS: BP 123/61; PULSE 75; RESP 18; TEMP 97.6; O2SAT 95
--- NOTE | 2018-01-30 18:15 | RADRPT ---
EXAM DATE/TIME: 01/30/2018 15:35 [facility] COMPARISON: No previous studies available for comparison. INDICATIONS : Evaluate chest tube before removing tomorrow. RADIATION DOSE: 7.62 CTDIvol (mGy) MEDICAL HISTORY : Dementia. Parkinsons. Stroke. SURGICAL HISTORY : None. ENCOUNTER: Subsequent ACUITY: 1 week PAIN SCALE: 0/10 LOCATION: Left chest TECHNIQUE: Volumetric scanning of the chest was performed. Using automated exposure control and adjustment of t he mA and/or kV according to patient size, radiation dose was kept as low as reasonably achievable to obtain optimal diagnostic quality images. DICOM format image data is available electronically for r eview and comparison. Follow-up recommendations for detected pulmonary nodules are based at a minimum on nodule size and pa tient risk factors according to Fleischner Society Guidelines. FINDINGS: Comparison is January 25. A small caliber left chest tube is present with left basilar consolidation si milar to prior exam. Right lung remains relatively clear. There is no hilar, mediastinal axillary helga nopathy. Moderate coronary calcifications are present. Small pericardial effusion. No acute findings in the upper abdomen. No acute bony abnormalities. Calcified pleural plaques bilaterally characteristic of asbestos pleural disease. CONCLUSION: 1. Small caliber left chest tube with some small amount of residual fluid and consolidation at the le ft lung base similar to January 25. No new consolidation. 2. Asbestos pleural disease. Clifford Fields MD on January 30, 2018 at 18:11 Board Certified Radiologist. This report was verified electronically.
[2018-01-30 20:00] VITALS: BP 136/69; PULSE 71; RESP 19; TEMP 97.3; O2SAT 94
[2018-01-30] MEDS: DONEPEZIL HCL 5 MG TAB PO SCH (20:13)
[2018-01-31] VITALS: BP 145/78; PULSE 78; RESP 19; TEMP 98.7; O2SAT 94
[2018-01-31] MEDS: HEPARIN SODIUM - SQ 10,000 UNITS/ML VIAL SQ SCH ×3 (06:20→20:53)
[2018-01-31 08:00] VITALS: BP 131/78; PULSE 73; RESP 16; TEMP 95.5; O2SAT 95
[2018-01-31] MEDS: DIPYRIDAMOLE/ASPIRIN 200 MG/25 MG CAP PO SCH ×2 (09:13→20:52)
[2018-01-31] MEDS: DROXIDOPA PO SCH ×3 (09:13→17:40)
[2018-01-31] MEDS: MIDODRINE 5 MG TAB PO SCH ×3 (09:14→17:40)
[2018-01-31] MEDS: FLUDROCORTISONE ACETATE 0.1 MG TAB PO SCH (09:14)
[2018-01-31] MEDS: CARBIDOPA/LEVODOPA 25 MG/100 MG TAB PO SCH ×2 (09:14→20:52)
[2018-01-31] MEDS: PANTOPRAZOLE SOD 20 MG DELAYED RELEASE TAB PO SCH (09:14)
[2018-01-31] MEDS: ESCITALOPRAM OXALATE 10 MG TAB PO SCH (09:14)
[2018-01-31] MEDS: PRAVASTATIN SOD 20 MG TAB PO SCH (09:14)
[2018-01-31] MEDS: SODIUM CHLORIDE 0.9% FLUSH 10 ML FLUSH IV FLUSH SCH ×2 (09:15→20:53)
--- NOTE | 2018-01-31 11:29 | HHI.PR ---
Subjective Remarks Patient seen today hospital day 12 in follow-up for empyema status post chest tube. Minimal output over the last 24 hours. Tolerating current antibiotics well. Objective Vitals Vital Signs Date Time Temp Pulse Resp B/P (MAP) Pulse Ox O2 Delivery O2 Flow Rate FiO2 01/31/18 08:00 95.5 73 16 131/78 (95) 95 01/31/18 00:00 98.7 78 19 145/78 (100) 94 01/30/18 20:00 97.3 71 19 136/69 (91) 94 01/30/18 16:51 97.6 75 18 123/61 (81) 95 01/30/18 11:48 98.2 80 16 99/50 (66) 95 I/O 01/30/18 01/30/18 01/30/18 01/31/18 01/31/18 01/31/18 07:00 15:00 23:00 07:00 15:00 23:00 Intake Total 1100 ml Output Total 420 ml 0 ml 300 ml Balance -420 ml 1100 ml -300 ml Intake Oral 900 ml IV Total 200 ml Output Urine Total 400 ml 300 ml Chest Tube Drainage Total 20 ml 0 ml 0 ml # Voids 3 7 # Bowel Movements 1 Result Diagram: 01/29/18 0616 01/29/18 0616 Imaging Last Impressions Chest CT 01/30/18 0000 Signed Impressions: Service Date/Time: Tuesday, January 30, 2018 15:35 - CONCLUSION: 1. Small caliber left chest tube with some small amount of residual fluid and consolidation at the left lung base similar to January 25. No new consolidation. 2. Asbestos pleural disease. Clifford Fields MD Chest X-Ray 01/23/18 0000 Signed Impressions: Service Date/Time: Tuesday, January 23, 2018 09:48 - CONCLUSION: Interval placement of small bore left-sided chest tube over the left lung base. Abnormal opacity remains in this area with decrease in the previously noted gas collection. Jose De Oliveira MD Chest Tube Insertion 01/22/18 0930 Signed Impressions: Service Date/Time: Monday, January 22, 2018 10:02 - CONCLUSION: Uncomplicated chest tube placement as above. Frank Reynolds MD Head CT 01/19/18 1021 Signed Impressions: Service Date/Time: January 11:09 - CONCLUSION: No acute intracranial disease. Matt Morales MD Cervical Spine CT 01/19/18 1021 Signed Impressions: Service Date/Time: January 11:09 - CONCLUSION: Advanced multilevel degenerative changes. No fracture. Matt Morales MD Objective Remarks GENERAL: This is a well-nourished, well-developed patient,, eating breakfast CARDIOVASCULAR: A. fib with controlled rate without murmurs, gallops, or rubs. RESPIRATORY: Left-sided chest tube in place, no wheezes appreciated GASTROINTESTINAL: Abdomen soft, non-tender, nondistended. Normal active bowel sounds MUSCULOSKELETAL: Extremities without clubbing, cyanosis, or edema. NEURO: Alert & Oriented x4 to person, place, time, situation. Moves all ext x4 but is still rigid consistent with previous exam A/P Problem List: (1) New onset atrial fibrillation ICD Code: I48.91 - Unspecified atrial fibrillation Status: Acute Plan: A. fib appears to be rate controlled off of medications Patient is a poor candidate to anticoagulate due to frequent falls. Resume Aggrenox (2) Frequent falls ICD Code: R29.6 - Repeated falls Status: Acute Plan: Likely multifactorial due to Parkinson's and orthostatic hypertension Fall precautions Continue PT Improved Likely home with home health care (3) PURA (acute kidney injury) ICD Code: N17.9 - Acute kidney failure, unspecified Plan: better (4) Malnutrition ICD Code: E46 - Unspecified protein-calorie malnutrition Plan: Oral intake improved Ensure 3 times daily doing well on modified (5) Loculated pleural effusion ICD Code: J90 - Pleural effusion, not elsewhere classified Plan: Post chest tube placement, minimal output Continue Rocephin, s vridans (6) Parkinson disease ICD Code: G20 - Parkinson's disease Plan: Neurology consult appreciated Continue with medical management Patient's family would like to defer hospice management for now which is reasonable (7) Orthostatic hypotension ICD Code: I95.1 - Orthostatic hypotension Status: Acute Plan: Improved greatly after hydration Continue fludrocortisone and midodrine (8) Dementia ICD Code: F03.90 - Unspecified dementia without behavioral disturbance Plan: Secondary to Parkinson's Stable and at baseline per spouse Continue medical management Discharge Planning Likely home with home health care when stable and pending ct removal Lucille Sandhu MD January 31, 2018 11:29
[2018-01-31 12:00] VITALS: BP 89/59; PULSE 80; RESP 18; TEMP 96.9; O2SAT 97
[2018-01-31 16:00] VITALS: BP 123/70; PULSE 75; RESP 18; TEMP 97.8; O2SAT 94
[2018-01-31] MEDS: cefTRIAXone INJ 2,000 MG in SODIUM CHLORIDE 0.9% INJ 100 ML IV SCH (17:36)
--- NOTE | 2018-01-31 18:45 | HHI.PR ---
Subjective Remarks alert no SOB Afebrile chest tube in place no CT drainage today Objective Vital Signs Date Time Temp Pulse Resp B/P (MAP) Pulse Ox O2 Delivery O2 Flow Rate FiO2 01/31/18 16:00 97.8 75 18 123/70 (87) 94 01/31/18 12:00 96.9 80 18 89/59 (69) 97 01/31/18 08:00 95.5 73 16 131/78 (95) 95 01/31/18 00:00 98.7 78 19 145/78 (100) 94 01/30/18 20:00 97.3 71 19 136/69 (91) 94 I/O 01/30/18 01/30/18 01/30/18 01/31/18 01/31/18 01/31/18 07:00 15:00 23:00 07:00 15:00 23:00 Intake Total 1100 ml 1100 ml Output Total 420 ml 0 ml 300 ml 150 ml Balance -420 ml 1100 ml -300 ml 950 ml Intake Oral 900 ml 1100 ml IV Total 200 ml Output Urine Total 400 ml 300 ml 150 ml Chest Tube Drainage Total 20 ml 0 ml 0 ml # Voids 3 7 2 # Bowel Movements 1 2 Result Diagram: 01/29/18 0616 01/29/18 06 Objective Remarks GENERAL: SKIN: Warm and dry. HEAD: Atraumatic. Normocephalic. EYES: Pupils equal and round. No scleral icterus. No injection or drainage. ENT: No nasal bleeding or discharge. Mucous membranes pink and moist. NECK: Trachea midline. No JVD. CARDIOVASCULAR: Regular rate and rhythm. RESPIRATORY: No accessory muscle use. Clear to auscultation. Breath sounds equal bilaterally. GASTROINTESTINAL: Abdomen soft, non-tender, nondistended. Hepatic and splenic margins not palpable. MUSCULOSKELETAL: Extremities without clubbing, cyanosis, or edema. No obvious deformities. NEUROLOGICAL: Awake and alert. No obvious cranial nerve deficits. Motor grossly within normal limits. Five out of 5 muscle strength in the arms and legs. Normal speech. PSYCHIATRIC: Appropriate mood and affect; insight and judgment normal. Assessment and Plan Assessment and Plan impression Empyema Parkinson disease post CT drainage plan will remove Chest tube drainage when drainage stops antibiotic therapy increase activity remove CT AM if no further drainage Ondina Nj MD January 31, 2018 18:45
[2018-01-31 20:00] VITALS: BP 179/83; PULSE 131; RESP 18; TEMP 96.9; O2SAT 94
--- NOTE | 2018-01-31 20:33 | HHI.IDPN ---
Subjective Subjective Remarks ID DR BHARDWAJ he is doing better no complaint of cough. left ct min drainage . plan to dc in am cxr today no new fluid Antibiotics CFTX Past Medical History asbestosis Allergies: Coded Allergies: No Known Allergies (Verified Adverse Reaction, Unknown, 01/19/18) Review of Systems Constitutional Constitutional: Weakness Objective . Vital Signs Date Time Temp Pulse Resp B/P (MAP) Pulse Ox O2 Delivery O2 Flow Rate FiO2 01/31/18 16:00 97.8 75 18 123/70 (87) 94 01/31/18 12:00 96.9 80 18 89/59 (69) 97 01/31/18 08:00 95.5 73 16 131/78 (95) 95 01/31/18 00:00 98.7 78 19 145/78 (100) 94 01/31/18 01/31/18 02/01/18 15:00 23:00 07:00 Intake Total 1200 ml Output Total 150 ml Balance 1050 ml Intake Oral 1100 ml IV Total 100 ml Output Urine Total 150 ml # Voids 2 # Bowel Movements 2 Imaging Last Impressions Chest CT 01/25/18 0000 Signed Impressions: Service Date/Time: Thursday, January 25, 2018 12:47 - CONCLUSION: 1. Successful drainage of left posterior pleural fluid and air collection. 2. Focal alveolar consolidation involving the left lower lobe consistent with pneumonia and/or atelectasis. 3. Calcific pleural plaques bilaterally suggestive of probable asbestos-related pleural disease. 4. Coronary artery calcifications. 5. Degenerative changes and scoliosis of the thoracic spine. Abelino Taylor MD Chest X-Ray 01/23/18 0000 Signed Impressions: Service Date/Time: Tuesday, January 23, 2018 09:48 - CONCLUSION: Interval placement of small bore left-sided chest tube over the left lung base. Abnormal opacity remains in this area with decrease in the previously noted gas collection. Jose De Oliveira MD Chest Tube Insertion 01/22/18 0930 Signed Impressions: Service Date/Time: Monday, January 22, 2018 10:02 - CONCLUSION: Uncomplicated chest tube placement as above. Frank Reynolds MD Head CT 01/19/18 1021 Signed Impressions: Service Date/Time: January 11:09 - CONCLUSION: No acute intracranial disease. Matt Morales MD Cervical Spine CT 01/19/18 1021 Signed Impressions: Service Date/Time: January 11:09 - CONCLUSION: Advanced multilevel degenerative changes. No fracture. Matt Morales MD Physical Exam CONSTITUTIONAL/GENERAL: This is an adequately nourished patient, in no apparent distress. TUBES/LINES/DRAINS: SKIN: No jaundice, rashes, or lesions. Skin temperature appropriate. Not diaphoretic. CARDIOVASCULAR: Regular rate and rhythm without murmurs, gallops, or rubs. No JVD. Peripheral pulses symmetric. RESPIRATORY/CHEST: Symmetric, unlabored respirations. Clear to auscultation. Breath sounds equal bilaterally. Diminished BS on R base CT inplace with serosang dc GASTROINTESTINAL: Abdomen soft, non-tender, . No guarding. Bowel sounds present. GENITOURINARY: Without palpable bladder distension. MUSCULOSKELETAL: Extremities without clubbing, cyanosis, or edema. No joint tenderness or effusion noted. No calf tenderness. No mottling or clubbing. LYMPHATICS: No palpable cervical or supraclavicular adenopathy. NEUROLOGICAL: Awake and alert. Motor and sensory grossly within normal limits. Follows commands. . Moves all extremitiesr PSYCHIATRIC: No obvious anxiety/depression. no apparent hallucinations or other psychotic thought process. Assessment & Plan Remarks L pleural empyema, viridans strep sp drainage, CT placement Pleural changes cw asbestosis cont Rocephin for now - once CT is d/c'd will review 24 hr f/u CXR; if reaccumulates will consult CT surgery will dw Dr Nj Discussed Condition With Tana Pickard [facility] January 31, 2018 20:33
[2018-01-31] MEDS: DONEPEZIL HCL 5 MG TAB PO SCH (20:52)
[2018-02-01 00:08] VITALS: BP 180/76; PULSE 71; RESP 18; TEMP 96.7; O2SAT 96
[2018-02-01] MEDS: HEPARIN SODIUM - SQ 10,000 UNITS/ML VIAL SQ SCH ×3 (05:36→21:21)
[2018-02-01 08:00] VITALS: BP 117/61; PULSE 56; RESP 15; TEMP 97.4; O2SAT 96
[2018-02-01] MEDS: PRAVASTATIN SOD 20 MG TAB PO SCH (08:32)
[2018-02-01] MEDS: CARBIDOPA/LEVODOPA 25 MG/100 MG TAB PO SCH ×2 (08:32→21:20)
[2018-02-01] MEDS: MIDODRINE 5 MG TAB PO SCH ×3 (08:32→17:02)
[2018-02-01] MEDS: ESCITALOPRAM OXALATE 10 MG TAB PO SCH (08:33)
[2018-02-01] MEDS: FLUDROCORTISONE ACETATE 0.1 MG TAB PO SCH (08:33)
[2018-02-01] MEDS: PANTOPRAZOLE SOD 20 MG DELAYED RELEASE TAB PO SCH (08:33)
[2018-02-01] MEDS: DIPYRIDAMOLE/ASPIRIN 200 MG/25 MG CAP PO SCH ×2 (08:34→21:20)
[2018-02-01] MEDS: DROXIDOPA PO SCH ×3 (08:35→17:03)
--- NOTE | 2018-02-01 08:35 | HHI.IDPN ---
Subjective Subjective Remarks Waiting for chest tube to come out today No fever Antibiotics CFTX Past Medical History asbestosis Allergies: Coded Allergies: No Known Allergies (Verified Adverse Reaction, Unknown, 01/19/18) Objective . Vital Signs Date Time Temp Pulse Resp B/P (MAP) Pulse Ox O2 Delivery O2 Flow Rate FiO2 02/01/18 00:08 96.7 71 18 180/76 (110) 96 01/31/18 20:00 96.9 131 18 179/83 (115) 94 01/31/18 16:00 97.8 75 18 123/70 (87) 94 01/31/18 12:00 96.9 80 18 89/59 (69) 97 Imaging Last Impressions Chest CT 01/25/18 0000 Signed Impressions: Service Date/Time: Thursday, January 25, 2018 12:47 - CONCLUSION: 1. Successful drainage of left posterior pleural fluid and air collection. 2. Focal alveolar consolidation involving the left lower lobe consistent with pneumonia and/or atelectasis. 3. Calcific pleural plaques bilaterally suggestive of probable asbestos-related pleural disease. 4. Coronary artery calcifications. 5. Degenerative changes and scoliosis of the thoracic spine. Abelino Taylor MD Chest X-Ray 01/23/18 0000 Signed Impressions: Service Date/Time: Tuesday, January 23, 2018 09:48 - CONCLUSION: Interval placement of small bore left-sided chest tube over the left lung base. Abnormal opacity remains in this area with decrease in the previously noted gas collection. Jose De Oliveira MD Chest Tube Insertion 01/22/18 0930 Signed Impressions: Service Date/Time: Monday, January 22, 2018 10:02 - CONCLUSION: Uncomplicated chest tube placement as above. Frank Reynolds MD Head CT 01/19/18 1021 Signed Impressions: Service Date/Time: January 11:09 - CONCLUSION: No acute intracranial disease. Matt Morales MD Cervical Spine CT 01/19/18 1021 Signed Impressions: Service Date/Time: January 11:09 - CONCLUSION: Advanced multilevel degenerative changes. No fracture. Matt Morales MD Physical Exam CONSTITUTIONAL/GENERAL: This is an adequately nourished patient, in no apparent distress. TUBES/LINES/DRAINS: SKIN: No jaundice, rashes, or lesions. Skin temperature appropriate. Not diaphoretic. CARDIOVASCULAR: Regular rate and rhythm without murmurs, gallops, or rubs. No JVD. Peripheral pulses symmetric. RESPIRATORY/CHEST: Symmetric, unlabored respirations. Clear to auscultation. Breath sounds equal bilaterally. Diminished BS on R base CT inplace with serosang dc GASTROINTESTINAL: Abdomen soft, non-tender, . No guarding. Bowel sounds present. GENITOURINARY: Without palpable bladder distension. MUSCULOSKELETAL: Extremities without clubbing, cyanosis, or edema. No joint tenderness or effusion noted. No calf tenderness. No mottling or clubbing. LYMPHATICS: No palpable cervical or supraclavicular adenopathy. NEUROLOGICAL: Awake and alert. Motor and sensory grossly within normal limits. Follows commands. . Moves all extremitiesr PSYCHIATRIC: No obvious anxiety/depression. no apparent hallucinations or other psychotic thought process. Assessment & Plan Diagnosis: (1) Empyema of left pleural space ICD Codes: J86.9 - Pyothorax without fistula Status: Acute Plan: Chest tube to come out today Continue IV Ceftriaxone for now Follow up on CXR (2) Streptococcus viridans infection ICD Codes: A49.1 - Streptococcal infection, unspecified site Remarks Juanita Dela Cruz MD February 01, 2018 08:35
[2018-02-01] MEDS: SODIUM CHLORIDE 0.9% FLUSH 10 ML FLUSH IV FLUSH SCH ×2 (08:38→21:00)
--- NOTE | 2018-02-01 11:54 | HHI.PR ---
Subjective Remarks Patient seen and evaluated today in follow-up for empyema. Chest tube has minimal output. Patient feels well. Discharge plans discussed the patient for possibly tomorrow Objective Vitals Vital Signs Date Time Temp Pulse Resp B/P (MAP) Pulse Ox O2 Delivery O2 Flow Rate FiO2 02/01/18 08:00 97.4 56 15 117/61 (79) 96 02/01/18 00:08 96.7 71 18 180/76 (110) 96 01/31/18 20:00 96.9 131 18 179/83 (115) 94 01/31/18 16:00 97.8 75 18 123/70 (87) 94 01/31/18 12:00 96.9 80 18 89/59 (69) 97 I/O 01/31/18 01/31/18 01/31/18 02/01/18 02/01/18 02/01/18 07:00 15:00 23:00 07:00 15:00 23:00 Intake Total 1200 ml Output Total 300 ml 150 ml Balance -300 ml 1050 ml Intake Oral 1100 ml IV Total 100 ml Output Urine Total 300 ml 150 ml Chest Tube Drainage Total 0 ml # Voids 2 # Bowel Movements 2 Result Diagram: 01/29/18 0616 01/29/18 0616 Objective Remarks GENERAL: This is a well-nourished, well-developed patient,, eating breakfast CARDIOVASCULAR: A. fib with controlled rate without murmurs, gallops, or rubs. RESPIRATORY: Left-sided chest tube in place, no wheezes appreciated GASTROINTESTINAL: Abdomen soft, non-tender, nondistended. Normal active bowel sounds MUSCULOSKELETAL: Extremities without clubbing, cyanosis, or edema. NEURO: Alert & Oriented x4 to person, place, time, situation. Moves all ext x4 but is still rigid consistent with previous exam A/P Problem List: (1) New onset atrial fibrillation ICD Code: I48.91 - Unspecified atrial fibrillation Status: Acute Plan: A. fib appears to be rate controlled off of medications Patient is a poor candidate to anticoagulate due to frequent falls. Resume Aggrenox (2) Frequent falls ICD Code: R29.6 - Repeated falls Status: Acute Plan: Likely multifactorial due to Parkinson's and orthostatic hypertension Fall precautions Continue PT Improved Likely home with home health care (3) Loculated pleural effusion ICD Code: J90 - Pleural effusion, not elsewhere classified Plan: For chest tube removal today We will follow overnight Follow post removal x-ray Continue dustin Mars (4) Parkinson disease ICD Code: G20 - Parkinson's disease (5) Orthostatic hypotension ICD Code: I95.1 - Orthostatic hypotension Status: Acute (6) Dementia ICD Code: F03.90 - Unspecified dementia without behavioral disturbance Plan: Secondary to Parkinson's Stable and at baseline per spouse Continue medical management Discharge Planning Likely home with home care versus longterm facility. Lucille Sandhu MD February 01, 2018 11:54
[2018-02-01 12:00] VITALS: BP 82/45; PULSE 93; RESP 16; TEMP 96.2; O2SAT 95
--- NOTE | 2018-02-01 13:28 | RADRPT ---
EXAM DATE/TIME: 02/01/2018 13:09 [facility] COMPARISON: CT THORAX W/O CONTRAST, January 30, 2018, 15:35. CHEST SINGLE AP, January 23, 2018, 9:48. INDICATIONS : Post left chest tube removal. MEDICAL HISTORY : Dementia. Parkinsons. Stroke SURGICAL HISTORY : None. ENCOUNTER: Subsequent ACUITY: 2 weeks PAIN SCORE: 0/10 LOCATION: Left chest FINDINGS: The left chest tube is been removed. There appears to be a small residual pneumothorax in the left co stophrenic angle measuring 1.4 cm.. The right lung is clear. There is some atelectasis in the left mulu ng base. There is some elevation of the left hemidiaphragm. Heart size within normal limits. No defin ite pleural effusions. CONCLUSION: Small residual left pneumothorax in the left costophrenic angle measuring 1.4 cm. Lance Currie MD on February 01, 2018 at 13:24 Board Certified Radiologist. This report was verified electronically.
[2018-02-01] MEDS ORDERED: SODIUM CHLORID 0.9% 500 ML INJ 500 ML IV SCH (15:00)
[2018-02-01 16:00] VITALS: BP 128/67; PULSE 71; RESP 16; TEMP 97; O2SAT 97
[2018-02-01] MEDS: cefTRIAXone INJ 2,000 MG in SODIUM CHLORIDE 0.9% INJ 100 ML IV SCH (16:58)
[2018-02-01 20:00] VITALS: BP 175/88; PULSE 59; RESP 20; TEMP 96.2; O2SAT 95
[2018-02-01] MEDS: DONEPEZIL HCL 5 MG TAB PO SCH (21:20)
[2018-02-02] VITALS: BP 163/77; PULSE 62; RESP 20; TEMP 96.8; O2SAT 96
[2018-02-02 04:00] VITALS: BP 153/71; PULSE 61; RESP 20; TEMP 96.5; O2SAT 96
[2018-02-02] MEDS: HEPARIN SODIUM - SQ 10,000 UNITS/ML VIAL SQ SCH ×3 (06:00→21:27)
[2018-02-02 08:00] VITALS: BP 154/75; PULSE 70; RESP 18; TEMP 97.7; O2SAT 96
[2018-02-02] MEDS: DIPYRIDAMOLE/ASPIRIN 200 MG/25 MG CAP PO SCH ×2 (08:11→21:26)
[2018-02-02] MEDS: PANTOPRAZOLE SOD 20 MG DELAYED RELEASE TAB PO SCH (08:11)
[2018-02-02] MEDS: CARBIDOPA/LEVODOPA 25 MG/100 MG TAB PO SCH ×2 (08:12→21:27)
[2018-02-02] MEDS: MIDODRINE 5 MG TAB PO SCH ×3 (08:12→17:27)
[2018-02-02] MEDS: ESCITALOPRAM OXALATE 10 MG TAB PO SCH (08:12)
[2018-02-02] MEDS: FLUDROCORTISONE ACETATE 0.1 MG TAB PO SCH (08:12)
[2018-02-02] MEDS: PRAVASTATIN SOD 20 MG TAB PO SCH (08:12)
[2018-02-02] MEDS: DROXIDOPA PO SCH ×3 (08:13→17:26)
[2018-02-02] MEDS: SODIUM CHLORIDE 0.9% FLUSH 10 ML FLUSH IV FLUSH SCH ×2 (08:15→21:26)
--- NOTE | 2018-02-02 09:40 | RADRPT ---
EXAM DATE/TIME: 02/01/2018 00:00 [facility] COMPARISON: No previous studies available for comparison. INDICATIONS : pleural efussion/empyema DEVICE(S): 1.) Vaseline occlusive dressing PROCEDURE : Chest tube removal. Using aseptic technique the previously placed chest tube was easily removed in one piece and Vaseline gauze and sterile dressing was applied. Chest radiograph is to be obtained. CONCLUSION: Uncomplicated chest tube removal. Josué Metz MD on February 02, 2018 at 9:38 Board Certified Radiologist. This report was verified electronically.
--- NOTE | 2018-02-02 11:57 | RADRPT ---
EXAM DATE/TIME: 02/02/2018 11:12 [facility] COMPARISON: CT THORAX W/O CONTRAST, January 30, 2018, 15:35. CHEST EXPIRATION ONLY, February 01, 2018, 13:09. CHEST PA & LAT, October 11, 2015, 13:07. INDICATIONS : Left side chest pain. Left side chest tube was removed yesterday. MEDICAL HISTORY : Dementia. Parkinsons. Stroke SURGICAL HISTORY : None. ENCOUNTER: Subsequent ACUITY: 1 day PAIN SCORE: 5/10 LOCATION: Bilateral chest FINDINGS: Significant increase in the amount of opacity in the left hemithorax compared to yesterday's post tiff st tube removal exam. On the lateral view, the opacity extends posteriorly to to the upper chest. N o evidence of pneumothorax. Stable elevation of the left hemidiaphragm. The right lung is clear. T he heart is normal in size. CONCLUSION: Increasing left pleural effusion. No pneumothorax seen. Tanner Brown MD on February 02, 2018 at 11:47 Board Certified Radiologist. This report was verified electronically.
[2018-02-02 12:00] VITALS: BP 101/51; PULSE 73; RESP 18; TEMP 97.7; O2SAT 96
--- NOTE | 2018-02-02 12:07 | HHI.PR ---
Subjective Remarks Patient seen and evaluated today post chest tube removal. Some residual fluid and left-sided chest pain with this patient. Objective Vitals Vital Signs Date Time Temp Pulse Resp B/P (MAP) Pulse Ox O2 Delivery O2 Flow Rate FiO2 02/02/18 08:00 97.7 70 18 154/75 (101) 96 02/02/18 04:00 96.5 61 20 153/71 (98) 96 02/02/18 00:00 96.8 62 20 163/77 (105) 96 02/01/18 20:00 96.2 59 20 175/88 (117) 95 02/01/18 16:00 97.0 71 16 128/67 (87) 97 I/O 02/01/18 02/01/18 02/01/18 02/02/18 02/02/18 02/02/18 06:59 14:59 22:59 06:59 14:59 22:59 Intake Total 820 ml 500 ml Output Total 600 ml 150 ml Balance 220 ml 350 ml Intake Oral 820 ml 0 ml IV Total 500 ml Output Urine Total 600 ml 150 ml # Voids 1 1 # Bowel Movements 0 Result Diagram: 01/29/18 0616 01/29/18 0616 Imaging Last Impressions Tunnelled Chest Tube Removal 02/01/18 0000 Signed Impressions: Service Date/Time: Thursday, February 01, 2018 00:00 - CONCLUSION: Uncomplicated chest tube removal. Josué Metz MD Chest X-Ray 02/01/18 0000 Signed Impressions: Service Date/Time: Thursday, February 01, 2018 13:09 - CONCLUSION: Small residual left pneumothorax in the left costophrenic angle measuring 1.4 cm. Lance Currie MD Chest CT 01/30/18 0000 Signed Impressions: Service Date/Time: Tuesday, January 30, 2018 15:35 - CONCLUSION: 1. Small caliber left chest tube with some small amount of residual fluid and consolidation at the left lung base similar to January 25. No new consolidation. 2. Asbestos pleural disease. Clifford Fields MD Chest Tube Insertion 01/22/18 0930 Signed Impressions: Service Date/Time: Monday, January 22, 2018 10:02 - CONCLUSION: Uncomplicated chest tube placement as above. Frank Reynolds MD Head CT 4/19/18 1021 Signed Impressions: Service Date/Time: January 11:09 - CONCLUSION: No acute intracranial disease. Matt Morales MD Cervical Spine CT 01/19/18 1021 Signed Impressions: Service Date/Time: January 11:09 - CONCLUSION: Advanced multilevel degenerative changes. No fracture. Matt Morales MD Objective Remarks GENERAL: This is a well-nourished, well-developed patient,, eating breakfast CARDIOVASCULAR: A. fib with controlled rate without murmurs, gallops, or rubs. RESPIRATORY: Left-sided chest tube in place, no wheezes appreciated GASTROINTESTINAL: Abdomen soft, non-tender, nondistended. Normal active bowel sounds MUSCULOSKELETAL: Extremities without clubbing, cyanosis, or edema. NEURO: Alert & Oriented x4 to person, place, time, situation. Moves all ext x4 but is still rigid consistent with previous exam A/P Problem List: (1) Frequent falls ICD Code: R29.6 - Repeated falls Status: Acute Plan: Likely multifactorial due to Parkinson's and orthostatic hypertension Fall precautions Continue PT (2) Loculated pleural effusion ICD Code: J90 - Pleural effusion, not elsewhere classified Plan: Chest tube removed yesterday after 2 days of 0 output Repeat chest x-ray today does show some residual fluid and the patient has concerning left-sided chest discomfort Continue Antonioepdustin steen We will discuss with pulmonary team (3) Parkinson disease ICD Code: G20 - Parkinson's disease Plan: Stable on home regimen (4) Orthostatic hypotension ICD Code: I95.1 - Orthostatic hypotension Status: Acute (5) Dementia ICD Code: F03.90 - Unspecified dementia without behavioral disturbance Plan: Secondary to Parkinson's Stable and at baseline per spouse Continue medical management Discharge Planning Likely home with home care versus [facility]pc facility. Lucille Sandhu MD February 02, 2018 12:07
--- NOTE | 2018-02-02 14:45 | HHI.PR ---
Subjective Remarks alert no SOB Afebrile chest tube in place no CT drainage today Objective Vital Signs Date Time Temp Pulse Resp B/P (MAP) Pulse Ox O2 Delivery O2 Flow Rate FiO2 02/02/18 12:00 97.7 73 18 101/51 (68) 96 02/02/18 08:00 97.7 70 18 154/75 (101) 96 02/02/18 04:00 96.5 61 20 153/71 (98) 96 02/02/18 00:00 96.8 62 20 163/77 (105) 96 02/01/18 20:00 96.2 59 20 175/88 (117) 95 02/01/18 16:00 97.0 71 16 128/67 (87) 97 I/O 02/01/18 02/01/18 02/01/18 02/02/18 02/02/18 02/02/18 07:00 15:00 23:00 07:00 15:00 23:00 Intake Total 820 ml 500 ml Output Total 600 ml 150 ml Balance 220 ml 350 ml Intake Oral 820 ml 0 ml IV Total 500 ml Output Urine Total 600 ml 150 ml # Voids 1 1 # Bowel Movements 0 Result Diagram: 01/29/18 0616 01/29/18 0616 Objective Remarks GENERAL: SKIN: Warm and dry. HEAD: Atraumatic. Normocephalic. EYES: Pupils equal and round. No scleral icterus. No injection or drainage. ENT: No nasal bleeding or discharge. Mucous membranes pink and moist. NECK: Trachea midline. No JVD. CARDIOVASCULAR: Regular rate and rhythm. RESPIRATORY: No accessory muscle use. Clear to auscultation. Breath sounds equal bilaterally. GASTROINTESTINAL: Abdomen soft, non-tender, nondistended. Hepatic and splenic margins not palpable. MUSCULOSKELETAL: Extremities without clubbing, cyanosis, or edema. No obvious deformities. NEUROLOGICAL: Awake and alert. No obvious cranial nerve deficits. Motor grossly within normal limits. Five out of 5 muscle strength in the arms and legs. Normal speech. PSYCHIATRIC: Appropriate mood and affect; insight and judgment normal. Assessment and Plan Assessment and Plan impression Empyema Parkinson disease ct removed cxray increased effusion plan will remove Chest tube drainage when drainage stops antibiotic therapy increase activity F/U CXRAY REPEAT TC IF NEEDED Ondina Nj MD February 02, 2018 14:45
[2018-02-02] MEDS: cefTRIAXone INJ 2,000 MG in SODIUM CHLORIDE 0.9% INJ 100 ML IV SCH (16:43)
[2018-02-02 17:41] VITALS: BP 105/57; PULSE 73; RESP 20; TEMP 96.5; O2SAT 100
[2018-02-02 20:00] VITALS: BP 158/70; PULSE 69; RESP 20; TEMP 96.4; O2SAT 98
[2018-02-02] MEDS: DONEPEZIL HCL 5 MG TAB PO SCH (21:27)
[2018-02-03] VITALS (7 sets, daily range): BP systolic 114–176; BP diastolic 59–84; PULSE 61–70; RESP 14–20; TEMP 96.1–98.6; O2SAT 94–97
[2018-02-03] MEDS: HEPARIN SODIUM - SQ 10,000 UNITS/ML VIAL SQ SCH ×3 (05:11→21:38)
--- NOTE | 2018-02-03 06:44 | RADRPT ---
EXAM DATE/TIME: 02/03/2018 05:44 [facility] COMPARISON: CT THORAX W/O CONTRAST, January 30, 2018, 15:35. CHEST PA & LAT, February 02, 2018, 11:12. INDICATIONS : Left sided chest pain, difficulty breathing MEDICAL HISTORY : Dementia. Parkinsons. Stroke SURGICAL HISTORY : None. ENCOUNTER: Subsequent ACUITY: 2 days PAIN SCORE: 5/10 LOCATION: Left chest FINDINGS: There is persistent left base consolidation and effusion. Right lung is stable and grossly clear. Car diac contours are unchanged. CONCLUSION: No significant change Foreign Mclaughlin MD on February 03, 2018 at 6:40 Board Certified Radiologist. This report was verified electronically.
[2018-02-03] MEDS: ESCITALOPRAM OXALATE 10 MG TAB PO SCH (08:27)
[2018-02-03] MEDS: MIDODRINE 5 MG TAB PO SCH ×3 (08:27→17:59)
[2018-02-03] MEDS: CARBIDOPA/LEVODOPA 25 MG/100 MG TAB PO SCH ×2 (08:27→21:39)
[2018-02-03] MEDS: FLUDROCORTISONE ACETATE 0.1 MG TAB PO SCH ×2 (08:27→21:39)
[2018-02-03] MEDS: DIPYRIDAMOLE/ASPIRIN 200 MG/25 MG CAP PO SCH ×2 (08:28→21:38)
[2018-02-03] MEDS: PANTOPRAZOLE SOD 20 MG DELAYED RELEASE TAB PO SCH (08:28)
[2018-02-03] MEDS: PRAVASTATIN SOD 20 MG TAB PO SCH (08:28)
[2018-02-03] MEDS: SODIUM CHLORIDE 0.9% FLUSH 10 ML FLUSH IV FLUSH SCH ×2 (08:29→21:39)
[2018-02-03] MEDS: DROXIDOPA PO SCH ×3 (08:29→17:59)
--- NOTE | 2018-02-03 10:26 | HHI.IDPN ---
Subjective Subjective Remarks Chest tube removed Sitting in chair Breathing doing alright No fevers Antibiotics Ceftriaxone Lines Peripheral Past Medical History asbestosis Allergies: Coded Allergies: No Known Allergies (Verified Adverse Reaction, Unknown, 01/19/18) Objective . Vital Signs Date Time Temp Pulse Resp B/P (MAP) Pulse Ox O2 Delivery O2 Flow Rate FiO2 02/03/18 08:00 96.2 69 16 129/65 (86) 96 02/03/18 04:00 97.6 63 20 126/68 (87) 96 02/03/18 00:00 98.6 68 20 176/84 (114) 94 02/02/18 20:00 96.4 69 20 158/70 (99) 98 02/02/18 17:41 96.5 73 20 105/57 (73) 100 02/02/18 12:00 97.7 73 18 101/51 (68) 96 Imaging Last Impressions Chest CT 01/25/18 0000 Signed Impressions: Service Date/Time: Thursday, January 25, 2018 12:47 - CONCLUSION: 1. Successful drainage of left posterior pleural fluid and air collection. 2. Focal alveolar consolidation involving the left lower lobe consistent with pneumonia and/or atelectasis. 3. Calcific pleural plaques bilaterally suggestive of probable asbestos-related pleural disease. 4. Coronary artery calcifications. 5. Degenerative changes and scoliosis of the thoracic spine. Abelino Taylor MD Chest X-Ray 01/23/18 0000 Signed Impressions: Service Date/Time: Tuesday, January 23, 2018 09:48 - CONCLUSION: Interval placement of small bore left-sided chest tube over the left lung base. Abnormal opacity remains in this area with decrease in the previously noted gas collection. Jose De Oliveira MD Chest Tube Insertion 01/22/18 0930 Signed Impressions: Service Date/Time: Monday, January 22, 2018 10:02 - CONCLUSION: Uncomplicated chest tube placement as above. Frank Reynolds MD Head CT 01/19/18 1021 Signed Impressions: Service Date/Time: January 11:09 - CONCLUSION: No acute intracranial disease. Matt Morales MD Cervical Spine CT 01/19/18 1021 Signed Impressions: Service Date/Time: January 11:09 - CONCLUSION: Advanced multilevel degenerative changes. No fracture. Matt Morales MD Physical Exam CONSTITUTIONAL/GENERAL: This is an adequately nourished patient, in no apparent distress. TUBES/LINES/DRAINS: SKIN: No jaundice, rashes, or lesions. Skin temperature appropriate. Not diaphoretic. CARDIOVASCULAR: Regular rate and rhythm without murmurs, gallops, or rubs. No JVD. Peripheral pulses symmetric. RESPIRATORY/CHEST: Symmetric, unlabored respirations. Clear to auscultation. Breath sounds decreased in base GASTROINTESTINAL: Abdomen soft, non-tender, . No guarding. Bowel sounds present. GENITOURINARY: Without palpable bladder distension. MUSCULOSKELETAL: Extremities without clubbing, cyanosis, or edema. No joint tenderness or effusion noted. No calf tenderness. No mottling or clubbing. LYMPHATICS: No palpable cervical or supraclavicular adenopathy. NEUROLOGICAL: Awake and alert. Motor and sensory grossly within normal limits. Follows commands. . Moves all extremities PSYCHIATRIC: No obvious anxiety/depression. no apparent hallucinations or other psychotic thought process. Assessment & Plan Diagnosis: (1) Empyema of left pleural space ICD Codes: J86.9 - Pyothorax without fistula Status: Acute Plan: Continue Ceftriaxone Check CRP Maybe able to change to PO Cefuroxime soon and treat for another 2 weeks (2) Streptococcus viridans infection ICD Codes: A49.1 - Streptococcal infection, unspecified site Remarks Juanita Dela Cruz MD February 03, 2018 10:26
--- NOTE | 2018-02-03 11:33 | HHI.PR ---
Subjective Remarks Patient seen and evaluated today in follow-up for pleural effusion and for orthostatic hypotension. Patient still quite symptomatic with presyncopal episode during physical therapy today. Repeat chest x-ray is stable. Objective Vitals Vital Signs Date Time Temp Pulse Resp B/P (MAP) Pulse Ox O2 Delivery O2 Flow Rate FiO2 02/03/18 08:00 96.2 69 16 129/65 (86) 96 02/03/18 04:00 97.6 63 20 126/68 (87) 96 02/03/18 00:00 98.6 68 20 176/84 (114) 94 02/02/18 20:00 96.4 69 20 158/70 (99) 98 02/02/18 17:41 96.5 73 20 105/57 (73) 100 02/02/18 12:00 97.7 73 18 101/51 (68) 96 I/O 02/02/18 02/02/18 02/02/18 02/03/18 02/03/18 02/03/18 07:00 15:00 23:00 07:00 15:00 23:00 Intake Total 500 ml 60 ml Output Total 150 ml 75 ml Balance 350 ml -75 ml 60 ml Intake Oral 0 ml 60 ml IV Total 500 ml Output Urine Total 150 ml 75 ml # Voids 1 1 3 # Bowel Movements 0 0 0 Imaging Last Impressions Chest X-Ray 02/03/18 0000 Signed Impressions: Service Date/Time: Saturday, February 03, 2018 05:44 - CONCLUSION: No significant change Foreign Mclaughlin MD Tunnelled Chest Tube Removal 02/01/18 0000 Signed Impressions: Service Date/Time: Thursday, February 01, 2018 00:00 - CONCLUSION: Uncomplicated chest tube removal. Josué Metz MD Chest CT 01/30/18 0000 Signed Impressions: Service Date/Time: Tuesday, January 30, 2018 15:35 - CONCLUSION: 1. Small caliber left chest tube with some small amount of residual fluid and consolidation at the left lung base similar to January 25. No new consolidation. 2. Asbestos pleural disease. Clifford Fields MD Chest Tube Insertion 01/22/18 0930 Signed Impressions: Service Date/Time: Monday, January 22, 2018 10:02 - CONCLUSION: Uncomplicated chest tube placement as above. Frank Reynolds MD Head CT 01/19/18 1021 Signed Impressions: Service Date/Time: January 11:09 - CONCLUSION: No acute intracranial disease. Matt Morales MD Cervical Spine CT 01/19/18 1021 Signed Impressions: Service Date/Time: January 11:09 - CONCLUSION: Advanced multilevel degenerative changes. No fracture. Matt Morales MD Objective Remarks GENERAL: This is a well-nourished, well-developed patient without complaints at this time CARDIOVASCULAR: A. fib with controlled rate without murmurs, gallops, or rubs. RESPIRATORY: Left-sided chest tube in place, no wheezes appreciated GASTROINTESTINAL: Abdomen soft, non-tender, nondistended. Normal active bowel sounds MUSCULOSKELETAL: Extremities without clubbing, cyanosis, or edema. NEURO: Alert & Oriented x4 to person, place, time, situation. Much more mobile A/P Problem List: (1) Frequent falls ICD Code: R29.6 - Repeated falls Status: Acute Plan: Likely multifactorial due to Parkinson's and orthostatic hypertension Fall precautions Continue PT (2) Loculated pleural effusion ICD Code: J90 - Pleural effusion, not elsewhere classified Plan: Chest tube removed yesterday after 2 days of 0 output Repeat chest x-ray today does show some residual fluid and the patient has concerning left-sided chest discomfort, if no improvement patient may need a repeat thoracentesis Continue Rocephin, s vridans Check CRP Maybe able to change to PO Cefuroxime soon and treat for another 2 weeks (3) Parkinson disease ICD Code: G20 - Parkinson's disease Plan: Stable on home regimen (4) Orthostatic hypotension ICD Code: I95.1 - Orthostatic hypotension Status: Acute Plan: Patient on fludrocortisone and ProAmatine. Still symptomatic Will increase fludrocortisone to twice daily (5) Dementia ICD Code: F03.90 - Unspecified dementia without behavioral disturbance Plan: Secondary to Parkinson's Stable and at baseline per spouse Continue medical management Discharge Planning Likely home with home care versus retirement facility. Lucille Sandhu MD February 03, 2018 11:33
[2018-02-03] MEDS: cefTRIAXone INJ 2,000 MG in SODIUM CHLORIDE 0.9% INJ 100 ML IV SCH (16:12)
--- NOTE | 2018-02-03 18:30 | HHI.PR ---
Subjective Remarks alert no SOB Afebrile chest tube removed Objective Vital Signs Date Time Temp Pulse Resp B/P (MAP) Pulse Ox O2 Delivery O2 Flow Rate FiO2 02/03/18 16:00 96.4 61 16 172/83 (112) 96 02/03/18 12:00 96.3 70 18 114/59 (77) 97 02/03/18 08:00 96.2 69 16 129/65 (86) 96 02/03/18 04:00 97.6 63 20 126/68 (87) 96 02/03/18 00:00 98.6 68 20 176/84 (114) 94 02/02/18 20:00 96.4 69 20 158/70 (99) 98 I/O 02/02/18 02/02/18 02/02/18 02/03/18 02/03/18 02/03/18 07:00 15:00 23:00 07:00 15:00 23:00 Intake Total 500 ml 60 ml 1440 ml Output Total 150 ml 75 ml 800 ml Balance 350 ml -75 ml 60 ml 640 ml Intake Oral 0 ml 60 ml 1440 ml IV Total 500 ml Output Urine Total 150 ml 75 ml 800 ml # Voids 1 1 3 # Bowel Movements 0 0 0 0 Objective Remarks GENERAL: SKIN: Warm and dry. HEAD: Atraumatic. Normocephalic. EYES: Pupils equal and round. No scleral icterus. No injection or drainage. ENT: No nasal bleeding or discharge. Mucous membranes pink and moist. NECK: Trachea midline. No JVD. CARDIOVASCULAR: Regular rate and rhythm. RESPIRATORY: No accessory muscle use. Clear to auscultation. Breath sounds equal bilaterally. GASTROINTESTINAL: Abdomen soft, non-tender, nondistended. Hepatic and splenic margins not palpable. MUSCULOSKELETAL: Extremities without clubbing, cyanosis, or edema. No obvious deformities. NEUROLOGICAL: Awake and alert. No obvious cranial nerve deficits. Motor grossly within normal limits. Five out of 5 muscle strength in the arms and legs. Normal speech. PSYCHIATRIC: Appropriate mood and affect; insight and judgment normal. Assessment and Plan Assessment and Plan impression Empyema Parkinson disease ct removed cxray today no chamge plan OK for d/c,check CBC am last WBC 3.3 antibiotic therapy, TILL PNA CLEARES increase activity Office 1 week post D/C Ondina Nj MD February 03, 2018 18:30
[2018-02-03] MEDS: DONEPEZIL HCL 5 MG TAB PO SCH (21:39)
[2018-02-04] VITALS: BP 107/60; PULSE 80; RESP 16; TEMP 96; O2SAT 95
[2018-02-04] MEDS: HEPARIN SODIUM - SQ 10,000 UNITS/ML VIAL SQ SCH (05:57)
[2018-02-04 08:00] VITALS: BP 135/69; PULSE 68; RESP 20; TEMP 97.2; O2SAT 96
[2018-02-04] MEDS: DROXIDOPA PO SCH (08:18)
[2018-02-04] MEDS: DIPYRIDAMOLE/ASPIRIN 200 MG/25 MG CAP PO SCH (08:18)
[2018-02-04] MEDS: PANTOPRAZOLE SOD 20 MG DELAYED RELEASE TAB PO SCH (08:19)
[2018-02-04] MEDS: MIDODRINE 5 MG TAB PO SCH (08:19)
[2018-02-04] MEDS: PRAVASTATIN SOD 20 MG TAB PO SCH (08:19)
[2018-02-04] MEDS: CARBIDOPA/LEVODOPA 25 MG/100 MG TAB PO SCH (08:19)
[2018-02-04] MEDS: ESCITALOPRAM OXALATE 10 MG TAB PO SCH (08:19)
[2018-02-04] MEDS: FLUDROCORTISONE ACETATE 0.1 MG TAB PO SCH (08:19)
[2018-02-04] MEDS: SODIUM CHLORIDE 0.9% FLUSH 10 ML FLUSH IV FLUSH SCH (08:27)
[2018-02-04] MEDS ORDERED: FLUD.1 PO (10:42)
[2018-02-04] MEDS ORDERED: CEFU1TAB20 PO (10:42)
--- NOTE | 2018-02-04 10:45 | HHI.DCPOC ---
Discharge Care Plan Diagnosis: (1) Empyema of left pleural space (2) Streptococcus viridans infection (3) Frequent falls (4) Parkinson disease Goals to Promote Your Health * To prevent worsening of your condition and complications * To maintain your health at the optimal level Directions to Meet Your Goals Take your medications as prescribed Follow your dietary instruction Follow activity as directed Keep your appointments as scheduled Take your immunizations and boosters as scheduled If your symptoms worsen call your PCP, if no PCP go to Urgent Care Center or Emergency Room Smoking is Dangerous to Your Health. Avoid second hand smoke Call the 24-hour hour crisis hotline for domestic abuse at Jose Martinez DO February 04, 2018 10:45
--- NOTE | 2018-02-04 10:53 | HHI.DS ---
Discharge Summary Admission Date Jan 19, 2018 at 12:20 Discharge Date: February 04, 2018 Admitting Diagnosis NEW ONSET ATRIAL FIBRILLATION, ORTHOSTATIC HYPOTENSION, FREQUENT FAL (1) Frequent falls ICD Code: R29.6 - Repeated falls Diagnosis: Principal Status: Acute (2) Loculated pleural effusion ICD Code: J90 - Pleural effusion, not elsewhere classified Diagnosis: Principal (3) Parkinson disease ICD Code: G20 - Parkinson's disease Diagnosis: Principal (4) Orthostatic hypotension ICD Code: I95.1 - Orthostatic hypotension Diagnosis: Principal Status: Acute (5) Dementia ICD Code: F03.90 - Unspecified dementia without behavioral disturbance Procedures Thoracentesis Chest tube placement Brief History - From Admission This is a 77-year-old gentleman came to the emergency room after a fall at home. Was recently discharged from the hospital and has been the rehab facility post discharge. He has been home for 2 weeks and per his spouse he has had frequent falls. This morning he was at the bathroom sink and fell backwards. Did not lose consciousness. He has known history of Parkinson's dementia with likely associated orthostatic hypotension. He also has a history of a stroke and is on Aggrenox. He has been in follow-up with Dr. Eisenberg for this. He did come to the emergency room with multiple bruises in various stages of healing and a new laceration on the left forearm. Patient did have imaging done which did not show any acute bony fractures are traumatic injury. Patient's been admitted to the hospital after the emergency room doctor noted at the patient was in atrial fibrillation with a slightly elevated heart rate. This is new per the patient. Heart rate was in the low 100s. Was put this fracture recently the patient was discharged with treatment for empyema and was on Levaquin. He saw his primary care provider recently and an outpatient follow -up for pulmonology was recommended due to CT findings showing persistent left- sided loculated effusion despite antibiotic therapy. Patient appears quite malnourished and dehydrated. His says that he does not eat very much. There have been otherwise no new changes in his medications. He has been home for 2 weeks with his and attempting to regain some independence in his ADLs. For these reasons the patient has been admitted to the hospital for further evaluation and treatment. Imaging Last Impressions Chest X-Ray 02/03/18 0000 Signed Impressions: Service Date/Time: Saturday, February 03, 2018 05:44 - CONCLUSION: No significant change Foreign Mclaughlin MD Tunnelled Chest Tube Removal 02/01/18 0000 Signed Impressions: Service Date/Time: Thursday, February 01, 2018 00:00 - CONCLUSION: Uncomplicated chest tube removal. Josué Metz MD Chest CT 01/30/18 0000 Signed Impressions: Service Date/Time: Tuesday, January 30, 2018 15:35 - CONCLUSION: 1. Small caliber left chest tube with some small amount of residual fluid and consolidation at the left lung base similar to January 25. No new consolidation. 2. Asbestos pleural disease. Clifford Fields MD Chest Tube Insertion 01/22/18 0930 Signed Impressions: Service Date/Time: Monday, January 22, 2018 10:02 - CONCLUSION: Uncomplicated chest tube placement as above. Frank Reynolds MD Head CT 01/19/18 1021 Signed Impressions: Service Date/Time: January 11:09 - CONCLUSION: No acute intracranial disease. Matt Morales MD Cervical Spine CT 01/19/18 1021 Signed Impressions: Service Date/Time: January 11:09 - CONCLUSION: Advanced multilevel degenerative changes. No fracture. Matt Morales MD PE at Discharge GENERAL: This is a well-nourished, well-developed patient without complaints at this time CARDIOVASCULAR: A. fib with controlled rate without murmurs, gallops, or rubs. RESPIRATORY: Left-sided chest tube in place, no wheezes appreciated GASTROINTESTINAL: Abdomen soft, non-tender, nondistended. Normal active bowel sounds MUSCULOSKELETAL: Extremities without clubbing, cyanosis, or edema. NEURO: Alert & Oriented x4 to person, place, time, situation. Much more mobile Pt update on day of discharge The patient was resting comfortably in a chair. He was looking forward to leaving the hospital. He said that he has falls secondary to his condition. He has been eating well. He takes Tylenol as needed. He has a bowel movement every other day. Discussed with nursing. Hospital Course Frequent falls Secondary to Parkinson's and orthostatic hypotension. He was placed on fall precautions and worked with PT. He was continued on his home regimen. His fludrocortisone was increased. Case management was consulted. He will be discharged to a SNF. He will follow up with his PCP and neurologist. Loculated pleural effusion S/p chest tube placement. Pulmonology was consulted. Chest tube was removed. ID was consulted and he was continued on IV ceftriaxone for s viridans. Will change to PO Cefuroxime and treat for another 2 weeks. He will follow up with pulmonology and ID as an outpt. Pt Condition on Discharge: Stable Discharge Disposition: Discharge to SNF Discharge Time: > 30 minutes Discharge Instructions DIET: Follow Instructions for: As Tolerated, No Restrictions Activities you can perform: Weight Bearing as Xi Follow up Referrals: Appointment for Follow Up Infectious Disease - [address] Dela Cruz PCP Follow-up - 1 Week PCP Follow-up Pulmonology - 1 Week with Ondina Nj MD Pulmonology New Medications: Cefuroxime (Cefuroxime) 500 Mg Tab 500 MG PO BID for Infection for 14 Days, #28 TAB 0 Refills Fludrocortisone (Fludrocortisone) 0.1 Mg Tab 0.1 MG PO BID for Orthostasis, #60 TAB Continued Medications: Dipyridamole-Aspirin (Aggrenox) 200-25 Mg Cap 1 CAP PO BID for Prevent Blood Clot, #60 CAP 0 Refills Docusate Sodium (Stool Softener) 100 Mg Cap 1 TAB PO DAILY PRN for constipation Donepezil (Donepezil) 10 Mg Tab 10 MG PO HS for Dementia, #30 TAB 0 Refills Droxidopa (Northera) 300 Mg Cap 600 MG PO TID Entacapone (Comtan) 200 Mg Tab 200 MG PO TID for Parkinson Disease Mgmt, #120 TAB 0 Refills administered concomitantly with each levodopa/carbidopa dose Escitalopram (Escitalopram) 10 Mg Tab 10 MG PO DAILY, #30 TAB 0 Refills Melatonin (Melatonin) 5 Mg Tab 5 MG PO HS for Provide Good Sleep, TAB 0 Refills Midodrine (Midodrine) 10 Mg Tab 10 MG PO TID PRN for SYMPTOMATIC HYPOTENSION, #90 TAB 0 Refills Omeprazole (Omeprazole) 20 Mg Tab 20 MG PO DAILY, #30 TAB 0 Refills Pravastatin (Pravastatin) 20 Mg Tab 20 MG PO DAILY for Cholesterol Management, #30 TAB 0 Refills Rasagiline (Azilect) 1 Mg Tab 1 MG PO DAILY [Carbidopa-Levodopa 25-100 Mg] () 1 TAB TAB 1 TAB PO Q12HR for Parkinson for 30 Days, TAB Discontinued Medications: Fludrocortisone (Fludrocortisone) 0.1 Mg Tab 0.1 MG PO DAILY for Orthostasis for 30 Days, #30 TAB Levofloxacin (Levaquin) 750 Mg Tablet 750 MG PO DAILY for Infection for 5 Days, #5 TAB Jose Martinez DO February 04, 2018 10:53
[2018-02-04 11:38] VITALS: O2SAT 98
[2018-02-04 12:00] VITALS: BP 160/80; PULSE 52; RESP 19; TEMP 96.9; O2SAT 96
== END 2018-02-04 12:39 | DRG 308 ==
LOC: PHED 10:02 → PHEDA 12:20 → PH3A 12:55 → PHICU 01-22 13:33 → PH3B 01-25 13:23
PROVIDERS: ADMIT Hospitalist; ATTEND Hospitalist
PROC: 0W9B30Z Drainage of Left Pleural Cavity with Drainage Device, Percutaneous Approach (ICD-10-PCS; principal; 2018-01-22)
PROC: 0BJ08ZZ Inspection of Tracheobronchial Tree, Via Natural or Artificial Opening Endoscopic (ICD-10-PCS; 2018-01-23)
DX: I48.91 Unspecified atrial fibrillation (principal); J86.0 Pyothorax with fistula; J90 Pleural effusion, not elsewhere classified; E44.0 Moderate protein-calorie malnutrition; N17.9 Acute kidney failure, unspecified; G20 Parkinson's disease; E86.0 Dehydration; D69.6 Thrombocytopenia, unspecified; M62.50 Muscle wasting and atrophy, not elsewhere classified, unspecified site; F02.80 Dementia in other diseases classified elsewhere, unspecified severity, without behavioral disturbance, psychotic disturbance, mood disturbance, and anxiety; I95.1 Orthostatic hypotension; S51.812A Laceration without foreign body of left forearm, initial encounter; W01.0XXA Fall on same level from slipping, tripping and stumbling without subsequent striking against object, initial encounter; Y93.01 Activity, walking, marching and hiking; Y92.002 Bathroom of unspecified non-institutional (private) residence as the place of occurrence of the external cause; R29.6 Repeated falls; Z86.73 Personal history of transient ischemic attack (TIA), and cerebral infarction without residual deficits; Z87.11 Personal history of peptic ulcer disease; J61 Pneumoconiosis due to asbestos and other mineral fibers; Z96.651 Presence of right artificial knee joint; B95.4 Other streptococcus as the cause of diseases classified elsewhere
CPT/HCPCS: 32557; 70450; 71045; 71046; 71250; 72125; 80048; 80053; 81001; 83735; 83880; 84443; 84484; 85025; 85610; 85730; 87070; 87205; 93005; 94150; 96360; 96361; C1729; C1769; J0696; J1644; J1885; J1956; J2250; J3010; J7030; J7040; J7120